=== PATIENT | male | born 1950 | race Caucasian/White ===

== ENCOUNTER 2016-02-11 05:36 | Day surgery (SDC) | payer BC ==
[2016-02-04 13:53] VITALS: BMI 25.7
[2016-02-11] MEDS ORDERED: KETAMINE HCL 500 MG/10 ML VIAL ONE (07:09)
[2016-02-11 08:08] VITALS: TEMP 98.9
[2016-02-11 08:30] VITALS: BP 138/62; PULSE 72
[2016-02-11] MEDS ORDERED: LACTATED RINGERS SOLUTION 1,000 ML IV SCH (08:45)
== END 2016-02-11 08:53 | disposition home or self-care (01) ==
LOC: FECT 05:36
PROVIDERS: ATTEND Psychiatry & Neurology Psychiatry
PROC: GZB4ZZZ Other Electroconvulsive Therapy (ICD-10-PCS; principal; 2016-02-11 07:30)
DX: F33.1 Major depressive disorder, recurrent, moderate (principal)
CPT/HCPCS: 90870; 94760

== ENCOUNTER 2016-02-25 05:40 | Day surgery (SDC) | payer BC ==
[2016-02-18 11:30] VITALS: BMI 25.7
--- NOTE | 2016-02-25 06:46 | HP ---
Admitting History and Physical - Admission History of Present Illness: patient is a 65 y/o male with a past medical history of depression and HTN. Patient presents for ECT, his last ECT was 02/10/15. He reports feeling well. He reports an improvement in depressive symptoms since starting ECT. He denies any recent medication changes illness or hospitalizations. History Source: Patient Limitations to Obtaining History: No Limitations - Past Medical History Cardiovascular: Yes: HTN Psych: Yes: Depression - Smoking History Smoking history: Former smoker Have you smoked in the past 12 months: No Aproximately how many cigarettes per day: 0 If you are a former smoker, when did you quit?: 1974 - Alcohol/Substance Use Hx Alcohol Use: Yes (2-3 WKLY) History of Substance Use: reports: None - Social History Usual Living Arrangement: Yes: With Spouse ADL: Independent History of Recent Travel: No Home Medications - Allergies Allergies/Adverse Reactions: Allergies Allergy/AdvReac Type Severity Reaction Status Date / Time clarithromycin [From Biaxin] Allergy Intermediate Hives Verified 12/13/15 06:41 Penicillins Allergy Unknown UNKNOWN-REACTION Verified 12/13/15 06:41 CHILD - Home Medications Home Medications: Ambulatory Orders BUPROPion HCL "SR" [Wellbutrin Sr -] 450 mg PO DAILY 10/25/13 Lamotrigine [Lamictal] 400 mg PO HS 10/25/13 Alprazolam [Xanax] 0.5 mg PO BID PRN 11/17/13 Ropinirole HCl [Requip Xl] 6 mg PO DAILY 12/21/14 Amlodipine Besylate 5 mg PO DAILY 12/12/15 Aspirin [ASA -] 81 mg PO DAILY 12/12/15 Atorvastatin Ca [Lipitor] 10 mg PO DAILY 12/12/15 Gabapentin Enacarbil [Horizant] 600 mg PO HS 12/12/15 Losartan/Hydrochlorothiazide [Losartan-Hctz 100-25 mg Tab] 1 each PO DAILY 12/11 Family Disease History - Family Disease History Family Disease History: [place]: Father (dies of [place]) Review of Systems - Review of Systems Constitutional: reports: No Symptoms Eyes: reports: No Symptoms HENT: reports: No Symptoms Neck: reports: No Symptoms Cardiovascular: reports: No Symptoms Respiratory: reports: No Symptoms Gastrointestinal: reports: No Symptoms Genitourinary: reports: No Symptoms Musculoskeletal: reports: No Symptoms Integumentary: reports: No Symptoms Neurological: reports: No Symptoms Endocrine: reports: No Symptoms Hematology/Lymphatic: reports: No Symptoms Psychiatric: reports: No Symptoms Physical Examination Vital Signs: Vital Signs Temperature 98.3 F 02/25/16 06:20 Pulse Rate 72 02/25/16 06:20 Respiratory Rate 16 02/25/16 06:20 Blood Pressure 117/66 02/25/16 06:20 O2 Sat by Pulse Oximetry (%) 96 02/25/16 06:20 Constitutional: Yes: Well Nourished, No Distress, Calm Eyes: Yes: WNL, Conjunctiva Clear, EOM Intact HENT: Yes: WNL, Atraumatic, Normocephalic Neck: Yes: WNL, Supple, Trachea Midline Cardiovascular: Yes: WNL, Regular Rate and Rhythm, S1, S2 Respiratory: Yes: WNL, Regular, CTA Bilaterally Gastrointestinal: Yes: WNL, Normal Bowel Sounds, Soft ...Rectal Exam: Yes: Deferred Renal/: No: CVA Tenderness - Left, CVA Tenderness - Right Musculoskeletal: Yes: WNL Extremities: Yes: WNL Edema: No Peripheral Pulses WNL: Yes Peripheral Pulses: Left Radial: 4+, Right Radial: 4+, Left Doralis Pedis: 3+, Right Dorsalis Pedis: 3+, Left Femoral: 3+, Right Femoral: 3+ Integumentary: Yes: WNL Neurological: Yes: WNL, Alert, Oriented ...Motor Strength: WNL Psychiatric: Yes: WNL, Alert, Oriented Labs: reviewed 12/24 Imaging - Results EKG: Image Reviewed, Other (nsr no ischemic changes) Assessment/Plan pt is a 65 y/o male that presents for ECT, pt has received ECT in the past and denies any reaction to anesthesia. labs and ekg reviewed pt is low risk for ECT informed consent, risks and benefits to be obtained by Dr Brock.
[2016-02-25] MEDS ORDERED: KETAMINE HCL 500 MG/10 ML VIAL ONE (07:54)
[2016-02-25] MEDS ORDERED: LACTATED RINGERS SOLUTION 1,000 ML IV SCH (08:15)
[2016-02-25 08:59] VITALS: BP 128/68; PULSE 76; TEMP 97.6
--- NOTE | 2016-02-25 16:16 | EKG ---
Test Reason : Blood Pressure : / mmHG Vent. Rate : 073 BPM Atrial Rate : 073 BPM P-R Int : 154 ms QRS Dur : 096 ms QT Int : 388 ms P-R-T Axes : 051 006 033 degrees QTc Int : 427 ms NORMAL SINUS RHYTHM NORMAL ECG NO PREVIOUS ECGS AVAILABLE Confirmed by RIVKA ADAMES, MARLENI ([id number]) on 02/25/2016 4:16:04 PM Referred By: Jose G Brock Confirmed By:MARLENI TINEO MD
== END 2016-02-25 09:25 | disposition home or self-care (01) ==
LOC: FECT 05:40
PROVIDERS: ATTEND Psychiatry & Neurology Psychiatry
PROC: GZB4ZZZ Other Electroconvulsive Therapy (ICD-10-PCS; principal; 2016-02-25 07:15)
DX: F33.1 Major depressive disorder, recurrent, moderate (principal)
CPT/HCPCS: 90870; 93005; 94760

== ENCOUNTER 2016-03-12 05:39 | Day surgery (SDC) | payer BC ==
[2016-03-11 10:16] VITALS: BMI 25.7
[2016-03-12] MEDS ORDERED: KETAMINE HCL 500 MG/10 ML VIAL ONE (07:38)
[2016-03-12 08:26] VITALS: TEMP 98.2
[2016-03-12 10:47] VITALS: BP 123/84; PULSE 86
== END 2016-03-12 09:15 | disposition home or self-care (01) ==
LOC: FECT 05:39
PROVIDERS: ATTEND Psychiatry & Neurology Psychiatry
PROC: GZB4ZZZ Other Electroconvulsive Therapy (ICD-10-PCS; principal; 2016-03-12 08:45)
DX: F33.1 Major depressive disorder, recurrent, moderate (principal)
CPT/HCPCS: 90870; 94760

== ENCOUNTER 2016-03-24 06:06 | Day surgery (SDC) | payer BC ==
[2016-03-17 12:52] VITALS: BMI 25.7
[2016-03-24] MEDS ORDERED: KETAMINE HCL 500 MG/10 ML VIAL ONE (07:14)
[2016-03-24 09:00] VITALS: TEMP 97.6
[2016-03-24 09:02] VITALS: BP 116/60; PULSE 64
== END 2016-03-24 09:04 | disposition home or self-care (01) ==
LOC: FECT 06:06
PROVIDERS: ATTEND Psychiatry & Neurology Psychiatry
PROC: GZB4ZZZ Other Electroconvulsive Therapy (ICD-10-PCS; principal; 2016-03-24 08:00)
DX: F33.2 Major depressive disorder, recurrent severe without psychotic features (principal)
CPT/HCPCS: 90870; 94760

== ENCOUNTER 2016-04-08 05:43 | Day surgery (SDC) | payer BC ==
[2016-04-01 09:21] VITALS: BMI 25.7
--- NOTE | 2016-04-08 06:50 | HP ---
Admitting History and Physical - Admission History of Present Illness: patient is a 65 y/o male with a past medical history of depression and hypertension. patient presents for ECT, his last ECT was 03/24/16. he reports feeling well and reports an improvement in depressive symptoms since starting ECt. he denies any recent medication change, illness or hospitalizations. patient denies any suicidal or homicidal ideation, visual or auditory hallucination. History Source: Patient Limitations to Obtaining History: No Limitations - Past Medical History Cardiovascular: Yes: HTN Psych: Yes: Depression - Smoking History Smoking history: Former smoker Have you smoked in the past 12 months: No Aproximately how many cigarettes per day: 0 If you are a former smoker, when did you quit?: 1974 - Alcohol/Substance Use Hx Alcohol Use: Yes (2-3 WKLY) History of Substance Use: reports: None - Social History Usual Living Arrangement: Yes: Alone, With Spouse ADL: Independent History of Recent Travel: No Home Medications - Allergies Allergies/Adverse Reactions: Allergies Allergy/AdvReac Type Severity Reaction Status Date / Time clarithromycin [From Biaxin] Allergy Intermediate Hives Verified 12/13/15 06:41 Penicillins Allergy Unknown UNKNOWN-REACTION Verified 12/13/15 06:41 CHILD - Home Medications Home Medications: Ambulatory Orders BUPROPion HCL "SR" [Wellbutrin Sr -] 450 mg PO DAILY 10/25/13 Lamotrigine [Lamictal] 400 mg PO HS 10/25/13 Alprazolam [Xanax] 0.5 mg PO BID PRN 11/17/13 Ropinirole HCl [Requip Xl] 6 mg PO DAILY 12/21/14 Amlodipine Besylate 5 mg PO DAILY 12/12/15 Aspirin [ASA -] 81 mg PO DAILY 12/12/15 Atorvastatin Ca [Lipitor] 10 mg PO DAILY 12/12/15 Gabapentin Enacarbil [Horizant] 600 mg PO HS 12/12/15 Losartan/Hydrochlorothiazide [Losartan-Hctz 100-25 mg Tab] 1 each PO DAILY 12/11 Family Disease History - Family Disease History Family History: Unremarkable Family Disease History: [place]: Father (dies of [place]) Review of Systems - Review of Systems Constitutional: reports: No Symptoms Eyes: reports: No Symptoms HENT: reports: No Symptoms Neck: reports: No Symptoms Cardiovascular: reports: No Symptoms Respiratory: reports: No Symptoms Gastrointestinal: reports: No Symptoms Genitourinary: reports: No Symptoms Breasts: reports: No Symptoms Reported Musculoskeletal: reports: No Symptoms Integumentary: reports: No Symptoms Neurological: reports: No Symptoms Endocrine: reports: No Symptoms Hematology/Lymphatic: reports: No Symptoms Psychiatric: reports: No Symptoms Physical Examination Vital Signs: Vital Signs Temperature 98.3 F 04/08/16 06:21 Pulse Rate 76 04/08/16 06:21 Respiratory Rate 18 04/08/16 06:21 Blood Pressure 127/68 04/08/16 06:21 O2 Sat by Pulse Oximetry (%) 97 04/08/16 06:21 Constitutional: Yes: Well Nourished, No Distress, Calm Eyes: Yes: WNL, Conjunctiva Clear, EOM Intact HENT: Yes: WNL, Atraumatic, Normocephalic Neck: Yes: WNL, Supple, Trachea Midline Cardiovascular: Yes: WNL, Regular Rate and Rhythm, S1, S2 Respiratory: Yes: WNL, Regular, CTA Bilaterally Gastrointestinal: Yes: WNL, Normal Bowel Sounds, Soft ...Rectal Exam: Yes: Deferred Renal/: Yes: WNL Breast(s): Yes: WNL Musculoskeletal: Yes: WNL Extremities: Yes: WNL Edema: No Peripheral Pulses WNL: Yes Peripheral Pulses: Left Radial: 4+, Right Radial: 4+, Left Doralis Pedis: 3+, Right Dorsalis Pedis: 3+, Left Femoral: 3+, Right Femoral: 3+ Integumentary: Yes: WNL Neurological: Yes: WNL, Alert, Oriented ...Motor Strength: WNL Psychiatric: Yes: WNL, Alert, Oriented Labs: reviewed 12/24 Imaging - Results EKG: Report Reviewed, Image Reviewed, Other (nsr normal axis, no ischemic changes) Assessment/Plan pt is a 65 y/o male that presents for ECT, he has received ECT in the past and denies any adverse reaction to anesthesia labs and ekg reviewed pt is low risk for ECT informed consent, risks/benefits to be obtained by Dr Brock
[2016-04-08] MEDS ORDERED: ONDANSETRON 4 MG/2 ML VIAL IVPUSH PRN (07:00)
[2016-04-08] MEDS ORDERED: LACTATED RINGERS SOLUTION 1,000 ML IV SCH (07:00)
[2016-04-08] MEDS ORDERED: KETAMINE HCL 500 MG/10 ML VIAL ONE (07:15)
[2016-04-08 08:56] VITALS: TEMP 97.5
[2016-04-08 09:10] VITALS: BP 130/66; PULSE 76
== END 2016-04-08 09:15 | disposition home or self-care (01) ==
LOC: FECT 05:43
PROVIDERS: ATTEND Psychiatry & Neurology Psychiatry
PROC: GZB4ZZZ Other Electroconvulsive Therapy (ICD-10-PCS; principal; 2016-04-08 07:00)
DX: F33.2 Major depressive disorder, recurrent severe without psychotic features (principal)
CPT/HCPCS: 90870; 94760

== ENCOUNTER → 2016-04-22 | Day surgery (SDC) | payer BC ==
[2016-04-13 10:13] VITALS: BMI 25.7
[~2016-04-22] MED LIST: ACETAMINOPHEN 325 MG TABLET (FP) PO PRN; KETAMINE HCL 500 MG/10 ML VIAL ONE; ONDANSETRON 4 MG/2 ML VIAL IVPUSH PRN
[2016-04-22 08:39] VITALS: BP 133/64; TEMP 98.5
[2016-04-22 08:40] VITALS: PULSE 68
== END | disposition home or self-care (01) ==
LOC: FECT 05:39
PROVIDERS: ATTEND Psychiatry & Neurology Psychiatry
PROC: GZB4ZZZ Other Electroconvulsive Therapy (ICD-10-PCS; principal; 2016-04-22 08:00)
DX: F33.2 Major depressive disorder, recurrent severe without psychotic features (principal)
CPT/HCPCS: 90870; 94760

== ENCOUNTER 2016-05-12 05:35 | Day surgery (SDC) | payer BC ==
[2016-04-22 08:51] VITALS: BMI 25.7
--- NOTE | 2016-05-12 07:12 | HP ---
Admitting History and Physical - Admission History of Present Illness: patient is a 65y/o male with a past medical history of depression and hypertension that presents for ECT. His last ECT was 04/22/16. He reports a recent URI, that is resolved, however, he reports residual cough. Patient denies any chest pain or shortness of breath. patient denies any recent medication changes. He reports compliance with prescribed medication. He reports an improvement in depressive symptoms since starting ECT. patient denies any suicidal or homicidal ideation, visual or auditory hallucination. History Source: Patient Limitations to Obtaining History: No Limitations - Past Medical History Cardiovascular: Yes: HTN Psych: Yes: Depression - Smoking History Smoking history: Former smoker Have you smoked in the past 12 months: No Aproximately how many cigarettes per day: 0 If you are a former smoker, when did you quit?: 1974 - Alcohol/Substance Use Hx Alcohol Use: Yes (2-3 WKLY) History of Substance Use: reports: None - Social History Usual Living Arrangement: Yes: With Spouse ADL: Independent History of Recent Travel: No Home Medications - Allergies Allergies/Adverse Reactions: Allergies Allergy/AdvReac Type Severity Reaction Status Date / Time clarithromycin [From Biaxin] Allergy Intermediate Hives Verified 04/22/16 08:47 Penicillins Allergy Unknown UNKNOWN-REACTION Verified 04/22/16 08:47 CHILD - Home Medications Home Medications: Ambulatory Orders BUPROPion HCL "SR" [Wellbutrin Sr -] 450 mg PO DAILY 10/25/13 Lamotrigine [Lamictal] 400 mg PO HS 10/25/13 Alprazolam [Xanax] 0.5 mg PO BID PRN 11/17/13 Ropinirole HCl [Requip Xl] 6 mg PO DAILY 12/21/14 Amlodipine Besylate 5 mg PO DAILY 12/12/15 Aspirin [ASA -] 81 mg PO DAILY 12/12/15 Atorvastatin Ca [Lipitor] 10 mg PO DAILY 12/12/15 Gabapentin Enacarbil [Horizant] 600 mg PO HS 12/12/15 Losartan/Hydrochlorothiazide [Losartan-Hctz 100-25 mg Tab] 1 each PO DAILY 12/11 Family Disease History - Family Disease History Family Disease History: [place]: Father (dies of [place]) Review of Systems - Review of Systems Constitutional: reports: No Symptoms Eyes: reports: No Symptoms HENT: reports: No Symptoms Neck: reports: No Symptoms Cardiovascular: reports: No Symptoms Respiratory: reports: Other (resolving URI) Gastrointestinal: reports: No Symptoms Genitourinary: reports: No Symptoms Musculoskeletal: reports: No Symptoms Integumentary: reports: No Symptoms Neurological: reports: No Symptoms Endocrine: reports: No Symptoms Hematology/Lymphatic: reports: No Symptoms Psychiatric: reports: No Symptoms Physical Examination Vital Signs: Vital Signs Temperature 98.5 F 05/12/16 06:39 Pulse Rate 86 05/12/16 06:39 Respiratory Rate 18 05/12/16 06:39 Blood Pressure 122/58 05/12/16 06:39 O2 Sat by Pulse Oximetry (%) 98 05/12/16 06:39 Constitutional: Yes: Well Nourished, No Distress, Calm Eyes: Yes: WNL, Conjunctiva Clear, EOM Intact HENT: Yes: WNL, Atraumatic, Normocephalic Neck: Yes: WNL, Supple, Trachea Midline Cardiovascular: Yes: WNL, Regular Rate and Rhythm Respiratory: Yes: WNL, Regular, CTA Bilaterally Gastrointestinal: Yes: WNL, Normal Bowel Sounds, Soft ...Rectal Exam: Yes: Deferred Renal/: Yes: WNL Musculoskeletal: Yes: WNL Extremities: Yes: WNL Edema: No Peripheral Pulses WNL: Yes Peripheral Pulses: Left Radial: 4+, Right Radial: 4+, Left Doralis Pedis: 3+, Right Dorsalis Pedis: 3+, Left Femoral: 3+, Right Femoral: 3+ Integumentary: Yes: WNL Neurological: Yes: WNL, Alert, Oriented ...Motor Strength: WNL Psychiatric: Yes: WNL, Alert, Oriented Labs: reviewed 12/24 Imaging - Results EKG: Image Reviewed, Other (nsr no ischemic changes) Assessment/Plan patient is 65 y/o male that presents for ECT, labs and ekg reviewed, pt has received anesthesia in the past and denies any adverse reaction pt is low risk for procedure informed consent and risks/benefits to be obtained by Dr Brock
[2016-05-12] MEDS ORDERED: KETAMINE HCL 500 MG/10 ML VIAL ONE (07:37)
[2016-05-12] MEDS ORDERED: LACTATED RINGERS SOLUTION 1,000 ML IV SCH (08:15)
[2016-05-12 08:40] VITALS: TEMP 98.9
[2016-05-12 08:58] VITALS: BP 108/61; PULSE 71
== END 2016-05-12 09:10 | disposition home or self-care (01) ==
LOC: FECT 05:35
PROVIDERS: ATTEND Psychiatry & Neurology Psychiatry
PROC: GZB4ZZZ Other Electroconvulsive Therapy (ICD-10-PCS; principal; 2016-05-12 07:00)
DX: F33.2 Major depressive disorder, recurrent severe without psychotic features (principal)
CPT/HCPCS: 90870; 94760

== ENCOUNTER 2016-06-02 05:42 | Day surgery (SDC) | payer BC ==
[2016-06-02 06:11] VITALS: TEMP 98.5; BMI 26.4
[2016-06-02 08:25] VITALS: BP 115/60; PULSE 63
== END 2016-06-02 09:20 | disposition home or self-care (01) ==
LOC: FECT 05:42
PROVIDERS: ATTEND Psychiatry & Neurology Psychiatry
PROC: GZB4ZZZ Other Electroconvulsive Therapy (ICD-10-PCS; principal; 2016-06-02 07:00)
DX: F33.2 Major depressive disorder, recurrent severe without psychotic features (principal)
CPT/HCPCS: 90870; 94760

== ENCOUNTER 2016-06-25 05:23 | Day surgery (SDC) | payer BC ==
[2016-06-15 14:18] VITALS: BMI 26.4
--- NOTE | 2016-06-25 06:56 | HP ---
Admitting History and Physical - Admission Chief Complaint: ect History of Present Illness: patient is a 65 y/o male with depression and hypertension. patient presents for ECT, his last ECT was 06/02/17. Patient reports feeling well, he denies any changes to medications. patient reports an improvement in depressive symptoms since starting ECT. He denies any illness or hospitalizations. Patient denies any suicidal or homicidal ideation, visual or auditory hallucinations. History Source: Patient Limitations to Obtaining History: No Limitations - Past Medical History Cardiovascular: Yes: HTN Psych: Yes: Depression - Smoking History Smoking history: Former smoker Have you smoked in the past 12 months: No Aproximately how many cigarettes per day: 0 If you are a former smoker, when did you quit?: 1974 - Alcohol/Substance Use Hx Alcohol Use: Yes (2-3 WKLY) History of Substance Use: reports: None - Social History ADL: Independent History of Recent Travel: No Home Medications - Allergies Allergies/Adverse Reactions: Allergies Allergy/AdvReac Type Severity Reaction Status Date / Time clarithromycin [From Biaxin] Allergy Intermediate Hives Verified 04/22/16 08:47 Penicillins Allergy Unknown UNKNOWN-REACTION Verified 04/22/16 08:47 CHILD - Home Medications Home Medications: Ambulatory Orders BUPROPion HCL "SR" [Wellbutrin Sr -] 450 mg PO DAILY 10/25/13 Lamotrigine [Lamictal] 400 mg PO HS 10/25/13 Alprazolam [Xanax] 0.5 mg PO BID PRN 11/17/13 Ropinirole HCl [Requip Xl] 6 mg PO DAILY 12/21/14 Amlodipine Besylate 5 mg PO DAILY 12/12/15 Aspirin [ASA -] 81 mg PO DAILY 12/12/15 Atorvastatin Ca [Lipitor] 10 mg PO DAILY 12/12/15 Gabapentin Enacarbil [Horizant] 600 mg PO HS 12/12/15 Losartan/Hydrochlorothiazide [Losartan-Hctz 100-25 mg Tab] 1 each PO DAILY 12/11 Family Disease History - Family Disease History Family Disease History: [place]: Father (dies of [place]) Review of Systems - Review of Systems Constitutional: reports: No Symptoms Eyes: reports: No Symptoms HENT: reports: No Symptoms Neck: reports: No Symptoms Cardiovascular: reports: No Symptoms Respiratory: reports: No Symptoms Gastrointestinal: reports: No Symptoms Genitourinary: reports: No Symptoms Musculoskeletal: reports: No Symptoms Integumentary: reports: No Symptoms Neurological: reports: No Symptoms Endocrine: reports: No Symptoms Hematology/Lymphatic: reports: No Symptoms Psychiatric: reports: No Symptoms Physical Examination Constitutional: Yes: Well Nourished, No Distress, Calm Eyes: Yes: WNL, Conjunctiva Clear, EOM Intact HENT: Yes: WNL, Atraumatic, Normocephalic Neck: Yes: WNL, Supple, Trachea Midline Cardiovascular: Yes: WNL, Regular Rate and Rhythm, S1, S2 Respiratory: Yes: WNL, Regular, CTA Bilaterally Gastrointestinal: Yes: WNL, Normal Bowel Sounds, Soft ...Rectal Exam: Yes: Deferred Renal/: Yes: WNL Breast(s): Yes: WNL Musculoskeletal: Yes: WNL Extremities: Yes: WNL Edema: No Peripheral Pulses WNL: Yes Peripheral Pulses: Left Radial: 4+, Right Radial: 4+, Left Doralis Pedis: 3+, Right Dorsalis Pedis: 3+, Left Femoral: 3+, Right Femoral: 3+ Integumentary: Yes: WNL Neurological: Yes: WNL, Alert, Oriented ...Motor Strength: WNL Psychiatric: Yes: WNL, Alert, Oriented Labs: CBC WBC 3.4 K/mm3 (4.0-10.8) L 06/25/16 07:00 RBC 3.74 M/mm3 (4.00-5.60) L 06/25/16 07:00 Hgb 11.9 GM/dl (11.7-16.9) 06/25/16 07:00 Hct 35.0 % (35.4-49) L 06/25/16 07:00 MCV 93.6 fl (80-96) 06/25/16 07:00 MCHC 34.0 g/dl (32.0-35.9) 06/25/16 07:00 RDW 13.2 % (11.9-15.9) 06/25/16 07:00 Plt Count 218 K/MM3 (134-434) 06/25/16 07:00 MPV 7.1 fl (7.5-11.1) L 06/25/16 07:00 Neutrophils % 69.1 % (42.8-82.8) 06/25/16 07:00 Lymphocytes % 18.7 % (8-40) 06/25/16 07:00 Monocytes % 7.5 % (3.8-10.2) 06/25/16 07:00 Eosinophils % 4.3 % (0-4.5) 06/25/16 07:00 Basophils % 0.4 % (0-2.0) 06/25/16 07:00 CMP Sodium 134 mmol/L (136-145) L 06/25/16 07:20 Potassium 3.8 mmol/L (3.5-5.1) 06/25/16 07:20 Chloride 99 mmol/L (98-107) 06/25/16 07:20 Carbon Dioxide 28 mmol/L (22-28) 06/25/16 07:20 Anion Gap 7 (8-16) L 06/25/16 07:20 BUN 15 mg/dl (7-18) D 06/25/16 07:20 Creatinine 0.8 mg/dl (0.6-1.3) 06/25/16 07:20 Creat Clearance w eGFR > 60 (>60) 06/25/16 07:20 Random Glucose 101 mg/dl (74-106) 06/25/16 07:20 Calcium 9.0 mg/dl (8.4-10.2) 06/25/16 07:20 Total Bilirubin 0.4 mg/dl (0.2-1.0) 06/25/16 07:20 AST 23 U/L (10-42) 06/25/16 07:20 ALT 19 U/L (10-40) 06/25/16 07:20 Alkaline Phosphatase 67 U/L (32-92) D 06/25/16 07:20 Total Protein 6.4 g/dl (6.4-8.3) 06/25/16 07:20 Albumin 4.0 g/dl (3.5-5.0) 06/25/16 07:20 Imaging - Results EKG: Image Reviewed (nsr no ischemic changes) Assessment/Plan pt is a 65 y/o male that presents for ect, pt has received ect in the past and denies any adverser reaction to anesthesia labs and ekg reviewed pt is medically optimized pending labs.
[2016-06-25 07:39] LABS: BASOPHIL 0.4 % (0-2.0); EOSINOPHIL 4.3 % (0-4.5); MCH 31.8 pg (25.7-33.7); MEAN CELL VOLUME 93.6 fl (80-96); MEAN PLT VOLUME 7.1 fl (7.5-11.1); NEUTROPHILS 69.1 % (42.8-82.8); PLATELET COUNT 218 K/MM3 (134-434); RDW 13.2 % (11.9-15.9); WHITE BLOOD COUNT 3.4 K/mm3 (4.0-10.8)
[2016-06-25 07:47] LABS: ALK PHOS 67 U/L (32-92); ANION GAP 7 (8-16); BILIRUBIN,TOTAL 0.4 mg/dl (0.2-1.0); CO2 28 mmol/L (22-28); CREATININE 0.8 mg/dl (0.6-1.3); GLUCOSE,RANDOM 101 mg/dl (74-106); SGOT/AST 23 U/L (10-42); SGPT/ALT 19 U/L (10-40); TOT PROT 6.4 g/dl (6.4-8.3)
[2016-06-25] MEDS ORDERED: KETAMINE HCL 500 MG/10 ML VIAL ONE (07:58)
[2016-06-25 08:51] VITALS: PULSE 61; TEMP 98.1
[2016-06-25 09:19] VITALS: BP 120/68
[2016-06-25] MEDS ORDERED: ACETAMINOPHEN 325 MG TABLET (FP) PO PRN (09:33)
[2016-06-25] MEDS ORDERED: ONDANSETRON 4 MG/2 ML VIAL IVPUSH PRN (09:47)
== END 2016-06-25 09:30 | disposition home or self-care (01) ==
LOC: FECT 05:23
PROVIDERS: ATTEND Psychiatry & Neurology Psychiatry
PROC: GZB4ZZZ Other Electroconvulsive Therapy (ICD-10-PCS; principal; 2016-06-25 07:30)
DX: F33.2 Major depressive disorder, recurrent severe without psychotic features (principal)
CPT/HCPCS: 36415; 80053; 85025; 90870; 94760

== ENCOUNTER 2016-07-16 05:48 | Day surgery (SDC) | payer BC ==
[2016-07-07 12:58] VITALS: BMI 26.4
[2016-07-16 08:43] VITALS: TEMP 97.8
[2016-07-16 08:44] VITALS: BP 115/66; PULSE 62
[2016-07-16] MEDS ORDERED: ONDANSETRON 4 MG/2 ML VIAL IVPUSH PRN (08:44)
[2016-07-16] MEDS ORDERED: LACTATED RINGERS SOLUTION 1,000 ML IV SCH (08:45)
== END 2016-07-16 09:00 | disposition home or self-care (01) ==
LOC: FECT 05:48
PROVIDERS: ATTEND Psychiatry & Neurology Psychiatry
PROC: GZB4ZZZ Other Electroconvulsive Therapy (ICD-10-PCS; principal; 2016-07-16 07:15)
DX: F33.2 Major depressive disorder, recurrent severe without psychotic features (principal)
CPT/HCPCS: 90870; 94760

== ENCOUNTER 2016-08-06 05:36 | Day surgery (SDC) | payer BC ==
[2016-07-29 17:04] VITALS: BMI 26.4
[2016-08-06 07:04] VITALS: TEMP 98
--- NOTE | 2016-08-06 07:09 | HP ---
Admitting History and Physical - Admission History of Present Illness: patient is a 65 y/o male with a past medical history of hypertension and depression. Patient presents for ect, his last ect was 07/16/16. He reports feeling well and reports an improvement in depressive symptoms since starting ect. he denies any changes in medication. Patient denies any recent illnesses or hospitalizations He denies any suicidal or homicidal ideation, visual or auditory hallucinations. History Source: Patient Limitations to Obtaining History: No Limitations - Past Medical History Cardiovascular: Yes: HTN Psych: Yes: Depression - Smoking History Smoking history: Former smoker Have you smoked in the past 12 months: No Aproximately how many cigarettes per day: 0 If you are a former smoker, when did you quit?: 1974 - Alcohol/Substance Use Hx Alcohol Use: Yes (2-3 WKLY) History of Substance Use: reports: None - Social History ADL: Independent History of Recent Travel: No Home Medications - Allergies Allergies/Adverse Reactions: Allergies Allergy/AdvReac Type Severity Reaction Status Date / Time clarithromycin [From Biaxin] Allergy Intermediate Hives Verified 07/29/16 17:02 Penicillins Allergy Unknown UNKNOWN-REACTION Verified 07/29/16 17:02 CHILD - Home Medications Home Medications: Ambulatory Orders BUPROPion HCL "SR" [Wellbutrin Sr -] 450 mg PO DAILY 10/25/13 Alprazolam [Xanax] 0.5 mg PO BID PRN 11/17/13 Ropinirole HCl [Requip Xl] 6 mg PO DAILY 12/21/14 Amlodipine Besylate 5 mg PO DAILY 12/12/15 Aspirin [ASA -] 81 mg PO DAILY 12/12/15 Atorvastatin Ca [Lipitor] 10 mg PO DAILY 12/12/15 Gabapentin Enacarbil [Horizant] 600 mg PO HS 12/12/15 Losartan/Hydrochlorothiazide [Losartan-Hctz 100-25 mg Tab] 1 each PO DAILY 12/11 Family Disease History - Family Disease History Family Disease History: [place]: Father (dies of [place]) Review of Systems - Review of Systems Constitutional: reports: No Symptoms Eyes: reports: No Symptoms HENT: reports: No Symptoms Neck: reports: No Symptoms Cardiovascular: reports: No Symptoms Respiratory: reports: No Symptoms Gastrointestinal: reports: No Symptoms Genitourinary: reports: No Symptoms Musculoskeletal: reports: No Symptoms Integumentary: reports: No Symptoms Neurological: reports: No Symptoms Endocrine: reports: No Symptoms Hematology/Lymphatic: reports: No Symptoms Psychiatric: reports: No Symptoms Physical Examination Constitutional: Yes: Well Nourished, No Distress, Calm Eyes: Yes: WNL, Conjunctiva Clear, EOM Intact HENT: Yes: WNL, Atraumatic, Normocephalic Neck: Yes: WNL, Supple, Trachea Midline Cardiovascular: Yes: WNL, Regular Rate and Rhythm, S1, S2 Respiratory: Yes: WNL, Regular, CTA Bilaterally Gastrointestinal: Yes: WNL, Normal Bowel Sounds, Soft ...Rectal Exam: Yes: Deferred Renal/: Yes: WNL Breast(s): Yes: WNL Musculoskeletal: Yes: WNL Extremities: Yes: WNL Edema: No Peripheral Pulses WNL: Yes Peripheral Pulses: Left Radial: 4+, Right Radial: 4+, Left Doralis Pedis: 3+, Right Dorsalis Pedis: 3+, Left Femoral: 3+, Right Femoral: 3+ Integumentary: Yes: WNL Neurological: Yes: WNL, Alert, Oriented ...Motor Strength: WNL Psychiatric: Yes: WNL, Alert, Oriented Labs: reviewed 06/24 Imaging - Results EKG: Other (nsr no ischmeic changes) Assessment/Plan pt is a 65 y/o male that presents for ect,he has receieved ect in the past and denies any adverse reaction to anesthesia. labs and ekg reviewed pt is low risk for procedure informed consent risks/benefits to be obtained by Dr arm
[2016-08-06] MEDS ORDERED: KETAMINE HCL 500 MG/10 ML VIAL ONE (08:03)
[2016-08-06 09:20] VITALS: BP 112/72; PULSE 61
== END 2016-08-06 09:23 | disposition home or self-care (01) ==
LOC: FECT 05:36
PROVIDERS: ATTEND Psychiatry & Neurology Psychiatry
PROC: GZB4ZZZ Other Electroconvulsive Therapy (ICD-10-PCS; principal; 2016-08-06 07:00)
DX: F33.2 Major depressive disorder, recurrent severe without psychotic features (principal)
CPT/HCPCS: 90870; 94760

== ENCOUNTER 2016-08-25 05:42 | Day surgery (SDC) | payer BC ==
[2016-08-25 06:25] VITALS: BMI 26.4
[2016-08-25] MEDS ORDERED: KETAMINE HCL 500 MG/10 ML VIAL ONE (07:20)
[2016-08-25 08:32] VITALS: TEMP 97.6
[2016-08-25 08:38] VITALS: BP 120/66; PULSE 66
--- NOTE | 2016-08-25 16:18 | EKG ---
Test Reason : Blood Pressure : / mmHG Vent. Rate : 064 BPM Atrial Rate : 064 BPM P-R Int : 148 ms QRS Dur : 090 ms QT Int : 398 ms P-R-T Axes : 026 009 026 degrees QTc Int : 410 ms NORMAL SINUS RHYTHM NORMAL ECG WHEN COMPARED WITH ECG OF 25-FEB-2016 06:36, NO SIGNIFICANT CHANGE WAS FOUND Confirmed by MARIA ESTHER CALDERON MD ([id number]) on 08/25/2016 4:18:36 PM Referred By: Jose G Brock Confirmed By:MARIA ESTHER CALDERON MD
== END 2016-08-25 08:45 | disposition home or self-care (01) ==
LOC: FECT 05:42
PROVIDERS: ATTEND Psychiatry & Neurology Psychiatry
PROC: GZB4ZZZ Other Electroconvulsive Therapy (ICD-10-PCS; principal; 2016-08-25 07:15)
DX: F33.2 Major depressive disorder, recurrent severe without psychotic features (principal)
CPT/HCPCS: 90870; 93005; 93010; 94760

== ENCOUNTER 2016-09-15 05:39 | Day surgery (SDC) | payer BC ==
[2016-08-26 11:19] VITALS: BMI 25.7
--- NOTE | 2016-09-15 07:06 | HP ---
Admitting History and Physical - Admission History of Present Illness: pt is a 66 y/o male with a past medical history of depression and hypertension. Patient presents for ect, his last ect was 08/25/16. He reports feeling well and denies any changes to medications. He denies any recent illnesses or hospitalizations. Patient does report an improvement in depressive symptoms since starting ect. Patient denies any suicidal or homicidal ideation, visual or auditory hallucinations. History Source: Patient Limitations to Obtaining History: No Limitations - Past Medical History Cardiovascular: Yes: HTN Psych: Yes: Depression - Smoking History Smoking history: Former smoker Have you smoked in the past 12 months: No Aproximately how many cigarettes per day: 0 If you are a former smoker, when did you quit?: 1974 - Alcohol/Substance Use Hx Alcohol Use: Yes (2-3 WKLY) History of Substance Use: reports: None - Social History Usual Living Arrangement: Yes: With Spouse ADL: Independent History of Recent Travel: No Home Medications - Allergies Allergies/Adverse Reactions: Allergies Allergy/AdvReac Type Severity Reaction Status Date / Time clarithromycin [From Biaxin] Allergy Intermediate Hives Verified 08/25/16 06:29 Penicillins Allergy Unknown UNKNOWN-REACTION Verified 08/25/16 06:29 CHILD - Home Medications Home Medications: Ambulatory Orders BUPROPion HCL "SR" [Wellbutrin Sr -] 450 mg PO DAILY 10/25/13 Alprazolam [Xanax] 0.5 mg PO BID PRN 11/17/13 Ropinirole HCl [Requip Xl] 6 mg PO DAILY 12/21/14 Amlodipine Besylate 5 mg PO DAILY 12/12/15 Aspirin [ASA -] 81 mg PO DAILY 12/12/15 Atorvastatin Ca [Lipitor] 10 mg PO DAILY 12/12/15 Gabapentin Enacarbil [Horizant] 600 mg PO HS 12/12/15 Losartan/Hydrochlorothiazide [Losartan-Hctz 100-25 mg Tab] 1 each PO DAILY 12/11 Family Disease History - Family Disease History Family Disease History: [place]: Father (dies of [place]) Review of Systems - Review of Systems Constitutional: reports: No Symptoms Eyes: reports: No Symptoms HENT: reports: No Symptoms Neck: reports: No Symptoms Cardiovascular: reports: No Symptoms Respiratory: reports: No Symptoms Gastrointestinal: reports: No Symptoms Genitourinary: reports: No Symptoms Breasts: reports: No Symptoms Reported Musculoskeletal: reports: No Symptoms Integumentary: reports: No Symptoms Neurological: reports: No Symptoms Endocrine: reports: No Symptoms Hematology/Lymphatic: reports: No Symptoms Psychiatric: reports: No Symptoms Physical Examination Constitutional: Yes: Well Nourished, No Distress, Calm Eyes: Yes: WNL, Conjunctiva Clear, EOM Intact HENT: Yes: WNL, Atraumatic, Normocephalic Neck: Yes: WNL, Supple, Trachea Midline Cardiovascular: Yes: WNL, Regular Rate and Rhythm, S1, S2 Respiratory: Yes: WNL, Regular, CTA Bilaterally Gastrointestinal: Yes: WNL, Normal Bowel Sounds, Soft ...Rectal Exam: Yes: Deferred Renal/: Yes: WNL Breast(s): Yes: WNL Musculoskeletal: Yes: WNL Extremities: Yes: WNL Edema: No Peripheral Pulses WNL: Yes Peripheral Pulses: Left Radial: 4+, Right Radial: 4+, Left Doralis Pedis: 3+, Right Dorsalis Pedis: 3+, Left Femoral: 3+, Right Femoral: 3+ Integumentary: Yes: WNL Neurological: Yes: WNL, Alert, Oriented ...Motor Strength: WNL Psychiatric: Yes: WNL, Alert, Oriented Labs: reviewed 06/24 Imaging - Results EKG: Other (nsr no ischemic) Assessment/Plan pt is a 66 y/o male that presents for ect, he has received ect in the past and denies any adverse reaction to anesthesia labs and ekg reviewed, pt is medically optimized for procedure
[2016-09-15] MEDS ORDERED: KETAMINE HCL 500 MG/10 ML VIAL ONE (08:19)
[2016-09-15 09:42] VITALS: BP 124/63; PULSE 61; TEMP 98
== END 2016-09-15 09:40 | disposition home or self-care (01) ==
LOC: FECT 05:39
PROVIDERS: ATTEND Psychiatry & Neurology Psychiatry
PROC: GZB4ZZZ Other Electroconvulsive Therapy (ICD-10-PCS; principal; 2016-09-15 07:15)
DX: F33.2 Major depressive disorder, recurrent severe without psychotic features (principal)
CPT/HCPCS: 90870; 94760

== ENCOUNTER 2016-10-08 05:40 | Day surgery (SDC) | payer BC ==
[2016-10-08 06:10] VITALS: BMI 25.7
[2016-10-08] MEDS ORDERED: KETAMINE HCL 500 MG/10 ML VIAL ONE (06:56)
[2016-10-08 07:41] VITALS: TEMP 97.5
[2016-10-08 09:09] VITALS: BP 120/66; PULSE 62
== END 2016-10-08 08:30 | disposition home or self-care (01) ==
LOC: FECT 05:40
PROVIDERS: ATTEND Psychiatry & Neurology Psychiatry
PROC: GZB4ZZZ Other Electroconvulsive Therapy (ICD-10-PCS; principal; 2016-10-08 07:45)
DX: F33.2 Major depressive disorder, recurrent severe without psychotic features (principal)
CPT/HCPCS: 90870; 94760

== ENCOUNTER 2016-11-05 05:44 | Day surgery (SDC) | payer BC ==
[2016-10-20 12:17] VITALS: BMI 25.7
--- NOTE | 2016-11-05 07:01 | HP ---
Admitting History and Physical - Admission History of Present Illness: patient is a 66 y/o male with a past medical history of depression and hypertension. patient presents for ect, his last ect was 10/08/16. Patient reports feeling well, he denies any changes in mediations. He denies any recent hospitalizations. patient denies any suicidal or homicidal ideation, visual or auditory hallucinations. History Source: Patient Limitations to Obtaining History: No Limitations - Past Medical History Cardiovascular: Yes: HTN Psych: Yes: Depression - Smoking History Smoking history: Former smoker Have you smoked in the past 12 months: No Aproximately how many cigarettes per day: 0 If you are a former smoker, when did you quit?: 1974 - Alcohol/Substance Use Hx Alcohol Use: Yes (2-3 WKLY) History of Substance Use: reports: None - Social History ADL: Independent History of Recent Travel: No Home Medications - Allergies Allergies/Adverse Reactions: Allergies Allergy/AdvReac Type Severity Reaction Status Date / Time clarithromycin [From Biaxin] Allergy Intermediate Hives Verified 08/25/16 06:29 Penicillins Allergy Unknown UNKNOWN-REACTION Verified 08/25/16 06:29 CHILD - Home Medications Home Medications: Ambulatory Orders BUPROPion HCL "SR" [Wellbutrin Sr -] 300 mg PO DAILY 10/25/13 Alprazolam [Xanax] 0.5 mg PO BID PRN 11/17/13 Ropinirole HCl [Requip Xl] 6 mg PO DAILY 12/21/14 Amlodipine Besylate 5 mg PO DAILY 12/12/15 Aspirin [ASA -] 81 mg PO DAILY 12/12/15 Atorvastatin Ca [Lipitor] 10 mg PO DAILY 12/12/15 Gabapentin Enacarbil [Horizant] 600 mg PO HS 12/12/15 Losartan/Hydrochlorothiazide [Losartan-Hctz 100-25 mg Tab] 1 each PO DAILY 12/11 Acetaminophen [Tylenol .Extra-Strength -] 500 mg PO Q6H 09/15/16 Family Disease History - Family Disease History Family Disease History: [place]: Father ( of [place]) Review of Systems - Review of Systems Constitutional: reports: No Symptoms Eyes: reports: No Symptoms HENT: reports: No Symptoms Neck: reports: No Symptoms Cardiovascular: reports: No Symptoms Respiratory: reports: No Symptoms Gastrointestinal: reports: No Symptoms Genitourinary: reports: No Symptoms Musculoskeletal: reports: No Symptoms Integumentary: reports: No Symptoms Neurological: reports: No Symptoms Endocrine: reports: No Symptoms Hematology/Lymphatic: reports: No Symptoms Psychiatric: reports: No Symptoms Physical Examination Vital Signs: Vital Signs Temperature 98.0 F 11/05/16 06:40 Pulse Rate 71 11/05/16 06:40 Respiratory Rate 18 11/05/16 06:40 Blood Pressure 127/85 11/05/16 06:40 O2 Sat by Pulse Oximetry (%) 96 11/05/16 06:40 Constitutional: Yes: Well Nourished, No Distress, Calm Eyes: Yes: WNL, Conjunctiva Clear, EOM Intact HENT: Yes: WNL, Atraumatic, Normocephalic Neck: Yes: WNL, Supple, Trachea Midline Cardiovascular: Yes: WNL, Regular Rate and Rhythm, S1, S2 Respiratory: Yes: WNL, Regular, CTA Bilaterally Gastrointestinal: Yes: WNL, Normal Bowel Sounds, Soft ...Rectal Exam: Yes: Deferred Renal/: Yes: WNL Musculoskeletal: Yes: WNL Extremities: Yes: WNL Edema: No Peripheral Pulses WNL: Yes Peripheral Pulses: Left Radial: 4+, Right Radial: 4+, Left Doralis Pedis: 3+, Right Dorsalis Pedis: 3+, Left Femoral: 3+, Right Femoral: 3+ Integumentary: Yes: WNL Neurological: Yes: WNL, Alert, Oriented ...Motor Strength: WNL Psychiatric: Yes: WNL, Alert, Oriented Labs: reviewed 08/24 Imaging - Results EKG: Other (nsr) Assessment/Plan patient is a 66 y/o male that presents for ect, labs and ekg reviewed patient is medically optimized for procedure informed consent, risks/benefits to be obtained by Dr Brock
[2016-11-05 07:02] VITALS: TEMP 98.1
[2016-11-05] MEDS ORDERED: KETAMINE HCL 500 MG/10 ML VIAL ONE (07:31)
[2016-11-05 09:14] VITALS: BP 114/71; PULSE 68
== END 2016-11-05 08:50 | disposition home or self-care (01) ==
LOC: FECT 05:44
PROVIDERS: ATTEND Psychiatry & Neurology Psychiatry
PROC: GZB4ZZZ Other Electroconvulsive Therapy (ICD-10-PCS; principal; 2016-11-05 07:45)
DX: F33.2 Major depressive disorder, recurrent severe without psychotic features (principal)
CPT/HCPCS: 90870; 94760

== ENCOUNTER 2016-11-26 05:38 | Day surgery (SDC) | payer BC ==
[2016-11-23 14:21] VITALS: BMI 25.7
[2016-11-26] MEDS ORDERED: KETAMINE HCL 500 MG/10 ML VIAL ONE (06:52)
[2016-11-26 07:54] VITALS: TEMP 97.9
[2016-11-26] MEDS ORDERED: ONDANSETRON 4 MG/2 ML VIAL IVPUSH PRN (08:08)
[2016-11-26] MEDS ORDERED: LACTATED RINGERS SOLUTION 1,000 ML IV SCH (08:15)
[2016-11-26 08:56] VITALS: BP 118/73; PULSE 76
== END 2016-11-26 08:58 | disposition home or self-care (01) ==
LOC: FECT 05:38
PROVIDERS: ATTEND Psychiatry & Neurology Psychiatry
PROC: GZB4ZZZ Other Electroconvulsive Therapy (ICD-10-PCS; principal; 2016-11-26 07:00)
DX: F33.2 Major depressive disorder, recurrent severe without psychotic features (principal)
CPT/HCPCS: 90870; 94760

== ENCOUNTER → 2016-12-17 | Day surgery (SDC) | payer BC ==
[~2016-12-17] MED LIST changes: -ACETAMINOPHEN 325 MG TABLET (FP) PO PRN
[2016-12-17 06:36] VITALS: BMI 27.5
--- NOTE | 2016-12-17 06:55 | HP ---
Admitting History and Physical - Admission History of Present Illness: patient is a 66 y/o male with a past medical history of depression and hypertension. Patient presents for ect, his last ect was 11/26/16. He reports feeling well, he denies any changes in medications or illnesses. He denies any suicidal or homicidal ideation, visual or auditory hallucinations. History Source: Patient Limitations to Obtaining History: No Limitations - Past Medical History Cardiovascular: Yes: HTN Psych: Yes: Depression - Smoking History Smoking history: Former smoker Have you smoked in the past 12 months: No Aproximately how many cigarettes per day: 0 If you are a former smoker, when did you quit?: 1974 - Alcohol/Substance Use Hx Alcohol Use: Yes (2-3 WKLY) History of Substance Use: reports: None - Social History Usual Living Arrangement: Yes: With Spouse ADL: Independent History of Recent Travel: No Home Medications - Allergies Allergies/Adverse Reactions: Allergies Allergy/AdvReac Type Severity Reaction Status Date / Time clarithromycin [From Biaxin] Allergy Intermediate Hives Verified 11/23/16 14:18 Penicillins Allergy Unknown UNKNOWN-REACTION Verified 11/23/16 14:18 CHILD - Home Medications Home Medications: Ambulatory Orders BUPROPion HCL "SR" [Wellbutrin Sr -] 300 mg PO DAILY 10/25/13 Alprazolam [Xanax] 0.5 mg PO BID PRN 11/17/13 Ropinirole HCl [Requip Xl] 6 mg PO DAILY 12/21/14 Amlodipine Besylate 5 mg PO DAILY 12/12/15 Aspirin [ASA -] 81 mg PO DAILY 12/12/15 Atorvastatin Ca [Lipitor] 10 mg PO DAILY 12/12/15 Gabapentin Enacarbil [Horizant] 600 mg PO HS 12/12/15 Losartan/Hydrochlorothiazide [Losartan-Hctz 100-25 mg Tab] 1 each PO DAILY 12/11 Acetaminophen [Tylenol .Extra-Strength -] 500 mg PO Q6H 09/15/16 Family Disease History - Family Disease History Family Disease History: [place]: Father ( of [place]) Review of Systems - Review of Systems Constitutional: reports: No Symptoms Eyes: reports: No Symptoms HENT: reports: No Symptoms Neck: reports: No Symptoms Cardiovascular: reports: No Symptoms Respiratory: reports: No Symptoms Gastrointestinal: reports: No Symptoms Genitourinary: reports: No Symptoms Musculoskeletal: reports: No Symptoms Integumentary: reports: No Symptoms Neurological: reports: No Symptoms Hematology/Lymphatic: reports: No Symptoms Psychiatric: reports: No Symptoms Physical Examination Vital Signs: Vital Signs Temperature 98 F 12/17/16 06:33 Pulse Rate 72 12/17/16 06:33 Respiratory Rate 16 12/17/16 06:33 Blood Pressure 124/78 12/17/16 06:33 O2 Sat by Pulse Oximetry (%) 100 12/17/16 06:33 Constitutional: Yes: Well Nourished, No Distress, Calm Eyes: Yes: WNL, Conjunctiva Clear, EOM Intact HENT: Yes: WNL, Atraumatic, Normocephalic Neck: Yes: WNL, Supple, Trachea Midline Cardiovascular: Yes: WNL, Regular Rate and Rhythm, S1, S2 Respiratory: Yes: WNL, Regular, CTA Bilaterally Gastrointestinal: Yes: WNL, Normal Bowel Sounds, Soft ...Rectal Exam: Yes: Deferred Renal/: Yes: WNL Breast(s): Yes: WNL Musculoskeletal: Yes: WNL Extremities: Yes: WNL Edema: No Peripheral Pulses WNL: Yes ( ) Peripheral Pulses: Left Radial: 4+, Right Radial: 4+, Left Doralis Pedis: 3+, Right Dorsalis Pedis: 3+, Left Femoral: 3+, Right Femoral: 3+ Integumentary: Yes: WNL Neurological: Yes: WNL, Alert, Oriented ...Motor Strength: WNL Psychiatric: Yes: WNL, Alert, Oriented Labs: reviewed 06/24 Imaging - Results EKG: Image Reviewed, Other (nsr) Assessment/Plan patient is a 66 y/o male that presents for ect, labs and ekg reviewed. patient is medicaly optimized for procedure. informed consent, risks benefits to be obtained by Dr Brock
[2016-12-17 08:07] VITALS: PULSE 62; TEMP 98.2
[2016-12-17 08:49] VITALS: BP 141/76
== END | disposition home or self-care (01) ==
LOC: FECT 05:51
PROVIDERS: ATTEND Psychiatry & Neurology Psychiatry
PROC: GZB4ZZZ Other Electroconvulsive Therapy (ICD-10-PCS; principal; 2016-12-17 07:00)
DX: F33.2 Major depressive disorder, recurrent severe without psychotic features (principal)
CPT/HCPCS: 90870; 94760

== ENCOUNTER 2017-01-07 05:42 | Day surgery (SDC) | payer BC ==
[2017-01-07 06:44] VITALS: BMI 27.1
[2017-01-07] MEDS ORDERED: KETAMINE HCL 500 MG/10 ML VIAL ONE (07:19)
[2017-01-07 07:38] LABS: ALBUMIN 4.4 g/dl (3.5-5.0); ALK PHOS 67 U/L (32-92); ANION GAP 7 (8-16); BILIRUBIN,TOTAL 0.8 mg/dl (0.2-1.0); CALCIUM 8.9 mg/dl (8.4-10.2); CO2 27 mmol/L (22-28); CREATININE 0.9 mg/dl (0.6-1.3); GLUCOSE,RANDOM 91 mg/dl (74-106); SGOT/AST 33 U/L (10-42); SGPT/ALT 34 U/L (10-40); TOT PROT 6.8 g/dl (6.4-8.3)
[2017-01-07 07:56] LABS: BASOPHIL 0.3 % (0-2.0); EOSINOPHIL 5.7 % (0-4.5); MCH 32.4 pg (25.7-33.7); MCHC 34.2 g/dl (32.0-35.9); MEAN CELL VOLUME 94.8 fl (80-96); MEAN PLT VOLUME 7.8 fl (7.5-11.1); NEUTROPHILS 66.2 % (42.8-82.8); PLATELET COUNT 235 K/MM3 (134-434); RDW 12.4 % (11.9-15.9)
[2017-01-07 08:14] VITALS: TEMP 97.6
[2017-01-07 09:10] VITALS: BP 126/74; PULSE 64
== END 2017-01-07 09:11 | disposition home or self-care (01) ==
LOC: FECT 05:42
PROVIDERS: ATTEND Psychiatry & Neurology Psychiatry
PROC: GZB4ZZZ Other Electroconvulsive Therapy (ICD-10-PCS; principal; 2017-01-07 07:15)
DX: F33.2 Major depressive disorder, recurrent severe without psychotic features (principal)
CPT/HCPCS: 36415; 80053; 85025; 90870; 94760

== ENCOUNTER 2017-01-28 06:43 | Day surgery (SDC) | payer BC ==
--- NOTE | 2017-01-28 07:07 | HP ---
Admitting History and Physical - Admission History of Present Illness: patient is a 66 y/o male with a past medical history of depression, anxiety and hypertension. Patient presents for ect, his last ect was 01/07/17. Patient reports feeling well, he reports an improvement in depressive symptoms since starting ect. He denies any changes to medications. Patient denies any recent illness or hospitalizations. Patient denies any suicidal or homicidal ideation, visual or auditory hallucinations. History Source: Patient Limitations to Obtaining History: No Limitations - Past Medical History Cardiovascular: Yes: HTN Psych: Yes: Depression - Smoking History Smoking history: Former smoker Have you smoked in the past 12 months: No Aproximately how many cigarettes per day: 0 If you are a former smoker, when did you quit?: 1974 - Alcohol/Substance Use Hx Alcohol Use: Yes (2-3 WKLY) History of Substance Use: reports: None - Social History Usual Living Arrangement: Yes: With Spouse ADL: Independent History of Recent Travel: No Home Medications - Allergies Allergies/Adverse Reactions: Allergies Allergy/AdvReac Type Severity Reaction Status Date / Time clarithromycin [From Biaxin] Allergy Intermediate Hives Verified 11/23/16 14:18 Penicillins Allergy Unknown UNKNOWN-REACTION Verified 11/23/16 14:18 CHILD - Home Medications Home Medications: Ambulatory Orders BUPROPion HCL "SR" [Wellbutrin Sr -] 300 mg PO DAILY 10/25/13 Alprazolam [Xanax] 0.5 mg PO BID PRN 11/17/13 Ropinirole HCl [Requip Xl] 6 mg PO DAILY 12/21/14 Amlodipine Besylate 5 mg PO DAILY 12/12/15 Aspirin [ASA -] 81 mg PO DAILY 12/12/15 Atorvastatin Ca [Lipitor] 10 mg PO DAILY 12/12/15 Gabapentin Enacarbil [Horizant] 600 mg PO HS 12/12/15 Losartan/Hydrochlorothiazide [Losartan-Hctz 100-25 mg Tab] 1 each PO DAILY 12/11 Acetaminophen [Tylenol .Extra-Strength -] 500 mg PO Q6H 09/15/16 Family Disease History - Family Disease History Family Disease History: [place]: Father ( of [place]) Review of Systems - Review of Systems Constitutional: reports: No Symptoms Eyes: reports: No Symptoms HENT: reports: No Symptoms Neck: reports: No Symptoms Cardiovascular: reports: No Symptoms Respiratory: reports: No Symptoms Gastrointestinal: reports: No Symptoms Genitourinary: reports: No Symptoms Musculoskeletal: reports: No Symptoms Integumentary: reports: No Symptoms Neurological: reports: No Symptoms Endocrine: reports: No Symptoms Hematology/Lymphatic: reports: No Symptoms Psychiatric: reports: No Symptoms Physical Examination Constitutional: Yes: Well Nourished, No Distress, Calm Eyes: Yes: WNL, Conjunctiva Clear, EOM Intact HENT: Yes: WNL, Atraumatic, Normocephalic Neck: Yes: WNL, Supple, Trachea Midline Cardiovascular: Yes: WNL, Regular Rate and Rhythm, S1, S2 Respiratory: Yes: WNL, Regular, CTA Bilaterally Gastrointestinal: Yes: WNL, Normal Bowel Sounds, Soft ...Rectal Exam: Yes: Deferred Renal/: Yes: WNL Breast(s): Yes: WNL Musculoskeletal: Yes: WNL Extremities: Yes: WNL Edema: No Peripheral Pulses WNL: Yes Peripheral Pulses: Left Radial: 4+, Right Radial: 4+, Left Doralis Pedis: 3+, Right Dorsalis Pedis: 3+, Left Femoral: 3+, Right Femoral: 3+ Integumentary: Yes: WNL Neurological: Yes: WNL, Alert, Oriented ...Motor Strength: WNL Psychiatric: Yes: WNL, Alert, Oriented Labs: reviewed 12/25 Imaging - Results EKG: Image Reviewed, Other (nsr) Assessment/Plan patient is a 66 y/o male that presents for ect, labs and ekg reviewed pt is medically optimized for procedure. informed consent, risks benefits to be obtained by Dr Brock
[2017-01-28 07:10] VITALS: BMI 27.1
[2017-01-28] MEDS ORDERED: KETAMINE HCL 500 MG/10 ML VIAL ONE (08:38)
[2017-01-28] MEDS ORDERED: PROMETHAZINE HCL 25 MG/1 ML VIAL IVPUSH PRN (09:33)
[2017-01-28] MEDS ORDERED: ONDANSETRON 4 MG/2 ML VIAL IVPUSH PRN (09:33)
[2017-01-28 09:37] VITALS: TEMP 97.4
[2017-01-28] MEDS ORDERED: LACTATED RINGERS SOLUTION 1,000 ML IV SCH (09:45)
[2017-01-28 10:02] VITALS: BP 130/66; PULSE 66
== END 2017-01-28 10:03 | disposition home or self-care (01) ==
LOC: FECT 06:43
PROVIDERS: ATTEND Psychiatry & Neurology Psychiatry
PROC: GZB4ZZZ Other Electroconvulsive Therapy (ICD-10-PCS; principal; 2017-01-28 07:15)
DX: F33.2 Major depressive disorder, recurrent severe without psychotic features (principal)
CPT/HCPCS: 90870; 94760

== ENCOUNTER 2017-02-18 05:38 | Day surgery (SDC) | payer BC ==
[2017-02-18 06:11] VITALS: BMI 27.1
[2017-02-18] MEDS ORDERED: KETAMINE HCL 500 MG/10 ML VIAL ONE (06:59)
[2017-02-18 08:09] VITALS: TEMP 97.9
[2017-02-18 09:00] VITALS: BP 128/64; PULSE 60
== END 2017-02-18 09:03 | disposition home or self-care (01) ==
LOC: FECT 05:38
PROVIDERS: ATTEND Psychiatry & Neurology Psychiatry
PROC: GZB4ZZZ Other Electroconvulsive Therapy (ICD-10-PCS; principal; 2017-02-18 07:00)
DX: F33.2 Major depressive disorder, recurrent severe without psychotic features (principal)
CPT/HCPCS: 90870; 94760

== ENCOUNTER 2017-03-11 05:38 | Day surgery (SDC) | payer BC ==
[2017-03-11 06:16] VITALS: BMI 27.1
--- NOTE | 2017-03-11 07:01 | HP ---
Admitting History and Physical - Admission History of Present Illness: This is a 66 year old male with pmhx of HTN, depression, anxiety, arthritis. He presents for ETC treatment following previous treatment on 01/28/2017. He states he feels well, he has been stable, no changes to his routine, medications or mental status. 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 No recent travel or contact with sick persons, nor recent viral/bacterial illness recently. He denies suicidal ideations, visual or auditory hallucinations. Currently, resting in room no sob, cp, abd pain, fever, chills. 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 History of Recent Travel: No Home Medications - Allergies Allergies/Adverse Reactions: Allergies Allergy/AdvReac Type Severity Reaction Status Date / Time clarithromycin [From Biaxin] Allergy Intermediate Hives Verified 11/23/16 14:18 Penicillins Allergy Unknown UNKNOWN-REACTION Verified 11/23/16 14:18 CHILD - Home Medications Home Medications: Ambulatory Orders BUPROPion HCL "SR" [Wellbutrin Sr -] 300 mg PO DAILY 10/25/13 Alprazolam [Xanax] 0.5 mg PO BID PRN 11/17/13 Ropinirole HCl [Requip Xl] 6 mg PO DAILY 12/21/14 Amlodipine Besylate 5 mg PO DAILY 12/12/15 Aspirin [ASA -] 81 mg PO DAILY 12/12/15 Atorvastatin Ca [Lipitor] 10 mg PO DAILY 12/12/15 Gabapentin Enacarbil [Horizant] 600 mg PO HS 12/12/15 Losartan/Hydrochlorothiazide [Losartan-Hctz 100-25 mg Tab] 1 each PO DAILY 12/11 Acetaminophen [Tylenol .Extra-Strength -] 500 mg PO Q6H PRN 09/15/16 Family Disease History - Family Disease History Family Disease History: [place]: Father ( of [place]) Review of Systems - Review of Systems Constitutional: reports: No Symptoms Eyes: reports: No Symptoms HENT: reports: No Symptoms Neck: reports: No Symptoms Cardiovascular: reports: No Symptoms Respiratory: reports: No Symptoms Gastrointestinal: reports: No Symptoms Genitourinary: reports: No Symptoms Musculoskeletal: reports: No Symptoms Integumentary: reports: No Symptoms Neurological: reports: No Symptoms Endocrine: reports: No Symptoms Hematology/Lymphatic: reports: No Symptoms Psychiatric: reports: No Symptoms Physical Examination Vital Signs: Vital Signs Temperature 98.1 F 03/11/17 06:11 Pulse Rate 72 03/11/17 06:11 Respiratory Rate 18 03/11/17 06:11 Blood Pressure 134/62 03/11/17 06:11 O2 Sat by Pulse Oximetry (%) 99 03/11/17 06:11 Constitutional: Yes: Well Nourished, No Distress Eyes: Yes: Conjunctiva Clear HENT: Yes: Atraumatic Neck: Yes: Supple Cardiovascular: Yes: Regular Rate and Rhythm, S1, S2 Respiratory: Yes: Regular, CTA Bilaterally Gastrointestinal: Yes: Normal Bowel Sounds, Soft Renal/: Yes: WNL Musculoskeletal: Yes: WNL Extremities: Yes: WNL Edema: No Peripheral Pulses WNL: Yes Neurological: Yes: Alert, Oriented, Cran Nerves II-XII Intact Psychiatric: Yes: Alert, Oriented Problem List - Problems (1) Anxiety Code(s): F41.9 - ANXIETY DISORDER, UNSPECIFIED (2) HTN (hypertension), benign Code(s): I10 - ESSENTIAL (PRIMARY) HYPERTENSION (3) Major depression Code(s): F32.9 - MAJOR DEPRESSIVE DISORDER, SINGLE EPISODE, UNSPECIFIED Assessment/Plan 66 year old male year old male with htn, anxiety, depression admitted for ETC. EKG reviewed, NSR, VSS No changes since previous treatment. Pt medically optimized for procedure Thank you Visit type - Emergency Visit Emergency Visit: Yes Care time: The patient presented to the Emergency Department on the above date and was hospitalized for further evaluation of their emergent condition. - New Patient This patient is new to me today: Yes Date on this admission: 03/11/17 - Critical Care Critical Care patient: No
[2017-03-11] MEDS ORDERED: KETAMINE HCL 500 MG/10 ML VIAL ONE (07:23)
[2017-03-11 08:28] VITALS: TEMP 97.6
[2017-03-11 08:48] VITALS: BP 141/77; PULSE 69
--- NOTE | 2017-03-11 10:58 | EKG ---
Test Reason : Blood Pressure : / mmHG Vent. Rate : 070 BPM Atrial Rate : 070 BPM P-R Int : 156 ms QRS Dur : 092 ms QT Int : 404 ms P-R-T Axes : 070 042 053 degrees QTc Int : 436 ms NORMAL SINUS RHYTHM NORMAL ECG WHEN COMPARED WITH ECG OF 25-AUG-2016 06:12, NO SIGNIFICANT CHANGE WAS FOUND Confirmed by BIBI PHILLIPS MD ([id number]) on 03/11/2017 10:57:30 AM Referred By: Jose G Brock Confirmed By:BIBI PHILLIPS MD
== END 2017-03-11 08:50 | disposition home or self-care (01) ==
LOC: FECT 05:38
PROVIDERS: ATTEND Psychiatry & Neurology Psychiatry
PROC: GZB4ZZZ Other Electroconvulsive Therapy (ICD-10-PCS; principal; 2017-03-11 07:00)
DX: F33.2 Major depressive disorder, recurrent severe without psychotic features (principal)
CPT/HCPCS: 90870; 93005; 94760

== ENCOUNTER 2017-04-08 05:42 | Day surgery (SDC) | payer BC ==
[2017-04-08 06:14] VITALS: BMI 26.4
[2017-04-08] MEDS ORDERED: KETAMINE HCL 500 MG/10 ML VIAL ONE (06:53)
[2017-04-08 07:51] VITALS: TEMP 98.5
[2017-04-08 08:11] VITALS: BP 112/61; PULSE 66
== END 2017-04-08 08:15 | disposition home or self-care (01) ==
LOC: FECT 05:42
PROVIDERS: ATTEND Psychiatry & Neurology Psychiatry
PROC: GZB4ZZZ Other Electroconvulsive Therapy (ICD-10-PCS; principal; 2017-04-08 07:00)
DX: F33.2 Major depressive disorder, recurrent severe without psychotic features (principal)
CPT/HCPCS: 90870; 94760

== ENCOUNTER 2017-04-29 05:48 | Day surgery (SDC) | payer BC ==
[2017-04-29 07:07] VITALS: TEMP 98.2; BMI 26.4
--- NOTE | 2017-04-29 07:15 | HP ---
Admitting History and Physical - Admission History of Present Illness: Patient is a 66 y/o male with a past medical history of depression, anxiety, hypertension, and arthritis. Patient presents for ect, his last ect was 04/08/17. He reports feeling well, patient does report a significant improvement in depressive symptoms since starting ect. patient denies any recent illnesses or hospitalizations. Patient denies any suicidal or homicidal ideation, visual or auditory hallucinations. 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 History of Recent Travel: No Home Medications - Allergies Allergies/Adverse Reactions: Allergies Allergy/AdvReac Type Severity Reaction Status Date / Time clarithromycin [From Biaxin] Allergy Intermediate Hives Verified 11/23/16 14:18 Penicillins Allergy Unknown UNKNOWN-REACTION Verified 11/23/16 14:18 CHILD - Home Medications Home Medications: Ambulatory Orders BUPROPion HCL "SR" [Wellbutrin Sr -] 300 mg PO DAILY 10/25/13 Alprazolam [Xanax] 0.5 mg PO BID PRN 11/17/13 Ropinirole HCl [Requip Xl] 6 mg PO DAILY 12/21/14 Amlodipine Besylate 5 mg PO DAILY 12/12/15 Aspirin [ASA -] 81 mg PO DAILY 12/12/15 Atorvastatin Ca [Lipitor] 10 mg PO DAILY 12/12/15 Gabapentin Enacarbil [Horizant] 600 mg PO HS 12/12/15 Losartan/Hydrochlorothiazide [Losartan-Hctz 100-25 mg Tab] 1 each PO DAILY 12/11 Acetaminophen [Tylenol .Extra-Strength -] 500 mg PO Q6H PRN 09/15/16 Family Disease History - Family Disease History Family Disease History: [place]: Father ( of [place]) Review of Systems - Review of Systems Constitutional: reports: No Symptoms Eyes: reports: No Symptoms HENT: reports: No Symptoms Neck: reports: No Symptoms Cardiovascular: reports: No Symptoms Respiratory: reports: No Symptoms Gastrointestinal: reports: No Symptoms Genitourinary: reports: No Symptoms Musculoskeletal: reports: No Symptoms Integumentary: reports: No Symptoms Neurological: reports: No Symptoms Endocrine: reports: No Symptoms Hematology/Lymphatic: reports: No Symptoms Psychiatric: reports: No Symptoms Physical Examination Vital Signs: Vital Signs Temperature 98.2 F 04/29/17 07:04 Pulse Rate 76 04/29/17 07:04 Respiratory Rate 18 04/29/17 07:04 Blood Pressure 129/57 04/29/17 07:04 O2 Sat by Pulse Oximetry (%) 97 04/29/17 07:04 Constitutional: Yes: Well Nourished, No Distress, Calm Eyes: Yes: WNL, Conjunctiva Clear, EOM Intact HENT: Yes: WNL, Atraumatic, Normocephalic Neck: Yes: WNL, Supple, Trachea Midline Cardiovascular: Yes: WNL, Regular Rate and Rhythm, S1, S2 Respiratory: Yes: WNL, Regular, CTA Bilaterally Gastrointestinal: Yes: WNL, Normal Bowel Sounds, Soft ...Rectal Exam: Yes: Deferred Renal/: Yes: WNL Breast(s): Yes: WNL Musculoskeletal: Yes: WNL Extremities: Yes: WNL Edema: No Peripheral Pulses WNL: Yes Peripheral Pulses: Left Radial: 4+, Right Radial: 4+, Left Doralis Pedis: 3+, Right Dorsalis Pedis: 3+, Left Femoral: 3+, Right Femoral: 3+ Integumentary: Yes: WNL Neurological: Yes: WNL, Alert, Oriented ...Motor Strength: WNL Psychiatric: Yes: WNL, Alert, Oriented Labs: reviewed 12/25 Imaging - Results EKG: Image Reviewed, Other (nsr) Assessment/Plan patient is a 66 y/o male that presents for ect, labs and ekg reviewed patient is medically optimized for procedure informed consent, risks/benefits to be obtained by Dr Brock
[2017-04-29] MEDS ORDERED: KETAMINE HCL 500 MG/10 ML VIAL ONE (07:36)
[2017-04-29 08:59] VITALS: BP 114/60; PULSE 76
== END 2017-04-29 09:02 | disposition home or self-care (01) ==
LOC: FECT 05:48
PROVIDERS: ATTEND Psychiatry & Neurology Psychiatry
PROC: GZB4ZZZ Other Electroconvulsive Therapy (ICD-10-PCS; principal; 2017-04-29 07:30)
DX: F33.2 Major depressive disorder, recurrent severe without psychotic features (principal)
CPT/HCPCS: 90870; 94760

== ENCOUNTER 2017-05-27 05:39 | Day surgery (SDC) | payer BC ==
[2017-05-27 06:17] VITALS: BMI 26.4
[2017-05-27] MEDS ORDERED: KETAMINE HCL 500 MG/10 ML VIAL ONE (06:55)
[2017-05-27 07:48] VITALS: TEMP 97.7
[2017-05-27 08:16] VITALS: BP 121/71; PULSE 79
== END 2017-05-27 08:50 | disposition home or self-care (01) ==
LOC: FECT 05:39
PROVIDERS: ATTEND Psychiatry & Neurology Psychiatry
PROC: GZB4ZZZ Other Electroconvulsive Therapy (ICD-10-PCS; principal; 2017-05-27 07:00)
DX: F33.2 Major depressive disorder, recurrent severe without psychotic features (principal)
CPT/HCPCS: 90870; 94760

== ENCOUNTER 2017-06-17 06:28 | Day surgery (SDC) | payer BC ==
[2017-06-17 07:32] VITALS: TEMP 98.1; BMI 26.4
--- NOTE | 2017-06-17 07:40 | HP ---
Admitting History and Physical - Admission History of Present Illness: Patient is a 66 y/o male with a past medical history of hypertension, depression , anxiety, and arthritis. Patient presents for ect, his last ect was 05/27/17. patient reports feeling well, he denies any recent illnesses or hospitalizations. Patient reports discontinuing his neurontin and denies any adverse reaction since discontinuing the medication. Patient denies any suicidal or homicidal ideation, visual or auditory hallucinations. 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 History of Recent Travel: No Home Medications - Allergies Allergies/Adverse Reactions: Allergies Allergy/AdvReac Type Severity Reaction Status Date / Time clarithromycin [From Biaxin] Allergy Intermediate Hives Verified 11/23/16 14:18 Penicillins Allergy Unknown UNKNOWN-REACTION Verified 11/23/16 14:18 CHILD - Home Medications Home Medications: Ambulatory Orders BUPROPion HCL "SR" [Wellbutrin Sr -] 300 mg PO DAILY 10/25/13 Alprazolam [Xanax] 0.5 mg PO BID PRN 11/17/13 Ropinirole HCl [Requip Xl] 6 mg PO DAILY 12/21/14 Amlodipine Besylate 5 mg PO DAILY 12/12/15 Aspirin [ASA -] 81 mg PO DAILY 12/12/15 Atorvastatin Ca [Lipitor] 10 mg PO DAILY 12/12/15 Losartan/Hydrochlorothiazide [Losartan-Hctz 100-25 mg Tab] 1 each PO DAILY 12/11 Acetaminophen [Tylenol .Extra-Strength -] 500 mg PO Q6H PRN 09/15/16 Family Disease History - Family Disease History Family Disease History: [place]: Father ( of [place]) Review of Systems - Review of Systems Constitutional: reports: No Symptoms Eyes: reports: No Symptoms HENT: reports: No Symptoms Neck: reports: No Symptoms Cardiovascular: reports: No Symptoms Respiratory: reports: No Symptoms Gastrointestinal: reports: No Symptoms Genitourinary: reports: No Symptoms Musculoskeletal: reports: No Symptoms Integumentary: reports: No Symptoms Neurological: reports: No Symptoms Endocrine: reports: No Symptoms Hematology/Lymphatic: reports: No Symptoms Psychiatric: reports: No Symptoms Physical Examination Vital Signs: Vital Signs Temperature 98.1 F 06/17/17 07:29 Pulse Rate 83 06/17/17 07:29 Respiratory Rate 18 06/17/17 07:29 Blood Pressure 122/60 06/17/17 07:29 O2 Sat by Pulse Oximetry (%) 99 06/17/17 07:29 Constitutional: Yes: Well Nourished, No Distress, Calm Eyes: Yes: WNL, Conjunctiva Clear, EOM Intact HENT: Yes: WNL, Atraumatic, Normocephalic Neck: Yes: WNL, Supple, Trachea Midline Cardiovascular: Yes: WNL, Regular Rate and Rhythm, S1, S2 Respiratory: Yes: WNL, Regular, CTA Bilaterally Gastrointestinal: Yes: WNL, Normal Bowel Sounds, Soft ...Rectal Exam: Yes: Deferred Renal/: Yes: WNL Musculoskeletal: Yes: WNL Extremities: Yes: WNL Edema: No Peripheral Pulses WNL: Yes Peripheral Pulses: Left Radial: 4+, Right Radial: 4+, Left Doralis Pedis: 3+, Right Dorsalis Pedis: 3+, Left Femoral: 3+, Right Femoral: 3+ Integumentary: Yes: WNL Neurological: Yes: WNL, Alert, Oriented ...Motor Strength: WNL Psychiatric: Yes: WNL, Alert, Oriented Labs: [id number] Imaging - Results EKG: Image Reviewed, Other (nsr) Assessment/Plan patient is a 66 y/o male that presents for ect, labs and ekg reviewed patient is medically optimized for procedure informed consent, risks/benefits to be obtained by Dr Brock
[2017-06-17] MEDS ORDERED: KETAMINE HCL 500 MG/10 ML VIAL ONE (07:51)
[2017-06-17 09:16] VITALS: BP 127/67; PULSE 72
[2017-06-17 09:52] LABS: BASO % 0.3 % (0-2.0); EOS % 2.8 % (0-4.5); HEMATOCRIT 41.1 % (35.4-49); HEMOGLOBIN 14.2 GM/dl (11.7-16.9); LYMPH % 10.1 % (8-40); MCH 32.7 pg (25.7-33.7); MCHC 34.6 g/dl (32.0-35.9); MEAN CELL VOLUME 94.5 fl (80-96); MEAN PLT VOLUME 7.5 fl (7.5-11.1); MONO % 6.1 % (3.8-10.2); NEUT % 80.7 % (42.8-82.8); PLATELET COUNT 241 K/MM3 (134-434); RBC 4.35 M/mm3 (4.00-5.60); RDW 12.2 % (11.9-15.9); WHITE BLOOD COUNT 5.4 K/mm3 (4.0-10.8)
[2017-06-17 09:59] LABS: ALK PHOS 58 U/L (32-92); ANION GAP 4 (8-16); BILIRUBIN,TOTAL 0.6 mg/dl (0.2-1.0); BLOOD UREA NITROGEN 18 mg/dl (7-18); CALCIUM 8.4 mg/dl (8.4-10.2); CHLORIDE 103 mmol/L (98-107); CO2 29 mmol/L (22-28); GLUCOSE,RANDOM 94 mg/dl (74-106); POTASSIUM 4.7 mmol/L (3.5-5.1); SGOT/AST 28 U/L (10-42); SGPT/ALT 21 U/L (10-40); SODIUM 136 mmol/L (136-145); TOT PROT 6.5 g/dl (6.4-8.3)
== END 2017-06-17 09:20 | disposition home or self-care (01) ==
LOC: FECT 06:28
PROVIDERS: ATTEND Psychiatry & Neurology Psychiatry
PROC: GZB4ZZZ Other Electroconvulsive Therapy (ICD-10-PCS; principal; 2017-06-17 07:00)
DX: F33.2 Major depressive disorder, recurrent severe without psychotic features (principal)
CPT/HCPCS: 36415; 80053; 85025; 90870; 94760

== ENCOUNTER 2017-07-08 05:43 | Day surgery (SDC) | payer BC ==
[2017-07-08 06:31] VITALS: BMI 26.4
[2017-07-08] MEDS ORDERED: KETAMINE HCL 500 MG/10 ML VIAL ONE (07:38)
[2017-07-08 08:34] VITALS: TEMP 98.1
[2017-07-08 08:52] VITALS: BP 130/66; PULSE 71
== END 2017-07-08 08:50 | disposition home or self-care (01) ==
LOC: FECT 05:43
PROVIDERS: ATTEND Psychiatry & Neurology Psychiatry
PROC: GZB4ZZZ Other Electroconvulsive Therapy (ICD-10-PCS; principal; 2017-07-08 07:30)
DX: F33.2 Major depressive disorder, recurrent severe without psychotic features (principal)
CPT/HCPCS: 90870; 94760

== ENCOUNTER 2017-08-13 05:47 | Day surgery (SDC) | payer BC ==
[2017-08-13 07:15] VITALS: BMI 25.6
--- NOTE | 2017-08-13 07:41 | HP ---
Admitting History and Physical - Admission History of Present Illness: Patient is a 66 y/o male depression, hypertension, and anxiety. Patient presents for ect, he has been undergoing ect, his last ect was 07/08/17. Patient reports feeling well, he denies any changes to his medications. Patient denies any recent illnesses or hospitalizations. Patient denies any suicidal or homicidal ideation, visual or auditory hallucinations. 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 History of Recent Travel: No Home Medications - Allergies Allergies/Adverse Reactions: Allergies Allergy/AdvReac Type Severity Reaction Status Date / Time clarithromycin [From Biaxin] Allergy Intermediate Hives Verified 08/13/17 07:08 Penicillins Allergy Unknown UNKNOWN-REACTION Verified 08/13/17 07:08 CHILD - Home Medications Home Medications: Ambulatory Orders BUPROPion HCL "SR" [Wellbutrin Sr -] 300 mg PO DAILY 10/25/13 Alprazolam [Xanax] 0.5 mg PO BID PRN 11/17/13 Ropinirole HCl [Requip Xl] 6 mg PO DAILY 12/21/14 Amlodipine Besylate 5 mg PO DAILY 12/12/15 Aspirin [ASA -] 81 mg PO DAILY 12/12/15 Atorvastatin Ca [Lipitor] 10 mg PO DAILY 12/12/15 Losartan/Hydrochlorothiazide [Losartan-Hctz 100-25 mg Tab] 1 each PO DAILY 12/11 Acetaminophen [Tylenol .Extra-Strength -] 500 mg PO Q6H PRN 09/15/16 Family Disease History - Family Disease History Family Disease History: [place]: Father ( of [place]) Review of Systems - Review of Systems Constitutional: reports: No Symptoms Eyes: reports: No Symptoms HENT: reports: No Symptoms Neck: reports: No Symptoms Cardiovascular: reports: No Symptoms Respiratory: reports: No Symptoms Gastrointestinal: reports: No Symptoms Genitourinary: reports: No Symptoms Musculoskeletal: reports: No Symptoms Integumentary: reports: No Symptoms Neurological: reports: No Symptoms Endocrine: reports: No Symptoms Hematology/Lymphatic: reports: No Symptoms Psychiatric: reports: No Symptoms Physical Examination Vital Signs: Vital Signs Temperature 97.9 F 08/13/17 07:12 Pulse Rate 84 08/13/17 07:12 Respiratory Rate 16 08/13/17 07:12 Blood Pressure 112/55 08/13/17 07:12 O2 Sat by Pulse Oximetry (%) 98 08/13/17 07:12 Constitutional: Yes: Well Nourished, No Distress, Calm Eyes: Yes: WNL, Conjunctiva Clear, EOM Intact HENT: Yes: WNL, Atraumatic, Normocephalic Neck: Yes: WNL, Supple, Trachea Midline Cardiovascular: Yes: WNL, Regular Rate and Rhythm, S1, S2 Respiratory: Yes: WNL, Regular, CTA Bilaterally Gastrointestinal: Yes: WNL, Normal Bowel Sounds, Soft ...Rectal Exam: Yes: Deferred Renal/: Yes: WNL Musculoskeletal: Yes: WNL Extremities: Yes: WNL Edema: No Peripheral Pulses WNL: Yes Peripheral Pulses: Left Radial: 4+, Right Radial: 4+, Left Doralis Pedis: 3+, Right Dorsalis Pedis: 3+, Left Femoral: 3+, Right Femoral: 3+ Integumentary: Yes: WNL Neurological: Yes: WNL, Alert, Oriented ...Motor Strength: WNL Psychiatric: Yes: WNL, Alert, Oriented Labs: reviewed 06/25 Imaging - Results EKG: Other (nsr) Assessment/Plan patient is a 66 y/o male that presents for ect, labs and ekg reviewed patient is medically optimized for procedure informed consent, risks/benefits to be obtained by Dr Brock
[2017-08-13] MEDS ORDERED: KETAMINE HCL 500 MG/10 ML VIAL ONE (08:37)
[2017-08-13 09:26] VITALS: TEMP 97.6
[2017-08-13] MEDS ORDERED: ONDANSETRON 4 MG/2 ML VIAL IVPUSH PRN (09:26)
[2017-08-13 10:04] VITALS: BP 112/58; PULSE 76
== END 2017-08-13 10:00 | disposition home or self-care (01) ==
LOC: FECT 05:47
PROVIDERS: ATTEND Psychiatry & Neurology Psychiatry
PROC: GZB4ZZZ Other Electroconvulsive Therapy (ICD-10-PCS; principal; 2017-08-13 07:15)
DX: F33.2 Major depressive disorder, recurrent severe without psychotic features (principal)

== ENCOUNTER 2017-09-02 05:48 | Day surgery (SDC) | payer BC ==
[2017-09-01 14:08] VITALS: BMI 25.4
[2017-09-02] MEDS ORDERED: ONDANSETRON 4 MG/2 ML VIAL IVPUSH PRN (07:17)
[2017-09-02] MEDS ORDERED: KETAMINE HCL 500 MG/10 ML VIAL ONE (07:39)
[2017-09-02 08:40] VITALS: TEMP 97.9
[2017-09-02 09:13] VITALS: BP 113/80; PULSE 80
== END 2017-09-02 09:15 | disposition home or self-care (01) ==
LOC: FECT 05:48
PROVIDERS: ATTEND Psychiatry & Neurology Psychiatry
PROC: GZB4ZZZ Other Electroconvulsive Therapy (ICD-10-PCS; principal; 2017-09-02 07:30)
DX: F33.2 Major depressive disorder, recurrent severe without psychotic features (principal)
CPT/HCPCS: 90870; 94760

== ENCOUNTER 2017-09-23 05:39 | Day surgery (SDC) | payer BC ==
[2017-09-23 06:32] VITALS: TEMP 98.8; BMI 25.4
--- NOTE | 2017-09-23 07:12 | HP ---
Admitting History and Physical - Admission History of Present Illness: patient is a 67 y/o male with a past medical history of hypertension, depression , anxiety, and mitral valve prolapse. Patient presents for ect, he has been undergoing ect since 2013. Patient reports feeling well, he denies any recent illnesses or hospitalizations. Patient reports a significant improvement in depressive symptoms since starting ect. He denies any changes to his medications and reports compliance with prescribed medications. patient denies any suicidal or homicidal ideation, visual or auditory hallucinations. 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 History of Recent Travel: No Home Medications - Allergies Allergies/Adverse Reactions: Allergies Allergy/AdvReac Type Severity Reaction Status Date / Time clarithromycin [From Biaxin] Allergy Intermediate Hives Verified 08/13/17 07:08 Penicillins Allergy Unknown UNKNOWN-REACTION Verified 08/13/17 07:08 CHILD - Home Medications Home Medications: Ambulatory Orders BUPROPion HCL "SR" [Wellbutrin Sr -] 300 mg PO DAILY 10/25/13 Alprazolam [Xanax] 0.5 mg PO BID PRN 11/17/13 Ropinirole HCl [Requip Xl] 6 mg PO DAILY 12/21/14 Amlodipine Besylate 5 mg PO DAILY 12/12/15 Aspirin [ASA -] 81 mg PO DAILY 12/12/15 Atorvastatin Ca [Lipitor] 10 mg PO DAILY 12/12/15 Losartan/Hydrochlorothiazide [Losartan-Hctz 100-25 mg Tab] 1 each PO DAILY 12/11 Family Disease History - Family Disease History Family Disease History: [place]: Father ( of [place]) Review of Systems - Review of Systems Constitutional: reports: No Symptoms Eyes: reports: No Symptoms HENT: reports: No Symptoms Neck: reports: No Symptoms Cardiovascular: reports: No Symptoms Respiratory: reports: No Symptoms Gastrointestinal: reports: No Symptoms Genitourinary: reports: No Symptoms Musculoskeletal: reports: No Symptoms Integumentary: reports: No Symptoms Neurological: reports: No Symptoms Endocrine: reports: No Symptoms Hematology/Lymphatic: reports: No Symptoms Psychiatric: reports: No Symptoms Physical Examination Vital Signs: Vital Signs Temperature 98.8 F 09/23/17 06:30 Pulse Rate 87 09/23/17 06:30 Respiratory Rate 18 09/23/17 06:30 Blood Pressure 124/60 09/23/17 06:30 O2 Sat by Pulse Oximetry (%) 98 09/23/17 06:30 Constitutional: Yes: Well Nourished, No Distress, Calm Eyes: Yes: WNL, Conjunctiva Clear, EOM Intact HENT: Yes: WNL, Atraumatic, Normocephalic Neck: Yes: WNL, Supple, Trachea Midline Cardiovascular: Yes: WNL, Regular Rate and Rhythm, S1, S2 Respiratory: Yes: WNL, Regular, CTA Bilaterally Gastrointestinal: Yes: WNL, Normal Bowel Sounds, Soft ...Rectal Exam: Yes: Deferred Renal/: Yes: WNL Musculoskeletal: Yes: WNL Extremities: Yes: WNL Edema: No Peripheral Pulses WNL: Yes Peripheral Pulses: Left Radial: 4+, Right Radial: 4+, Left Doralis Pedis: 3+, Right Dorsalis Pedis: 3+, Left Femoral: 3+, Right Femoral: 3+ Integumentary: Yes: WNL Neurological: Yes: WNL, Alert, Oriented ...Motor Strength: WNL Psychiatric: Yes: WNL, Alert, Oriented Labs: reviewed 06/25 Imaging - Results EKG: Image Reviewed, Other (nsr) Assessment/Plan patient is a 67 y/o male that presents for ect, labs and ekg reviewed patient is medically optimized for procedure informed consent, risks/benefits to be obtained by Dr Brock
[2017-09-23] MEDS ORDERED: KETAMINE HCL 500 MG/10 ML VIAL ONE (07:30)
[2017-09-23 08:42] VITALS: BP 115/60; PULSE 69
--- NOTE | 2017-09-23 10:02 | EKG ---
Test Reason : Blood Pressure : / mmHG Vent. Rate : 080 BPM Atrial Rate : 080 BPM P-R Int : 158 ms QRS Dur : 082 ms QT Int : 352 ms P-R-T Axes : 080 057 063 degrees QTc Int : 405 ms NORMAL SINUS RHYTHM NORMAL ECG WHEN COMPARED WITH ECG OF 11-MAR-2017 06:50, NO SIGNIFICANT CHANGE WAS FOUND Confirmed by BIBI PHILLIPS MD ([id number]) on 09/23/2017 10:01:46 AM Referred By: Jose G Brock Confirmed By:BIBI PHILLIPS MD
== END 2017-09-23 08:45 | disposition home or self-care (01) ==
LOC: FECT 05:39
PROVIDERS: ATTEND Psychiatry & Neurology Psychiatry
PROC: GZB4ZZZ Other Electroconvulsive Therapy (ICD-10-PCS; principal; 2017-09-23 07:00)
DX: F33.2 Major depressive disorder, recurrent severe without psychotic features (principal)
CPT/HCPCS: 90870; 93005; 94760

== ENCOUNTER 2017-10-14 05:34 | Day surgery (SDC) | payer BC ==
[2017-10-14 06:13] VITALS: BMI 25.0
[2017-10-14] MEDS ORDERED: KETAMINE HCL 500 MG/10 ML VIAL ONE (07:01)
[2017-10-14] MEDS ORDERED: oxyCODONE HCL 5 MG TABLET PO PRN (07:15)
[2017-10-14 08:16] VITALS: TEMP 97.8
[2017-10-14 09:18] VITALS: BP 133/70; PULSE 68
== END 2017-10-14 09:00 | disposition home or self-care (01) ==
LOC: FECT 05:34
PROVIDERS: ATTEND Psychiatry & Neurology Psychiatry
PROC: GZB4ZZZ Other Electroconvulsive Therapy (ICD-10-PCS; principal; 2017-10-14 07:15)
DX: F33.2 Major depressive disorder, recurrent severe without psychotic features (principal)

== ENCOUNTER 2017-11-11 05:40 | Day surgery (SDC) | payer BC ==
--- NOTE | 2017-11-11 07:17 | HP ---
Admitting History and Physical - Admission History of Present Illness: Patient is a 69 y/o male with a past medical history of hypertension, depression , anxiety, and mitral valve prolapse. Patient presents for ect, he has been undergoing ect since 2013, his last ect was 10/14/17. Patient reports feeling well, he denies any recent illnesses or hospitalizations. Patient denies any suicidal or homicidal ideation, visual or auditory hallucinations. He denies any recent medication changes and he reports compliance with prescribed medications. 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 History of Recent Travel: No Home Medications - Allergies Allergies/Adverse Reactions: Allergies Allergy/AdvReac Type Severity Reaction Status Date / Time clarithromycin [From Biaxin] Allergy Intermediate Hives Verified 08/13/17 07:08 Penicillins Allergy Unknown UNKNOWN-REACTION Verified 08/13/17 07:08 CHILD - Home Medications Home Medications: Ambulatory Orders BUPROPion HCL "SR" [Wellbutrin Sr -] 300 mg PO DAILY 10/25/13 Alprazolam [Xanax] 0.5 mg PO BID PRN 11/17/13 Ropinirole HCl [Requip Xl] 6 mg PO DAILY 12/21/14 Amlodipine Besylate 5 mg PO DAILY 12/12/15 Aspirin [ASA -] 81 mg PO DAILY 12/12/15 Atorvastatin Ca [Lipitor] 10 mg PO DAILY 12/12/15 Losartan/Hydrochlorothiazide [Losartan-Hctz 100-25 mg Tab] 1 each PO DAILY 12/11 Family Disease History - Family Disease History Family Disease History: [place]: Father ( of [place]) Review of Systems - Review of Systems Constitutional: reports: No Symptoms Eyes: reports: No Symptoms HENT: reports: No Symptoms Neck: reports: No Symptoms Cardiovascular: reports: No Symptoms Respiratory: reports: No Symptoms Gastrointestinal: reports: No Symptoms Genitourinary: reports: No Symptoms Musculoskeletal: reports: No Symptoms Integumentary: reports: No Symptoms Neurological: reports: No Symptoms Endocrine: reports: No Symptoms Hematology/Lymphatic: reports: No Symptoms Psychiatric: reports: No Symptoms Physical Examination Constitutional: Yes: Well Nourished, No Distress, Calm Eyes: Yes: WNL, Conjunctiva Clear, EOM Intact HENT: Yes: WNL, Atraumatic, Normocephalic Neck: Yes: WNL, Supple, Trachea Midline Cardiovascular: Yes: WNL, Regular Rate and Rhythm, S1, S2 Respiratory: Yes: WNL, Regular, CTA Bilaterally Gastrointestinal: Yes: WNL, Normal Bowel Sounds, Soft ...Rectal Exam: Yes: Deferred Renal/: Yes: WNL Breast(s): Yes: WNL Musculoskeletal: Yes: WNL Extremities: Yes: WNL Edema: No Peripheral Pulses WNL: No Integumentary: Yes: WNL Neurological: Yes: WNL, Alert, Oriented ...Motor Strength: WNL Psychiatric: Yes: WNL, Alert, Oriented Labs: reviewed 06/25 Imaging - Results EKG: Other (nsr) Assessment/Plan patient is a 67 y/o male that presents for ect, labs and ekg reviewed patient is medically optimized for procedure informed consent, risks/benefits to be obtained by Dr Brock.
[2017-11-11 07:20] VITALS: TEMP 97.8; BMI 24.3
[2017-11-11] MEDS ORDERED: KETAMINE HCL 500 MG/10 ML VIAL ONE (07:42)
[2017-11-11 09:08] VITALS: BP 127/73; PULSE 57
== END 2017-11-11 09:15 | disposition home or self-care (01) ==
LOC: FECT 05:40
PROVIDERS: ATTEND Psychiatry & Neurology Psychiatry
PROC: GZB4ZZZ Other Electroconvulsive Therapy (ICD-10-PCS; principal; 2017-11-11 07:15)
DX: F33.2 Major depressive disorder, recurrent severe without psychotic features (principal)
CPT/HCPCS: 90870; 94760

== ENCOUNTER 2017-12-02 05:36 | Day surgery (SDC) | payer BC ==
[2017-11-19 12:16] VITALS: BMI 24.4
[2017-12-02] MEDS ORDERED: KETAMINE HCL 500 MG/10 ML VIAL ONE (07:13)
[2017-12-02 08:31] VITALS: TEMP 97.9
[2017-12-02 08:41] VITALS: BP 112/60; PULSE 66
== END 2017-12-02 08:50 | disposition home or self-care (01) ==
LOC: FECT 05:36
PROVIDERS: ATTEND Psychiatry & Neurology Psychiatry
PROC: GZB4ZZZ Other Electroconvulsive Therapy (ICD-10-PCS; principal; 2017-12-02 07:00)
DX: F33.2 Major depressive disorder, recurrent severe without psychotic features (principal)
CPT/HCPCS: 90870; 94760

== ENCOUNTER 2017-12-23 05:45 | Day surgery (SDC) | payer BC ==
--- NOTE | 2017-12-23 07:47 | HP ---
CHIEF COMPLAINT: Major Depression PCP: HISTORY OF PRESENT ILLNESS: Patient is a 69 y/o male with a past medical history of HTN, HLD, hypertension, depression, anxiety, and mitral valve prolapse. Patient presents for ect, he has been undergoing ect since 2013, his last ect was 10/14/17. Patient reports feeling well, he denies any recent illnesses or hospitalizations. Patient denies any suicidal or homicidal ideation, visual or auditory hallucinations. He denies any recent medication changes and he reports compliance with prescribed medications. 30 day events: PAST MEDICAL HISTORY: Hypertension Hyperlipidemia Mitral valve prolapse Major depressive disorder PAST SURGICAL HISTORY: Bilateral hip replacements Social History: Smoking: quit 1975 Alcohol: occasional Drugs: no Family History: Allergies clarithromycin [From Biaxin] Allergy (Intermediate, Verified 12/02/17 06:24) Hives Penicillins Allergy (Unknown, Verified 12/02/17 06:24) UNKNOWN-REACTION CHILD HOME MEDICATIONS: Home Medications Medication Instructions Recorded BUPROPion HCL "SR" [Wellbutrin Sr 300 mg PO DAILY 10/25/13 -] Alprazolam [Xanax] 0.5 mg PO BID PRN 11/17/13 Ropinirole HCl [Requip Xl] 6 mg PO DAILY 12/21/14 Amlodipine Besylate 5 mg PO DAILY 12/12/15 Aspirin [ASA -] 81 mg PO DAILY 12/12/15 Atorvastatin Ca [Lipitor] 10 mg PO DAILY 12/12/15 Losartan/Hydrochlorothiazide 1 each PO DAILY 12/12/15 [Losartan-Hctz 100-25 mg Tab] REVIEW OF SYSTEMS CONSTITUTIONAL: Absent: fever, chills, diaphoresis, generalized weakness, malaise, loss of appetite, weight change HEENT: Absent: rhinorrhea, nasal congestion, throat pain, throat swelling, difficulty swallowing, mouth swelling, ear pain, eye pain, visual changes CARDIOVASCULAR: Absent: chest pain, syncope, palpitations, irregular heart rate, lightheadedness , peripheral edema RESPIRATORY: Absent: cough, shortness of breath, dyspnea with exertion, orthopnea, wheezing, stridor, hemoptysis GASTROINTESTINAL: Absent: abdominal pain, abdominal distension, nausea, vomiting, diarrhea, constipation, melena, hematochezia GENITOURINARY: Absent: dysuria, frequency, urgency, hesitancy, hematuria, flank pain, genital pain MUSCULOSKELETAL: Absent: myalgia, arthralgia, joint swelling, back pain, neck pain SKIN: Absent: rash, itching, pallor HEMATOLOGIC/IMMUNOLOGIC: Absent: easy bleeding, easy bruising, lymphadenopathy, frequent infections ENDOCRINE: Absent: unexplained weight gain, unexplained weight loss, heat intolerance, cold intolerance NEUROLOGIC: Absent: headache, focal weakness or paresthesias, dizziness, unsteady gait, seizure, mental status changes, bladder or bowel incontinence PSYCHIATRIC: Absent: anxiety, depression, suicidal or homicidal ideation, hallucinations. PHYSICAL EXAMINATION GENERAL: Awake, alert, and fully oriented, in no acute distress. HEAD: Normal with no signs of trauma. LUNGS: Breath sounds equal, clear to auscultation bilaterally. No wheezes, and no crackles. No accessory muscle use. HEART: Regular rate and rhythm, S1 and S2 ABDOMEN: Soft, nontender, not distended MUSCULOSKELETAL: Normal range of motion at all joints. No bony deformities or tenderness. No CVA tenderness. UPPER EXTREMITIES: 2+ pulses, warm, well-perfused. No cyanosis. No clubbing. No peripheral edema. LOWER EXTREMITIES: 2+ pulses, warm, well-perfused. No calf tenderness. No peripheral edema. NEUROLOGICAL: Cranial nerves II-XII intact. Normal speech. Normal gait. ASSESSMENT/PLAN:
[2017-12-23 07:52] VITALS: TEMP 98.4; BMI 24.4
[2017-12-23] MEDS ORDERED: KETAMINE HCL 500 MG/10 ML VIAL ONE (08:27)
[2017-12-23 08:31] LABS: HEMOGLOBIN 13.4 GM/dl (11.7-16.9); MCH 32.2 pg (25.7-33.7); MCHC 33.5 g/dl (32.0-35.9); MEAN PLT VOLUME 7.6 fl (7.5-11.1); PLATELET COUNT 233 K/MM3 (134-434); RBC 4.16 M/mm3 (4.00-5.60); RDW 13.9 % (11.9-15.9); WHITE BLOOD COUNT 5.1 K/mm3 (4.0-10.8)
[2017-12-23 08:40] LABS: ALBUMIN 3.9 g/dl (3.5-5.0); ALK PHOS 71 U/L (32-92); ANION GAP 8 MMOL/L (8-16); BILIRUBIN,TOTAL 0.6 mg/dl (0.2-1.0); BLOOD UREA NITROGEN 15 mg/dl (7-18); CALCIUM 8.8 mg/dl (8.4-10.2); CHLORIDE 100 mmol/L (98-107); CO2 28 mmol/L (22-28); CREATININE 0.9 mg/dl (0.6-1.3); GLUCOSE,RANDOM 117 mg/dl (74-106); MAGNESIUM 1.8 mg/dL (1.8-2.4); POTASSIUM 3.4 mmol/L (3.5-5.1); SGOT/AST 24 U/L (10-42); SGPT/ALT 15 U/L (10-40); SODIUM 136 mmol/L (136-145); TOT PROT 6.5 g/dl (6.4-8.3)
[2017-12-23 10:15] VITALS: BP 111/67; PULSE 77
== END 2017-12-23 10:00 | disposition home or self-care (01) ==
LOC: FECT 05:45
PROVIDERS: ATTEND Psychiatry & Neurology Psychiatry
PROC: GZB4ZZZ Other Electroconvulsive Therapy (ICD-10-PCS; principal; 2017-12-23 07:15)
DX: F33.2 Major depressive disorder, recurrent severe without psychotic features (principal)
CPT/HCPCS: 36415; 80053; 83735; 85027; 90870; 94760

== ENCOUNTER 2018-01-12 05:44 | Day surgery (SDC) | payer BC ==
[2018-01-12 06:41] VITALS: BMI 24.4
[2018-01-12] MEDS ORDERED: KETAMINE HCL 500 MG/10 ML VIAL ONE (07:17)
[2018-01-12 08:12] VITALS: TEMP 98.4
[2018-01-12 09:03] VITALS: BP 125/75; PULSE 62
== END 2018-01-12 08:35 | disposition home or self-care (01) ==
LOC: FECT 05:44
PROVIDERS: ATTEND Psychiatry & Neurology Psychiatry
PROC: GZB4ZZZ Other Electroconvulsive Therapy (ICD-10-PCS; principal; 2018-01-12 07:30)
DX: F33.2 Major depressive disorder, recurrent severe without psychotic features (principal)
CPT/HCPCS: 90870; 94760

== ENCOUNTER 2018-02-03 05:43 | Day surgery (SDC) | payer BC ==
[2018-02-03 07:26] VITALS: BMI 25.0
--- NOTE | 2018-02-03 07:27 | HP ---
CHIEF COMPLAINT: Major Depressive Disorder PCP: Dolores Horne Primary Psychiatrist: Dr. Eladio Light [place] HISTORY OF PRESENT ILLNESS: 69 year-old male with a PMH significant for HTN, RLS, and major depressive disorder. Began ECT in 2013. Presents today for ECT. Recent Events: None PAST MEDICAL HISTORY: Hypertension Restless Leg Syndrome Vertigo PAST SURGICAL HISTORY: Bilateral hip replacements Appendectomy - age 14 Social History: Smoking: quit 1974 Alcohol: occasional Drugs: no Allergies clarithromycin [From Biaxin] Allergy (Intermediate, Verified 12/23/17 07:58) Hives Penicillins Allergy (Unknown, Verified 12/23/17 07:58) UNKNOWN-REACTION CHILD HOME MEDICATIONS: Home Medications Medication Instructions Recorded BUPROPion HCL "SR" [Wellbutrin Sr 300 mg PO DAILY 10/25/13 -] Alprazolam [Xanax] 0.5 mg PO BID PRN 11/17/13 Ropinirole HCl [Requip Xl] 6 mg PO DAILY 12/21/14 Amlodipine Besylate 5 mg PO DAILY 12/12/15 Aspirin [ASA -] 81 mg PO DAILY 12/12/15 Atorvastatin Ca [Lipitor] 10 mg PO DAILY 12/12/15 Losartan/Hydrochlorothiazide 1 each PO DAILY 12/12/15 [Losartan-Hctz 100-25 mg Tab] Gabapentin Enacarbil [Horizant] 300 mg PO HS 12/23/17 REVIEW OF SYSTEMS CONSTITUTIONAL: Absent: fever, chills, diaphoresis, generalized weakness, malaise, loss of appetite, weight change HEENT: Absent: rhinorrhea, nasal congestion, throat pain, throat swelling, difficulty swallowing, mouth swelling, ear pain, eye pain, visual changes CARDIOVASCULAR: Absent: chest pain, syncope, palpitations, irregular heart rate, lightheadedness , peripheral edema RESPIRATORY: Absent: cough, shortness of breath, dyspnea with exertion, orthopnea, wheezing, stridor, hemoptysis GASTROINTESTINAL: Absent: abdominal pain, abdominal distension, nausea, vomiting, diarrhea, constipation, melena, hematochezia GENITOURINARY: Absent: dysuria, frequency, urgency, hesitancy, hematuria, flank pain, genital pain MUSCULOSKELETAL: Absent: myalgia, arthralgia, joint swelling, back pain, neck pain SKIN: Absent: rash, itching, pallor HEMATOLOGIC/IMMUNOLOGIC: Absent: easy bleeding, easy bruising, lymphadenopathy, frequent infections ENDOCRINE: Absent: unexplained weight gain, unexplained weight loss, heat intolerance, cold intolerance NEUROLOGIC: Absent: headache, focal weakness or paresthesias, dizziness, unsteady gait, seizure, mental status changes, bladder or bowel incontinence PHYSICAL EXAMINATION GENERAL: Awake, alert, and fully oriented, in no acute distress. HEAD: Normal with no signs of trauma. EYES: Pupils equal, round and reactive to light, sclera anicteric, conjunctiva clear. LUNGS: Breath sounds equal, clear to auscultation bilaterally. No wheezes, and no crackles. No accessory muscle use. HEART: Regular rate and rhythm, normal S1 and S2 ABDOMEN: Soft, nontender, not distended MUSCULOSKELETAL: Normal range of motion at all joints. No bony deformities or tenderness. No CVA tenderness. UPPER EXTREMITIES: 2+ pulses, warm, well-perfused. No cyanosis. No clubbing. No peripheral edema. LOWER EXTREMITIES: 2+ pulses, warm, well-perfused. No calf tenderness. No peripheral edema. NEUROLOGICAL: Cranial nerves II-XII intact. Normal speech. ASSESSMENT/PLAN: Cardiac --no cardiac history --Revised Cardiac Risk Index for Pre-Operative Risk: 0 points, 0.4% risk of major cardiac event Pulmonary --no pulmonary history Neurological --no neurological or neurosurgical history; no history of trauma Anesthesia --no reported problems with anesthesia ECT is a low risk procedure. The relative benefits of the planned procedure outweigh the relative risks for this patient at this time. Visit type - Emergency Visit Emergency Visit: No - New Patient This patient is new to me today: Yes Date on this admission: 02/03/18 - Critical Care Critical Care patient: No
[2018-02-03] MEDS ORDERED: KETAMINE HCL 500 MG/10 ML VIAL ONE (07:55)
[2018-02-03 09:04] VITALS: TEMP 98
[2018-02-03 09:29] VITALS: BP 122/66; PULSE 64
== END 2018-02-03 09:31 | disposition home or self-care (01) ==
LOC: FECT 05:43
PROVIDERS: ATTEND Psychiatry & Neurology Psychiatry
PROC: GZB4ZZZ Other Electroconvulsive Therapy (ICD-10-PCS; principal; 2018-02-03 07:15)
DX: F32.9 Major depressive disorder, single episode, unspecified (principal)
CPT/HCPCS: 90870; 94760

== ENCOUNTER 2018-02-24 05:40 | Day surgery (SDC) | payer BC ==
[2018-02-24 06:49] VITALS: BMI 25.0
[2018-02-24] MEDS ORDERED: ONDANSETRON 4 MG/2 ML VIAL IVPUSH PRN (07:04)
[2018-02-24] MEDS ORDERED: KETAMINE HCL SYRINGES 150 MG/3 ML VIAL ONE (07:13)
[2018-02-24] MEDS ORDERED: LACTATED RINGERS SOLUTION 1,000 ML IV SCH (07:15)
[2018-02-24 08:09] VITALS: TEMP 97.7
[2018-02-24 08:44] VITALS: BP 110/62; PULSE 62
== END 2018-02-24 08:40 | disposition home or self-care (01) ==
LOC: FECT 05:40
PROVIDERS: ATTEND Psychiatry & Neurology Psychiatry
PROC: GZB4ZZZ Other Electroconvulsive Therapy (ICD-10-PCS; principal; 2018-02-24 07:00)
DX: F33.2 Major depressive disorder, recurrent severe without psychotic features (principal)
CPT/HCPCS: 90870; 94760

== ENCOUNTER 2018-03-17 05:41 | Day surgery (SDC) | payer BC ==
--- NOTE | 2018-03-17 07:13 | PN ---
Physical Exam: SUBJECTIVE: Patient seen and examined OBJECTIVE: GENERAL: The patient is awake, alert, and fully oriented, in no acute distress. HEAD: Normal with no signs of trauma. EYES: PERRL, extraocular movements intact, sclera anicteric, conjunctiva clear. No ptosis. ENT: Ears normal, nares patent, oropharynx clear without exudates, moist mucous membranes. NECK: Trachea midline, full range of motion, supple. LUNGS: Breath sounds equal, clear to auscultation bilaterally, no wheezes, no crackles, no accessory muscle use. HEART: Regular rate and rhythm, S1, S2 without murmur, rub or gallop. ABDOMEN: Soft, nontender, nondistended, normoactive bowel sounds, no guarding, no rebound, no hepatosplenomegaly, no masses. EXTREMITIES: 2+ pulses, warm, well-perfused, no edema. NEUROLOGICAL: Cranial nerves II through XII grossly intact. Normal speech, gait not observed. PSYCH: Normal mood, normal affect. SKIN: Warm, dry, normal turgor, no rashes or lesions noted ASSESSMENT/PLAN:
--- NOTE | 2018-03-17 07:18 | HP ---
CHIEF COMPLAINT: Major Depressive Disorder PCP: Dolores Horne Primary Psychiatrist: Dr. Eladio Light [place] HISTORY OF PRESENT ILLNESS: 69 year-old male with a PMH significant for HTN, RLS, and major depressive disorder. Began ECT in 2013. Presents today for ECT. Feeling well with no acute complaints. Recent Events: None PAST MEDICAL HISTORY: Hypertension Restless Leg Syndrome Vertigo PAST SURGICAL HISTORY: Bilateral hip replacements Appendectomy - age 14 Social History: Smoking: quit 1974 Alcohol: occasional Drugs: no Allergies clarithromycin [From Biaxin] Allergy (Intermediate, Verified 12/23/17 07:58) Hives Penicillins Allergy (Unknown, Verified 12/23/17 07:58) UNKNOWN-REACTION CHILD HOME MEDICATIONS: Home Medications Medication Instructions Recorded BUPROPion HCL "SR" [Wellbutrin Sr 300 mg PO DAILY 10/25/13 -] Alprazolam [Xanax] 0.5 mg PO BID PRN 11/17/13 Ropinirole HCl [Requip Xl] 6 mg PO DAILY 12/21/14 Amlodipine Besylate 5 mg PO DAILY 12/12/15 Aspirin [ASA -] 81 mg PO DAILY 12/12/15 Atorvastatin Ca [Lipitor] 10 mg PO DAILY 12/12/15 Losartan/Hydrochlorothiazide 1 each PO DAILY 12/12/15 [Losartan-Hctz 100-25 mg Tab] Gabapentin Enacarbil [Horizant] 300 mg PO HS 12/23/17 REVIEW OF SYSTEMS CONSTITUTIONAL: Absent: fever, chills, diaphoresis, generalized weakness, malaise, loss of appetite, weight change HEENT: Absent: rhinorrhea, nasal congestion, throat pain, throat swelling, difficulty swallowing, mouth swelling, ear pain, eye pain, visual changes CARDIOVASCULAR: Absent: chest pain, syncope, palpitations, irregular heart rate, lightheadedness , peripheral edema RESPIRATORY: Absent: cough, shortness of breath, dyspnea with exertion, orthopnea, wheezing, stridor, hemoptysis GASTROINTESTINAL: Absent: abdominal pain, abdominal distension, nausea, vomiting, diarrhea, constipation, melena, hematochezia GENITOURINARY: Absent: dysuria, frequency, urgency, hesitancy, hematuria, flank pain, genital pain MUSCULOSKELETAL: Absent: myalgia, arthralgia, joint swelling, back pain, neck pain SKIN: Absent: rash, itching, pallor HEMATOLOGIC/IMMUNOLOGIC: Absent: easy bleeding, easy bruising, lymphadenopathy, frequent infections ENDOCRINE: Absent: unexplained weight gain, unexplained weight loss, heat intolerance, cold intolerance NEUROLOGIC: Absent: headache, focal weakness or paresthesias, dizziness, unsteady gait, seizure, mental status changes, bladder or bowel incontinence PHYSICAL EXAMINATION GENERAL: Awake, alert, and fully oriented, in no acute distress. HEAD: Normal with no signs of trauma. EYES: Pupils equal, round and reactive to light, sclera anicteric, conjunctiva clear. LUNGS: Breath sounds equal, clear to auscultation bilaterally. No wheezes, and no crackles. No accessory muscle use. HEART: Regular rate and rhythm, normal S1 and S2 ABDOMEN: Soft, nontender, not distended MUSCULOSKELETAL: Normal range of motion at all joints. No bony deformities or tenderness. No CVA tenderness. UPPER EXTREMITIES: 2+ pulses, warm, well-perfused. No cyanosis. No clubbing. No peripheral edema. LOWER EXTREMITIES: 2+ pulses, warm, well-perfused. No calf tenderness. No peripheral edema. NEUROLOGICAL: Cranial nerves II-XII intact. Normal speech. ASSESSMENT/PLAN: Cardiac --no cardiac history --Revised Cardiac Risk Index for Pre-Operative Risk: 0 points, 0.4% risk of major cardiac event Pulmonary --no pulmonary history Neurological --no neurological or neurosurgical history; no history of trauma Anesthesia --no reported problems with anesthesia ECT is a low risk procedure. The relative benefits of the planned procedure outweigh the relative risks for this patient at this time. Visit type - Emergency Visit Emergency Visit: Yes Care time: The patient presented to the Emergency Department on the above date and was hospitalized for further evaluation of their emergent condition. - New Patient This patient is new to me today: Yes Date on this admission: 03/17/18 - Critical Care Critical Care patient: No
[2018-03-17 07:57] VITALS: BMI 25.0
[2018-03-17] MEDS ORDERED: KETAMINE HCL 500 MG/10 ML VIAL ONE (08:48)
[2018-03-17 09:44] VITALS: TEMP 98.8
[2018-03-17 09:57] VITALS: BP 130/66; PULSE 64
== END 2018-03-17 10:00 | disposition home or self-care (01) ==
LOC: FECT 05:41
PROVIDERS: ATTEND Psychiatry & Neurology Psychiatry
PROC: GZB4ZZZ Other Electroconvulsive Therapy (ICD-10-PCS; principal; 2018-03-17 07:15)
DX: F33.2 Major depressive disorder, recurrent severe without psychotic features (principal); I10 Essential (primary) hypertension; G25.81 Restless legs syndrome; Z96.643 Presence of artificial hip joint, bilateral
CPT/HCPCS: 90870; 94760

== ENCOUNTER 2018-06-23 05:48 | Day surgery (SDC) | payer BC ==
[2018-06-23 07:14] LABS: BASO % 0.3 % (0-2.0); EOS % 4.1 % (0-4.5); HEMATOCRIT 41.6 % (35.4-49); HEMOGLOBIN 13.9 GM/dl (11.7-16.9); LYMPH % 21.8 % (8-40); MCH 31.6 pg (25.7-33.7); MCHC 33.6 g/dl (32.0-35.9); MEAN CELL VOLUME 94.2 fl (80-96); MEAN PLT VOLUME 7.4 fl (7.5-11.1); MONO % 8.9 % (3.8-10.2); NEUT % 64.9 % (42.8-82.8); PLATELET COUNT 255 K/MM3 (134-434); RBC 4.41 M/mm3 (4.00-5.60); RDW 12.8 % (11.9-15.9); WHITE BLOOD COUNT 4.7 K/mm3 (4.0-10.8)
[2018-06-23 07:23] LABS: ALBUMIN 4.2 g/dl (3.4-5.0); BILIRUBIN,TOTAL 0.9 mg/dl (0.2-1); CALCIUM 9.4 mg/dl (8.5-10); POTASSIUM 4.1 mmol/L (3.5-5.1); TOT PROT 6.7 g/dl (6.4-8.2)
[2018-06-23 07:30] VITALS: TEMP 98.2; BMI 24.8
--- NOTE | 2018-06-23 07:41 | HP ---
CHIEF COMPLAINT: Major Depressive Disorder PCP: Dolores Horne Primary Psychiatrist: Dr. Eladio Light [place] HISTORY OF PRESENT ILLNESS: 69 year-old male with a PMH significant for HTN, RLS, and major depressive disorder. Began ECT in 2013. Presents today for ECT. Recent Events: * None PAST MEDICAL HISTORY: Hypertension Restless Leg Syndrome Vertigo PAST SURGICAL HISTORY: Bilateral hip replacements Appendectomy - age 14 Social History: Smoking: quit 1974 Alcohol: occasional Drugs: no Allergies clarithromycin [From Biaxin] Allergy (Intermediate, Verified 03/30/18 12:02) Hives Penicillins Allergy (Unknown, Verified 03/30/18 12:02) UNKNOWN-REACTION CHILD HOME MEDICATIONS: Home Medications Medication Instructions Recorded BUPROPion HCL "SR" [Wellbutrin Sr 300 mg PO DAILY 10/25/13 -] Alprazolam [Xanax] 0.5 mg PO BID PRN 11/17/13 Ropinirole HCl [Requip Xl] 6 mg PO DAILY 12/21/14 Amlodipine Besylate 5 mg PO DAILY 12/12/15 Aspirin [ASA -] 81 mg PO DAILY 12/12/15 Atorvastatin Ca [Lipitor] 10 mg PO DAILY 12/12/15 Losartan/Hydrochlorothiazide 1 each PO DAILY 12/12/15 [Losartan-Hctz 100-25 mg Tab] Gabapentin Enacarbil [Horizant] 300 mg PO HS 12/23/17 REVIEW OF SYSTEMS CONSTITUTIONAL: Absent: fever, chills, diaphoresis, generalized weakness, malaise, loss of appetite, weight change HEENT: Absent: rhinorrhea, nasal congestion, throat pain, throat swelling, difficulty swallowing, mouth swelling, ear pain, eye pain, visual changes CARDIOVASCULAR: Absent: chest pain, syncope, palpitations, irregular heart rate, lightheadedness , peripheral edema RESPIRATORY: Absent: cough, shortness of breath, dyspnea with exertion, orthopnea, wheezing, stridor, hemoptysis GASTROINTESTINAL: Absent: abdominal pain, abdominal distension, nausea, vomiting, diarrhea, constipation, melena, hematochezia GENITOURINARY: Absent: dysuria, frequency, urgency, hesitancy, hematuria, flank pain, genital pain MUSCULOSKELETAL: Absent: myalgia, arthralgia, joint swelling, back pain, neck pain SKIN: Absent: rash, itching, pallor HEMATOLOGIC/IMMUNOLOGIC: Absent: easy bleeding, easy bruising, lymphadenopathy, frequent infections ENDOCRINE: Absent: unexplained weight gain, unexplained weight loss, heat intolerance, cold intolerance NEUROLOGIC: Absent: headache, focal weakness or paresthesias, dizziness, unsteady gait, seizure, mental status changes, bladder or bowel incontinence PHYSICAL EXAMINATION Vital Signs - 24 hr 06/23/18 07:19 Temperature 98.2 F Pulse Rate 76 Respiratory 18 Rate Blood Pressure 129/64 O2 Sat by Pulse 99 Oximetry (%) GENERAL: Awake, alert, and fully oriented, in no acute distress. HEAD: Normal with no signs of trauma. EYES: Pupils equal, round and reactive to light, sclera anicteric, conjunctiva clear. LUNGS: Breath sounds equal, clear to auscultation bilaterally. No wheezes, and no crackles. No accessory muscle use. HEART: Regular rate and rhythm, normal S1 and S2 ABDOMEN: Soft, nontender, not distended MUSCULOSKELETAL: Normal range of motion at all joints. No bony deformities or tenderness. No CVA tenderness. UPPER EXTREMITIES: 2+ pulses, warm, well-perfused. No cyanosis. No clubbing. No peripheral edema. LOWER EXTREMITIES: 2+ pulses, warm, well-perfused. No calf tenderness. No peripheral edema. NEUROLOGICAL: Cranial nerves II-XII intact. Normal speech. Laboratory Results - last 24 hr 06/23/18 06/23/18 06:30 06:30 WBC 4.7 RBC 4.41 Hgb 13.9 Hct 41.6 MCV 94.2 MCH 31.6 MCHC 33.6 RDW 12.8 Plt Count 255 MPV 7.4 L Absolute Neuts (auto) 3.1 Neutrophils % 64.9 Lymphocytes % 21.8 D Monocytes % 8.9 Eosinophils % 4.1 Basophils % 0.3 Sodium 138 Potassium 4.1 Chloride 102 Carbon Dioxide 25 Anion Gap 11 BUN 22 H Creatinine 1.0 Est GFR (CKD-EPI)AfAm 90.50 Est GFR (CKD-EPI)NonAf 78.08 Random Glucose 97 Calcium 9.4 Total Bilirubin 0.9 AST 23 ALT 16 Alkaline Phosphatase 62 Total Protein 6.7 Albumin 4.2 ASSESSMENT/PLAN: 69 year-old male with a PMH significant for HTN, RLS, and major depressive disorder. Began ECT in 2013. Presents today for ECT. Cardiac --no cardiac history --Revised Cardiac Risk Index for Pre-Operative Risk: 0 points, 0.4% risk of major cardiac event Pulmonary --no pulmonary history Neurological --no neurological or neurosurgical history; no history of trauma Anesthesia --no reported problems with anesthesia ECT is a low risk procedure. The relative benefits of the planned procedure outweigh the relative risks for this patient at this time. Visit type - Emergency Visit Emergency Visit: No - New Patient This patient is new to me today: Yes Date on this admission: 06/23/18 - Critical Care Critical Care patient: No
[2018-06-23] MEDS ORDERED: KETAMINE HCL 500 MG/10 ML VIAL ONE (08:00)
[2018-06-23 09:14] VITALS: BP 114/70; PULSE 64
--- NOTE | 2018-06-23 14:31 | EKG ---
Test Reason : Blood Pressure : / mmHG Vent. Rate : 079 BPM Atrial Rate : 079 BPM P-R Int : 158 ms QRS Dur : 082 ms QT Int : 354 ms P-R-T Axes : 070 058 062 degrees QTc Int : 405 ms NORMAL SINUS RHYTHM NORMAL ECG WHEN COMPARED WITH ECG OF 23-SEP-2017 06:43, NO SIGNIFICANT CHANGE WAS FOUND Confirmed by BIBI PHILLIPS MD ([id number]) on 06/23/2018 2:30:38 PM Referred By: Jose G Brock Confirmed By:BIBI PHILLIPS MD
== END 2018-06-23 09:20 | disposition home or self-care (01) ==
LOC: FECT 05:48
PROVIDERS: ATTEND Psychiatry & Neurology Psychiatry
PROC: GZB4ZZZ Other Electroconvulsive Therapy (ICD-10-PCS; principal; 2018-06-23 07:30)
DX: F33.2 Major depressive disorder, recurrent severe without psychotic features (principal)
CPT/HCPCS: 36415; 80053; 85025; 90870; 93005; 94760

== ENCOUNTER 2018-07-01 06:01 | Day surgery (SDC) | payer BC ==
[2018-07-01 07:23] VITALS: TEMP 98.3; BMI 24.8
[2018-07-01] MEDS ORDERED: ONDANSETRON 4 MG/2 ML VIAL IVPUSH PRN (08:28)
[2018-07-01] MEDS ORDERED: ACETAMINOPHEN 325 MG TABLET (FP) PO PRN (08:28)
[2018-07-01] MEDS ORDERED: LACTATED RINGERS SOLUTION 1,000 ML IV SCH (08:30)
[2018-07-01] MEDS ORDERED: KETAMINE HCL 500 MG/10 ML VIAL ONE (08:43)
[2018-07-01 10:13] VITALS: BP 133/69; PULSE 65
== END 2018-07-01 10:15 | disposition home or self-care (01) ==
LOC: FECT 06:01
PROVIDERS: ATTEND Psychiatry & Neurology Psychiatry
PROC: GZB4ZZZ Other Electroconvulsive Therapy (ICD-10-PCS; principal; 2018-07-01 08:30)
DX: F32.9 Major depressive disorder, single episode, unspecified (principal)
CPT/HCPCS: 90870; 94760

== ENCOUNTER 2018-07-07 05:48 | Day surgery (SDC) | payer BC | END 2018-07-07 08:30 | disposition home or self-care (01) | LOC: FECT 05:48 | PROC: GZB4ZZZ Other Electroconvulsive Therapy (ICD-10-PCS; principal; 2018-07-07 07:02) | DX: F33.2 Major depressive disorder, recurrent severe without psychotic features (principal) ==

== ENCOUNTER 2018-07-21 06:08 | Day surgery (SDC) | payer BC | END 2018-07-21 09:05 | disposition home or self-care (01) | LOC: FECT 06:08 | PROC: GZB4ZZZ Other Electroconvulsive Therapy (ICD-10-PCS; principal; 2018-07-21 07:30) | DX: F32.9 Major depressive disorder, single episode, unspecified (principal) ==

== ENCOUNTER 2018-08-04 05:40 | Day surgery (SDC) | payer BC ==
[2018-08-04 07:26] VITALS: BMI 24.8
[2018-08-04] MEDS ORDERED: KETAMINE HCL 500 MG/10 ML VIAL ONE (07:55)
[2018-08-04 09:31] VITALS: TEMP 97.7
[2018-08-04 09:45] VITALS: BP 112/74; PULSE 79
== END 2018-08-04 09:50 | disposition home or self-care (01) ==
LOC: FECT 05:40
PROVIDERS: ATTEND Psychiatry & Neurology Psychiatry
PROC: GZB4ZZZ Other Electroconvulsive Therapy (ICD-10-PCS; principal; 2018-08-04 07:30)
DX: F32.9 Major depressive disorder, single episode, unspecified (principal)
CPT/HCPCS: 90870; 94760

== ENCOUNTER 2018-09-01 05:48 | Day surgery (SDC) | payer BC ==
[2018-08-31 11:39] VITALS: BMI 24.8
[2018-09-01] MEDS ORDERED: oxyCODONE HCL 5 MG TABLET PO PRN (07:00)
[2018-09-01] MEDS ORDERED: ONDANSETRON 4 MG/2 ML VIAL IVPUSH PRN (07:00)
[2018-09-01 07:05] VITALS: TEMP 98.7
--- NOTE | 2018-09-01 07:26 | HP ---
CHIEF COMPLAINT: Major Depressive Disorder PCP: Dolores Horne Primary Psychiatrist: Dr. Eladio Light [place] HISTORY OF PRESENT ILLNESS: 69 year-old male with a PMH significant for HTN, RLS, and major depressive disorder. Began ECT in 2013. Presents today for ECT. Recent Events: * no changes since last treatment PAST MEDICAL HISTORY: Hypertension Restless Leg Syndrome Vertigo PAST SURGICAL HISTORY: Bilateral hip replacements Appendectomy - age 14 Social History: Smoking: quit 1974 Alcohol: occasional Drugs: no Allergies clarithromycin [From Biaxin] Allergy (Intermediate, Verified 07/21/18 06:59) Hives Penicillins Allergy (Unknown, Verified 07/21/18 06:59) UNKNOWN-REACTION CHILD HOME MEDICATIONS: Home Medications Medication Instructions Recorded BUPROPion HCL "SR" [Wellbutrin Sr 300 mg PO DAILY 10/25/13 -] Alprazolam [Xanax] 0.5 mg PO BID PRN 11/17/13 Ropinirole HCl [Requip Xl] 6 mg PO DAILY 12/21/14 Amlodipine Besylate 5 mg PO DAILY 12/12/15 Atorvastatin Ca [Lipitor] 10 mg PO DAILY 12/12/15 Losartan/Hydrochlorothiazide 1 each PO DAILY 12/12/15 [Losartan-Hctz 100-25 mg Tab] Gabapentin Enacarbil [Horizant] 300 mg PO HS 12/23/17 REVIEW OF SYSTEMS CONSTITUTIONAL: Absent: fever, chills, diaphoresis, generalized weakness, malaise, loss of appetite, weight change HEENT: Absent: rhinorrhea, nasal congestion, throat pain, throat swelling, difficulty swallowing, mouth swelling, ear pain, eye pain, visual changes CARDIOVASCULAR: Absent: chest pain, syncope, palpitations, irregular heart rate, lightheadedness , peripheral edema RESPIRATORY: Absent: cough, shortness of breath, dyspnea with exertion, orthopnea, wheezing, stridor, hemoptysis GASTROINTESTINAL: Absent: abdominal pain, abdominal distension, nausea, vomiting, diarrhea, constipation, melena, hematochezia GENITOURINARY: Absent: dysuria, frequency, urgency, hesitancy, hematuria, flank pain, genital pain MUSCULOSKELETAL: Absent: myalgia, arthralgia, joint swelling, back pain, neck pain SKIN: Absent: rash, itching, pallor HEMATOLOGIC/IMMUNOLOGIC: Absent: easy bleeding, easy bruising, lymphadenopathy, frequent infections ENDOCRINE: Absent: unexplained weight gain, unexplained weight loss, heat intolerance, cold intolerance NEUROLOGIC: Absent: headache, focal weakness or paresthesias, dizziness, unsteady gait, seizure, mental status changes, bladder or bowel incontinence PHYSICAL EXAMINATION Vital Signs - 24 hr 09/01/18 07:02 Temperature 98.7 F Pulse Rate 71 Respiratory 18 Rate Blood Pressure 120/57 L O2 Sat by Pulse 100 Oximetry (%) GENERAL: Awake, alert, and fully oriented, in no acute distress. HEAD: Normal with no signs of trauma. EYES: Pupils equal, round and reactive to light, sclera anicteric, conjunctiva clear. LUNGS: Breath sounds equal, clear to auscultation bilaterally. No wheezes, and no crackles. No accessory muscle use. HEART: Regular rate and rhythm, normal S1 and S2 ABDOMEN: Soft, nontender, not distended MUSCULOSKELETAL: Normal range of motion at all joints. No bony deformities or tenderness. No CVA tenderness. UPPER EXTREMITIES: 2+ pulses, warm, well-perfused. No cyanosis. No clubbing. No peripheral edema. LOWER EXTREMITIES: 2+ pulses, warm, well-perfused. No calf tenderness. No peripheral edema. NEUROLOGICAL: Cranial nerves II-XII intact. Normal speech. ASSESSMENT/PLAN: 69 year-old male with a PMH significant for HTN, RLS, and major depressive disorder. Presents today for ECT. Cardiac --BP stable --Revised Cardiac Risk Index for Pre-Operative Risk: 0 points, 0.4% risk of major cardiac event Pulmonary --no pulmonary history Neurological --no neurological or neurosurgical history; no history of trauma Anesthesia --no reported problems with anesthesia ECT is a low risk procedure. The relative benefits of the planned procedure outweigh the relative risks for this patient at this time. Visit type - Emergency Visit Emergency Visit: No - New Patient This patient is new to me today: Yes Date on this admission: 09/01/18 - Critical Care Critical Care patient: No
[2018-09-01] MEDS ORDERED: KETAMINE HCL 500 MG/10 ML VIAL ONE (07:40)
[2018-09-01 09:05] VITALS: BP 131/61; PULSE 65
== END 2018-09-01 09:00 | disposition home or self-care (01) ==
LOC: FECT 05:48
PROVIDERS: ATTEND Psychiatry & Neurology Psychiatry
PROC: GZB4ZZZ Other Electroconvulsive Therapy (ICD-10-PCS; principal; 2018-09-01 08:00)
DX: F32.9 Major depressive disorder, single episode, unspecified (principal)
CPT/HCPCS: 90870; 94760

== ENCOUNTER 2018-09-29 05:45 | Day surgery (SDC) | payer BC ==
[2018-09-29 07:07] VITALS: BMI 24.8
[2018-09-29] MEDS ORDERED: KETAMINE HCL 500 MG/10 ML VIAL ONE (07:30)
[2018-09-29] MEDS ORDERED: ONDANSETRON 4 MG/2 ML VIAL IVPUSH PRN (08:44)
[2018-09-29] MEDS ORDERED: LACTATED RINGERS SOLUTION 1,000 ML IV SCH (08:45)
[2018-09-29 08:49] VITALS: TEMP 97.6
[2018-09-29 09:24] VITALS: BP 128/74; PULSE 76
== END 2018-09-29 09:10 | disposition home or self-care (01) ==
LOC: FECT 05:45
PROVIDERS: ATTEND Psychiatry & Neurology Psychiatry
PROC: GZB4ZZZ Other Electroconvulsive Therapy (ICD-10-PCS; principal; 2018-09-29 07:15)
DX: F32.9 Major depressive disorder, single episode, unspecified (principal)
CPT/HCPCS: 90870; 94760

== ENCOUNTER 2018-10-27 05:37 | Day surgery (SDC) | payer BC ==
[2018-10-27 07:33] VITALS: BMI 23.0
--- NOTE | 2018-10-27 07:40 | HP ---
CHIEF COMPLAINT: Major Depressive Disorder PCP: Dolores Horne Primary Psychiatrist: Dr. Eladio Light [place] HISTORY OF PRESENT ILLNESS: 69 year-old male with a PMH significant for HTN, RLS, and major depressive disorder. Began ECT in 2013. Presents today for ECT. Recent Events: * no changes since last treatment PAST MEDICAL HISTORY: Hypertension Restless Leg Syndrome Vertigo PAST SURGICAL HISTORY: Bilateral hip replacements Appendectomy - age 14 Social History: Smoking: quit 1974 Alcohol: occasional Drugs: no Family History: Mother lung cancer Father 68 [place] No siblings 2 children a&w Allergies clarithromycin [From Biaxin] Allergy (Intermediate, Verified 07/21/18 06:59) Hives Penicillins Allergy (Unknown, Verified 07/21/18 06:59) UNKNOWN-REACTION CHILD HOME MEDICATIONS: Home Medications Medication Instructions Recorded BUPROPion HCL "SR" [Wellbutrin Sr 300 mg PO DAILY 10/25/13 -] Alprazolam [Xanax] 0.5 mg PO BID PRN 11/17/13 Ropinirole HCl [Requip Xl] 6 mg PO DAILY 12/21/14 Amlodipine Besylate 5 mg PO DAILY 12/12/15 Atorvastatin Ca [Lipitor] 10 mg PO DAILY 12/12/15 Losartan/Hydrochlorothiazide 1 each PO DAILY 12/12/15 [Losartan-Hctz 100-25 mg Tab] Gabapentin Enacarbil [Horizant] 300 mg PO HS 12/23/17 Lamotrigine [Lamictal] 200 mg PO DAILY 09/29/18 REVIEW OF SYSTEMS CONSTITUTIONAL: Absent: fever, chills, diaphoresis, generalized weakness, malaise, loss of appetite, weight change HEENT: Absent: rhinorrhea, nasal congestion, throat pain, throat swelling, difficulty swallowing, mouth swelling, ear pain, eye pain, visual changes CARDIOVASCULAR: Absent: chest pain, syncope, palpitations, irregular heart rate, lightheadedness , peripheral edema RESPIRATORY: Absent: cough, shortness of breath, dyspnea with exertion, orthopnea, wheezing, stridor, hemoptysis GASTROINTESTINAL: Absent: abdominal pain, abdominal distension, nausea, vomiting, diarrhea, constipation, melena, hematochezia GENITOURINARY: Absent: dysuria, frequency, urgency, hesitancy, hematuria, flank pain, genital pain MUSCULOSKELETAL: Absent: myalgia, arthralgia, joint swelling, back pain, neck pain SKIN: Absent: rash, itching, pallor HEMATOLOGIC/IMMUNOLOGIC: Absent: easy bleeding, easy bruising, lymphadenopathy, frequent infections ENDOCRINE: Absent: unexplained weight gain, unexplained weight loss, heat intolerance, cold intolerance NEUROLOGIC: Absent: headache, focal weakness or paresthesias, dizziness, unsteady gait, seizure, mental status changes, bladder or bowel incontinence PHYSICAL EXAMINATION Vital Signs - 24 hr 10/27/18 07:30 Temperature 98.0 F Pulse Rate 61 Respiratory 18 Rate Blood Pressure 127/61 O2 Sat by Pulse 99 Oximetry (%) GENERAL: Awake, alert, and fully oriented, in no acute distress. HEAD: Normal with no signs of trauma. EYES: Pupils equal, round and reactive to light, sclera anicteric, conjunctiva clear. LUNGS: Breath sounds equal, clear to auscultation bilaterally. No wheezes, and no crackles. No accessory muscle use. HEART: Regular rate and rhythm, normal S1 and S2 ABDOMEN: Soft, nontender, not distended MUSCULOSKELETAL: Normal range of motion at all joints. No bony deformities or tenderness. No CVA tenderness. UPPER EXTREMITIES: 2+ pulses, warm, well-perfused. No cyanosis. No clubbing. No peripheral edema. LOWER EXTREMITIES: 2+ pulses, warm, well-perfused. No calf tenderness. No peripheral edema. NEUROLOGICAL: Cranial nerves II-XII intact. Normal speech. ASSESSMENT/PLAN: 69 year-old male with a PMH significant for HTN, RLS, and major depressive disorder. Presents today for ECT. Cardiac --hypertension well-controlled on current meds --Revised Cardiac Risk Index for Pre-Operative Risk: 0 points, 0.4% risk of major cardiac event Pulmonary --no pulmonary history Neurological --no neurological or neurosurgical history; no history of trauma Anesthesia --no reported problems with anesthesia ECT is a low risk procedure. The relative benefits of the planned procedure outweigh the relative risks for this patient at this time. Visit type - Emergency Visit Emergency Visit: No - New Patient This patient is new to me today: Yes Date on this admission: 10/27/18 - Critical Care Critical Care patient: No
[2018-10-27] MEDS ORDERED: KETAMINE HCL 500 MG/10 ML VIAL ONE (08:00)
[2018-10-27] MEDS ORDERED: PROMETHAZINE HCL 25 MG/1 ML VIAL IVPUSH PRN (08:11)
[2018-10-27] MEDS ORDERED: ACETAMINOPHEN 500 MG TABLET (FP) PO PRN (08:11)
[2018-10-27] MEDS ORDERED: LACTATED RINGERS SOLUTION 1,000 ML IV SCH (08:15)
[2018-10-27 08:50] VITALS: TEMP 98.4
[2018-10-27 09:32] VITALS: BP 125/75; PULSE 66
== END 2018-10-27 09:20 | disposition home or self-care (01) ==
LOC: FECT 05:37
PROVIDERS: ATTEND Psychiatry & Neurology Psychiatry
PROC: GZB4ZZZ Other Electroconvulsive Therapy (ICD-10-PCS; principal; 2018-10-27 07:15)
DX: F33.2 Major depressive disorder, recurrent severe without psychotic features (principal)
CPT/HCPCS: 90870; 94760

== ENCOUNTER 2018-11-24 05:40 | Day surgery (SDC) | payer BC ==
[2018-11-24 07:03] VITALS: BMI 23.0
[2018-11-24] MEDS ORDERED: KETAMINE HCL 500 MG/10 ML VIAL ONE (07:20)
[2018-11-24 08:59] VITALS: TEMP 97.4
[2018-11-24 09:04] VITALS: BP 113/69; PULSE 67
--- NOTE | 2018-11-24 18:57 | HP ---
CHIEF COMPLAINT: Major Depressive Disorder PCP: Dolores Horne Primary Psychiatrist: Dr. Eladio Light [place] HISTORY OF PRESENT ILLNESS: 69 year-old male with a PMH significant for HTN, RLS, and major depressive disorder. Began ECT in 2013. Presents today for ECT. Recent Events: * no changes since last treatment PAST MEDICAL HISTORY: Hypertension Restless Leg Syndrome Vertigo PAST SURGICAL HISTORY: Bilateral hip replacements Appendectomy - age 14 Social History: Smoking: quit 1974 Alcohol: occasional Drugs: no Family History: Mother lung cancer Father 68 [place] No siblings 2 children a&w Allergies clarithromycin [From Biaxin] Allergy (Intermediate, Verified 07/21/18 06:59) Hives Penicillins Allergy (Unknown, Verified 07/21/18 06:59) UNKNOWN-REACTION CHILD HOME MEDICATIONS: Home Medications Medication Instructions Recorded BUPROPion HCL "SR" [Wellbutrin Sr 300 mg PO DAILY 10/25/13 -] Alprazolam [Xanax] 0.5 mg PO BID PRN 11/17/13 Ropinirole HCl [Requip Xl] 6 mg PO DAILY 12/21/14 Amlodipine Besylate 5 mg PO DAILY 12/12/15 Atorvastatin Ca [Lipitor] 10 mg PO DAILY 12/12/15 Losartan/Hydrochlorothiazide 1 each PO DAILY 12/12/15 [Losartan-Hctz 100-25 mg Tab] Gabapentin Enacarbil [Horizant] 300 mg PO HS 12/23/17 Lamotrigine [Lamictal] 200 mg PO DAILY 09/29/18 REVIEW OF SYSTEMS CONSTITUTIONAL: Absent: fever, chills, diaphoresis, generalized weakness, malaise, loss of appetite, weight change HEENT: Absent: rhinorrhea, nasal congestion, throat pain, throat swelling, difficulty swallowing, mouth swelling, ear pain, eye pain, visual changes CARDIOVASCULAR: Absent: chest pain, syncope, palpitations, irregular heart rate, lightheadedness , peripheral edema RESPIRATORY: Absent: cough, shortness of breath, dyspnea with exertion, orthopnea, wheezing, stridor, hemoptysis GASTROINTESTINAL: Absent: abdominal pain, abdominal distension, nausea, vomiting, diarrhea, constipation, melena, hematochezia GENITOURINARY: Absent: dysuria, frequency, urgency, hesitancy, hematuria, flank pain, genital pain MUSCULOSKELETAL: Absent: myalgia, arthralgia, joint swelling, back pain, neck pain SKIN: Absent: rash, itching, pallor HEMATOLOGIC/IMMUNOLOGIC: Absent: easy bleeding, easy bruising, lymphadenopathy, frequent infections ENDOCRINE: Absent: unexplained weight gain, unexplained weight loss, heat intolerance, cold intolerance NEUROLOGIC: Absent: headache, focal weakness or paresthesias, dizziness, unsteady gait, seizure, mental status changes, bladder or bowel incontinence PHYSICAL EXAMINATION Vital Signs - 24 hr 11/24/18 11/24/18 11/24/18 07:01 07:53 08:00 Temperature 97.8 F Pulse Rate 84 87 75 Respiratory 18 16 11 Rate Blood Pressure 125/65 126/59 L 128/53 L O2 Sat by Pulse 98 98 97 Oximetry (%) 11/24/18 11/24/18 11/24/18 08:05 08:10 08:15 Temperature Pulse Rate 70 68 71 Respiratory 11 11 11 Rate Blood Pressure 119/59 L 119/62 119/63 O2 Sat by Pulse 96 96 96 Oximetry (%) 11/24/18 11/24/18 11/24/18 08:25 08:55 09:05 Temperature 97.4 F L 97.4 F L 97.4 F L Pulse Rate 65 67 67 Respiratory 18 18 18 Rate Blood Pressure 111/67 113/69 113/69 O2 Sat by Pulse 96 99 Oximetry (%) GENERAL: Awake, alert, and fully oriented, in no acute distress. HEAD: Normal with no signs of trauma. EYES: Pupils equal, round and reactive to light, sclera anicteric, conjunctiva clear. LUNGS: Breath sounds equal, clear to auscultation bilaterally. No wheezes, and no crackles. No accessory muscle use. HEART: Regular rate and rhythm, normal S1 and S2 ABDOMEN: Soft, nontender, not distended MUSCULOSKELETAL: Normal range of motion at all joints. No bony deformities or tenderness. No CVA tenderness. UPPER EXTREMITIES: 2+ pulses, warm, well-perfused. No cyanosis. No clubbing. No peripheral edema. LOWER EXTREMITIES: 2+ pulses, warm, well-perfused. No calf tenderness. No peripheral edema. NEUROLOGICAL: Cranial nerves II-XII intact. Normal speech. ASSESSMENT/PLAN: 69 year-old male with a PMH significant for HTN, RLS, and major depressive disorder. Presents today for ECT. Cardiac --hypertension well-controlled on current meds --Revised Cardiac Risk Index for Pre-Operative Risk: 0 points, 0.4% risk of major cardiac event Pulmonary --no pulmonary history Neurological --no neurological or neurosurgical history; no history of trauma Anesthesia --no reported problems with anesthesia ECT is a low risk procedure. The relative benefits of the planned procedure outweigh the relative risks for this patient at this time. Cardiac --no cardiac history --Revised Cardiac Risk Index for Pre-Operative Risk: 0 points, 0.4% risk of major cardiac event Pulmonary --no pulmonary history Neurological --no neurological or neurosurgical history; no history of trauma Anesthesia --no reported problems with anesthesia ECT is a low risk procedure. The relative benefits of the planned procedure outweigh the relative risks for this patient at this time. Visit type - Emergency Visit Emergency Visit: No - New Patient This patient is new to me today: Yes Date on this admission: 11/24/18 - Critical Care Critical Care patient: No
== END 2018-11-24 09:05 | disposition home or self-care (01) ==
LOC: FECT 05:40
PROVIDERS: ATTEND Psychiatry & Neurology Psychiatry
PROC: GZB4ZZZ Other Electroconvulsive Therapy (ICD-10-PCS; principal; 2018-11-24 07:30)
DX: F32.9 Major depressive disorder, single episode, unspecified (principal)
CPT/HCPCS: 90870; 94760

== ENCOUNTER 2019-01-12 05:46 | Day surgery (SDC) | payer BC ==
[2019-01-12 07:09] VITALS: BMI 23.0
--- NOTE | 2019-01-12 07:41 | HP ---
CHIEF COMPLAINT: Major Depressive Disorder PCP: Dolores Horne Primary Psychiatrist: Dr. Eladio Light [place] HISTORY OF PRESENT ILLNESS: 69 year-old male with a PMH significant for HTN, RLS, and major depressive disorder. Began ECT in 2013. Presents today for ECT. Recent Events: * recovering from an upper respiratory viral illness, no antibiotics PAST MEDICAL HISTORY: Hypertension Restless Leg Syndrome Vertigo PAST SURGICAL HISTORY: Bilateral hip replacements Appendectomy - age 14 Social History: Smoking: quit 1974 Alcohol: occasional Drugs: no Family History: Mother 68 lung cancer Father 68 [place] No siblings 2 children a&w Allergies clarithromycin [From Biaxin] Allergy (Intermediate, Verified 07/21/18 06:59) Hives Penicillins Allergy (Unknown, Verified 07/21/18 06:59) UNKNOWN-REACTION CHILD HOME MEDICATIONS: Home Medications Medication Instructions Recorded BUPROPion HCL "SR" [Wellbutrin Sr 300 mg PO DAILY 10/25/13 -] Alprazolam [Xanax] 0.5 mg PO BID PRN 11/17/13 Ropinirole HCl [Requip Xl] 6 mg PO DAILY 12/21/14 Amlodipine Besylate 5 mg PO DAILY 12/12/15 Atorvastatin Ca [Lipitor] 10 mg PO DAILY 12/12/15 Losartan/Hydrochlorothiazide 1 each PO DAILY 12/12/15 [Losartan-Hctz 100-25 mg Tab] Gabapentin Enacarbil [Horizant] 300 mg PO HS 12/23/17 Lamotrigine [Lamictal] 200 mg PO DAILY 09/29/18 REVIEW OF SYSTEMS CONSTITUTIONAL: Absent: fever, chills, diaphoresis, generalized weakness, malaise, loss of appetite, weight change HEENT: Absent: rhinorrhea, nasal congestion, throat pain, throat swelling, difficulty swallowing, mouth swelling, ear pain, eye pain, visual changes CARDIOVASCULAR: Absent: chest pain, syncope, palpitations, irregular heart rate, lightheadedness , peripheral edema RESPIRATORY: Absent: cough, shortness of breath, dyspnea with exertion, orthopnea, wheezing, stridor, hemoptysis GASTROINTESTINAL: Absent: abdominal pain, abdominal distension, nausea, vomiting, diarrhea, constipation, melena, hematochezia GENITOURINARY: Absent: dysuria, frequency, urgency, hesitancy, hematuria, flank pain, genital pain MUSCULOSKELETAL: Absent: myalgia, arthralgia, joint swelling, back pain, neck pain SKIN: Absent: rash, itching, pallor HEMATOLOGIC/IMMUNOLOGIC: Absent: easy bleeding, easy bruising, lymphadenopathy, frequent infections ENDOCRINE: Absent: unexplained weight gain, unexplained weight loss, heat intolerance, cold intolerance NEUROLOGIC: Absent: headache, focal weakness or paresthesias, dizziness, unsteady gait, seizure, mental status changes, bladder or bowel incontinence PHYSICAL EXAMINATION Vital Signs - 24 hr 01/12/19 07:07 Temperature 98.5 F Pulse Rate 72 Respiratory 18 Rate Blood Pressure 130/58 L O2 Sat by Pulse 99 Oximetry (%) GENERAL: Awake, alert, and fully oriented, in no acute distress. HEAD: Normal with no signs of trauma. EYES: Pupils equal, round and reactive to light, sclera anicteric, conjunctiva clear. LUNGS: Breath sounds equal, clear to auscultation bilaterally. No wheezes, and no crackles. No accessory muscle use. HEART: Regular rate and rhythm, normal S1 and S2 ABDOMEN: Soft, nontender, not distended MUSCULOSKELETAL: Normal range of motion at all joints. No bony deformities or tenderness. No CVA tenderness. UPPER EXTREMITIES: 2+ pulses, warm, well-perfused. No cyanosis. No clubbing. No peripheral edema. LOWER EXTREMITIES: 2+ pulses, warm, well-perfused. No calf tenderness. No peripheral edema. NEUROLOGICAL: Cranial nerves II-XII intact. Normal speech. ASSESSMENT/PLAN: 69 year-old male with a PMH significant for HTN, RLS, and major depressive disorder. Began ECT in 2013. Presents today for ECT. Cardiac --HTN is well-controlled --Revised Cardiac Risk Index for Pre-Operative Risk: 0 points, 0.4% risk of major cardiac event Pulmonary --no pulmonary history Neurological --no neurological or neurosurgical history; no history of trauma Anesthesia --no reported problems with anesthesia ECT is a low risk procedure. The relative benefits of the planned procedure outweigh the relative risks for this patient at this time. Visit type - Emergency Visit Emergency Visit: No - New Patient This patient is new to me today: Yes Date on this admission: 01/12/19 - Critical Care Critical Care patient: No
[2019-01-12] MEDS ORDERED: KETAMINE HCL 500 MG/10 ML VIAL ONE (08:11)
[2019-01-12 09:30] LABS: BASO % 0.4 % (0-2.0); EOS % 4.3 % (0-4.5); HEMATOCRIT 37.4 % (35.4-49); HEMOGLOBIN 12.7 GM/dl (11.7-16.9); LYMPH % 14.2 % (8-40); MCH 32.5 pg (25.7-33.7); MCHC 33.8 g/dl (32.0-35.9); MEAN CELL VOLUME 96.1 fl (80-96); MONO % 8.7 % (3.8-10.2); NEUT % 72.4 % (42.8-82.8); PLATELET COUNT 228 K/MM3 (134-434); RBC 3.89 M/mm3 (4.00-5.60); RDW 13.2 % (11.9-15.9); WHITE BLOOD COUNT 3.2 K/mm3 (4.0-10.8)
[2019-01-12 09:36] VITALS: TEMP 97.9
[2019-01-12 09:46] VITALS: BP 129/83; PULSE 86
[2019-01-12 09:50] LABS: BILIRUBIN,TOTAL 0.8 mg/dl (0.2-1); CALCIUM 8.6 mg/dl (8.5-10); CREATININE 0.9 mg/dl (0.55-1.3); MAGNESIUM 1.8 mg/dL (1.8-2.4); TOT PROT 6.5 g/dl (6.4-8.2)
--- NOTE | 2019-01-12 10:44 | EKG ---
Test Reason : Blood Pressure : / mmHG Vent. Rate : 076 BPM Atrial Rate : 076 BPM P-R Int : 152 ms QRS Dur : 084 ms QT Int : 366 ms P-R-T Axes : 065 019 046 degrees QTc Int : 411 ms NORMAL SINUS RHYTHM POSSIBLE LEFT ATRIAL ENLARGEMENT BORDERLINE ECG WHEN COMPARED WITH ECG OF 23-JUN-2018 07:08, NO SIGNIFICANT CHANGE WAS FOUND Confirmed by BIBI PHILLIPS MD ([id number]) on 01/12/2019 10:44:35 AM Referred By: Jose G Brock Confirmed By:BIBI PHILLIPS MD
[2019-01-12 11:04] LABS: POTASSIUM 5.1 mmol/L (3.5-5.1)
[2019-01-12] MEDS ORDERED: ONDANSETRON 4 MG/2 ML VIAL IVPUSH PRN (11:14)
[2019-01-12] MEDS ORDERED: LACTATED RINGERS SOLUTION 1,000 ML IV SCH (11:15)
== END 2019-01-12 09:48 | disposition home or self-care (01) ==
LOC: FECT 05:46
PROVIDERS: ATTEND Psychiatry & Neurology Psychiatry
PROC: GZB4ZZZ Other Electroconvulsive Therapy (ICD-10-PCS; principal; 2019-01-12 08:00)
DX: F32.9 Major depressive disorder, single episode, unspecified (principal)
CPT/HCPCS: 36415; 80053; 83735; 85025; 90870; 93005; 94760

== ENCOUNTER 2019-02-09 05:36 | Day surgery (SDC) | payer BC ==
[2019-02-09 06:42] VITALS: BMI 23.0
[2019-02-09] MEDS ORDERED: KETAMINE HCL 500 MG/10 ML VIAL ONE (06:59)
[2019-02-09 08:04] VITALS: TEMP 98.5
[2019-02-09 08:57] VITALS: BP 131/70; PULSE 71
== END 2019-02-09 08:40 | disposition home or self-care (01) ==
LOC: FECT 05:36
PROVIDERS: ATTEND Psychiatry & Neurology Psychiatry
PROC: GZB4ZZZ Other Electroconvulsive Therapy (ICD-10-PCS; principal; 2019-02-09 07:00)
DX: F32.9 Major depressive disorder, single episode, unspecified (principal)
CPT/HCPCS: 90870; 94760

== ENCOUNTER 2019-03-09 05:39 | Day surgery (SDC) | payer BC ==
[2019-03-09 06:53] VITALS: BMI 23.9
[2019-03-09] MEDS ORDERED: KETAMINE HCL 500 MG/10 ML VIAL ONE (07:42)
--- NOTE | 2019-03-09 07:43 | HP ---
CHIEF COMPLAINT: Major Depressive Disorder PCP: Dolores Horne Primary Psychiatrist: Dr. Eladio Light [place] HISTORY OF PRESENT ILLNESS: 69 year-old male with a PMH significant for HTN, RLS, and major depressive disorder. Began ECT in 2013. Presents today for ECT. Recent Events: * none reported PAST MEDICAL HISTORY: Hypertension Restless Leg Syndrome Vertigo PAST SURGICAL HISTORY: Bilateral hip replacements Appendectomy - age 14 Social History: Smoking: quit 1974 Alcohol: occasional Drugs: no Family History: Mother 68 lung cancer Father 68 [place] No siblings 2 children a&w Allergies clarithromycin [From Biaxin] Allergy (Intermediate, Verified 01/30/19 17:15) Hives Penicillins Allergy (Unknown, Verified 01/30/19 17:15) UNKNOWN-REACTION CHILD HOME MEDICATIONS: Home Medications Medication Instructions Recorded BUPROPion HCL "SR" [Wellbutrin Sr 300 mg PO DAILY 10/25/13 -] Alprazolam [Xanax] 0.5 mg PO BID PRN 11/17/13 Ropinirole HCl [Requip Xl] 6 mg PO DAILY 12/21/14 Amlodipine Besylate 5 mg PO DAILY 12/12/15 Atorvastatin Ca [Lipitor] 10 mg PO DAILY 12/12/15 Losartan/Hydrochlorothiazide 1 each PO DAILY 12/12/15 [Losartan-Hctz 100-25 mg Tab] Gabapentin Enacarbil [Horizant] 300 mg PO HS 12/23/17 Lamotrigine [Lamictal] 200 mg PO DAILY 09/29/18 REVIEW OF SYSTEMS CONSTITUTIONAL: Absent: fever, chills, diaphoresis, generalized weakness, malaise, loss of appetite, weight change HEENT: Absent: rhinorrhea, nasal congestion, throat pain, throat swelling, difficulty swallowing, mouth swelling, ear pain, eye pain, visual changes CARDIOVASCULAR: Absent: chest pain, syncope, palpitations, irregular heart rate, lightheadedness , peripheral edema RESPIRATORY: Absent: cough, shortness of breath, dyspnea with exertion, orthopnea, wheezing, stridor, hemoptysis GASTROINTESTINAL: Absent: abdominal pain, abdominal distension, nausea, vomiting, diarrhea, constipation, melena, hematochezia GENITOURINARY: Absent: dysuria, frequency, urgency, hesitancy, hematuria, flank pain, genital pain MUSCULOSKELETAL: Absent: myalgia, arthralgia, joint swelling, back pain, neck pain SKIN: Absent: rash, itching, pallor HEMATOLOGIC/IMMUNOLOGIC: Absent: easy bleeding, easy bruising, lymphadenopathy, frequent infections ENDOCRINE: Absent: unexplained weight gain, unexplained weight loss, heat intolerance, cold intolerance NEUROLOGIC: Absent: headache, focal weakness or paresthesias, dizziness, unsteady gait, seizure, mental status changes, bladder or bowel incontinence PHYSICAL EXAMINATION Vital Signs - 24 hr 03/09/19 06:50 Temperature 97.6 F Pulse Rate 83 Respiratory 18 Rate Blood Pressure 126/67 O2 Sat by Pulse 100 Oximetry (%) GENERAL: Awake, alert, and fully oriented, in no acute distress. HEAD: Normal with no signs of trauma. EYES: Pupils equal, round and reactive to light, sclera anicteric, conjunctiva clear. LUNGS: Breath sounds equal, clear to auscultation bilaterally. No wheezes, and no crackles. No accessory muscle use. HEART: Regular rate and rhythm, normal S1 and S2 ABDOMEN: Soft, nontender, not distended MUSCULOSKELETAL: Normal range of motion at all joints. No bony deformities or tenderness. No CVA tenderness. UPPER EXTREMITIES: 2+ pulses, warm, well-perfused. No cyanosis. No clubbing. No peripheral edema. LOWER EXTREMITIES: 2+ pulses, warm, well-perfused. No calf tenderness. No peripheral edema. NEUROLOGICAL: Cranial nerves II-XII intact. Normal speech. ASSESSMENT/PLAN: 69 year-old male with a PMH significant for HTN, RLS, and major depressive disorder. Began ECT in 2013. Presents today for ECT. Cardiac --HTN is well-controlled --Revised Cardiac Risk Index for Pre-Operative Risk: 0 points, 0.4% risk of major cardiac event Pulmonary --no pulmonary history Neurological --no neurological or neurosurgical history; no history of trauma Anesthesia --no reported problems with anesthesia ECT is a low risk procedure. The relative benefits of the planned procedure outweigh the relative risks for this patient at this time. Visit type - Emergency Visit Emergency Visit: No - New Patient This patient is new to me today: Yes Date on this admission: 03/09/19 - Critical Care Critical Care patient: No
[2019-03-09 09:07] VITALS: TEMP 97.8
[2019-03-09 09:09] VITALS: BP 122/72; PULSE 77
== END 2019-03-09 09:00 | disposition home or self-care (01) ==
LOC: FECT 05:39
PROVIDERS: ATTEND Psychiatry & Neurology Psychiatry
PROC: GZB4ZZZ Other Electroconvulsive Therapy (ICD-10-PCS; principal; 2019-03-09 07:00)
DX: F32.9 Major depressive disorder, single episode, unspecified (principal)
CPT/HCPCS: 90870; 94760

== ENCOUNTER 2019-04-06 05:37 | Day surgery (SDC) | payer BC ==
[2019-04-06 06:34] VITALS: TEMP 98.4; BMI 24.7
[2019-04-06] MEDS ORDERED: KETAMINE HCL 500 MG/10 ML VIAL ONE (06:55)
[2019-04-06] MEDS ORDERED: ONDANSETRON 4 MG/2 ML VIAL IVPUSH PRN (08:19)
[2019-04-06] MEDS ORDERED: LACTATED RINGERS SOLUTION 1,000 ML IV SCH (08:30)
[2019-04-06 08:56] VITALS: BP 122/69; PULSE 69
== END 2019-04-06 08:45 | disposition home or self-care (01) ==
LOC: FECT 05:37
PROVIDERS: ATTEND Psychiatry & Neurology Psychiatry
PROC: GZB4ZZZ Other Electroconvulsive Therapy (ICD-10-PCS; principal; 2019-04-06 07:15)
DX: F32.9 Major depressive disorder, single episode, unspecified (principal)
CPT/HCPCS: 90870; 94760

== ENCOUNTER 2019-08-10 07:00 | Day surgery (SDC) | payer BC ==
[2019-08-07 14:05] VITALS: BMI 24.4
[2019-08-10 07:48] LABS: EOS % 3.5 % (0-4.5); HEMOGLOBIN 12.4 GM/dl (11.7-16.9); MCH 31.7 pg (25.7-33.7); MCHC 34.3 g/dl (32.0-35.9); MEAN CELL VOLUME 92.4 fl (80-96); MEAN PLT VOLUME 6.7 fl (7.5-11.1); MONO % 8.4 % (3.8-10.2); NEUT % 70.1 % (42.8-82.8); PLATELET COUNT 259 K/MM3 (134-434); RDW 13.5 % (11.9-15.9); WHITE BLOOD COUNT 4.1 K/mm3 (4.0-10.8)
[2019-08-10 07:53] VITALS: TEMP 98.2
[2019-08-10 07:56] LABS: ALBUMIN 4.2 g/dl (3.4-5.0); BILIRUBIN,TOTAL 0.9 mg/dl (0.2-1); CALCIUM 8.7 mg/dl (8.5-10); CREATININE 0.9 mg/dl (0.55-1.3); MAGNESIUM 1.9 mg/dL (1.8-2.4); POTASSIUM 3.6 mmol/L (3.5-5.1); TOT PROT 6.8 g/dl (6.4-8.2)
--- NOTE | 2019-08-10 08:10 | HP ---
CHIEF COMPLAINT: Major Depressive Disorder PCP: Dolores Horne Primary Psychiatrist: Dr. Eladio Light [place] HISTORY OF PRESENT ILLNESS: 69 year-old male with a PMH significant for HTN, RLS, and major depressive disorder. Began ECT in 2013, his last treatment was 03/09/2019. Presents today for ECT following the COVID hiatus. Recent Events: * during hiatus did a trial of Vraylar, last dose 2 days ago, does not plan to resume * Gabapentin increased to 600mg qhs PAST MEDICAL HISTORY: Hypertension Restless Leg Syndrome Vertigo PAST SURGICAL HISTORY: Bilateral hip replacements Appendectomy - age 14 Social History: Smoking: quit 1974 Alcohol: occasional Drugs: no Family History: Mother 68 lung cancer Father 68 [place] No siblings 2 children a&w Allergies clarithromycin [From Biaxin] Allergy (Intermediate, Verified 08/07/19 14:00) Hives Penicillins Allergy (Unknown, Verified 08/07/19 14:00) UNKNOWN-REACTION CHILD HOME MEDICATIONS: Home Medications Medication Instructions Recorded BUPROPion HCL "SR" [Wellbutrin Sr 450 mg PO DAILY 10/25/13 -] Alprazolam [Xanax] 0.5 mg PO BID PRN 11/17/13 Ropinirole HCl [Requip Xl] 6 mg PO DAILY 12/21/14 Amlodipine Besylate 5 mg PO DAILY 12/12/15 Atorvastatin Ca [Lipitor] 10 mg PO DAILY 12/12/15 Losartan/Hydrochlorothiazide 1 each PO DAILY 12/12/15 [Losartan-Hctz 100-25 mg Tab] Gabapentin Enacarbil [Horizant] 600 mg PO HS 12/23/17 Lamotrigine [Lamictal] 200 mg PO DAILY 09/29/18 Cariprazine HCl [Vraylar] 1.5 mg PO DAILY 08/07/19 REVIEW OF SYSTEMS CONSTITUTIONAL: Absent: fever, chills, diaphoresis, generalized weakness, malaise, loss of appetite, weight change HEENT: Absent: rhinorrhea, nasal congestion, throat pain, throat swelling, difficulty swallowing, mouth swelling, ear pain, eye pain, visual changes CARDIOVASCULAR: Absent: chest pain, syncope, palpitations, irregular heart rate, lightheadedness, peripheral edema RESPIRATORY: Absent: cough, shortness of breath, dyspnea with exertion, orthopnea, wheezing, stridor, hemoptysis GASTROINTESTINAL: Absent: abdominal pain, abdominal distension, nausea, vomiting, diarrhea, constipation, melena, hematochezia GENITOURINARY: Absent: dysuria, frequency, urgency, hesitancy, hematuria, flank pain, genital pain MUSCULOSKELETAL: Absent: myalgia, arthralgia, joint swelling, back pain, neck pain SKIN: Absent: rash, itching, pallor HEMATOLOGIC/IMMUNOLOGIC: Absent: easy bleeding, easy bruising, lymphadenopathy, frequent infections ENDOCRINE: Absent: unexplained weight gain, unexplained weight loss, heat intolerance, cold intolerance NEUROLOGIC: Absent: headache, focal weakness or paresthesias, dizziness, unsteady gait, seizure, mental status changes, bladder or bowel incontinence PHYSICAL EXAMINATION Vital Signs - 24 hr 08/10/19 07:48 Temperature 98.2 F Pulse Rate 78 Respiratory 18 Rate Blood Pressure 144/80 O2 Sat by Pulse 97 Oximetry (%) GENERAL: Awake, alert, and fully oriented, in no acute distress. HEAD: Normal with no signs of trauma. EYES: Pupils equal, round and reactive to light, sclera anicteric, conjunctiva clear. LUNGS: Breath sounds equal, clear to auscultation bilaterally. No wheezes, and no crackles. No accessory muscle use. HEART: Regular rate and rhythm, normal S1 and S2 ABDOMEN: Soft, nontender, not distended MUSCULOSKELETAL: Normal range of motion at all joints. No bony deformities or tenderness. No CVA tenderness. UPPER EXTREMITIES: 2+ pulses, warm, well-perfused. No cyanosis. No clubbing. No peripheral edema. LOWER EXTREMITIES: 2+ pulses, warm, well-perfused. No calf tenderness. No peripheral edema. NEUROLOGICAL: Cranial nerves II-XII intact. Normal speech. Laboratory Results - last 24 hr 08/10/19 08/10/19 07:12 07:12 WBC 4.1 RBC 3.90 L Hgb 12.4 Hct 36.0 MCV 92.4 MCH 31.7 MCHC 34.3 RDW 13.5 Plt Count 259 MPV 6.7 L Absolute Neuts (auto) 3.0 Neutrophils % 70.1 Lymphocytes % 17.0 Monocytes % 8.4 Eosinophils % 3.5 Basophils % 1.0 Sodium 133 L Potassium 3.6 Chloride 99 Carbon Dioxide 26 Anion Gap 8 BUN 13.0 Creatinine 0.9 Est GFR (CKD-EPI)AfAm 102.07 Est GFR (CKD-EPI)NonAf 88.07 Random Glucose 95 Calcium 8.7 Magnesium 1.9 Total Bilirubin 0.9 AST 22 ALT 15 Alkaline Phosphatase 59 Total Protein 6.8 Albumin 4.2 ASSESSMENT/PLAN: 69 year-old male with a PMH significant for HTN, RLS, and major depressive disorder. Presents today for ECT. Cardiac --HTN is well-controlled --Revised Cardiac Risk Index for Pre-Operative Risk: 0 points, 0.4% risk of major cardiac event Pulmonary --no pulmonary history Neurological --no neurological or neurosurgical history; no history of trauma Anesthesia --no reported problems with anesthesia ECT is a low risk procedure. The relative benefits of the planned procedure outweigh the relative risks for this patient at this time. Visit type - Emergency Visit Emergency Visit: No - New Patient This patient is new to me today: Yes Date on this admission: 08/10/19 - Critical Care Critical Care patient: No
[2019-08-10] MEDS ORDERED: ONDANSETRON 4 MG/2 ML VIAL ONE (08:39)
[2019-08-10] MEDS ORDERED: GLYCOPYRROLATE 0.2 MG/1 ML VIAL ONE (08:39)
[2019-08-10] MEDS ORDERED: DEXAMETHASONE SOD PHOSPHATE 4 MG/1 ML VIAL ONE (08:39)
[2019-08-10] MEDS ORDERED: KETOROLAC TROMETHAMINE 30 MG/1 ML VIAL ONE (08:39)
[2019-08-10] MEDS ORDERED: KETAMINE HCL 200 MG/20 ML VIAL ONE (08:41)
[2019-08-10] MEDS ORDERED: PROPOFOL 20 ML ONE (08:41)
[2019-08-10 10:10] VITALS: BP 130/79; PULSE 69
--- NOTE | 2019-08-10 14:08 | EKG ---
Test Reason : Blood Pressure : / mmHG Vent. Rate : 074 BPM Atrial Rate : 074 BPM P-R Int : 152 ms QRS Dur : 088 ms QT Int : 366 ms P-R-T Axes : 062 012 040 degrees QTc Int : 406 ms NORMAL SINUS RHYTHM POSSIBLE LEFT ATRIAL ENLARGEMENT BORDERLINE ECG WHEN COMPARED WITH ECG OF 12-JAN-2019 06:55, NO SIGNIFICANT CHANGE WAS FOUND Confirmed by BIBI PHILLIPS MD ([id number]) on 08/10/2019 2:07:46 PM Referred By: DR HER Confirmed By:BIBI PHILLIPS MD
== END 2019-08-10 10:15 | disposition home or self-care (01) ==
LOC: FECT 07:00
PROVIDERS: ATTEND Psychiatry & Neurology Psychiatry
PROC: GZB4ZZZ Other Electroconvulsive Therapy (ICD-10-PCS; principal; 2019-08-10 08:30)
DX: F32.9 Major depressive disorder, single episode, unspecified (principal)
CPT/HCPCS: 36415; 80053; 83735; 85025; 90870; 93005; 94760

== ENCOUNTER 2019-08-24 08:48 | Day surgery (SDC) | payer BC ==
[2019-08-16 10:33] VITALS: BMI 24.4
[2019-08-24] MEDS ORDERED: KETAMINE HCL 200 MG/20 ML VIAL ONE (10:11)
[2019-08-24] MEDS ORDERED: PROPOFOL 20 ML ONE (10:11)
[2019-08-24] MEDS ORDERED: SUCCINYLCHOLINE CHLORIDE 200 MG/10 ML SYRINGE ONE (10:11)
[2019-08-24 13:28] VITALS: PULSE 64; TEMP 97.8
[2019-08-24 13:29] VITALS: BP 137/71
== END 2019-08-24 11:35 | disposition home or self-care (01) ==
LOC: FECT 08:48
PROVIDERS: ATTEND Psychiatry & Neurology Psychiatry
PROC: GZB4ZZZ Other Electroconvulsive Therapy (ICD-10-PCS; principal; 2019-08-24 10:00)
DX: F33.2 Major depressive disorder, recurrent severe without psychotic features (principal)
CPT/HCPCS: 90870; 94760

== ENCOUNTER 2019-09-01 06:02 | Day surgery (SDC) | payer BC ==
[2019-08-24 14:47] VITALS: BMI 24.4
[2019-09-01] MEDS ORDERED: KETAMINE HCL 500 MG/10 ML VIAL ONE (07:06)
[2019-09-01] MEDS ORDERED: PROPOFOL 20 ML ONE (07:12)
[2019-09-01] MEDS ORDERED: SUCCINYLCHOLINE CHLORIDE 200 MG/10 ML SYRINGE ONE (07:12)
[2019-09-01 08:10] VITALS: TEMP 98.4
[2019-09-01 09:34] VITALS: BP 126/72; PULSE 71
== END 2019-09-01 08:40 | disposition home or self-care (01) ==
LOC: FECT 06:02
PROVIDERS: ATTEND Psychiatry & Neurology Psychiatry
PROC: GZB4ZZZ Other Electroconvulsive Therapy (ICD-10-PCS; principal; 2019-09-01 07:00)
DX: F32.9 Major depressive disorder, single episode, unspecified (principal)
CPT/HCPCS: 90870; 94760

== ENCOUNTER 2019-09-21 07:09 | Day surgery (SDC) | payer BC ==
--- NOTE | 2019-09-21 07:55 | HP ---
CHIEF COMPLAINT: Major Depressive Disorder PCP: Dolores Horne Primary Psychiatrist: Dr. Eladio Light [place] HISTORY OF PRESENT ILLNESS: 69 year-old male with a PMH significant for HTN, RLS, and major depressive disorder. Began ECT in 2013. He presents today for ECT. Recent Events: * started propranolol for essential tremor PAST MEDICAL HISTORY: Hypertension Restless Leg Syndrome Vertigo PAST SURGICAL HISTORY: Bilateral hip replacements Appendectomy - age 14 Social History: Smoking: quit 1974 Alcohol: occasional Drugs: no Family History: Mother 68 lung cancer Father 68 [place] No siblings 2 children a&w Allergies clarithromycin [From Biaxin] Allergy (Intermediate, Verified 08/24/19 14:34) Hives Penicillins Allergy (Unknown, Verified 08/24/19 14:34) UNKNOWN-REACTION CHILD HOME MEDICATIONS: Home Medications Medication Instructions Recorded BUPROPion HCL "SR" [Wellbutrin Sr 450 mg PO DAILY 10/25/13 -] Alprazolam [Xanax] 0.5 mg PO BID PRN 11/17/13 Ropinirole HCl [Requip Xl] 6 mg PO DAILY 12/21/14 Amlodipine Besylate 5 mg PO DAILY 12/12/15 Atorvastatin Ca [Lipitor] 10 mg PO DAILY 12/12/15 Losartan/Hydrochlorothiazide 1 each PO DAILY 12/12/15 [Losartan-Hctz 100-25 mg Tab] Gabapentin Enacarbil [Horizant] 600 mg PO HS 12/23/17 Lamotrigine [Lamictal] 200 mg PO DAILY 09/29/18 Rabies Vaccine (Pcec)/Pf [Rabavert 2.5 unit IM ASDIR 09/01/19 Rabies Vaccine] REVIEW OF SYSTEMS CONSTITUTIONAL: Absent: fever, chills, diaphoresis, generalized weakness, malaise, loss of appetite, weight change HEENT: Absent: rhinorrhea, nasal congestion, throat pain, throat swelling, difficulty swallowing, mouth swelling, ear pain, eye pain, visual changes CARDIOVASCULAR: Absent: chest pain, syncope, palpitations, irregular heart rate, lightheadedness, peripheral edema RESPIRATORY: Absent: cough, shortness of breath, dyspnea with exertion, orthopnea, wheezing, stridor, hemoptysis GASTROINTESTINAL: Absent: abdominal pain, abdominal distension, nausea, vomiting, diarrhea, constipation, melena, hematochezia GENITOURINARY: Absent: dysuria, frequency, urgency, hesitancy, hematuria, flank pain, genital pain MUSCULOSKELETAL: Absent: myalgia, arthralgia, joint swelling, back pain, neck pain SKIN: Absent: rash, itching, pallor HEMATOLOGIC/IMMUNOLOGIC: Absent: easy bleeding, easy bruising, lymphadenopathy, frequent infections ENDOCRINE: Absent: unexplained weight gain, unexplained weight loss, heat intolerance, cold intolerance NEUROLOGIC: Absent: headache, focal weakness or paresthesias, dizziness, unsteady gait, seizure, mental status changes, bladder or bowel incontinence PHYSICAL EXAMINATION Vital Signs Temperature 98.4 F 09/21/19 11:00 Pulse Rate 57 L 09/21/19 11:00 Respiratory Rate 18 09/21/19 11:00 Blood Pressure 136/72 09/21/19 11:00 O2 Sat by Pulse Oximetry (%) 99 09/21/19 10:45 GENERAL: Awake, alert, and fully oriented, in no acute distress. HEAD: Normal with no signs of trauma. EYES: Pupils equal, round and reactive to light, sclera anicteric, conjunctiva clear. LUNGS: Breath sounds equal, clear to auscultation bilaterally. No wheezes, and no crackles. No accessory muscle use. HEART: Regular rate and rhythm, normal S1 and S2 ABDOMEN: Soft, nontender, not distended MUSCULOSKELETAL: Normal range of motion at all joints. No bony deformities or tenderness. No CVA tenderness. UPPER EXTREMITIES: 2+ pulses, warm, well-perfused. No cyanosis. No clubbing. No peripheral edema. LOWER EXTREMITIES: 2+ pulses, warm, well-perfused. No calf tenderness. No peripheral edema. NEUROLOGICAL: Cranial nerves II-XII intact. Normal speech. ASSESSMENT/PLAN: 69 year-old male with a PMH significant for HTN, RLS, and major depressive disorder. Presents today for ECT. Cardiac --no cardiac history --Revised Cardiac Risk Index for Pre-Operative Risk: 0 points, 0.4% risk of major cardiac event Pulmonary --no pulmonary history Neurological --no neurological or neurosurgical history; no history of trauma Anesthesia --no reported problems with anesthesia ECT is a low risk procedure. The relative benefits of the planned procedure outweigh the relative risks for this patient at this time. Visit type - Medication Review Med list reviewed for High Risk Meds patients 65 and older: Yes - Emergency Visit Emergency Visit: No - New Patient This patient is new to me today: Yes Date on this admission: 09/21/19 - Critical Care Critical Care patient: No
[2019-09-21 08:21] VITALS: TEMP 98.4; BMI 24.4
[2019-09-21] MEDS ORDERED: SUCCINYLCHOLINE CHLORIDE 200 MG/10 ML SYRINGE ONE ×2 (09:29)
[2019-09-21] MEDS ORDERED: KETAMINE HCL 500 MG/10 ML VIAL ONE (09:32)
[2019-09-21] MEDS ORDERED: PROPOFOL 20 ML ONE (09:32)
[2019-09-21] MEDS ORDERED: KETOROLAC TROMETHAMINE 30 MG/1 ML VIAL ONE (09:33)
[2019-09-21] MEDS ORDERED: DEXAMETHASONE SOD PHOSPHATE 4 MG/1 ML VIAL ONE (09:33)
[2019-09-21 10:53] VITALS: BP 136/72; PULSE 57
== END 2019-09-21 11:00 | disposition home or self-care (01) ==
LOC: FECT 07:09
PROVIDERS: ATTEND Psychiatry & Neurology Psychiatry
PROC: GZB4ZZZ Other Electroconvulsive Therapy (ICD-10-PCS; principal; 2019-09-21 09:30)
DX: F32.9 Major depressive disorder, single episode, unspecified (principal)
CPT/HCPCS: 90870; 94760

== ENCOUNTER 2019-10-12 06:06 | Day surgery (SDC) | payer BC ==
[2019-10-12 06:38] VITALS: BMI 24.4
[2019-10-12] MEDS ORDERED: KETAMINE HCL 500 MG/10 ML VIAL ONE (06:55)
[2019-10-12 08:01] VITALS: TEMP 97.7
[2019-10-12 08:19] VITALS: BP 124/62; PULSE 71
== END 2019-10-12 08:30 | disposition home or self-care (01) ==
LOC: FECT 06:06
PROVIDERS: ATTEND Psychiatry & Neurology Psychiatry
PROC: GZB4ZZZ Other Electroconvulsive Therapy (ICD-10-PCS; principal; 2019-10-12 10:30)
DX: F32.9 Major depressive disorder, single episode, unspecified (principal)
CPT/HCPCS: 90870; 94760

== ENCOUNTER 2019-10-13 06:06 | Day surgery (SDC) | payer BC ==
[2019-10-12 12:46] VITALS: BMI 24.4
[2019-10-13] MEDS ORDERED: KETAMINE HCL 500 MG/10 ML VIAL ONE (06:58)
[2019-10-13] MEDS ORDERED: SUCCINYLCHOLINE CHLORIDE 200 MG/10 ML SYRINGE ONE (07:17)
[2019-10-13] MEDS ORDERED: PROPOFOL 20 ML ONE (07:17)
[2019-10-13 08:46] VITALS: TEMP 98
[2019-10-13 08:48] VITALS: BP 166/68; PULSE 64
== END 2019-10-13 08:40 | disposition home or self-care (01) ==
LOC: FECT 06:06
PROVIDERS: ATTEND Psychiatry & Neurology Psychiatry
PROC: GZB4ZZZ Other Electroconvulsive Therapy (ICD-10-PCS; principal; 2019-10-13 10:30)
DX: F32.9 Major depressive disorder, single episode, unspecified (principal)
CPT/HCPCS: 90870; 94760

== ENCOUNTER 2019-10-19 07:21 | Day surgery (SDC) | payer BC ==
[2019-10-19 07:51] VITALS: BMI 24.4
[2019-10-19] MEDS ORDERED: KETAMINE HCL 500 MG/10 ML VIAL ONE (09:27)
[2019-10-19] MEDS ORDERED: KETOROLAC TROMETHAMINE 30 MG/1 ML VIAL ONE ×2 (09:29→09:30)
[2019-10-19] MEDS ORDERED: PROPOFOL 20 ML ONE (09:29)
[2019-10-19] MEDS ORDERED: ONDANSETRON 4 MG/2 ML VIAL ONE ×2 (09:29→09:30)
[2019-10-19 10:51] VITALS: BP 132/84
[2019-10-19 10:52] VITALS: PULSE 82; TEMP 98.1
--- NOTE | 2019-10-19 14:51 | HP ---
CHIEF COMPLAINT: Major Depressive Disorder PCP: Dolores Horne Primary Psychiatrist: Dr. Eladio Light [place] HISTORY OF PRESENT ILLNESS: 69 year-old male with a PMH significant for HTN, RLS, and major depressive disorder undergoing ECT since 2013. Patient has no complaints. No significant prior cardiac/pulmonary or neurologic events. 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 Lives with and college age daughter Allergies clarithromycin [From Biaxin] Allergy (Intermediate, Verified 10/13/19 06:25) - Hives Penicillins Allergy (Unknown, Verified 10/13/19 06:25) UNKNOWN-REACTION CHILD HOME MEDICATIONS: Home Medications Medication Instructions Recorded BUPROPion HCL "SR" [Wellbutrin Sr 450 mg PO DAILY 10/25/13 -] Alprazolam [Xanax] 0.5 mg PO BID PRN 11/17/13 Ropinirole HCl [Requip Xl] 6 mg PO DAILY 12/21/14 Amlodipine Besylate 5 mg PO DAILY 12/12/15 Atorvastatin Ca [Lipitor] 10 mg PO DAILY 12/12/15 Losartan/Hydrochlorothiazide 1 each PO DAILY 12/12/15 [Losartan-Hctz 100-25 mg Tab] Gabapentin Enacarbil [Horizant] 600 mg PO HS 12/23/17 Lamotrigine [Lamictal] 200 mg PO DAILY 09/29/18 propRANOLol HCL [Inderal] 20 mg PO DAILY 09/21/19 REVIEW OF SYSTEMS CONSTITUTIONAL: Absent: fever, chills, diaphoresis, generalized weakness, malaise, loss of appetite, weight change HEENT: Absent: rhinorrhea, nasal congestion, throat pain, throat swelling, difficulty swallowing, mouth swelling, ear pain, eye pain, visual changes CARDIOVASCULAR: Absent: chest pain, syncope, palpitations, irregular heart rate, lightheadedne ss, peripheral edema RESPIRATORY: Absent: cough, shortness of breath, dyspnea with exertion, orthopnea, wheezing, stridor, hemoptysis GASTROINTESTINAL: Absent: abdominal pain, abdominal distension, nausea, vomiting, diarrhea, constipation, melena, hematochezia GENITOURINARY: Absent: dysuria, frequency, urgency, hesitancy, hematuria, flank pain, genital pain MUSCULOSKELETAL: Absent: myalgia, arthralgia, joint swelling, back pain, neck pain SKIN: Absent: rash, itching, pallor HEMATOLOGIC/IMMUNOLOGIC: Absent: easy bleeding, easy bruising, lymphadenopathy, frequent infections ENDOCRINE: Absent: unexplained weight gain, unexplained weight loss, heat intolerance, cold intolerance NEUROLOGIC: Absent: headache, focal weakness or paresthesias, dizziness, unsteady gait, seizure, mental status changes, bladder or bowel incontinence PHYSICAL EXAMINATION Vital Signs - 24 hr 10/19/19 10/19/19 10/19/19 07:48 09:42 09:50 Temperature 98.1 F 98.1 F Pulse Rate 72 72 63 Respiratory 18 18 12 Rate Blood Pressure 126/69 126/69 132/59 L O2 Sat by Pulse 97 97 100 Oximetry (%) 10/19/19 10/19/19 10/19/19 09:55 10:00 10:07 Temperature Pulse Rate 60 59 L 59 L Respiratory 12 13 13 Rate Blood Pressure 134/63 132/54 L 132/64 O2 Sat by Pulse 98 98 98 Oximetry (%) 10/19/19 10/19/19 10/19/19 10:10 10:45 10:51 Temperature 97.9 F 98.1 F Pulse Rate 74 74 82 Respiratory 20 20 20 Rate Blood Pressure 135/84 132/84 132/84 O2 Sat by Pulse 98 Oximetry (%) GENERAL: Awake, alert, and fully oriented, in no acute distress. HEAD: Normal with no signs of trauma. EYES: Pupils equal, round and reactive to light, sclera anicteric, conjunctiva clear. LUNGS: Breath sounds equal, clear to auscultation bilaterally. No wheezes, and no crackles. No accessory muscle use. HEART: Regular rate and rhythm, normal S1 and S2 ABDOMEN: Soft, nontender, not distended MUSCULOSKELETAL: Normal range of motion at all joints. No bony deformities or tenderness. No CVA tenderness. UPPER EXTREMITIES: 2+ pulses, warm, well-perfused. No cyanosis. No clubbing. No peripheral edema. LOWER EXTREMITIES: 2+ pulses, warm, well-perfused. No calf tenderness. No peripheral edema. NEUROLOGICAL: Cranial nerves II-XII intact. Normal speech. ASSESSMENT/PLAN: 69 year-old male with a PMH significant for HTN, RLS, and major depressive disorder who has been tolerating ECT since 2014. Cardiac --no cardiac history --Revised Cardiac Risk Index for Pre-Operative Risk: 0 points, 0.4% risk of major cardiac event Pulmonary --no pulmonary history Neurological --no neurological or neurosurgical history; no history of trauma Anesthesia --no reported problems with anesthesia ECT is a low risk procedure. The relative benefits of the planned procedure outweigh the relative risks for this patient at this time. Problem List - Problem (1) Anxiety Code(s): F41.9 - ANXIETY DISORDER, UNSPECIFIED (2) Major depression Code(s): F32.9 - MAJOR DEPRESSIVE DISORDER, SINGLE EPISODE, UNSPECIFIED Visit type - Medication Review Med list reviewed for High Risk Meds patients 65 and older: Yes - Emergency Visit Emergency Visit: No - New Patient This patient is new to me today: Yes Date on this admission: 10/19/19 - Critical Care Critical Care patient: No
== END 2019-10-19 11:00 | disposition home or self-care (01) ==
LOC: FECT 07:21
PROVIDERS: ATTEND Psychiatry & Neurology Psychiatry
PROC: GZB4ZZZ Other Electroconvulsive Therapy (ICD-10-PCS; principal; 2019-10-19 07:30)
DX: F32.9 Major depressive disorder, single episode, unspecified (principal)
CPT/HCPCS: 90870; 94760

== ENCOUNTER 2019-10-26 06:55 | Day surgery (SDC) | payer BC ==
[2019-10-20 17:51] VITALS: BMI 24.4
[2019-10-26] MEDS ORDERED: KETAMINE HCL 500 MG/10 ML VIAL ONE (08:12)
[2019-10-26] MEDS ORDERED: PROPOFOL 20 ML ONE (08:15)
[2019-10-26] MEDS ORDERED: SUCCINYLCHOLINE CHLORIDE 200 MG/10 ML SYRINGE ONE (08:16)
[2019-10-26] MEDS ORDERED: ONDANSETRON 4 MG/2 ML VIAL ONE (08:16)
[2019-10-26] MEDS ORDERED: KETOROLAC TROMETHAMINE 30 MG/1 ML VIAL ONE (08:16)
[2019-10-26 09:40] VITALS: BP 143/71; PULSE 65
[2019-10-26 09:44] VITALS: TEMP 98
== END 2019-10-26 09:45 | disposition home or self-care (01) ==
LOC: FECT 06:55
PROVIDERS: ATTEND Psychiatry & Neurology Psychiatry
PROC: GZB4ZZZ Other Electroconvulsive Therapy (ICD-10-PCS; principal; 2019-10-26 10:30)
DX: F32.9 Major depressive disorder, single episode, unspecified (principal)
CPT/HCPCS: 90870; 94760

== ENCOUNTER 2019-11-02 06:33 | Day surgery (SDC) | payer BC ==
[2019-10-31 07:48] VITALS: BMI 24.4
--- OUTSIDE RECORDS SUMMARY | 2019-11-02 06:37 | XMS ---
:1950 [facility] Organization [facility] Care Team Providers Name Role Phone MD Milena Unavailable Unavailable MD Lillian Unavailable Unavailable MD Narayan Unavailable Unavailable CHILO MEDINA Unavailable Unavailable ADVENTISTJACKSON JACOBO Unavailable Unavailable MARTÍNEZ GARCIA Unavailable Unavailable LENNIE ARANA Unavailable Unavailable IRON JUNIOR Unavailable Unavailable DOMINGUEZ AMBROCIO Unavailable Unavailable Sirisha, DO Unavailable Unavailable LORRAINE, ROSALES Unavailable Unavailable Re-disclosure Warning The records that you are about to access may contain information from federally- assisted alcohol or drug abuse programs. If such information is present, then the following federally mandated warning applies: This information has been disclosed to you from records protected by federal confidentiality rules (42 CFR part 2). The federal rules prohibit you from making any further disclosure of this information unless further disclosure is expressly permitted by the written consent of the person to whom it pertains or as otherwise permitted by 42 CFR part 2. A general authorization for the release of medical or other information is NOT sufficient for this purpose. The Federal rules restrict any use of the information to criminally investigate or prosecute any alcohol or drug abuse patient.The records that you are about to access may contain highly sensitive health information, the redisclosure of which is protected by Article 27-F of the [facility] Public Health law. If you continue you may haveaccess to information: Regarding HIV / AIDS; Provided by facilities licensed or operated by the [facility] Office of Mental Health; or Provided by the [facility] Office for People With Developmental Disabilities. If such information is present, then the following [facility] mandated warning applies: This information has been disclosed to you from confidential records which are protected by state law. State law prohibits you from making any further disclosure of this information without the specific written consent of the person to whom it pertains, or as otherwise permitted by law. Any unauthorized further disclosure in violation of state law may result in a fine or senior care sentence or both. A general authorization for the release of medical or other information is NOT sufficient authorization for further disclosure. Advance Directives Directive Description Digital Technician Neonatal Surgeon Status Observation Data S ource(s) Description Advance No completed [facility] directive Hospital Advance No completed [facility] directive Hospital Allergies and Adverse Reactions Type Description Substance Reaction Status Data Source(s ) Drug allergy Penicillins Penicillins UNKNOWN [facility] Drug allergy Penicillins Penicillins [facility] rporation Drug allergy clarithromycin clarithromycin [facility] rporation BIAXIN BIAXIN RASH [facility] Encounters Encounter Providers Location Date Indications Data Source(s ) Emergency Attender: Benjie 09/05/2019 RABIES SHOT Mayra Snyder MD 03:14:00 PM [facility] Hospital EDT - 09/05/2019 03:45:00 PM EDT RABIES SHOT AUTO Patient discharged. Emergency Attender: Sharan 08/29/2019 03:05:00 RABIES VA CCINE Mayra Busch MD PM EDT - 08/29/2019 ARR-AUTO Ho spital 03:59:00 PM EDT RABIES VACCINE ARR-AUTO Patient discharged. Emergency Attender: Stephanie Abbott 08/25/2019 12:00:00 RABIES VACCINE Mayra Alexander MD PM EDT - 08/25/2019 AR[facility]-WI Hospi areli 12:41:00 PM EDT RABIES VACCINE ARR-WI Patient discharged. Emergency Attender: Israel 08/22/2019 02:46:00 DOG BITE Mayra Grimm DO PM EDT - 08/22/2019 ARR-AUTO Hospi areli 04:15:00 PM EDT DOG BITE ARR-AUTO Patient discharged. Outpatient Attender: DOMINGUEZ AMBROCIO 07/17/2019 10:58:00 Z0 1.84 [facility] BOBBI JUN[facility] rupa Jungitter: Rigoberto AMBROCIOReferrer: DOMINGUEZ AMBROCIO Z01.84 Outpatient Attender: RADHA, 04/28/2019 06:00:00 K21.9 [facility] EDWARDAdmitter: RADHA [facility] Health Care EDWARDReferrer: RADHA [facility] K21.9 Outpatient Attender: ADVENTIST, 04/21/2019 R13.10 K21.9 [facility] HUMAYUNAdmitter: ADVENTIST, 02:39:00 [facility] HUMAYUNReferrer: Emma ARANA oration LENNIE R13.10 K21.9 Outpatient Attender: CAROL, 08/17/2018 06:00:00 N52.9 [facility] GERALDAdmitter: CAROL [facility] GERALDReferrer: CAROL Firm58 GLENARM N52.9 Outpatient Attender: CAROL, 06/07/2018 06:00:00 N52.9 [facility] GERALDAdmitter: BOBBI MEDINA [facility] Care GERALDReferrer: CAROL [facility] N52.9 Outpatient Attender: CAROL, 05/18/2018 06:00:00 N52.9 [facility] BOBBI MEDINA [facility] Care GERALDReferrer: [facility] N52.9 Outpatient Attender: CAROL, 05/04/2018 06:00:00 N52.9 [facility] BOBBI MEDINA [facility] Health Care GERALDReferrer: MEDINA, [facility] N52.9 Outpatient Attender: LORRAINE, 04/27/2018 02:58:00 I10 Z0 1.818 [facility] ZVIAdmitter: PM T [facility] Care CARO CENTERFOSTER Firm58 ZVIReferrer: LENNIE ARANA I10 Z01.818 Immunizations Vaccine Date Status Description Data Source(s) This CVX code has 09/05/2019 completed rabies, intramuscular W stalin [facility] been retired. It is 03:41:00 PM injection Hospital replace by CVX 175, EDT or CVX 176. It will continue to be found in historic records. This CVX code has 08/29/2019 completed rabies, intramuscular W stalin [facility] been retired. It is 03:28:00 PM injection Hospital replace by CVX 175, EDT or CVX 176. It will continue to be found in historic records. This CVX code has 08/29/2019 completed rabies, intramuscular W stalin [facility] been retired. It is 03:28:00 PM injection Hospital replace by CVX 175, EDT or CVX 176. It will continue to be found in historic records. This CVX code has 08/25/2019 completed rabies, intramuscular W stalin [facility] been retired. It is 12:35:00 PM injection Hospital replace by CVX 175, EDT or CVX 176. It will continue to be found in historic records. This CVX code has 08/25/2019 completed rabies, intramuscular W stalin [facility] been retired. It is 12:35:00 PM injection Hospital replace by CVX 175, EDT or CVX 176. It will continue to be found in historic records. This CVX code has 08/25/2019 completed rabies, intramuscular W stalin [facility] been retired. It is 12:35:00 PM injection Hospital replace by CVX 175, EDT or CVX 176. It will continue to be found in historic records. This CVX code has 08/22/2019 completed rabies, intramuscular W stalin [facility] been retired. It is 03:57:00 PM injection Hospital replace by CVX 175, EDT or CVX 176. It will continue to be found in historic records. This CVX code has 08/22/2019 completed rabies, intramuscular W stalin [facility] been retired. It is 03:57:00 PM injection Hospital replace by CVX 175, EDT or CVX 176. It will continue to be found in historic records. This CVX code has 08/22/2019 completed rabies, intramuscular W stalin [facility] been retired. It is 03:57:00 PM injection Hospital replace by CVX 175, EDT or CVX 176. It will continue to be found in historic records. This CVX code has 08/22/2019 completed rabies, intramuscular W stalin [facility] been retired. It is 03:57:00 PM injection Hospital replace by CVX 175, EDT or CVX 176. It will continue to be found in historic records. RIG 08/22/2019 completed RIG [facility] 03:56:00 PM Hospital EDT RIG 08/22/2019 completed RIG [facility] 03:56:00 PM Hospital EDT RIG 08/22/2019 completed RIG [facility] 03:56:00 PM Hospital EDT RIG 08/22/2019 completed RIG [facility] 03:56:00 PM Hospital EDT Medications Medication Brand Start Product Dose Route Administrative Pharmacy [facility] Indications Reaction Description Data Name Date Form Instructions Instructions Source(s) HORIZANT complet [facility] keyshawn (Free Text 2018 ed r [facility] Medication) 12:00: Health 600 MG Oral 00 AM Care DAILY EDT Corporatio n Hydrochloro Losart complet W estcheste thiazide 25 an-Hyd 2018 ed [facility] ty MG / rochlo 12:00: Health Losartan rothia 00 AM Care Potassium zide EDT Corporatio 100 MG Oral [100 n Tablet mg-25 Losartan-Hy mg drochloroth Tablet iazide [100 ]: 1 mg-25 mg Tablet Tablet]: 1 Oral Tablet Oral DAILY DAILY ropinirole Requip We stcheste 4 MG Oral (Ropin 2018 ed [facility] Tablet irole) 12:00: Health Requip [4 mg 00 AM Care (Ropinirole Tablet EDT Corpor atio ) [4 mg ]: 1 n Tablet]: 1 Tablet Tablet Oral Oral DAILY DAILY lamotrigine Lamict W estcheste 25 MG Oral al 2018 ed r [facility] Tablet (Lamot 12:00: Health Lamictal rigine 00 AM Care (Lamotrigin ) [25 EDT Corpora nina e) [25 mg mg n Tablet]: 1 Tablet Tablet Oral ]: 1 DAILY Tablet Oral DAILY 24 HR Wellbu complet [facility] miracle Bupropion lucie 2018 ed r [facility] Hydrochlori XL 12:00: Health de 300 MG (Bupro 00 AM Care Extended pion EDT Corporatio Release HCl) n Oral Tablet [300 Wellbutrin mg]: 1 XL Tablet (Bupropion Oral HCl) [300 DAILY mg]: 1 Tablet Oral DAILY Amlodipine Amlodi complet We stcheste 5 MG Oral pine 2018 ed r [facility] Tablet [5 mg 12:00: Health Amlodipine Tablet 00 AM Care [5 mg ]: 1 EDT Corporatio Tablet]: 1 Tablet n Tablet Oral Oral DAILY DAILY Meclizine 04/28/ TABLET 25 mg ORAL complet Wh ite Hcl 2015 ed [facility] 04:10: Hospital 00 PM EDT Aspirin 25 Aspiri 04/28/ CONTROLL 1 ORAL complet [facility] MG / n/Dipy 2015 ED [facility] Dipyridamol ridamo 04:10: RELEASE ule} H ospital e 200 MG le 00 PM CAPSULE Oral 25MG-2 EDT Capsule 00MG. [Aggrenox] Cap* Aspirin/Dip yridamole 25MG-200MG. Cap* Meclizine 04/28/ TABLET 25 mg ORAL complet Wh ite Hcl 2015 [facility] 04:10: Hospital 00 PM EDT Aspirin 25 Aspiri 04/28/ CONTROLL 1 ORAL complet [facility] MG / n/Dipy 2015 ED [facility] Dipyridamol rido 04:10: RELEASE ule} H ospital e 200 MG le 00 PM CAPSULE Oral 25MG-2 EDT Capsule 00MG. [Aggrenox] Cap* Aspirin/Dip yridamole 25MG-200MG. Cap* Aspirin 25 Aspiri 04/28/ CONTROLL 1 ORAL complet [facility] MG / n/Dipy 2015 ED [facility] Dipyridamol ridamo 04:10: RELEASE ule} H ospital e 200 MG le 00 PM CAPSULE Oral 25MG-2 EDT Capsule 00MG. [Aggrenox] Cap* Aspirin/Dip yridamole 25MG-200MG. Cap* Meclizine 04/28/ TABLET 25 mg ORAL complet Wh ite Hcl 2015 ed [facility] 04:10: Hospital 00 PM EDT Meclizine 04/28/ TABLET 25 mg ORAL complet Wh ite Hcl 2015 ed [facility] 04:10: Hospital 00 PM EDT Aspirin 25 Aspiri 04/28/ CONTROLL 1 ORAL complet [facility] MG / n/Dipy 2015 ED [facility] Dipyridamol ridamo 04:10: RELEASE ule} H ospital e 200 MG le 00 PM CAPSULE Oral 25MG-2 EDT Capsule 00MG. [Aggrenox] Cap* Aspirin/Dip yridamole 25MG-200MG. Cap* Aspirin 81 Aspiri 03/18/ ENTERIC 81 mg ORAL complet [facility] MG Delayed n 2015 COATED ed [facility] Release 01:28: TABLET Hospital Oral Tablet 00 PM EST Aspirin 81 Aspiri 03/18/ ENTERIC 81 mg ORAL complet [facility] MG Delayed n 2015 COATED ed [facility] Release 01:28: TABLET Hospital Oral Tablet 00 PM EST Aspirin 81 Aspiri 03/18/ ENTERIC 81 mg ORAL complet [facility] MG Delayed n 2015 COATED ed [facility] Release 01:28: TABLET Hospital Oral Tablet 00 PM EST Aspirin 81 Aspiri 03/18/ ENTERIC 81 mg ORAL complet White MG Delayed n 2015 COATED ed [facility] Release 01:28: TABLET Hospital Oral Tablet 00 PM EST Bupropion Buprop TABLET 450 ORAL active Whit e Hydrochlori ion mg [facility] de 75 MG Hcl Hospital Oral Tablet Bupropion Hcl doxycycline Doxycy CAPSULE, 100 ORAL active [facility] hyclate 100 sorenson DELAYED mg Plai ns MG Oral Hyclat RELEASE Hospita l Capsule e [Vibramycin ] Doxycycline Hyclate doxycycline Doxycy CAPSULE, 100 ORAL active [facility] hyclate 100 sorenson DELAYED mg Plai ns MG Oral Hyclat RELEASE Hospita l Capsule e [Vibramycin ] Doxycycline Hyclate gabapentin Gabape CAPSULE 600 ORAL active Wh ite 100 MG Oral ntin mg [facility] Capsule [facility] [Neurontin] Gabapentin Alprazolam Alpraz TABLET active Whi te 0.5 MG Oral olam [facility] Tablet Hospital [Xanax] Losartan Losart TABLET 100 ORAL active [facility] Potassium an mg [facility] 25 MG Oral Potass Hospita l Tablet ium [Cozaar] 24 HR Ropini TABLET 4 mg ORAL active [facility] ropinirole role 24 HR [facility] 2 MG Hcl [facility] Extended D Release RELEASE Oral Tablet [Requip] Ropinirole Hcl Alprazolam Alpraz TABLET active Whi te 0.5 MG Oral olam [facility] Tablet Hospital [Xanax] Sertraline TABLET complet Whit e Hcl ed [facility] Losartan Losart TABLET 100 ORAL active White Potassium an mg [facility] 25 MG Oral Potass Hospita l Tablet ium [Cozaar] Alprazolam Alpraz TABLET active Whi te 0.5 MG Oral olam [facility] Tablet Hospital [Xanax] gabapentin Gabape CAPSULE 600 ORAL active Wh ite 100 MG Oral ntin mg [facility] Capsule Hospital [Neurontin] Gabapentin Docusate DOK complet [facility] te Sodium 100 (Docus ed r Count y MG Oral ate Health Capsule DOK Sodium Care (Docusate ) [100 Corporat io Sodium) mg n [100 mg Capsul Capsule]: e]: 100 MG Oral 100 MG 10A-2-6P Oral 10A-2- 6P lamotrigine Lamotr 400 ORAL active Whit e 25 MG igine [facility] Tablet [Lamictal] Lamotrigine Ciprofloxac Cipro complet [facility] in 500 MG (Cipro ed r [facility] Oral Tablet floxac Health Cipro in Care (Ciprofloxa HCl) Corporat io rome HCl) [500 n [500 mg mg Tablet]: 1 Tablet Tablet Oral ]: 1 2 TIMES A Tablet DAY Oral 2 TIMES A DAY Bupropion Buprop TABLET 450 ORAL active Whit e Hydrochlori ion mg [facility] de 75 MG Hcl Hospital Oral Tablet Bupropion Hcl 24 HR Ropini TABLET, 6 mg ORAL active White ropinirole role EXTENDED Plain s 6 MG Hcl RELEASE Hospital Extended Release Oral Tablet Ropinirole Hcl Sertraline TABLET complet Whit e Hcl ed [facility] doxycycline Doxycy CAPSULE, 100 ORAL active White hyclate 100 sorenson DELAYED mg Plai ns MG Oral Hyclat RELEASE Hospita l Capsule e [Vibramycin ] Doxycycline Hyclate Sertraline TABLET complet Whit e Hcl ed [facility] 24 HR Ropini TABLET, 6 mg ORAL active White ropinirole role EXTENDED Plain s 6 MG Hcl RELEASE Hospital Extended Release Oral Tablet Ropinirole Hcl Oxycodone Oxycod complet [facility] heste Hydrochlori one [5 ed r Coun ty de 5 MG mg Health Oral Tablet Tablet Care Oxycodone ]: 1 Corporatio [5 mg Tablet n Tablet]: 1 Oral Tablet Oral EVERY EVERY 8 8 HOURS PRN HOURS PAIN PRN PAIN 24 HR Ropini TABLET, 6 mg ORAL active White ropinirole role EXTENDED Plain [facility] 6 MG Hcl RELEASE Hospital Extended Release Oral Tablet Ropinirole Hcl 24 HR Ropini TABLET 4 mg ORAL active White ropinirole role 24 HR [facility] 2 MG Hcl [facility] Extended D Release RELEASE Oral Tablet [Requip] Ropinirole Hcl 24 HR [facility] TABLET 4 mg ORAL active White ropinirole role 24 HR [facility] 2 MG Hcl [facility] Extended D Release RELEASE Oral Tablet [Requip] Ropinirole Hcl Bupropion Buprop TABLET 450 ORAL active Whit e Hydrochlori ion mg [facility] de 75 MG Hcl Hospital Oral Tablet Bupropion Hcl Losartan Losart TABLET 100 ORAL active White Potassium an mg [facility] 25 MG Oral Potass Hospita l Tablet ium [Cozaar] lamotrigine Lamotr 400 ORAL active Whit e 25 MG igine [facility] Tablet [Lamictal] Lamotrigine 24 HR [facility] TABLET 4 mg ORAL active [facility] ropinirole role 24 HR [facility] 2 MG Hcl [facility] Extended D Release RELEASE Oral Tablet [Requip] Ropinirole Hcl 24 HR Ropini TABLET, 6 mg ORAL active White ropinirole role EXTENDED Plain s 6 MG Hcl RELEASE Hospital Extended Release Oral Tablet Ropinirole Hcl doxycycline Doxycy CAPSULE, 100 ORAL active White hyclate 100 sorenson DELAYED mg Plai ns MG Oral Hyclat RELEASE Hospita l Capsule e [Vibramycin ] Doxycycline Hyclate lamotrigine Lamotr 400 ORAL active Whit e 25 MG igine [facility] Tablet [Lamictal] Lamotrigine Sertraline TABLET complet Whit e Hcl ed [facility] gabapentin Gabape CAPSULE 600 ORAL active Wh ite 100 MG Oral ntin mg [facility] Caps[facility] [Neurontin] Gabapentin gabapentin Gabape CAPSULE 600 ORAL active Wh ite 100 MG Oral ntin mg [facility] Capsule [facility] [Neurontin] Gabapentin Losartan Losart TABLET 100 ORAL active White Potassium an mg [facility] 25 MG Oral Potass Hospita l Tablet ium [Cozaar] Acetaminoph Acetam complet Roly tcheste en 325 MG inophe ed [facility] Oral Tablet n [325 Health Acetaminoph mg Care en [325 mg Tablet Corpora nina Tablet]: ]: 650 n 650 MG Oral MG Q4HPRN PRN Oral FOR MILD Q4HPRN PAIN, FEVER PRN FOR MILD PAIN, FEVER Flomax [id number] complet Edgardo te (Tamsulosin 546 ed [facility] ) [0.4 mg Health Capsule]: 1 Care Tablet Oral Corporat io DAILY IN n EVENING testosteron Testos complet Roly tcheste e cypionate terone ed [facility] ty 200 MG/ML [facility] Injectable ate Care Solution [200 Corporatio Testosteron mg/mL n e Cypionate Kit]: [200 mg/mL 1 Kit]: 1 Stick Stick Intram Intramuscul uscula ar r DIRECTEDCom DIRECT ment: takes EDComm every two ent: weeks takes every two weeks Bupropion Buprop TABLET 450 ORAL active Whit e Hydrochlori ion mg [facility] de 75 MG Hcl Hospital Oral Tablet Bupropion Hcl lamotrigine Lamotr 400 ORAL active Whit e 25 MG igine [facility] Tablet [Lamictal] Lamotrigine Alprazolam Alpraz TABLET active Whi te 0.5 MG Oral olam [facility] Tablet Hospital [Xanax] Insurance Providers Payer name Policy type / Policy ID Covered Covered democrat's Policy Plan Coverage type democrat ID relationship to [place] Information cancino BC EPO [id number] SP [id number] BC EPO [id number] SP [id number] BC EPO [id number] SP [id number] BLUE CROSS [id number] PT [id number] OUT OF 38 STATE BLUE CROSS [id number] PT [id number] OUT OF 38 STATE BC OUT OF [id number] SP [id number] STATE 38 BC OUT OF [id number] SP [id number] STATE 38 Problems, Conditions, and Diagnoses Code Display Name Description Problem Type Effective Data Sour ce(s) Dates Z20.3 Contact with and Z20.3 Diagnosis 09/05/[address] [facility] (suspected) 03:31:00 PM Hospital exposure to rabies EDT Z86.73 Personal history Z86.73 Diagnosis 08/29/[address] [facility] of transient 03:27:00 PM Hospital ischemic attack EDT (TIA), and cerebral infarction without residual deficits I10 Essential I10 Diagnosis 08/25/2019 [facility] (primary) 12:38:00 PM Hospital hypertension EDT Z23 Encounter for Z23 Diagnosis 08/25/2019 [facility] s immunization 12:38:00 PM Hospital EDT Z01.84 Encounter for ENCOUNTER FOR Diagnosis 07/17/2019 [facility] antibody response ANTIBODY RESPONSE 10:58:00 AM [facility] examination EXAMINATION EDT Care Firm58 F31.9 Bipolar disorder, BIPOLAR DISORDER, Diagnosis 04/28/2019 [place] unspecified UNSPECIFIED 06:00:00 AM [facility] EDT Care Corporation I10 Essential ESSENTIAL Diagnosis 04/28/2019 [place] (primary) (PRIMARY) 06:00:00 AM [facility] hypertension HYPERTENSION EDT Care Corporation R13.19 Other dysphagia OTHER DYSPHAGIA Diagnosis 04/28/2019 [place] randell 06:00:00 AM [facility] EDT Care Firm58 K44.9 Diaphragmatic DIAPHRAGMATIC Diagnosis 04/28/2019 [facility] hernia without HERNIA WITHOUT 06:00:00 AM Count y Health obstruction or OBSTRUCTION OR EDT Care gangrene GANGRENE Corporation K22.2 Esophageal ESOPHAGEAL Diagnosis 04/28/2019 [place] obstruction OBSTRUCTION 06:00:00 AM [facility] EDT Care Corporation K21.9 Gastro-esophageal GASTRO-ESOPHAGEAL Diagnosis 04/28/2019 [place] reflux disease REFLUX DISEASE 06:00:00 AM Count y Health without WITHOUT EDT Care esophagitis ESOPHAGITIS Corporation R13.10 Dysphagia, DYSPHAGIA, Diagnosis 04/21/2019 [place] unspecified UNSPECIFIED 02:39:00 PM [facility] EDT Care Corporation Z96.643 Presence of PRESENCE OF Diagnosis 08/17/2018 [place] artificial hip ARTIFICIAL HIP 06:00:00 AM Count y Health joint, bilateral JOINT, BILATERAL EDT Ca re Corporation 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 06:00:00 AM [facility] EDT Care Firm58 D72.819 Decreased white DECREASED WHITE Diagnosis 08/17/2018 [place] blood cell count, BLOOD CELL COUNT, 06:00:00 AM [facility] unspecified UNSPECIFIED EDT [facility] D64.9 Anemia, ANEMIA, Diagnosis 08/17/2018 [place] unspecified UNSPECIFIED 06:00:00 AM [facility] EDT Care [facility] E34.8 Other specified OTHER SPECIFIED Diagnosis 08/17/2018 [place] endocrine ENDOCRINE 06:00:00 AM [facility] disorders DISORDERS EDT [facility] G25.81 Restless legs RESTLESS LEGS Diagnosis 08/17/2018 [facility] syndrome SYNDROME 06:00:00 AM [facility] EDT [facility] N52.8 Other male OTHER 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 08/17/2018 [place] erectile ERECTILE 06:00:00 AM [facility] dysfunction DYSFUNCTION EDT [facility] Z01.818 Encounter for ENCOUNTER FOR Diagnosis 04/27/2018 [facility] ter other OTHER 02:58:00 PM [facility] preprocedural PREPROCEDURAL EDT Care examination EXAMINATION Corporation Surgeries/Procedures Procedure Description Date Indications Data Source(s) Immunization admin 08/29/2019 [facility] 12:00:00 AM EDT Rabies vaccine im 08/29/2019 [facility] 12:00:00 AM EDT Emergency dept visit 08/29/2019 [facility] 12:00:00 AM EDT Immunization admin 08/25/2019 [facility] 12:00:00 AM EDT Rabies vaccine im 08/25/2019 [facility] 12:00:00 AM EDT Emergency dept visit 08/25/2019 [facility] 12:00:00 AM EDT Rabies vaccine im 08/22/2019 [facility] 12:00:00 AM EDT Rabies ig im/sc 08/22/2019 [facility] 12:00:00 AM EDT Emergency dept visit 08/22/2019 [facility] 12:00:00 AM EDT Rabies vaccine im 08/22/2019 [facility] 12:00:00 AM EDT Rabies ig im/sc 08/22/2019 [facility] 12:00:00 AM EDT Emergency dept visit 08/22/2019 [facility] 12:00:00 AM EDT Results ID Date Data Source [id number] 10/29/2019 09:02:00 AM EDT [facility] Name Value Range Interpretation Description Data Sup porting Code Source(s) Document(s ) SARS [facility] coronavirus 2 RNA This lab was ordered by [facility] and reported by [facility]. ID Date Data Source [id number] 10/22/2019 10:04:00 AM EDT [facility] Name Value Range Interpretation Description Data Sup porting Code Source(s) Document(s ) SARS [facility] coronavirus 2 RNA This lab was ordered by BONGADRIENNE beckman [facility] and reported by [facility]. ID Date Data Source [id number] 10/15/2019 10:00:00 AM EDT [facility] Name Value Range Interpretation Description Data Sup porting Code Source(s) Document(s ) SARS [facility] coronavirus 2 RNA This lab was ordered by BONGADRIENNE beckman [facility] and reported by [facility]. ID Date Data Source [id number] 10/10/2019 12:04:00 PM EDT [facility] Name Value Range Interpretation Description Data Sup porting Code Source(s) Document(s ) SARS [facility] coronavirus 2 RNA This lab was ordered by [facility] JUNIOR beckman [facility] and reported by [facility]. ID Date Data Source [id number] 09/19/2019 11:41:00 AM EDT [facility] Name Value Range Interpretation Description Data Sup porting Code Source(s) Document(s ) SARS [facility] coronavirus 2 RNA [facility] [facility] and reported by [facility]. ID Date Data Source [id number] 09/09/2019 12:51:00 PM EDT [facility] Name Value Range Interpretation Description Data Sup porting Code Source(s) Document(s ) SARS [facility] coronavirus 2 RNA This lab was ordered by [facility] and reported by [facility]. ID Date Data Source [id number] 08/27/2019 10:19:00 AM EDT [facility] Name Value Range Interpretation Description Data Sup porting Code Source(s) Document(s ) SARS [facility] coronavirus 2 RNA [facility] and reported by [facility]. ID Date Data Source [id number] 08/20/2019 09:45:00 AM EDT [facility] Name Value Range Interpretation Description Data Sup porting Code Source(s) Document(s ) SARS [facility] coronavirus 2 RNA This lab was ordered by [facility] and reported by [facility]. ID Date Data Source [id number] 08/07/2019 10:00:00 AM EDT [facility] Name Value Range Interpretation Description Data Sup porting Code Source(s) Document(s ) SARS [facility] CORONAVIRUS 2 RNA This lab was ordered by [facility] and reported by [facility]. ID Date Data Source [id number] 08/18/2018 10:30:03 AM EDT [facility] [id number] Corporation Name Value Range Interpretation Description Data Sup porting Code Source(s) Document(s ) Erythrocytes 4.18 m/mm3 4.70-6 <td> 08/17/2018 [place] r [#/volume] in .10 07:20</td><td> [facility] Blood m/mm3 RBC Health Care </td><td><[employer] raph styleCode="Bold "> 4.18 L </paragraph>
(4.70-6.10) m/mm3 </td> Leukocytes 4.3 k/mm3 4.8-10 <td> 08/17/2018 [place] [#/volume] in .8 07:20</td><td> [place] Blood by k/mm3 WBC [facility] Automated count </td><td><[employer]rienne Corporat ion raph styleCode="Bold "> 4.3 L </paragraph>
(4.8-10.8) k/mm3 </td> Hemoglobin 13.4 g/dL 14.0-1 <td> 08/17/2018 [place] [Mass/volume] 8.0 07:20</td><td> [place] in Blood g/dL HGB [facility] </td><td><[employer] raph styleCode="Bold "> 13.4 L </paragraph>
(14.0-18.0) g/dL </td> Erythrocyte 92.6 fL 80.0-9 <td> 08/17/2018 [place] mean 4.0 fL 07:20</td><td> [facility] corpuscular MCV </td><td> Health Care volume [[employer] volume] by 92.6 Automated count
(80.0-94.0) fL </td> Erythrocyte 32.1 pg 27.0-3 <td> 08/17/2018 [place] mean 1.5 pg 07:20</td><td> [facility] corpuscular MCH [facility] hemoglobin </td><td><[employer] [Entitic mass] raph by Automated styleCode="Bold count "> 32.1 H </paragraph>
(27.0-31.5) pg </td> Hematocrit 38.7 % 40.8-4 <td> 08/17/2018 [place] [Volume 6.9 % 07:20</td><td> [place] Fraction] of HCT [facility] Blood by </td><td><[employer] Automated count raph styleCode="Bold "> 38.7 L </paragraph>
(40.8-46.9) % </td> Erythrocyte 14.0 % 11.5-1 <td> 08/17/2018 [place] distribution 4.5 % 07:20</td><td> [place] width [Entitic RDW </td><td> Health Car e volume] by [employer] Automated count 14.0
(11.5-14.5) % </td> Platelets 209 k/mm3 160-41 <td> 08/17/2018 [place] [#/volume] in 0 07:20</td><td> [facility] Blood by k/mm3 Platelet Count Health Care Automated count </td><td> [employer] 209
(160-410) k/mm3 </td> Erythrocyte 34.6 % 32.0-3 <td> 08/17/2018 [place] mean 6.0 % 07:20</td><td> [facility] corpuscular MCHC </td><td> Health Care hemoglobin Corporation concentration 34.6 [Mass/volume] in Blood from
Fetus by (32.0-36.0) % Automated count </td> Platelet mean 9.2 fL 9.8-12 <td> 08/17/2018 [facility] r volume [Entitic .8 fL 07:20</td><td> [place] volume] in MPV [facility] Blood by </td><td><adrienne [employer] Automated count raph styleCode="Bold "> 9.2 L </paragraph>
(9.8-12.8) fL </td> Basophils+Eosin 3.5 % 0.0-5. <td> 08/17/2018 [facility] ophils+Monocyte 0 % 07:20</td><td> [place] s [#/volume] in Eosinophils Health Care Blood by </td><td> [employer] Automated count 3.5
(0.0-5.0) % </td> Monocytes/Leuko 9.6 % 0.0-11 <td> 08/17/2018 [facility] cytes [Pure .0 % 07:20</td><td> [place] number Monocytes. Health Care fraction] in </td><td> [employer] Blood by Automated count 9.6
(0.0-11.0) % </td> Lymphocytes 17.9 % 16.0-5 <td> 08/17/2018 [place] [#/volume] in 0.0 % 07:20</td><td> [facility] Blood by Lymphocytes [facility] Automated count </td><td> [employer] 17.9
(16.0-50.0) % </td> Basophils 0.7 % 0.0-2. <td> 08/17/2018 [place] [#/volume] in 0 % 07:20</td><td> [facility] Blood by Basophils [facility] Automated count </td><td> [employer] 0.7
(0.0-2.0) % </td> Glucose 97 mg/dL 70-105 <td> 08/17/2018 [place] [Mass/volume] mg/dL 07:20</td><td> [facility] in Blood Glucose-Serum [facility] </td><td> [employer] 97
(70-105) mg/dL </td> Neutrophils [#] 68.1 % 34.0-7 <td> 08/17/2018 [facility] in Body fluid 6.0 % 07:20</td><td> [facility] by Manual count Neutrophils [facility] </td><td> [employer] 68.1
(34.0-76.0) % </td> Sodium 136 mEq/L 135-14 <td> 08/17/2018 [place] [Moles/volume] 5 07:20</td><td> [facility] in Serum or mEq/L Sodium-Serum [facility] Plasma </td><td> [employer] 136
(135-145) mEq/L </td> Immature 0.2 % 0.0-0. <td> 08/17/2018 [place] granulocytes/10 5 % 07:20</td><td> [facility] 0 leukocytes in IG% </td><td> [facility] Blood by [employer] Automated count 0.2
(0.0-0.5) %
The IG fraction represents metamyelocytes, myelocytes and/or
promyelocytes and is only reported as part of the automated
differential when found at a percentage of less than 6.
If higher than 6%, a manual differential will be performed.

(0.0-0.5) % </td> Chloride 99 mEq/L 98-107 <td> 08/17/2018 [place] [Moles/volume] mEq/L 07:20</td><td> [place] in Serum or Chloride Health Care Plasma </td><td> [employer] 99
(98-107) mEq/L </td> Potassium 3.8 mEq/L 3.5-5. <td> 08/17/2018 [place] [Moles/volume] 1 07:20</td><td> [place] in Serum or mEq/L Potassium-Serum [facility] Plasma </td><td> [employer] 3.8
(3.5-5.1) mEq/L </td> Urea nitrogen 15 mg/dL 6-22 <td> 08/17/2018 [facility] r [Mass/volume] mg/dL 07:20</td><td> [place] in Blood BUN </td><td> [facility] Care [employer]58 15
(6-22) mg/dL </td> Carbon dioxide, 28 mEq/L 22-30 <td> 08/17/2018 [facility] total mEq/L 07:20</td><td> [facility] [Moles/volume] CO2 </td><td> Health Car e in Serum or Corporation Plasma 28
(22-30) mEq/L </td> Creatinine 0.95 mg/dL 0.72-1 <td> 08/17/2018 [place] [Moles/volume] .25 07:20</td><td> [place] in Serum or mg/dL Creatinine. Health Care Plasma </td><td> [employer]58 0.95
(0.72-1.25) mg/dL </td> Hemolysis index No <td> 08/17/2018 [facility] of Serum or Hemolysis 07:20</td><td> [facility] Plasma Hemolysis Index Health Care </td><td> [employer] No Hemolysis
</td> Anion gap in 9 mEq/L 7-13 <td> 08/17/2018 [place] Serum or Plasma mEq/L 07:20</td><td> [facility] Anion Gap Health Care </td><td> [employer] 9
(7-13) mEq/L </td> Calcium 9.7 mg/dL 8.6-10 <td> 08/17/2018 [place] [Mass/volume] .2 07:20</td><td> [facility] in Blood mg/dL Calcium Health Care </td><td> [employer]58 9.7
(8.6-10.2) mg/dL </td> Lipemic index No Lipemia <td> 08/17/2018 [facility] er of Serum or 07:20</td><td> [facility] Plasma Lipemia Index Health Care </td><td> [employer]58 No Lipemia
</td> Icteric index Not <td> 08/17/2018 [facility] r of Serum or Icteric 07:20</td><td> [facility] Plasma Icteric Index Health Care </td><td> [employer]58 Not Icteric
</td> Specific 1.017 {} 1.000- <td> 08/17/2018 [place] gravity of 1.035 07:20</td><td> [facility] Urine by Test Specific Health Care strip [place] [employer] </td><td> 1.017
(1.000-1.035) </td> Prothrombin 10.6 secs 9.8-12 <td> 08/17/2018 [place] time (PT) .0 07:20</td><td> [facility] secs Prothrombin Health Care Time. [facility] </td><td> 10.6
(9.8-12.0) secs </td> aPTT panel - 28.2 secs 25.0-3 <td> 08/17/2018 [place] Platelet poor 2.0 07:20</td><td> [facility] plasma secs Partial Health Care Thromboplastin [employer] Time </td><td> 28.2
(25.0-32.0) secs </td> Protein Negative <td> 08/17/2018 [place] [Presence] in 07:20</td><td> [facility] Urine by Protein Health Care Automated test Qualitative [employer] strip </td><td> Negative
(NEGATIVE) </td> Appearance of Clear <td> 08/17/2018 [facility] Urine 07:20</td><td> [facility] Appearance Health Care </td><td> Corporation Clear
(CLEAR) </td> Glucose Negative <td> 08/17/2018 [place] [Presence] in 07:20</td><td> [facility] Urine by Test Glucose_ Health Care strip </td><td> Corporation Negative
(NEGATIVE) </td> Urobilinogen 0.2 mg/dL 0.0-2. <td> 08/17/2018 [place] [Presence] in 0 07:20</td><td> [facility] Urine by mg/dL Urobilinogen [facility] Care Automated test </td><td> Corporation strip 0.2
(0.0-2.0) mg/dL </td> Leukocytes 1 /HPF 0-5 <td> 08/17/2018 [place] [Presence] in /HPF 07:20</td><td> [facility] Urine by WBC </td><td> Health Care Automated Corporation 1
(0-5) /HPF </td> Nitrite Negative <td> 08/17/2018 [place] [Presence] in 07:20</td><td> [facility] Urine by Test Nitrites Health Care strip </td><td> Corporation Negative
(NEGATIVE) </td> Erythrocytes 5 /HPF 0-2 <td> 08/17/2018 [place] [#/area] in /HPF 07:20</td><td> [facility] Urine sediment RBC </td><td> Health Car e by Automated Corporation count 5
(0-2) /HPF </td> Leukocyte Negative <td> 08/17/2018 [place] esterase 07:20</td><td> [facility] [Presence] in Leukocytes Health Care Urine by Test Esterase Corporation strip </td><td> Negative
(NEGATIVE) </td> Bacteria RARE <td> 08/17/2018 [place] [#/area] in 07:20</td><td> [facility] Urine sediment Bacteria Health Care by Microscopy </td><td> [employer] high power field RARE
(NONE SEEN) /HPF </td> Mucous RARE <td> 08/17/2018 [place] < FEW 07:20</td><td> [facility] Mucous Health Care </td><td> Corporation RARE
/LPF
< FEW

/LPF </td> Bacteria NONE SEEN <td> 08/17/2018 [place] [#/area] in FEW 07:20</td><td> [facility] Urine sediment Epithelial Health Care by Microscopy [employer] high power </td><td> field NONE SEEN
FEW

/LPF </td> Amorphous RARE <td> 08/17/2018 [place] < FEW 07:20</td><td> [facility] Amorphous [employer] </td><td> RARE
/HPF
< FEW

/HPF </td> Procedure Social History Code Duration Value Status Description Data Source(s ) Smoking 08/25/2019 Never smoked completed Never smoked [place] 12:[facility]:00 PM EDT tobacco tobacco (finding) Ho [facility]ital (finding) Smoking Unknown if ever completed Unknown if ever [facility] [place] [facility] Smoking Unknown if ever completed Unknown if ever [facility] [place] [facility] Smoking Unknown if ever completed Unknown if ever [facility] [place] [facility] smoked [facility] Smoking Unknown if ever completed Unknown if ever [facility] smoked smoked [facility] [employer] Vital Signs ID Date Data Source UNK Name Value Range Interpretation Code Description Data Source(s) Diastolic blood 77 mm[Hg] 77 mm[Hg] [facility] Systolic blood 160 mm[Hg] 160 mm[Hg] [place] [facility] [facility] Respiratory rate 18 /min 18 /min [facility] Heart rate 77 /min 77 /min [facility] Body temperature 36.41733 36.58426 [facility] Body temperature 98.3 [degF] 98.3 [degF] [facility] Body mass index 25.0 kg/m2 25.0 kg/m2 [facility] (BMI) [Ratio] Hospital Body weight 185.39 185.39 [lb_av] [facility] [lb_av] [facility] Diastolic blood 75 mm[Hg] 75 mm[Hg] [facility] Systolic blood 164 mm[Hg] 164 mm[Hg] [place] [facility] [facility] Respiratory rate 19 /min 19 /min [facility] Heart rate 105 /min 105 /min [facility] Body temperature 36.60943 36.85144 [facility] Body temperature 97.9 [degF] 97.9 [degF] [facility] Body mass index 28.0 kg/m2 28.0 kg/m2 [facility] (BMI) [Ratio] [facility] Body weight 170.35 170.35 [lb_av] [facility] [lb_av] [facility] Diastolic blood 85 mm[Hg] 85 mm[Hg] [facility] pressure [facility] Systolic blood 153 mm[Hg] 153 mm[Hg] [place] [facility] [facility] Respiratory rate 16 /min 16 /min [facility] Heart rate 89 /min 89 /min [facility] Body temperature 36.70528 36.69877 [facility] Body temperature 97.9 [degF] 97.9 [degF] [facility] Body mass index 25.1 kg/m2 25.1 kg/m2 [facility] (BMI) [Ratio] Hospital Body weight 185 [lb_av] 185 [lb_av] [facility] Diastolic blood 84 mm[Hg] 84 mm[Hg] [facility] Systolic blood 164 mm[Hg] 164 mm[Hg] [place] [facility] pressure [facility] Respiratory rate 18 /min 18 /min [facility] Heart rate 75 /min 75 /min [facility] Body temperature 36.43175 36.95021 [facility] Body temperature 98.5 [degF] 98.5 [degF] [facility] Body mass index 26.0 kg/m2 26.0 kg/m2 [facility] (BMI) [Ratio] Hospital Body weight 192.90 192.90 [lb_av] [facility] [lb_av] Hospital wt - obtain Normal (applies to {} [place] non-numeric results) [facility] on weight - kg 90.0000 {} Normal (applies to 90.0000 {} [place] non-numeric results) [facility] on Diastolic blood 54 {} Normal (applies to 54 {} [place] pressure non-numeric results) [facility] on Systolic blood 130 {} Normal (applies to 130 {} [place] pressure non-numeric results) [facility] on First Respiration 17.0000 {} Normal (applies to 17.0000 {} [place] rate Set non-numeric results) [facility] on Heart rate 92.0000 {} Normal (applies to 92.0000 {} [place] non-numeric results) [facility] on Body temperature 98.4000 {} Normal (applies to 98.4000 {} [place] non-numeric results) [facility] on Diastolic blood 55 {} Normal (applies to 55 {} [place] pressure non-numeric results) [facility] on Systolic blood 122 {} Normal (applies to 122 {} [place] pressure non-numeric results) [facility] on First Respiration 17.0000 {} Normal (applies to 17.0000 {} [place] rate Set non-numeric results) [facility] on Heart rate 90.0000 {} Normal (applies to 90.0000 {} [place] non-numeric results) [facility] on Body temperature 98.5000 {} Normal (applies to 98.5000 {} [place] non-numeric results) [facility] on Height Obtained Normal (applies to {} [place] by non-numeric results) [facility] on Body height 182.8800 {} Normal (applies to 182.8800 {} [facility] on
[2019-11-02] MEDS ORDERED: KETAMINE HCL 500 MG/10 ML VIAL ONE (07:54)
[2019-11-02 08:44] VITALS: TEMP 98.2
[2019-11-02 09:04] VITALS: BP 136/64; PULSE 73
== END 2019-11-02 09:49 | disposition home or self-care (01) ==
LOC: FECT 06:33
PROVIDERS: ATTEND Psychiatry & Neurology Psychiatry
PROC: GZB4ZZZ Other Electroconvulsive Therapy (ICD-10-PCS; principal; 2019-11-02 10:00)
DX: F32.9 Major depressive disorder, single episode, unspecified (principal)
CPT/HCPCS: 90870; 94760

== ENCOUNTER 2019-11-09 06:32 | Day surgery (SDC) | payer BC ==
--- OUTSIDE RECORDS SUMMARY | 2019-11-02 13:30 | XMS ---
:1950 Author Organization [facility] Care Team Providers Name Role Phone Stephanie Abbott MD Unavailable Unavailable Benjie Snyder MD Unavailable Unavailable Sharan Busch MD Unavailable Unavailable CHILO MEDINA Unavailable Unavailable JACKSON LINDA Unavailable Unavailable MARTÍNEZ GARCIA Unavailable Unavailable LENNIE ARANA Unavailable Unavailable IRON JUNIOR Unavailable Unavailable DOMINGUEZ AMBROCIO Unavailable Unavailable Israel Grimm DO Unavailable Unavailable ROSALES PETERS Unavailable Unavailable Re-disclosure Warning The records that [...] is protected by Article 27-F of the [place] Public Health law. If you continue you may haveaccess to information: Regarding HIV / AIDS; Provided by facilities licensed or operated by the [facility] Office of Mental Health; or Provided by the [facility] Office for People With Developmental Disabilities. If such information is present, then the following [facility] mandated warning applies: This information has [...] law may result in a fine or usp sentence or both. A general authorization for the release of medical or other information is NOT sufficient authorization for further disclosure. 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 Observation Data S ource(s) Description Advance [facility] Advance No completed [facility] directive Hospital Allergies and Adverse Reactions Type Description Substance Reaction Status Data Source(s ) Drug allergy Penicillins Penicillins UNKNOWN [facility] Drug allergy Penicillins Penicillins [facility] Drug allergy clarithromycin clarithromycin [facility] BIAXIN BIAXIN RASH [facility] [place] [facility] En[facility]ters Encounter Providers Location Date Indications Data Source(s ) Emergency Attender: Benjie 09/05/2019 RABIES SHOT Mayra Snyder MD 03:14:00 PM [facility] Hospital EDT - 09/05/2019 03:45:00 PM EDT [...] Attender: DOMINGUEZ AMBROCIO 07/17/2019 10:58:00 Z0 1.84 [facility].Attender: BOBBI JUNIOR ED Health [facility] NIMOUSIKAdmitter: Rigoberto AMBROCIOReferrer: DOMINGUEZ AMBROCIO Z01.84 Outpatient Attender: RADHA, 04/28/2019 06:00:00 K21.9 [facility] EDWARDAdmitter: BOBBI GARCIA ED Health Care EDWARDReferrer: RADHA Eurotri AMES K21.9 Outpatient Attender: ALEXEI, 04/21/2019 R13.10 K21.9 [facility] HUMAYUNAdmitter: ALEXEI, 02:39:00 PM EDT Health Care HUMAYUNReferrer: Emma ARANA oration LENNIE R13.10 K21.9 Outpatient Attender: CAROL, 08/17/2018 06:00:00 N52.9 [facility] GERALDAdmitter: BOBBI MEDINA [facility] Health [facility] GERALDReferrer: CAROL Euro[facility] CHILO N52.9 Outpatient Attender: CAROL, 06/07/2018 06:00:00 N52.9 [facility] BOBBI MEDINA [facility] Health Care GERALDReferrer: MEDINA, [facility] N52.9 Outpatient Attender: CAROL, 05/18/2018 06:00:00 N52.9 [facility] BOBBI MEDINA [facility] Health Care GERALDReferrer: MEDINA, [facility] N52.9 Outpatient Attender: CAROL, 05/04/2018 06:00:00 N52.9 [facility] BOBBI MEDINA ED Health Care GERALDReferrer: MEDINA, [facility] CAROLEEN N52.9 Outpatient Attender: LORRAINE, 04/27/2018 02:58:00 I10 Z0 1.818 [facility] ZVIAdmitter: PM EDT Health Care LORRAINE [facility] ZVIReferrer: LENNIE ARANA I10 Z01.818 Immunizations Vaccine Date Status Description Data Source(s) This CVX code has 09/05/2019 completed rabies, intramuscular W stalin [place] been retired. It is 03:41:00 PM injection Hospital replace by CVX 175, EDT or CVX 176. It will continue to be found in historic records. This CVX code has 08/29/2019 completed rabies, intramuscular W stalin [place] been retired. It is 03:28:00 PM injection Hospital replace by CVX 175, EDT or CVX 176. It will continue to be found in historic records. This CVX code has 08/29/2019 completed rabies, intramuscular W stalin [place] been retired. It is 03:28:00 PM injection Hospital replace by CVX 175, EDT or CVX 176. It will continue to be found in historic records. This CVX code has 08/25/2019 completed rabies, intramuscular W stalin [place] been retired. It is 12:35:00 PM injection Hospital replace by CVX 175, EDT or CVX 176. It will continue to be found in historic records. This CVX code has 08/25/2019 completed rabies, intramuscular W stalin [place] been retired. It is 12:35:00 PM injection Hospital replace by CVX 175, EDT or CVX 176. It will continue to be found in historic records. This CVX code has 08/25/2019 completed rabies, intramuscular W stalin [place] been retired. It is 12:35:00 PM injection Hospital replace by CVX 175, EDT or CVX 176. It will continue to be found in historic records. This CVX code has 08/22/2019 completed rabies, intramuscular W stalin [place] been retired. It is 03:57:00 PM injection Hospital replace by CVX 175, EDT or CVX 176. It will continue to be found in historic records. This CVX code has 08/22/2019 completed rabies, intramuscular W stalin [place] been retired. It is 03:57:00 PM injection Hospital replace by CVX 175, EDT or CVX 176. It will continue to be found in historic records. This CVX code has 08/22/2019 completed rabies, intramuscular W stalin [place] been retired. It is 03:57:00 PM injection Hospital replace by CVX 175, EDT or CVX 176. It will continue to be found in historic records. This CVX code has 08/22/2019 completed rabies, intramuscular W stalin [place] been retired. It is 03:57:00 PM injection Hospital replace by CVX 175, EDT or CVX 176. It will continue to be found in historic records. RIG 08/22/2019 completed RIG [place] 03:56:00 PM Hospital EDT RIG 08/22/2019 completed RIG [place] 03:56:00 PM Hospital EDT RIG 08/22/2019 completed RIG [place] 03:56:00 PM Hospital EDT RIG 08/22/2019 completed RIG [place] 03:56:00 PM Hospital EDT Medications Medication Brand Start Product Dose Route Administrative Pharmacy [facility] Indications Reaction Description Data Name Date Form Instructions Instructions Source(s) HORIZANT complet [facility] keyshawn (Free Text 2018 ed r [facility] Medication) 12:00: Health 600 MG Oral 00 AM Care DAILY EDT Corporatio n Hydrochloro Losart W estcheste thiazide 25 an-Hyd 2018 ed r [facility] ty MG / rochlo 12:00: Health Losartan rothia 00 AM Care Potassium zide EDT Corporatio 100 MG Oral [100 n Tablet mg-25 Losartan-Hy mg drochloroth Tablet iazide [100 ]: 1 mg-25 mg Tablet Tablet]: 1 Oral Tablet Oral DAILY DAILY ropinirole Requip We stcheste 4 MG Oral (Ropin 2018 ed [facility] Tablet irole) 12:00: Health Requip [4 mg 00 AM Care (Ropinirole Tablet EDT Corpor atio ) [4 mg ]: 1 n Tablet]: 1 Tablet Tablet Oral Oral DAILY DAILY lamotrigine Lamict W estcheste 25 MG Oral al 2018 ed r [facility] Tablet (Lamot 12:00: Health Lamictal rigine 00 AM Care (Lamotrigin ) [25 EDT Corpora nina e) [25 mg mg n Tablet]: 1 Tablet Tablet Oral ]: 1 DAILY Tablet Oral DAILY 24 HR Wellbu [place] miracle Bupropion lucie 2018 ed r [facility] Hydrochlori XL 12:00: Health de 300 MG (Bupro 00 AM Care Extended pion EDT Corporatio Release HCl) n Oral Tablet [300 Wellbutrin mg]: 1 XL Tablet (Bupropion Oral HCl) [300 DAILY mg]: 1 Tablet Oral DAILY Amlodipine Amlodi We stcheste 5 MG Oral pine 2018 [facility] Tablet [5 mg 12:00: Health Amlodipine Tablet 00 AM Care [5 mg ]: 1 EDT Corporatio Tablet]: 1 Tablet n Tablet Oral Oral DAILY DAILY Meclizine 04/28/ TABLET 25 mg ORAL complet Wh ite Hcl 2015 [facility] 04:10: Hospital 00 PM EDT Aspirin 25 Aspiri 04/28/ CONTROLL 1 ORAL complet White MG / n/Dipy 2015 ED [facility] Dipyridamol rido 04:10: RELEASE ule} H ospital e 200 MG le 00 PM CAPSULE Oral 25MG-2 EDT Capsule 00MG. [Aggrenox] Cap* Aspirin/Dip yridamole 25MG-200MG. Cap* Meclizine 04/28/ TABLET 25 mg ORAL complet ite Hcl 2015 [facility] 04:10: Hospital 00 PM EDT Aspirin 25 Aspiri 04/28/ CONTROLL 1 ORAL complet White MG / n/Dipy 2015 ED [facility] Dipyridamol rido 04:10: RELEASE ule} H ospital e 200 MG le 00 PM CAPSULE Oral 25MG-2 EDT Capsule 00MG. [Aggrenox] Cap* Aspirin/Dip yridamole 25MG-200MG. Cap* Aspirin 25 Aspiri 04/28/ CONTROLL 1 ORAL complet White MG / n/Dipy 2015 ED [facility] Dipyridamol rido 04:10: RELEASE ule} H ospital e 200 MG le 00 PM CAPSULE Oral 25MG-2 EDT Capsule 00MG. [Aggrenox] Cap* Aspirin/Dip yridamole 25MG-200MG. Cap* Meclizine 04/28/ TABLET 25 mg ORAL complet Wh ite Hcl 2015 ed [place] 04:10: Hospital 00 PM EDT Meclizine 04/28/ TABLET 25 mg ORAL complet Wh ite Hcl 2015 ed [place] 04:10: Hospital 00 PM EDT Aspirin 25 Aspiri 04/28/ CONTROLL 1 ORAL complet White MG / n/Dipy 2015 ED [facility] Dipyridamol ridamo 04:10: RELEASE ule} H ospital e 200 MG le 00 PM CAPSULE Oral 25MG-2 EDT Capsule 00MG. [Aggrenox] Cap* Aspirin/Dip yridamole 25MG-200MG. Cap* Aspirin 81 Aspiri 02/08/ ENTERIC 81 mg ORAL complet White MG Delayed n 2015 COATED ed [place] Release 01:28: TABLET Hospital Oral Tablet 00 PM EST Aspirin 81 Aspiri 02/08/ ENTERIC 81 mg ORAL complet White MG Delayed n 2015 COATED ed [place] Release 01:28: TABLET Hospital Oral Tablet 00 PM EST Aspirin 81 Aspiri 02/08/ ENTERIC 81 mg ORAL complet White MG Delayed n 2015 COATED ed [place] Release 01:28: TABLET Hospital Oral Tablet 00 PM EST Aspirin 81 Aspiri 02/08/ ENTERIC 81 mg ORAL complet White MG Delayed n 2015 COATED ed [place] Release 01:28: TABLET Hospital Oral Tablet 00 PM EST Bupropion Buprop TABLET 450 ORAL active Whit e Hydrochlori ion mg [place] de 75 MG Hcl Hospital Oral Tablet [...] Wh ite 100 MG Oral ntin mg [place] [facility] [Neurontin] Gabapentin Alprazolam Alpraz TABLET active Whi te 0.5 MG Oral olam [place] [facility]t [facility] [Xanax] Losartan Losart TABLET 100 ORAL active White Potassium an mg [place] 25 MG Oral [facility] Tablet ium [Cozaar] 24 HR Ropini TABLET 4 mg ORAL active White ropinirole role 24 HR [place] 2 MG Hcl [facility] Extended D Release RELEASE Oral Tablet [Requip] Ropinirole Hcl Alprazolam Alpraz TABLET active Whi te 0.5 MG Oral olam [place] [facility] [Xanax] Sertraline TABLET complet Whit e Hcl [facility] Losartan Losart TABLET 100 ORAL active White Potassium an mg [place] 25 MG Oral [facility]osp[facility] Tablet ium [Cozaar] Alprazolam Alpraz TABLET active Whi te 0.5 MG Oral olam [place] [facility] [Xanax] gabapentin Gabape CAPSULE 600 ORAL active Wh ite 100 MG Oral ntin mg [place] [facility] [Neurontin] Gabapentin Docusate DOK complet [place] te Sodium 100 (Docus ed r Count y MG Oral ate Health Capsule DOK Sodium Care (Docusate ) [100 Corporat io Sodium) mg n [100 mg Capsul Capsule]: e]: 100 MG Oral 100 MG 10A-2-6P Oral 10A-2- 6P lamotrigine Lamotr 400 ORAL active Whit e 25 MG igine [place] [facility] Tablet [Lamictal] Lamotrigine Ciprofloxac Cipro complet [facility] in 500 MG (Cipro ed r County Oral Tablet floxac Health Cipro in Care (Ciprofloxa HCl) Corporat io rome HCl) [500 n [500 mg mg Tablet]: 1 Tablet Tablet Oral ]: 1 2 TIMES A Tablet DAY Oral 2 TIMES A DAY Bupropion Buprop TABLET 450 ORAL active Whit e Hydrochlori ion mg [place] de 75 MG Hcl Hospital Oral Tablet Bupropion Hcl 24 HR Ropini TABLET, 6 mg ORAL active White ropinirole role EXTENDED Plain s 6 MG Hcl RELEASE Hospital Extended Release Oral Tablet Ropinirole Hcl Sertraline TABLET complet Whit e Hcl ed [facility] doxycycline Doxycy CAPSULE, 100 ORAL active White hyclate 100 sorenson DELAYED mg Plai ns MG Oral Hyclat RELEASE Hospita l Capsule e [Vibramycin ] Doxycycline Hyclate Sertraline TABLET complet Whit e Hcl ed [facility] 24 HR Ropini TABLET, 6 mg ORAL active White ropinirole role EXTENDED Plain [facility] 6 MG Hcl RELEASE Hospital Extended Release Oral Tablet Ropinirole Hcl Oxycodone Oxycod complet [facility] heste Hydrochlori one [5 ed r Coun [...] ORAL active White ropinirole role 24 HR [place] 2 MG Hcl [facility] Extended D Release RELEASE Oral Tablet [Requip] Ropinirole Hcl 24 HR [place] TABLET 4 mg ORAL active White ropinirole role 24 HR [place] 2 MG Hcl [facility] Extended D Release RELEASE Oral Tablet [Requip] Ropinirole Hcl Bupropion Buprop TABLET 450 ORAL active Whit e Hydrochlori ion mg [place] de 75 MG Hcl Hospital Oral Tablet Bupropion Hcl Losartan Losart TABLET 100 ORAL active White Potassium an mg [place] 25 MG Oral [facility]osp[facility] Tablet ium [Cozaar] lamotrigine Lamotr 400 ORAL active Whit e 25 MG igine [place] [facility] Tablet [Lamictal] Lamotrigine 24 HR [place]op[place] TABLET 4 mg ORAL active White ropinirole role 24 HR [place] 2 MG Hcl [facility] Extended D [...] ORAL active Whit e 25 MG igine [place] [facility] Tablet [Lamictal] Lamotrigine Sertraline TABLET complet Whit e Hcl ed [facility] gabapentin Gabape CAPSULE 600 ORAL active Wh ite 100 MG Oral ntin mg [place] [facility] [Neurontin] Gabapentin gabapentin Gabape CAPSULE 600 ORAL active Wh ite 100 MG Oral ntin mg [place] [facility] [Neurontin] Gabapentin Losartan Losart TABLET 100 ORAL active White Potassium an mg [place] 25 MG Oral [facility]osp[facility] l Tablet ium [Cozaar] Acetaminoph Acetam complet Roly tcheste en 325 MG inophe ed [facility] Oral Tablet n [325 Health Acetaminoph mg Care en [325 mg Tablet Corpora nina Tablet]: ]: 650 n 650 MG Oral MG Q4HPRN PRN Oral FOR MILD Q4HPRN PAIN, FEVER PRN FOR MILD PAIN, FEVER Flomax [id number] complet Edgardo te (Tamsulosin 546 ed [facility] ) [0.4 mg Health Capsule]: 1 Care Tablet Oral Corporat io DAILY IN n EVENING testosteron Testos complet Roly tcheste e cypionate terone ed Coun ty 200 MG/ML [facility] Injectable ate Care Solution [200 Corporatio Testosteron mg/mL n e Cypionate Kit]: [200 mg/mL 1 Kit]: 1 Stick Stick Intram Intramuscul uscula ar r DIRECTEDCom DIRECT ment: takes EDComm every two ent: weeks takes every two weeks Bupropion Buprop TABLET 450 ORAL active Whit e Hydrochlori ion mg [place] de 75 MG Hcl Hospital Oral Tablet Bupropion Hcl lamotrigine Lamotr 400 ORAL active Whit e 25 MG igine [place] [facility] Tablet [Lamictal] Lamotrigine Alprazolam Alpraz TABLET active Whi te 0.5 MG Oral olam [place] [facility] [Xanax] Insurance Providers Payer name Policy type / Policy ID Covered Covered democrat's Policy Plan Coverage type democrat ID relationship to Cancino Information cancino BC EPO [id number] SP [id number] BC EPO [id number] SP [id number] BC EPO [id number] SP [id number] BLUE CROSS [id number] PT [id number] OUT OF 38 STATE BLUE CROSS [id number] PT [id number] OUT OF 38 STATE BC OUT OF [id number] SP [id number] STATE 38 BC OUT OF [id number] SP [id number] STATE 38 Problems, Conditions, and Diagnoses [...] residual deficits I10 Essential I10 Diagnosis 08/25/2019 [place] (primary) 12:38:00 PM Hospital hypertension EDT Z23 Encounter for Z23 Diagnosis 08/25/2019 [facility] s immunization 12:38:00 PM Hospital EDT Z01.84 Encounter for ENCOUNTER FOR Diagnosis 07/17/2019 [facility] antibody response ANTIBODY RESPONSE 10:58:00 AM [facility] examination EXAMINATION EDT Care [facility] F31.9 Bipolar disorder, BIPOLAR DISORDER, Diagnosis 04/28/2019 [place] unspecified UNSPECIFIED 06:00:00 AM [facility] EDT Care [facility] I10 Essential ESSENTIAL Diagnosis 04/28/2019 [place] (primary) (PRIMARY) 06:00:00 AM [facility] hypertension HYPERTENSION EDT Care [facility] R13.19 Other dysphagia OTHER DYSPHAGIA Diagnosis 04/28/[address] [place] [facility] [place] 06:00:00 AM [facility] EDT Care [facility] K44.9 Diaphragmatic DIAPHRAGMATIC Diagnosis 04/28/2019 [facility] hernia without HERNIA WITHOUT 06:00:00 AM Count y Health obstruction or OBSTRUCTION OR EDT Care gangrene GANGRENE Corporation K22.2 Esophageal ESOPHAGEAL Diagnosis 04/28/2019 [place] obstruction OBSTRUCTION 06:00:00 AM [facility] EDT Care [facility] K21.9 Gastro-esophageal GASTRO-ESOPHAGEAL Diagnosis 04/28/2019 [place] reflux disease REFLUX DISEASE 06:00:00 AM Count y Health without WITHOUT EDT Care esophagitis ESOPHAGITIS Corporation R13.10 Dysphagia, DYSPHAGIA, Diagnosis 04/21/2019 [place] unspecified UNSPECIFIED 02:39:00 PM [facility] EDT Care [facility] Z96.643 Presence of PRESENCE OF Diagnosis 08/17/2018 [place] artificial hip ARTIFICIAL HIP 06:00:00 AM Count y Health joint, bilateral JOINT, BILATERAL EDT Ca re Corporation 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 06:00:00 AM [facility] EDT Care [facility] D72.819 Decreased white DECREASED WHITE Diagnosis 08/17/[address] [place] [facility] [place] blood cell count, BLOOD CELL COUNT, 06:00:00 AM [facility] unspecified UNSPECIFIED EDT [facility] D64.9 Anemia, ANEMIA, Diagnosis 08/17/2018 [place] unspecified UNSPECIFIED 06:00:00 AM [facility] EDT [facility] E34.8 Other specified OTHER SPECIFIED Diagnosis 08/17/[address] [place] endocrine ENDOCRINE 06:00:00 AM [facility] disorders DISORDERS EDT [facility] G25.81 Restless legs RESTLESS LEGS Diagnosis 08/17/2018 [facility] ter syndrome SYNDROME 06:00:00 AM [facility] EDT Care [facility] N52.8 Other male OTHER 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 08/17/2018 [place] erectile ERECTILE 06:00:00 AM [facility] dysfunction DYSFUNCTION EDT Care [facility] Z01.818 Encounter for ENCOUNTER FOR Diagnosis 04/27/[address] other OTHER 02:58:00 PM [facility] preprocedural PREPROCEDURAL EDT Care examination EXAMINATION Corporation Surgeries/Procedures Procedure Description Date Indications Data Source(s) Immunization admin 08/29/2019 [facility] 12:00:00 AM EDT Rabies vaccine im [facility] Emergency dept visit 08/29/2019 [facility] 12:00:00 AM EDT Immunization admin 08/25/2019 [facility] 12:00:00 AM EDT Rabies vaccine im 08/25/2019 [facility] 12:00:00 AM EDT Emergency dept visit 08/25/2019 [facility] 12:00:00 AM EDT Rabies vaccine im 08/22/2019 [facility] 12:00:00 AM EDT Rabies ig im/sc 08/22/2019 [facility] 12:00:00 AM EDT Emergency dept visit 08/22/2019 [facility] 12:00:00 AM EDT Rabies vaccine im 08/22/2019 [facility] 12:00:00 AM EDT Rabies ig im/sc 08/22/2019 [facility] 12:00:00 AM EDT Emergency dept visit 08/22/2019 [facility] 12:00:00 AM EDT Results ID Date Data Source [id number] 10/29/2019 09:02:00 AM EDT [facility] Name Value Range Interpretation Description Data Sup porting Code Source(s) Document(s ) SARS [facility] coronavirus 2 RNA This lab was ordered by [facility] and reported by [facility]. ID Date Data Source [id number] 10/22/2019 10:04:00 AM EDT [facility] Name Value Range Interpretation Description Data Sup porting Code Source(s) Document(s ) SARS [facility] coronavirus 2 RNA This lab was ordered by BONGADRIENNE beckman [facility] and reported by [facility]. ID Date Data Source [id number] 10/15/2019 10:00:00 AM EDT [facility] Name Value Range Interpretation Description Data Sup porting Code Source(s) Document(s ) SARS [facility] coronavirus 2 RNA This lab was ordered by BONG beckman [facility] and reported by [facility]. ID Date Data Source [id number] 10/10/2019 12:04:00 PM EDT [facility] Name Value Range Interpretation Description Data Sup porting Code Source(s) Document(s ) SARS [facility] coronavirus 2 RNA This lab was ordered by [facility] JUNIOR beckman [facility] and reported by [facility]. ID Date Data Source [id number] 09/19/2019 11:41:00 AM EDT [facility] Name Value Range Interpretation Description Data Sup porting Code Source(s) Document(s ) SARS [facility] coronavirus 2 RNA This lab was ordered by [facility] JUNIOR beckman [facility] and reported by [facility]. ID Date Data Source [id number] 09/09/2019 12:51:00 PM EDT [facility] Name Value Range Interpretation Description Data Sup porting Code Source(s) Document(s ) SARS [facility] coronavirus 2 RNA [facility] and reported by [facility]. ID Date Data Source [id number] 08/27/2019 10:19:00 AM EDT [facility] Name Value Range Interpretation Description Data Sup porting Code Source(s) Document(s ) SARS [facility] coronavirus 2 RNA This lab was [facility] and reported by [facility]. ID Date Data Source [id number] 08/20/2019 09:45:00 AM EDT [facility] Name Value Range Interpretation Description Data Sup porting Code Source(s) Document(s ) SARS [facility] coronavirus 2 RNA This lab was [facility] and reported by [facility]. ID Date Data Source [id number] 08/07/2019 10:00:00 AM EDT [facility] Name Value Range Interpretation Description Data Sup porting Code Source(s) Document(s ) SARS [facility] CORONAVIRUS 2 RNA This lab was [facility] and reported by [facility]. ID Date Data Source [id number] 08/18/2018 10:30:03 AM EDT [facility] [id number] Corporation Name Value Range Interpretation Description Data Sup porting Code Source(s) Document(s ) Erythrocytes 4.18 m/mm3 4.70-6 <td> 08/17/2018 [facility] r [#/volume] in .10 07:20</td><td> [facility] Blood m/mm3 RBC Health Care </td><td><adrienne Corporation raph styleCode="Bold "> 4.18 L </paragraph>
(4.70-6.10) m/mm3 </td> Leukocytes 4.3 k/mm3 4.8-10 <td> 08/17/2018 [place] [#/volume] in .8 07:20</td><td> County Blood by k/mm3 [facility] Automated count </td><td><adrienne Corporat ion raph styleCode="Bold "> 4.3 L </paragraph>
(4.8-10.8) k/mm3 </td> Hemoglobin 13.4 g/dL 14.0-1 <td> 08/17/2018 [place] [Mass/volume] 8.0 07:20</td><td> County in Blood g/dL [facility] </td><td><adrienne [facility] raph styleCode="Bold "> 13.4 L </paragraph>
(14.0-18.0) g/dL </td> Erythrocyte 92.6 fL 80.0-9 <td> 08/17/2018 [place] mean 4.0 fL 07:20</td><td> [facility] corpuscular MCV </td><td> Health Care volume [[employer] volume] by 92.6 Automated count
(80.0-94.0) fL </td> Erythrocyte 32.1 pg 27.0-3 <td> 08/17/2018 [place] mean 1.5 pg 07:20</td><td> [facility] corpuscular [facility] hemoglobin </td><td><Protein Bar [Entitic mass] raph by Automated styleCode="Bold count "> 32.1 H </paragraph>
(27.0-31.5) pg </td> Hematocrit 38.7 % 40.8-4 <td> 08/17/2018 [place] [Volume 6.9 % 07:20</td><td> County Fraction] of HCT Health Care Blood by </td><td><Protein Bar Automated count raph styleCode="Bold "> 38.7 L </paragraph>
(40.8-46.9) % </td> Erythrocyte 14.0 % 11.5-1 <td> 08/17/2018 [place] distribution 4.5 % 07:20</td><td> County width [Entitic RDW </td><td> Health Car e volume] by Eurotri Automated count 14.0
(11.5-14.5) % </td> Platelets 209 k/mm3 160-41 <td> 08/17/2018 [facility] [#/volume] in 0 07:20</td><td> [facility] Blood by k/mm3 Platelet Count [facility] Automated count </td><td> [facility] 209
(160-410) k/mm3 </td> Erythrocyte 34.6 % 32.0-3 <td> 08/17/2018 [facility] mean 6.0 % 07:20</td><td> [facility] corpuscular MCHC </td><td> Health Care hemoglobin [employer] concentration 34.6 [Mass/volume] in Blood from
Fetus by (32.0-36.0) % Automated count </td> Platelet mean 9.2 fL 9.8-12 <td> 08/17/2018 [facility] r volume [Entitic .8 fL 07:20</td><td> County volume] in MPV [facility] Blood by </td><td><adrienne [facility] Automated count raph styleCode="Bold "> 9.2 L </paragraph>
(9.8-12.8) fL </td> Basophils+Eosin 3.5 % 0.0-5. <td> 08/17/2018 [facility] ophils+Monocyte 0 % 07:20</td><td> County s [#/volume] in Eosinophils [facility] Blood by </td><td> [facility] Automated count 3.5
(0.0-5.0) % </td> Monocytes/Leuko 9.6 % 0.0-11 <td> 08/17/2018 [facility] cytes [Pure .0 % 07:20</td><td> County number Monocytes. [facility] Care fraction] in </td><td> [facility] Blood by Automated count 9.6
(0.0-11.0) % </td> Lymphocytes 17.9 % 16.0-5 <td> 08/17/2018 [facility] [#/volume] in 0.0 % 07:20</td><td> [facility] Blood by Lymphocytes [facility] Automated count </td><td> [facility] 17.9
(16.0-50.0) % </td> Basophils 0.7 % 0.0-2. <td> 08/17/2018 [facility] [#/volume] in 0 % 07:20</td><td> [facility] Blood by Basophils [facility] Automated count </td><td> [facility] 0.7
(0.0-2.0) % </td> Glucose 97 mg/dL 70-105 <td> 08/17/2018 [facility] [Mass/volume] mg/dL 07:20</td><td> [facility] in Blood Glucose-Serum [facility] </td><td> [facility] 97
(70-105) mg/dL </td> Neutrophils [#] 68.1 % 34.0-7 <td> 08/17/2018 [facility] in Body fluid 6.0 % 07:20</td><td> [facility] by Manual count Neutrophils [facility] </td><td> [facility] 68.1
(34.0-76.0) % </td> Sodium 136 mEq/L 135-14 <td> 08/17/2018 [facility] [Moles/volume] 5 07:20</td><td> [facility] in Serum or mEq/L Sodium-Serum [facility] Plasma </td><td> [facility] 136
(135-145) mEq/L </td> Immature 0.2 % 0.0-0. <td> 08/17/2018 [facility] granulocytes/10 5 % 07:20</td><td> [facility] 0 leukocytes in IG% </td><td> [facility] Blood by [facility] Automated count 0.2
(0.0-0.5) %
The IG fraction represents metamyelocytes, myelocytes and/or
promyelocytes and is only reported as part of the automated
differential when found at a percentage of less than 6.
If higher than 6%, a manual differential will be performed.

(0.0-0.5) % </td> Chloride 99 mEq/L 98-107 <td> 08/17/2018 [facility] [Moles/volume] mEq/L 07:20</td><td> [facility] in Serum or Chloride [facility] Plasma </td><td> [facility] 99
(98-107) mEq/L </td> Potassium 3.8 mEq/L 3.5-5. <td> 08/17/2018 [facility] [Moles/volume] 1 07:20</td><td> [facility] in Serum or mEq/L Potassium-Serum [facility] Plasma </td><td> [facility] 3.8
(3.5-5.1) mEq/L </td> Urea nitrogen 15 mg/dL 6-22 <td> 08/17/2018 [facility] r [Mass/volume] mg/dL 07:20</td><td> [facility] in Blood BUN </td><td> [facility] 15
(6-22) mg/dL </td> Carbon dioxide, 28 mEq/L 22-30 <td> 08/17/2018 [facility] total mEq/L 07:20</td><td> [facility] [Moles/volume] CO2 </td><td> Health Car e in Serum or Corporation Plasma 28
(22-30) mEq/L </td> Creatinine 0.95 mg/dL 0.72-1 <td> 08/17/2018 [facility] [Moles/volume] .25 07:20</td><td> [facility] in Serum or mg/dL Creatinine. [facility] Plasma </td><td> [facility] 0.95
(0.72-1.25) mg/dL </td> Hemolysis index No <td> 08/17/2018 [facility] of Serum or Hemolysis 07:20</td><td> County Plasma Hemolysis Index Health Care </td><td> [facility] No Hemolysis
</td> Anion gap in 9 mEq/L 7-13 <td> 08/17/2018 [facility] Serum or Plasma mEq/L 07:20</td><td> [facility] Anion Gap [facility] Care </td><td> [facility] 9
(7-13) mEq/L </td> Calcium 9.7 mg/dL 8.6-10 <td> 08/17/2018 [facility] [Mass/volume] .2 07:20</td><td> [facility] in Blood mg/dL Calcium [facility] Care </td><td> [facility] 9.7
(8.6-10.2) mg/dL </td> Lipemic index No Lipemia <td> 08/17/2018 [facility] er of Serum or 07:20</td><td> [facility] Plasma Lipemia Index Health Care </td><td> [facility] No Lipemia
</td> Icteric index Not <td> 08/17/2018 [facility] r of Serum or Icteric 07:20</td><td> [facility] Plasma Icteric Index Health [facility] </td><td> [facility] Not Icteric
</td> Specific 1.017 {} 1.000- <td> 08/17/2018 [facility] gravity of 1.035 07:20</td><td> [facility] Urine by Test Specific Health Care strip [place] [facility] </td><td> 1.017
(1.000-1.035) </td> Prothrombin 10.6 secs 9.8-12 <td> 08/17/2018 [facility] time (PT) .0 07:20</td><td> [facility] secs Prothrombin Health Care Time. [facility] </td><td> 10.6
(9.8-12.0) secs </td> aPTT panel - 28.2 secs 25.0-3 <td> 08/17/2018 [facility] Platelet poor 2.0 07:20</td><td> [facility] plasma secs Partial Health Care Thromboplastin [facility] Time </td><td> 28.2
(25.0-32.0) secs </td> Protein Negative <td> 08/17/2018 [facility] [Presence] in 07:20</td><td> [facility] Urine by Protein [facility] Care Automated test [employer] strip </td><td> Negative
(NEGATIVE) </td> Appearance of Clear <td> 08/17/2018 [facility] Urine 07:20</td><td> [facility] Appearance [facility] Care </td><td> Corporation Clear
(CLEAR) </td> Glucose Negative <td> 08/17/2018 [facility] [Presence] in 07:20</td><td> [facility] Urine by Test Glucose_ Health Care strip </td><td> Corporation Negative
(NEGATIVE) </td> Urobilinogen 0.2 mg/dL 0.0-2. <td> 08/17/2018 [facility] [Presence] in 0 07:20</td><td> [facility] Urine by mg/dL Urobilinogen [facility] Automated test </td><td> Corporation strip 0.2
(0.0-2.0) mg/dL </td> Leukocytes 1 /HPF 0-5 <td> 08/17/2018 [facility] [Presence] in /HPF 07:20</td><td> [facility] Urine by WBC </td><td> [facility] Automated [employer] 1
(0-5) /HPF </td> Nitrite Negative <td> 08/17/2018 [facility] [Presence] in 07:20</td><td> [facility] Urine by Test Nitrites Health Care strip </td><td> Corporation Negative
(NEGATIVE) </td> Erythrocytes 5 /HPF 0-2 <td> 08/17/2018 [facility] [#/area] in /HPF 07:20</td><td> [facility] Urine sediment RBC </td><td> Health Car e by [employer]ated [employer] count 5
(0-2) /HPF </td> Leukocyte Negative <td> 08/17/2018 [facility] esterase 07:20</td><td> [facility] [Presence] in Leukocytes [facility] Urine by Test Esterase [employer] strip </td><td> Negative
(NEGATIVE) </td> Bacteria RARE <td> 08/17/2018 [facility] [#/area] in 07:20</td><td> [facility] Urine sediment Bacteria [facility] Care by Microscopy </td><td> Corporation high power field RARE
(NONE SEEN) /HPF </td> Mucous RARE <td> 08/17/2018 [facility] < FEW 07:20</td><td> [facility] Mucous [facility] Care </td><td> Corporation RARE
/LPF
< FEW

/LPF </td> Bacteria NONE SEEN <td> 08/17/2018 [facility] [#/area] in FEW 07:20</td><td> [facility] Urine sediment Epithelial [facility] by Microscopy [employer] </td><td> field NONE SEEN
FEW

/LPF </td> Amorphous RARE <td> 08/17/2018 [facility] Crystal < FEW 07:20</td><td> [facility] Amorphous [facility] Care [facility] </td><td> RARE
/HPF
< FEW

/HPF </td> Procedure Social History Code Duration Value Status Description Data Source(s ) Smoking 08/25/2019 Never smoked completed Never smoked [facility] 12:20:00 PM EDT tobacco tobacco (finding) [facility]ital (finding) Smoking Unknown if ever completed Unknown if ever [facility] [place] [facility] Smoking Unknown if ever completed Unknown if ever [facility] [place] [facility] Smoking Unknown if ever completed Unknown if ever [facility] [place] [facility] smoked [facility] Smoking Unknown if ever completed Unknown if ever [facility] smoked smoked [facility] Vital Signs ID Date Data Source UNK Name Value Range Interpretation Code Description Data Source(s) Diastolic blood 77 mm[Hg] 77 mm[Hg] [facility] Systolic blood 160 mm[Hg] 160 mm[Hg] [facility] Respiratory rate 18 /min 18 /min [facility] Heart rate 77 /min 77 /min [facility] Body temperature 36.67307 36.19043 [facility] Body temperature 98.3 [degF] 98.3 [degF] [facility] Body mass index 25.0 kg/m2 25.0 kg/m2 [facility] (BMI) [Ratio] Hospital Body weight 185.39 185.39 [lb_av] [facility] [lb_av] [facility] Diastolic blood 75 mm[Hg] 75 mm[Hg] [facility] Systolic blood 164 mm[Hg] 164 mm[Hg] [facility] Respiratory rate 19 /min 19 /min [facility] Heart rate 105 /min 105 /min [facility] Body temperature 36.76313 36.62235 [facility] Body temperature 97.9 [degF] 97.9 [degF] [facility] Body mass index 28.0 kg/m2 28.0 kg/m2 [facility] (BMI) [Ratio] Hospital Body weight 170.35 170.35 [lb_av] [facility] [lb_av] [facility] Diastolic blood 85 mm[Hg] 85 mm[Hg] [facility] Systolic blood 153 mm[Hg] 153 mm[Hg] [facility] Respiratory rate 16 /min 16 /min [facility] Heart rate 89 /min 89 /min [facility] Body temperature 36.52435 36.88216 [facility] Body temperature 97.9 [degF] 97.9 [degF] [facility] Body mass index 25.1 kg/m2 25.1 kg/m2 [facility] (BMI) [Ratio] Hospital Body weight 185 [lb_av] 185 [lb_av] [facility] Diastolic blood 84 mm[Hg] 84 mm[Hg] [facility] Systolic blood 164 mm[Hg] 164 mm[Hg] [facility] ns pressure Hospital Respiratory rate 18 /min 18 /min [facility] Heart rate 75 /min 75 /min [facility] Body temperature 36.65566 36.77370 [facility] Body temperature 98.5 [degF] 98.5 [degF] [facility] Body mass index 26.0 kg/m2 26.0 kg/m2 [facility] (BMI) [Ratio] Hospital Body weight 192.90 192.90 [lb_av] [facility] [lb_av] Hospital wt - obtain Normal (applies to {} [facility] [place] non-numeric results) [facility] on weight - kg 90.0000 {} Normal (applies to 90.0000 {} [place] non-numeric results) [facility] Diastolic blood 54 {} Normal (applies to 54 {} [place] non-numeric results) [facility] on Systolic blood 130 {} Normal (applies to 130 {} [place] non-numeric results) [facility] on First Respiration 17.0000 {} Normal (applies to 17.0000 {} [facility] rate Set non-numeric results) [facility] Heart rate 92.0000 {} Normal (applies to 92.0000 {} [place] non-numeric results) [facility] on Body temperature 98.4000 {} Normal (applies to 98.4000 {} [facility] non-numeric results) [facility] on Diastolic blood 55 {} Normal (applies to 55 {} [place] pressure non-numeric results) [facility] on Systolic blood 122 {} Normal (applies to 122 {} [place] non-numeric results) [facility] Corpor[facility] on First Respiration 17.0000 {} Normal (applies to 17.0000 {} [facility] rate Set non-numeric results) [facility] on Heart rate 90.0000 {} Normal (applies to 90.0000 {} [place] non-numeric results) [facility] on Body temperature 98.5000 {} Normal (applies to 98.5000 {} [facility] non-numeric results) [facility] on Height Obtained Normal (applies to {} [place] by non-numeric results) [facility] on Body height 182.8800 {} Normal (applies to 182.8800 {} [facility] on
[2019-11-06 08:32] VITALS: BMI 24.4
[2019-11-09] MEDS ORDERED: KETAMINE HCL 500 MG/10 ML VIAL ONE (07:58)
[2019-11-09] MEDS ORDERED: ONDANSETRON 4 MG/2 ML VIAL IVPUSH PRN (08:02)
[2019-11-09] MEDS ORDERED: PROPOFOL 20 ML ONE (08:02)
[2019-11-09] MEDS ORDERED: KETOROLAC TROMETHAMINE 30 MG/1 ML VIAL ONE (08:02)
[2019-11-09] MEDS ORDERED: LACTATED RINGERS SOLUTION 1,000 ML IV SCH (08:15)
[2019-11-09 09:30] VITALS: TEMP 97.6
[2019-11-09 09:31] VITALS: BP 133/73; PULSE 58
== END 2019-11-09 09:30 | disposition home or self-care (01) ==
LOC: FECT 06:32
PROVIDERS: ATTEND Psychiatry & Neurology Psychiatry
PROC: GZB4ZZZ Other Electroconvulsive Therapy (ICD-10-PCS; principal; 2019-11-09 10:30)
DX: F32.9 Major depressive disorder, single episode, unspecified (principal)
CPT/HCPCS: 90870; 94760

== ENCOUNTER 2019-11-16 07:05 | Day surgery (SDC) | payer BC ==
--- OUTSIDE RECORDS SUMMARY | 2019-11-09 18:59 | XMS ---
:1950 Author Organization [facility] Care Team Providers Name Role Phone MD Milena Unavailable Unavailable MD Lillian Unavailable Unavailable MD Narayan Unavailable Unavailable CHILO MEDINA Unavailable Unavailable HOAHAOISMJACKSON JACOBO Unavailable Unavailable MARTÍNEZ GARCIA Unavailable Unavailable [...] is protected by Article 27-F of the [facility] Public Health law. If you continue you may haveaccess to information: Regarding HIV / AIDS; Provided by facilities licensed or operated by the [facility] Office of Mental Health; or Provided by the [facility] Office for People With Developmental Disabilities. If such information is present, then the following [facility] mandated warning applies: This information has been [...] law may result in a fine or longterm sentence or both. A general authorization for the release of medical or other information is NOT sufficient authorization for further disclosure. 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 In Status Observation Data S ource(s) Description Advance No completed [facility] directive Hospital Advance No completed [facility] directive Hospital Allergies and Adverse Reactions Type Description Substance Reaction Status Data Source(s ) Drug allergy Penicillins Penicillins UNKNOWN [facility] Drug allergy Penicillins Penicillins [facility] rporation Drug allergy clarithromycin clarithromycin [facility] rporation BIAXIN BIAXIN RASH [facility] Encounters Encounter Providers Location Date Indications Data Source(s ) Emergency Attender: Benjie 09/05/2019 RABIES SHOT Mayra Snyder MD 03:14:00 PM [facility] Hospital EDT - 09/05/2019 03:45:00 PM [...] Attender: DOMINGUEZ AMBROCIO 07/17/2019 10:58:[address] [facility]OBBI JUNIOR [facility] C rupa Jungitter: Rigoberto AMBROCIOReferrer: DOMINGUEZ AMBROCIO Z01.84 Outpatient Attender: RADHA, 04/28/2019 06:00:00 K21.9 [facility] EDWARDAdmitter: RADHA [facility] Health Care EDWARDReferrer: RADHA [facility] K21.9 Outpatient Attender: HOAHAOISM, 04/21/2019 R13.10 K21.9 [facility] HUMAYUNAdmitter: HOAHAOISM, 02:39:00 [facility] HUMAYUNReferrer: Emma ARANA oration LENNIE R13.10 K21.9 Outpatient Attender: CAROL, 08/17/2018 06:00:00 N52.9 [facility] GERALDAdmitter: CAROL [facility]1983 GERALDReferrer: CAROL Inbox [place] N52.9 Outpatient Attender: CAROL, 06/07/2018 06:00:00 N52.9 [facility] GERALDAdmitter: BOBBI MEDINA [facility] Care GERALDReferrer: CAROL [facility] N52.9 Outpatient Attender: CAROL, 05/18/2018 06:00:00 N52.9 [facility] BOBBI MEDINA [facility] Care GERALDReferrer: [facility] N52.9 Outpatient Attender: CAROL, 05/04/2018 06:00:00 N52.9 [facility] BOBBI MEDINA [facility] Health Care GERALDReferrer: MEDINA, [facility] N52.9 Outpatient Attender: LORRAINE, 04/27/2018 02:58:00 I10 Z0 1.818 [facility] ZVIAdmitter: PM T [facility] Inbox ZVIReferrer: LENNIE ARANA I10 Z01.818 Immunizations Vaccine Date Status Description Data Source(s) This CVX code has 09/05/2019 completed rabies, intramuscular W stalin [place] been retired. It is 03:41:00 PM injection Hospital replace by CVX 175, EDT or CVX 176. It will continue to be found in historic records. This CVX code has 08/29/2019 completed rabies, intramuscular W stalin [place] been retired. It is 03:28:00 PM injection Hospital replace by CVX 175, EDT or CVX 176. It will continue to be found in historic records. This CVX code has 08/29/2019 completed rabies, intramuscular W stalin [place] been retired. It is 03:28:00 PM injection Hospital replace by CVX 175, EDT or CVX 176. It will continue to be found in historic records. This CVX code has 08/25/2019 completed rabies, intramuscular W stalin [place] been retired. It is 12:35:00 PM injection Hospital replace by CVX 175, EDT or CVX 176. It will continue to be found in historic records. This CVX code has 08/25/2019 completed rabies, intramuscular W stalin [place] been retired. It is 12:35:00 PM injection Hospital replace by CVX 175, EDT or CVX 176. It will continue to be found in historic records. This CVX code has 08/25/2019 completed rabies, intramuscular W stalin [place] been retired. It is 12:35:00 PM injection Hospital replace by CVX 175, EDT or CVX 176. It will continue to be found in historic records. This CVX code has 08/22/2019 completed rabies, intramuscular W stalin [place] been retired. It is 03:57:00 PM injection Hospital replace by CVX 175, EDT or CVX 176. It will continue to be found in historic records. This CVX code has 08/22/2019 completed rabies, intramuscular W stalin [place] been retired. It is 03:57:00 PM injection Hospital replace by CVX 175, EDT or CVX 176. It will continue to be found in historic records. This CVX code has 08/22/2019 completed rabies, intramuscular W stalin [place] been retired. It is 03:57:00 PM injection Hospital replace by CVX 175, EDT or CVX 176. It will continue to be found in historic records. This CVX code has 08/22/2019 completed rabies, intramuscular W stalin [place] been retired. It is 03:57:00 PM injection Hospital replace by CVX 175, EDT or CVX 176. It will continue to be found in historic records. RIG 08/22/2019 completed [facility] [place] 03:56:00 PM Hospital EDT RIG 08/22/2019 completed [facility] [place] 03:56:00 PM Hospital EDT RIG 08/22/2019 completed [facility] [place] 03:56:00 PM Hospital EDT RIG 08/22/2019 completed [facility] [place] 03:56:00 PM Hospital EDT Medications Medication Brand Start Product Dose Route Administrative Pharmacy [facility] Indications Reaction Description Data Name Date Form Instructions Instructions Source(s) HORIZANT complet [facility] keyshawn (Free Text 2018 ed r [facility] Medication) 12:00: Health 600 MG Oral 00 AM Care DAILY EDT Corporatio n Hydrochloro Losart complet W estcheste thiazide 25 an-Hyd 2018 ed [facility] ty MG / rochlo 12:00: Health Losartan rothia 00 AM Care Potassium zide EDT Corporatio 100 MG Oral [100 n Tablet mg-25 Losartan-Hy mg drochloroth Tablet iazide [100 ]: 1 mg-25 mg Tablet Tablet]: 1 Oral Tablet Oral DAILY DAILY ropinirole Requip We stcheste 4 MG Oral (Ropin 2018 ed [facility] Tablet irole) 12:00: Health Requip [4 mg 00 AM Care (Ropinirole Tablet EDT Corpor atio ) [4 mg ]: 1 n Tablet]: 1 Tablet Tablet Oral Oral DAILY DAILY lamotrigine Lamict W estcheste 25 MG Oral al 2018 ed r [facility] Tablet (Lamot 12:00: Health Lamictal rigine 00 AM Care (Lamotrigin ) [25 EDT Corpora nina e) [25 mg mg n Tablet]: 1 Tablet Tablet Oral ]: 1 DAILY Tablet Oral DAILY 24 HR Wellbu complet [place] miracle Bupropion lucie 2018 ed r [facility] Hydrochlori XL 12:00: Health de 300 MG (Bupro 00 AM Care Extended pion EDT Corporatio Release HCl) n Oral Tablet [300 Wellbutrin mg]: 1 XL Tablet (Bupropion Oral HCl) [300 DAILY mg]: 1 Tablet Oral DAILY Amlodipine Amlodi complet We stcheste 5 MG Oral pine 2018 ed r [facility] Tablet [5 mg 12:00: Health Amlodipine Tablet 00 AM Care [5 mg ]: 1 EDT Corporatio Tablet]: 1 Tablet n Tablet Oral Oral DAILY DAILY Meclizine 04/28/ TABLET 25 mg ORAL complet Wh ite Hcl 2015 ed [place] 04:10: Hospital 00 PM EDT Aspirin 25 Aspiri 04/28/ CONTROLL 1 ORAL complet [facility] MG / n/Dipy 2015 ED [facility] Dipyridamol ridamo 04:10: RELEASE ule} H ospital e 200 MG le 00 PM CAPSULE Oral 25MG-2 EDT Capsule 00MG. [Aggrenox] Cap* Aspirin/Dip yridamole 25MG-200MG. Cap* Meclizine 04/28/ TABLET 25 mg ORAL complet Wh ite Hcl 2015 [facility] 04:10: Hospital 00 PM EDT Aspirin 25 Aspiri 04/28/ CONTROLL 1 ORAL complet [place] MG / n/Dipy 2015 ED [facility] Dipyridamol rido 04:10: RELEASE ule} H ospital e 200 MG le 00 PM CAPSULE Oral 25MG-2 EDT Capsule 00MG. [Aggrenox] Cap* Aspirin/Dip yridamole 25MG-200MG. Cap* Aspirin 25 Aspiri 04/28/ CONTROLL 1 ORAL complet [facility] MG / n/Dipy 2015 ED [facility] Dipyridamol ridamo 04:10: RELEASE ule} H ospital e 200 MG le 00 PM CAPSULE Oral 25MG-2 EDT Capsule 00MG. [Aggrenox] Cap* Aspirin/Dip yridamole 25MG-200MG. Cap* Meclizine 04/28/ TABLET 25 mg ORAL complet Wh ite Hcl 2015 ed [place] 04:10: Hospital 00 PM EDT Meclizine 04/28/ TABLET 25 mg ORAL complet Wh ite Hcl 2015 ed [place] 04:10: Hospital 00 PM EDT Aspirin 25 Aspiri 04/28/ CONTROLL 1 ORAL complet [facility] MG / n/Dipy 2015 ED [facility] Dipyridamol ridamo 04:10: RELEASE ule} H ospital e 200 MG le 00 PM CAPSULE Oral 25MG-2 EDT Capsule 00MG. [Aggrenox] Cap* Aspirin/Dip yridamole 25MG-200MG. Cap* Aspirin 81 Aspiri 03/18/ ENTERIC 81 mg ORAL complet [facility] MG Delayed n 2015 COATED ed [place] Release 01:28: TABLET Hospital Oral Tablet 00 PM EST Aspirin 81 Aspiri 03/18/ ENTERIC 81 mg ORAL complet [facility] MG Delayed n 2015 COATED ed [place] Release 01:28: TABLET Hospital Oral Tablet 00 PM EST Aspirin 81 Aspiri 03/18/ ENTERIC 81 mg ORAL complet [facility] MG Delayed n 2015 COATED ed [place] Release 01:28: TABLET Hospital Oral Tablet 00 PM EST Aspirin 81 Aspiri 03/18/ ENTERIC 81 mg ORAL complet [facility] MG Delayed n 2015 COATED ed [place] Release 01:28: TABLET Hospital Oral Tablet 00 PM EST Bupropion Buprop TABLET 450 ORAL active Whit e Hydrochlori ion mg [place] de 75 MG Hcl Hospital Oral Tablet [...] Wh ite 100 MG Oral ntin mg [place] [facility] [Neurontin] Gabapentin Alprazolam Alpraz TABLET active Whi te 0.5 MG Oral olam [place] [facility] [Xanax] Losartan Losart TABLET 100 ORAL active [facility] Potassium an mg [place] 25 MG Oral [facility] Tablet ium [Cozaar] 24 HR Ropini TABLET 4 mg ORAL active [place] ropinirole role 24 HR [place] [address] [facility] Extended D Release RELEASE Oral Tablet [Requip] Ropinirole Hcl Alprazolam Alpraz TABLET active Whi te 0.5 MG Oral olam [place] [facility] [Xanax] Sertraline TABLET complet Whit e Hcl ed [facility] Losartan Losart TABLET 100 ORAL active [facility] Potassium an mg [place] 25 MG Oral [facility]ass Hospita l Tablet ium [Cozaar] Alprazolam Alpraz TABLET active Whi te 0.5 MG Oral olam [place] [facility] [Xanax] gabapentin Gabape CAPSULE 600 ORAL active Wh ite 100 MG Oral ntin mg [place] [facility]aps[facility] [Neurontin] Gabapentin Docusate DOK complet [place] te Sodium 100 (Docus ed r Count y MG Oral ate Health Capsule DOK Sodium Care (Docusate ) [100 Corporat io Sodium) mg n [100 mg Capsul Capsule]: e]: 100 MG Oral 100 MG 10A-2-6P Oral 10A-2- 6P lamotrigine Lamotr 400 ORAL active Whit e 25 MG igine [place] [facility] Tablet [Lamictal] Lamotrigine Ciprofloxac Cipro complet [facility] in 500 MG (Cipro ed r [facility] Oral Tablet floxac Health Cipro in Care (Ciprofloxa HCl) Corporat io rome HCl) [500 n [500 mg mg Tablet]: 1 Tablet Tablet Oral ]: 1 2 TIMES A Tablet DAY Oral 2 TIMES A DAY Bupropion Buprop TABLET 450 ORAL active Whit e Hydrochlori ion mg [place] de 75 MG Hcl Hospital Oral Tablet Bupropion Hcl 24 HR Ropini TABLET, 6 mg ORAL active White ropinirole role EXTENDED Plain s 6 MG Hcl RELEASE Hospital Extended Release Oral Tablet Ropinirole Hcl Sertraline TABLET complet Whit e Hcl ed [facility] doxycycline Doxycy CAPSULE, 100 ORAL active White hyclate 100 sorenson DELAYED mg Plai ns MG Oral Hyclat RELEASE Hospita l Capsule e [Vibramycin ] Doxycycline Hyclate Sertraline TABLET complet Whit e Hcl ed [facility] 24 HR Ropini TABLET, 6 mg ORAL active White ropinirole role EXTENDED [place] [facility] 6 MG Hcl RELEASE Hospital Extended Release Oral Tablet Ropinirole Hcl Oxycodone Oxycod complet [facility] heste Hydrochlori one [5 ed [...] ORAL active White ropinirole role 24 HR [place] 2 MG Hcl [facility] Extended D Release RELEASE Oral Tablet [Requip] Ropinirole Hcl 24 HR Ropini TABLET 4 mg ORAL active White ropinirole role 24 HR [place] 2 MG Hcl [facility] Extended D Release RELEASE Oral Tablet [Requip] Ropinirole Hcl Bupropion Buprop TABLET 450 ORAL active Whit e Hydrochlori ion mg [place] de 75 MG Hcl Hospital Oral Tablet Bupropion Hcl Losartan Losart TABLET 100 ORAL active White Potassium an mg [place] 25 MG Oral [facility]osp[facility] l Tablet ium [Cozaar] lamotrigine Lamotr 400 ORAL active Whit e 25 MG igine [place] [facility] Tablet [Lamictal] Lamotrigine 24 HR [place] TABLET 4 mg ORAL active White ropinirole role 24 HR [place] 2 MG Hcl [facility] Extended D [...] ORAL active Whit e 25 MG igine [place] [facility] Tablet [Lamictal] Lamotrigine Sertraline TABLET complet Whit e Hcl ed [facility] gabapentin Gabape CAPSULE 600 ORAL active Wh ite 100 MG Oral ntin mg [place] [facility] [Neurontin] Gabapentin gabapentin Gabape CAPSULE 600 ORAL active Wh ite 100 MG Oral ntin mg [place] [facility] [Neurontin] Gabapentin Losartan Losart TABLET 100 ORAL active White Potassium an mg [place] 25 MG Oral [facility] Hosp[facility] l Tablet ium [Cozaar] Acetaminoph Acetam complet Roly tcheste en 325 MG inophe ed [facility] Oral Tablet n [325 Health Acetaminoph mg Care en [325 mg Tablet Corpora nina Tablet]: ]: 650 n 650 MG Oral MG Q4HPRN PRN Oral FOR MILD Q4HPRN PAIN, FEVER PRN FOR MILD PAIN, FEVER Flomax [id number] complet Edgardo te (Tamsulosin 546 ed [facility] ) [0.4 mg Health Capsule]: 1 Care Tablet Oral Corporat io DAILY IN n EVENING testosteron Testos complet Roly tcheste e cypionate terone ed [facility] ty 200 MG/ML [facility] Injectable ate Care Solution [200 Corporatio Testosteron mg/mL n e Cypionate Kit]: [200 mg/mL 1 Kit]: 1 Stick Stick Intram Intramuscul uscula ar r DIRECTEDCom DIRECT ment: takes EDComm every two ent: weeks takes every two weeks Bupropion Buprop TABLET 450 ORAL active Whit e Hydrochlori ion mg [place] de 75 MG Hcl Hospital Oral Tablet Bupropion Hcl lamotrigine Lamotr 400 ORAL active Whit e 25 MG igine [place] [facility] Tablet [Lamictal] Lamotrigine Alprazolam Alpraz TABLET active Whi te 0.5 MG Oral olam [place] [facility] [Xanax] Insurance Providers Payer name Policy type / Policy ID Covered Covered republican's Policy Plan Coverage type republican ID relationship to [place] Information cancino BC EPO [id number] SP [id number] BC EPO [id number] SP [id number] BC EPO [id number] SP [id number] BLUE CROSS [id number] PT [id number] OUT OF 38 STATE BLUE CROSS [id number] PT [id number] OUT OF 38 STATE BC OUT OF [id number] SP [id number] STATE 38 BC OUT OF [id number] SP [id number] STATE 38 Problems, Conditions, and Diagnoses [...] residual deficits I10 Essential I10 Diagnosis 08/25/2019 [place] (primary) 12:38:00 PM Hospital hypertension EDT Z23 Encounter for Z23 Diagnosis 08/25/2019 [facility] s immunization 12:38:00 PM Hospital EDT Z01.84 Encounter for ENCOUNTER FOR Diagnosis 07/17/2019 [facility] antibody response ANTIBODY RESPONSE 10:58:00 AM [facility] examination EXAMINATION EDT Care Inbox F31.9 Bipolar disorder, BIPOLAR DISORDER, Diagnosis 04/28/2019 [place] unspecified UNSPECIFIED 06:00:00 AM [facility] EDT Care Corporation I10 Essential ESSENTIAL Diagnosis 04/28/2019 [place] (primary) (PRIMARY) 06:00:00 AM [facility] hypertension HYPERTENSION EDT Care Corporation R13.19 Other dysphagia OTHER DYSPHAGIA Diagnosis 04/28/2019 [place] 06:00:00 AM [facility] EDT Care Inbox K44.9 Diaphragmatic DIAPHRAGMATIC Diagnosis 04/28/2019 [facility] hernia without HERNIA WITHOUT 06:00:00 AM Count y Health obstruction or OBSTRUCTION OR EDT Care gangrene GANGRENE Corporation K22.2 Esophageal ESOPHAGEAL Diagnosis 04/28/2019 [place] obstruction OBSTRUCTION 06:00:00 AM [facility] EDT Care Corporation K21.9 Gastro-esophageal GASTRO-ESOPHAGEAL Diagnosis 04/28/2019 [place] reflux disease REFLUX DISEASE 06:00:00 AM Count y Health without WITHOUT EDT Care esophagitis ESOPHAGITIS Corporation R13.10 Dysphagia, DYSPHAGIA, Diagnosis 04/21/2019 [place] unspecified UNSPECIFIED 02:39:00 PM [facility] EDT Care Corporation Z96.643 Presence of PRESENCE OF Diagnosis 08/17/2018 [place] artificial hip ARTIFICIAL HIP 06:00:00 AM Count y Health joint, bilateral JOINT, BILATERAL EDT Ca re Corporation 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 06:00:00 AM [facility] EDT Care Inbox D72.819 Decreased white DECREASED WHITE Diagnosis 08/17/2018 [place] blood cell count, BLOOD CELL COUNT, 06:00:00 AM [facility] unspecified UNSPECIFIED EDT Care Corporation D64.9 Anemia, ANEMIA, Diagnosis 08/17/2018 [place] unspecified UNSPECIFIED 06:00:00 AM [facility] EDT Care Corporation E34.8 Other specified OTHER SPECIFIED Diagnosis 08/17/2018 [place] endocrine ENDOCRINE 06:00:00 AM [facility] disorders DISORDERS EDT Care Corporation G25.81 Restless legs RESTLESS LEGS Diagnosis 08/17/2018 [facility] syndrome SYNDROME 06:00:00 AM [facility] EDT Care Corporation N52.8 Other male OTHER 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 08/17/2018 [place] erectile ERECTILE 06:00:00 AM [facility] dysfunction DYSFUNCTION EDT Care Corporation Z01.818 Encounter for ENCOUNTER FOR Diagnosis 04/27/[address] [facility] [address] other OTHER 02:58:00 PM [facility] preprocedural PREPROCEDURAL EDT Care examination EXAMINATION Corporation Surgeries/Procedures Procedure Description Date Indications Data Source(s) Immunization admin 08/29/2019 [facility] 12:00:00 AM EDT Rabies vaccine im 08/29/2019 [facility] 12:00:00 AM EDT Emergency dept visit 08/29/2019 [facility] 12:00:00 AM EDT Immunization admin 08/25/2019 [facility] 12:00:00 AM EDT Rabies vaccine im 08/25/2019 [facility] 12:00:00 AM EDT Emergency dept visit 08/25/2019 [facility] 12:00:00 AM EDT Rabies vaccine im 08/22/2019 [facility] 12:00:00 AM EDT Rabies ig im/sc 08/22/2019 [facility] 12:00:00 AM EDT Emergency dept visit 08/22/2019 [facility] 12:00:00 AM EDT Rabies vaccine im 08/22/2019 [facility] 12:00:00 AM EDT Rabies ig im/sc 08/22/2019 [facility] 12:00:00 AM EDT Emergency dept visit 08/22/2019 [facility] 12:00:00 AM EDT Results ID Date Data Source [id number] 11/05/2019 09:10:00 AM EDT [facility] Name Value Range Interpretation Description Data Sup porting Code Source(s) Document(s ) SARS [facility] coronavirus 2 RNA This lab was ordered by BONG beckman [facility] and reported by [facility]. ID Date Data Source [id number] 10/29/2019 09:02:00 AM EDT [facility] Name Value Range Interpretation Description Data Sup porting Code Source(s) Document(s ) SARS [facility] coronavirus 2 RNA This lab was ordered by [facility] and reported by [facility]. ID Date Data Source [id number] 10/22/2019 10:04:00 AM EDT [facility] Name Value Range Interpretation Description Data Sup porting Code Source(s) Document(s ) SARS [facility] coronavirus 2 RNA This lab was ordered by BONGADRIENNE beckman [facility] and reported by [facility]. ID Date Data Source [id number] 10/15/2019 10:00:00 AM EDT [facility] Name Value Range Interpretation Description Data Sup porting Code Source(s) Document(s ) SARS [facility] coronavirus 2 RNA This lab was ordered by [facility] and reported by [facility]. ID Date Data Source [id number] 10/10/2019 12:04:00 PM EDT [facility] Name Value Range Interpretation Description Data Sup porting Code Source(s) Document(s ) SARS [facility] coronavirus 2 RNA This lab was ordered by [facility] and reported by [facility]. ID Date Data Source [id number] 09/19/2019 11:41:00 AM EDT [facility] Name Value Range Interpretation Description Data Sup porting Code Source(s) Document(s ) SARS [facility] coronavirus 2 RNA This lab [facility] and reported by [facility]. ID Date Data Source [id number] 09/09/2019 12:51:00 PM EDT [facility] Name Value Range Interpretation Description Data Sup porting Code Source(s) Document(s ) SARS [facility] coronavirus 2 RNA This lab was [facility] and reported by [facility]. ID Date Data Source [id number] 08/27/2019 10:19:00 AM EDT [facility] Name Value Range Interpretation Description Data Sup porting Code Source(s) Document(s ) SARS [facility] coronavirus 2 RNA This lab was [facility] and reported by [facility]. ID Date Data Source [id number] 08/20/2019 09:45:00 AM EDT [facility] Name Value Range Interpretation Description Data Sup porting Code Source(s) Document(s ) SARS [facility] coronavirus 2 RNA This lab was [facility] and reported by [facility]. ID Date Data Source [id number] 08/07/2019 10:00:00 AM EDT [facility] Name Value Range Interpretation Description Data Sup porting Code Source(s) Document(s ) SARS [facility] CORONAVIRUS 2 RNA This lab was [facility] by [facility] and reported by [facility]. ID Date Data Source [id number] 08/18/2018 10:30:03 AM EDT [facility] [id number] Corporation Name Value Range Interpretation Description Data Sup porting Code Source(s) Document(s ) Erythrocytes 4.18 m/mm3 4.70-6 <td> 08/17/2018 [facility] r [#/volume] in .10 07:20</td><td> County Blood m/mm3 RBC Health Care </td><td><Trendyta raph styleCode="Bold "> 4.18 L </paragraph>
(4.70-6.10) m/mm3 </td> Leukocytes 4.3 k/mm3 4.8-10 <td> 08/17/2018 [place] [#/volume] in .8 07:20</td><td> County Blood by k/mm3 [facility] Automated count </td><td><adrienne Corporat ion raph styleCode="Bold "> 4.3 L </paragraph>
(4.8-10.8) k/mm3 </td> Hemoglobin 13.4 g/dL 14.0-1 <td> 08/17/2018 [place] [Mass/volume] 8.0 07:20</td><td> [facility] in Blood g/dL [facility] </td><td><Trendyta raph styleCode="Bold "> 13.4 L </paragraph>
(14.0-18.0) g/dL </td> Erythrocyte 92.6 fL 80.0-9 <td> 08/17/2018 [place] mean 4.0 fL 07:20</td><td> [facility] corpuscular MCV </td><td> Health Care volume [[employer] volume] by 92.6 Automated count
(80.0-94.0) fL </td> Erythrocyte 32.1 pg 27.0-3 <td> 08/17/2018 [place] mean 1.5 pg 07:20</td><td> [facility] corpuscular [facility] hemoglobin </td><td><adrienne Corporation [Ent[employer] mass] raph by Automated styleCode="Bold count "> 32.1 H </paragraph>
(27.0-31.5) pg </td> Hematocrit 38.7 % 40.8-4 <td> 08/17/2018 [place] [Volume 6.9 % 07:20</td><td> County Fraction] of HCT Health Care Blood by </td><td><Trendyta Automated count raph styleCode="Bold "> 38.7 L </paragraph>
(40.8-46.9) % </td> Erythrocyte 14.0 % 11.5-1 <td> 08/17/2018 [place] distribution 4.5 % 07:20</td><td> County width [Entitic RDW </td><td> Health Car e volume] by Inbox Automated count 14.0
(11.5-14.5) % </td> Platelets 209 k/mm3 160-41 <td> 08/17/2018 [place] [#/volume] in 0 07:20</td><td> County Blood by k/mm3 Platelet Count Health Care Automated count </td><td> Corporation 209
(160-410) k/mm3 </td> Erythrocyte 34.6 % 32.0-3 <td> 08/17/2018 [place] mean 6.0 % 07:20</td><td> [facility] corpuscular MCHC </td><td> Health Care hemoglobin Corporation concentration 34.6 [Mass/volume] in Blood from
Fetus by (32.0-36.0) % Automated count </td> Platelet mean 9.2 fL 9.8-12 <td> 08/17/2018 [facility] r volume [Entitic .8 fL 07:20</td><td> County volume] in [facility] Blood by </td><td><[employer] Automated count raph styleCode="Bold "> 9.2 L </paragraph>
(9.8-12.8) fL </td> Basophils+Eosin 3.5 % 0.0-5. <td> 08/17/2018 [facility] ophils+Monocyte 0 % 07:20</td><td> County s [#/volume] in Eosinophils Health Care Blood by </td><td> Corporation Automated count 3.5
(0.0-5.0) % </td> Monocytes/Leuko 9.6 % 0.0-11 <td> 08/17/2018 [facility] cytes [Pure .0 % 07:20</td><td> County number Monocytes. Health Care fraction] in </td><td> [facility] Blood by Automated count 9.6
(0.0-11.0) % </td> Lymphocytes 17.9 % 16.0-5 <td> 08/17/2018 [place] [#/volume] in 0.0 % 07:20</td><td> [facility] Blood by Lymphocytes [facility] Care Automated count </td><td> Inbox 17.9
(16.0-50.0) % </td> Basophils 0.7 % 0.0-2. <td> 08/17/2018 [place] [#/volume] in 0 % 07:20</td><td> [facility] Blood by Basophils [facility] Automated count </td><td> Inbox 0.7
(0.0-2.0) % </td> Glucose 97 mg/dL 70-105 <td> 08/17/2018 [place] [Mass/volume] mg/dL 07:20</td><td> [facility] in Blood Glucose-Serum [facility] </td><td> Inbox 97
(70-105) mg/dL </td> Neutrophils [#] 68.1 % 34.0-7 <td> 08/17/2018 [facility] in Body fluid 6.0 % 07:20</td><td> [facility] by Manual count Neutrophils Health Care </td><td> Inbox 68.1
(34.0-76.0) % </td> Sodium 136 mEq/L 135-14 <td> 08/17/2018 [place] [Moles/volume] 5 07:20</td><td> County in Serum or mEq/L Sodium-Serum Health Care Plasma </td><td> Inbox 136
(135-145) mEq/L </td> Immature 0.2 % 0.0-0. <td> 08/17/2018 [place] granulocytes/10 5 % 07:20</td><td> County 0 leukocytes in IG% </td><td> [facility] Blood by Inbox Automated count 0.2
(0.0-0.5) %
The IG fraction represents metamyelocytes, myelocytes and/or
promyelocytes and is only reported as part of the automated
differential when found at a percentage of less than 6.
If higher than 6%, a manual differential will be performed.

(0.0-0.5) % </td> Chloride 99 mEq/L 98-107 <td> 08/17/2018 [place] [Moles/volume] mEq/L 07:20</td><td> [facility] in Serum or Chloride Health Care Plasma </td><td> [facility] 99
(98-107) mEq/L </td> Potassium 3.8 mEq/L 3.5-5. <td> 08/17/2018 [place] [Moles/volume] 1 07:20</td><td> [place] in Serum or mEq/L Potassium-Serum [facility] Care Plasma </td><td> [facility] 3.8
(3.5-5.1) mEq/L </td> Urea nitrogen 15 mg/dL 6-22 <td> 08/17/2018 [facility] r [Mass/volume] mg/dL 07:20</td><td> [facility] in Blood BUN </td><td> [facility] 15
(6-22) mg/dL </td> Carbon dioxide, 28 mEq/L 22-30 <td> 08/17/2018 [facility] total mEq/L 07:20</td><td> [facility] [Moles/volume] CO2 </td><td> Health Car e in Serum or Corporation Plasma 28
(22-30) mEq/L </td> Creatinine 0.95 mg/dL 0.72-1 <td> 08/17/2018 [place] [Moles/volume] .25 07:20</td><td> County in Serum or mg/dL Creatinine. Health Care Plasma </td><td> [facility] 0.95
(0.72-1.25) mg/dL </td> Hemolysis index No <td> 08/17/2018 [facility] of Serum or Hemolysis 07:20</td><td> [facility] Plasma Hemolysis Index Health [facility] </td><td> Inbox No Hemolysis
</td> Anion gap in 9 mEq/L 7-13 <td> 08/17/2018 [facility] Serum or Plasma mEq/L 07:20</td><td> [facility] Anion Gap Health [facility] </td><td> [facility] 9
(7-13) mEq/L </td> Calcium 9.7 mg/dL 8.6-10 <td> 08/17/2018 [place] [Mass/volume] .2 07:20</td><td> [facility] in Blood mg/dL Calcium Health [facility] </td><td> [facility] 9.7
(8.6-10.2) mg/dL </td> Lipemic index No Lipemia <td> 08/17/2018 [facility] er of Serum or 07:20</td><td> [facility] Plasma Lipemia Index Health [facility] </td><td> Inbox No Lipemia
</td> Icteric index Not <td> 08/17/2018 [facility] r of Serum or Icteric 07:20</td><td> [facility] Plasma Icteric Index Health [facility] </td><td> Inbox Not Icteric
</td> Specific 1.017 {} 1.000- <td> 08/17/2018 [place] gravity of 1.035 07:20</td><td> [facility] Urine by Test Specific Health Care strip [place] [facility] </td><td> 1.017
(1.000-1.035) </td> Prothrombin 10.6 secs 9.8-12 <td> 08/17/2018 [place] time (PT) .0 07:20</td><td> [facility] secs Prothrombin Health Care Time. [facility] </td><td> 10.6
(9.8-12.0) secs </td> aPTT panel - 28.2 secs 25.0-3 <td> 08/17/2018 [place] Platelet poor 2.0 07:20</td><td> [facility] plasma secs Partial Health Care Thromboplastin Corporation Time </td><td> 28.2
(25.0-32.0) secs </td> Protein Negative <td> 08/17/2018 [place] [Presence] in 07:20</td><td> [facility] Urine by Protein Health Care Automated test [employer] strip </td><td> Negative
(NEGATIVE) </td> Appearance of Clear <td> 08/17/2018 [facility] r Urine 07:20</td><td> [facility] Appearance Health Care </td><td> Corporation Clear
(CLEAR) </td> Glucose Negative <td> 08/17/2018 [place] [Presence] in 07:20</td><td> [facility] Urine by Test Glucose_ Health Care strip </td><td> Corporation Negative
(NEGATIVE) </td> Urobilinogen 0.2 mg/dL 0.0-2. <td> 08/17/2018 [place] [Presence] in 0 07:20</td><td> [facility] Urine by mg/dL Urobilinogen Health Care Automated test </td><td> Corporation strip 0.2
(0.0-2.0) mg/dL </td> Leukocytes 1 /HPF 0-5 <td> 08/17/2018 [place] [Presence] in /HPF 07:20</td><td> [facility] Urine by WBC </td><td> Health Care Automated [employer] 1
(0-5) /HPF </td> Nitrite Negative <td> 08/17/2018 [place] [Presence] in 07:20</td><td> [facility] Urine by Test Nitrites Health Care strip </td><td> Corporation Negative
(NEGATIVE) </td> Erythrocytes 5 /HPF 0-2 <td> 08/17/2018 [place] [#/area] in /HPF 07:20</td><td> [facility] Urine sediment RBC </td><td> Health Car e by Automated [employer] count 5
(0-2) /HPF </td> Leukocyte Negative <td> 08/17/2018 [place] esterase 07:20</td><td> County [Presence] in Leukocytes Health Care Urine by Test Esterase Inbox strip </td><td> Negative
(NEGATIVE) </td> Bacteria RARE <td> 08/17/2018 [place] [#/area] in 07:20</td><td> [facility] Urine sediment Bacteria Health Care by Microscopy </td><td> Inbox high power field RARE
(NONE SEEN) /HPF </td> Mucous RARE <td> 08/17/2018 [place] < FEW 07:20</td><td> [facility] Mucous Health Care </td><td> Corporation RARE
/LPF
< FEW

/LPF </td> Bacteria NONE SEEN <td> 08/17/2018 [place] [#/area] in FEW 07:20</td><td> [facility] Urine sediment Epithelial Health Care by Microscopy [employer] high power </td><td> field NONE SEEN
FEW

/LPF </td> Amorphous RARE <td> 08/17/2018 [place] < FEW 07:20</td><td> [facility] Amorphous Health Care [facility] Inbox </td><td> RARE
/HPF
< FEW

/HPF </td> Procedure Social History Code Duration Value Status Description Data Source(s ) Smoking 08/25/2019 Never smoked completed Never smoked [place] [facility] [facility] 12:20:00 PM EDT tobacco tobacco (finding) [facility] (finding) Smoking Unknown if ever completed Unknown if ever [facility] [place] Smoking Unknown if ever completed Unknown if ever [facility] Smoking Unknown if ever completed Unknown if ever [facility] [place] Smoking Unknown if ever completed Unknown if ever [facility] smoked smoked [facility] Vital Signs ID Date Data Source UNK Name Value Range Interpretation Code Description Data Source(s) Diastolic blood 77 mm[Hg] 77 mm[Hg] [facility] Systolic blood 160 mm[Hg] 160 mm[Hg] [facility] Respiratory rate 18 /min 18 /min [facility] Heart rate 77 /min 77 /min [facility] Body temperature 36.68259 36.31179 [facility] Body temperature 98.3 [degF] 98.3 [degF] [facility] Body mass index 25.0 kg/m2 25.0 kg/m2 [facility] (BMI) [Ratio] Hospital Body weight 185.39 185.39 [lb_av] [facility] [lb_av] Hospital Diastolic blood 75 mm[Hg] 75 mm[Hg] [facility] Systolic blood 164 mm[Hg] 164 mm[Hg] [facility] Respiratory rate 19 /min 19 /min [facility] Heart rate 105 /min 105 /min [facility] Body temperature 36.83641 36.94754 [facility] Body temperature 97.9 [degF] 97.9 [degF] [facility] Body mass index 28.0 kg/m2 28.0 kg/m2 [facility] (BMI) [Ratio] Hospital Body weight 170.35 170.35 [lb_av] [facility] [lb_av] [facility] Diastolic blood 85 mm[Hg] 85 mm[Hg] [facility] pressure [facility] Systolic blood 153 mm[Hg] 153 mm[Hg] [facility] Respiratory rate 16 /min 16 /min [facility] Heart rate 89 /min 89 /min [facility] Body temperature 36.90391 36.72450 [facility] Body temperature 97.9 [degF] 97.9 [degF] [facility] Body mass index 25.1 kg/m2 25.1 kg/m2 [facility] (BMI) [Ratio] Hospital Body weight 185 [lb_av] 185 [lb_av] [facility] Diastolic blood 84 mm[Hg] 84 mm[Hg] [facility] pressure Hospital Systolic blood 164 mm[Hg] 164 mm[Hg] [facility] ns pressure Hospital Respiratory rate 18 /min 18 /min [facility] Heart rate 75 /min 75 /min [facility] Body temperature 36.69750 36.67818 [facility] Body temperature 98.5 [degF] 98.5 [degF] [facility] Body mass index 26.0 kg/m2 26.0 kg/m2 [facility] (BMI) [Ratio] Hospital Body weight 192.90 192.90 [lb_av] [place] [facility] [lb_av] Hospital wt - obtain Normal (applies to {} [facility] non-numeric results) [facility] on weight - kg 90.0000 {} Normal (applies to 90.0000 {} [facility] non-numeric results) [facility] on Diastolic blood 54 {} Normal (applies to 54 {} [place] pressure non-numeric results) [facility] on Systolic blood 130 {} Normal (applies to 130 {} [place] pressure non-numeric results) [facility] on First Respiration 17.0000 {} Normal (applies to 17.0000 {} [place] rate Set non-numeric results) [facility] on Heart rate 92.0000 {} Normal (applies to 92.0000 {} [facility] non-numeric results) [facility] on Body temperature 98.4000 {} Normal (applies to 98.4000 {} [place] non-numeric results) [facility] on Diastolic blood 55 {} Normal (applies to 55 {} [place] pressure non-numeric results) [facility] on Systolic blood 122 {} Normal (applies to 122 {} [place] pressure non-numeric results) [facility] on First Respiration 17.0000 {} Normal (applies to 17.0000 {} [place] rate Set non-numeric results) [facility] on Heart rate 90.0000 {} Normal (applies to 90.0000 {} [facility] non-numeric results) [facility] on Body temperature 98.5000 {} Normal (applies to 98.5000 {} [place] non-numeric results) [facility] on Height Obtained Normal (applies to {} [place] by non-numeric results) [facility] on Body height 182.8800 {} Normal (applies to 182.8800 {} [facility] ty [facility] Corpor[facility] on
--- OUTSIDE RECORDS SUMMARY | 2019-11-16 07:17 | XMS ---
:1950 [facility] Providers Name Role Phone MD Milena Unavailable Unavailable MD Lillian Unavailable Unavailable MD Narayan Unavailable Unavailable JACKSON LINDA Unavailable Unavailable MARTÍNEZ GARCIA Unavailable Unavailable LENNIE ARANA Unavailable Unavailable IRON JUNIOR Unavailable Unavailable DOMINGUEZ AMBROCIO Unavailable Unavailable Sirisha, DO Unavailable Unavailable Re-disclosure Warning The records that [...] is protected by Article 27-F of the [facility] [place] Public Health law. If you continue you may haveaccess to information: Regarding HIV / AIDS; Provided by facilities licensed or operated by the [facility] [place] Office of Mental Health; or Provided by the [facility] [place] Office for People With Developmental Disabilities. If such information is present, then the following [facility] [place] mandated warning applies: This information has been [...] law may result in a fine or shelter sentence or both. A general authorization for the release of medical or other information is NOT sufficient authorization for further disclosure. Allergies and Adverse Reactions Type Description Substance Reaction Status Data Source(s ) Drug allergy Penicillins Penicillins UNKNOWN [facility] Hospital Encounters Encounter Providers Location Date Indications Data Source(s ) Emergency Attender: Benjie 09/05/2019 RABIES SHOT Mayra Snyder MD 03:14:00 PM AUTO Hospital EDT - 09/05/2019 03:45:00 PM EDT [...] Attender: Israel 08/22/2019 02:46:00 DOG BITE Mayra Solanona PM EDT - 08/22/2019 ARR-AUTO Hospi areli 04:15:00 PM EDT DOG BITE ARR-AUTO Patient discharged. Outpatient Attender: DOMINGUEZ AMBROCIO 07/17/2019 10:58:00 Z0 1.84 [facility] VeroAttender: BOBBI JUNIOR [facility] KAUSIKAdmitter: Rigoberto AMBROCIOReferrer: DOMINGUEZ AMBROCIO Z01.84 Outpatient Attender: RADHA 04/28/2019 06:00:00 K21.9 [facility] EDWARDReferrer: Rigoberto GARCIA ABERDEEN K21.9 Outpatient Attender: ALEXEI 04/21/2019 R13.10 K21.9 [facility] ARLETTEUNAdmitter: ALEXEI, 02:39:00 PM EDT [facility]: Emma ARANA R13.10 K21.9 Immunizations Vaccine Date Status Description Data Source(s) This CVX code has 09/05/2019 completed rabies, intramuscular [facility] been retired. It is 03:41:00 PM injection Hospital replace by CVX 175, EDT or CVX 176. It will continue to be found in historic records. This CVX code has 08/29/2019 completed rabies, intramuscular [facility] [place] been retired. It is 03:28:00 PM injection Hospital replace by CVX 175, EDT or CVX 176. It will continue to be found in historic records. This CVX code has 08/29/2019 completed rabies, intramuscular [facility] [place] been retired. It is 03:28:00 PM injection Hospital replace by CVX 175, EDT or CVX 176. It will continue to be found in historic records. This CVX code has 08/25/2019 completed rabies, intramuscular [facility] [place] been retired. It is 12:35:00 PM injection Hospital replace by CVX 175, EDT or CVX 176. It will continue to be found in historic records. This CVX code has 08/25/2019 completed rabies, intramuscular [facility] [place] been retired. It is 12:35:00 PM injection Hospital replace by CVX 175, EDT or CVX 176. It will continue to be found in historic records. This CVX code has 08/25/2019 completed rabies, intramuscular [facility] [place] been retired. It is 12:35:00 PM injection Hospital replace by CVX 175, EDT or CVX 176. It will continue to be found in historic records. This CVX code has 08/22/2019 completed rabies, intramuscular [facility] [place] been retired. It is 03:57:00 PM injection Hospital replace by CVX 175, EDT or CVX 176. It will continue to be found in historic records. This CVX code has 08/22/2019 completed rabies, intramuscular [facility] [place] been retired. It is 03:57:00 PM injection Hospital replace by CVX 175, EDT or CVX 176. It will continue to be found in historic records. This CVX code has 08/22/2019 completed rabies, intramuscular [facility] [place] been retired. It is 03:57:00 PM injection Hospital replace by CVX 175, EDT or CVX 176. It will continue to be found in historic records. This CVX code has 08/22/2019 completed rabies, intramuscular [facility] [place] been retired. It is 03:57:00 PM injection Hospital replace by CVX 175, EDT or CVX 176. It will continue to be found in historic records. RIG 08/22/2019 completed RIG [place] 03:56:00 PM Hospital EDT RIG 08/22/2019 completed RIG [place] 03:56:00 PM Hospital EDT RIG 08/22/2019 completed RIG [place] 03:56:00 PM Hospital EDT RIG 08/22/2019 completed RIG [place] 03:56:00 PM Hospital EDT Medications Medication Brand Start Product Dose Route Administrative Pharmacy [facility] Indications Reaction Description Data Name Date Form Instructions Instructions Source(s) Meclizine 04/28/ TABLET 25 mg ORAL complet [facility] 2015 ed [place] 04:10: Hospital 00 PM EDT Meclizine 04/28/ TABLET 25 mg ORAL complet [facility] Hcl 2015 ed [place] 04:10: Hospital 00 PM EDT Aspirin 25 Aspiri 04/28/ CONTROLL 1 ORAL complet [facility] / n/Dipy 2015 ED {[facility] Dipyridamol ridamo 04:10: RELEASE ule} H ospital e 200 MG le 00 PM CAPSULE Oral 25MG-2 EDT Capsule 00MG. [Aggrenox] Cap* Aspirin/Dip yridamole 25MG-200MG. Cap* Aspirin 25 Aspiri 04/28/ CONTROLL 1 ORAL complet [facility] / n/Dipy 2015 ED {[facility] Dipyridamol ridamo 04:10: RELEASE ule} H ospital e 200 MG le 00 PM CAPSULE Oral 25MG-2 EDT Capsule 00MG. [Aggrenox] Cap* Aspirin/Dip yridamole 25MG-200MG. Cap* Aspirin 25 Aspiri 04/28/ CONTROLL 1 ORAL complet [facility] / n/Dipy 2015 ED {[facility] [place] Dipyridamol ridamo 04:10: RELEASE ule} H ospital e 200 MG le 00 PM CAPSULE Oral 25MG-2 EDT Capsule 00MG. [Aggrenox] Cap* Aspirin/Dip yridamole 25MG-200MG. Cap* Meclizine 04/28/ TABLET 25 mg ORAL complet [facility] Hcl 2015 ed [place] 04:10: Hospital 00 PM EDT Meclizine 04/28/ TABLET 25 mg ORAL complet [facility] Hcl 2015 ed [place] 04:10: Hospital 00 PM EDT Aspirin 25 Aspiri 04/28/ CONTROLL 1 ORAL complet [facility] / n/Dipy 2015 ED {[facility] ed [place] Dipyridamol ridamo 04:10: RELEASE ule} H ospital e 200 MG le 00 PM CAPSULE Oral 25MG-2 EDT Capsule 00MG. [Aggrenox] Cap* Aspirin/Dip yridamole 25MG-200MG. Cap* Aspirin 81 Aspiri 02/08/ ENTERIC 81 mg ORAL complet [facility] Delayed n 2015 COATED ed [place] Release 01:28: TABLET Hospital Oral Tablet 00 PM EST Aspirin 81 Aspiri 02/08/ ENTERIC 81 mg ORAL complet [facility] Delayed n 2015 COATED ed [place] Release 01:28: TABLET Hospital Oral Tablet 00 PM EST Aspirin 81 Aspiri 02/08/ ENTERIC 81 mg ORAL complet [facility] Delayed n 2015 COATED ed [place] Release 01:28: TABLET Hospital Oral Tablet 00 PM EST Aspirin 81 Aspiri 02/08/ ENTERIC 81 mg ORAL complet [facility] Delayed n 2015 COATED ed [place] Release 01:28: TABLET Hospital Oral Tablet 00 PM EST Insurance Providers Payer name Policy type / Policy ID Covered Covered alliance party's Policy Plan Coverage type alliance party ID relationship to [employer] BC EPO [id number] SP [id number] BC EPO [id number] SP [id number] BC EPO [id number] SP [id number] BLUE CROSS [id number] PT [id number] OUT OF 38 STATE BLUE CROSS [id number] PT [id number] OUT OF 38 STATE BC OUT OF [id number] SP [id number] STATE 38 BC OUT OF [id number] SP [id number] STATE 38 Problems, Conditions, and Diagnoses [...] residual deficits I10 Essential I10 Diagnosis 08/25/2019 [place] (primary) 12:38:00 PM Hospital hypertension EDT Z23 Encounter for Z23 Diagnosis 08/25/2019 [facility] s immunization 12:38:00 PM Hospital EDT Z01.84 Encounter for ENCOUNTER FOR Diagnosis 07/17/2019 [facility] antibody response ANTIBODY RESPONSE 10:58:00 AM [facility] examination EXAMINATION EDT [facility] F31.9 Bipolar disorder, BIPOLAR DISORDER, Diagnosis 04/28/2019 [place] unspecified UNSPECIFIED 06:00:00 AM [facility] EDT [facility] I10 Essential ESSENTIAL Diagnosis 04/28/2019 [place] (primary) (PRIMARY) 06:00:00 AM [facility] HYPERTENSION EDT [facility] R13.19 Other dysphagia OTHER DYSPHAGIA Diagnosis 04/28/2019 [place] 06:00:00 AM [facility] EDT [facility] K44.9 Diaphragmatic DIAPHRAGMATIC Diagnosis 04/28/2019 [facility] hernia without HERNIA WITHOUT 06:00:00 AM [facility] obstruction or OBSTRUCTION OR EDT Care gangrene [facility] K22.2 Esophageal ESOPHAGEAL Diagnosis 04/28/2019 [place] obstruction OBSTRUCTION 06:00:00 AM [facility] EDT [facility] K21.9 Gastro-esophageal GASTRO-ESOPHAGEAL Diagnosis 04/28/2019 [place] reflux disease REFLUX DISEASE 06:00:00 AM [facility] without WITHOUT EDT Care esophagitis ESOPHAGITIS [facility] R13.10 Dysphagia, DYSPHAGIA, Diagnosis 04/21/2019 [place] unspecified UNSPECIFIED 02:39:00 PM [facility] EDT [facility] Surgeries/Procedures Procedure Description Date Indications Data Source(s) Immunization admin 08/29/2019 [facility] 12:00:00 AM EDT Rabies vaccine im 08/29/2019 [facility] 12:00:00 AM EDT Emergency dept visit 08/29/2019 [facility] 12:00:00 AM EDT Immunization admin 08/25/2019 [facility] 12:00:00 AM EDT Rabies vaccine im 08/25/2019 [facility] 12:00:00 AM EDT Emergency dept visit 08/25/2019 [facility] 12:00:00 AM EDT Rabies vaccine im 08/22/2019 [facility] 12:00:00 AM EDT Rabies ig im/sc 08/22/2019 [facility] 12:00:00 AM EDT Emergency dept visit 08/22/2019 [facility] 12:00:00 AM EDT Rabies vaccine im 08/22/2019 [facility] 12:00:00 AM EDT Rabies ig im/sc 08/22/2019 [facility] 12:00:00 AM EDT Emergency dept visit 08/22/2019 [facility] 12:00:00 AM EDT Results ID Date Data Source [id number] 11/11/2019 10:22:00 AM EDT [facility] Name Value Range Interpretation Description Data Sup porting Code Source(s) Document(s ) SARS [facility] coronavirus 2 RNA This lab was ordered by BONGADRIENNE Calvillo lawrence [facility] and reported by [facility]. ID Date Data Source [id number] 11/05/2019 09:10:00 AM EDT [facility] Name Value Range Interpretation Description Data Sup porting Code Source(s) Document(s ) SARS [facility] coronavirus 2 RNA This lab was ordered by BONGJuan José beckman [facility] and reported by [facility]. ID Date Data Source [id number] 10/29/2019 09:02:00 AM EDT [facility] Name Value Range Interpretation Description Data Sup porting Code Source(s) Document(s ) SARS [facility] coronavirus 2 RNA This lab was ordered by [facility] and reported by [facility]. ID Date Data Source [id number] 10/22/2019 10:04:00 AM EDT [facility] Name Value Range Interpretation Description Data Sup porting Code Source(s) Document(s ) SARS [facility] coronavirus 2 RNA This lab was ordered by [facility] JUNIOR beckman [facility] and reported by [facility]. ID Date Data Source [id number] 10/15/2019 10:00:00 AM EDT [facility] Name Value Range Interpretation Description Data Sup porting Code Source(s) Document(s ) SARS [facility] coronavirus 2 RNA This lab was ordered by [facility] JUNIOR beckman [facility] and reported by [facility]. ID Date Data Source [id number] 10/10/2019 12:04:00 PM EDT [facility] Name Value Range Interpretation Description Data Sup porting Code Source(s) Document(s ) SARS [facility] coronavirus 2 RNA [facility] lab [facility] and reported by [facility]. ID Date Data Source [id number] 09/19/2019 11:41:00 AM EDT [facility] Name Value Range Interpretation Description Data Sup porting Code Source(s) Document(s ) SARS [facility] coronavirus 2 RNA This lab was [facility] and reported by [facility]. ID Date Data Source [id number] 09/09/2019 12:51:00 PM EDT [facility] Name Value Range Interpretation Description Data Sup porting Code Source(s) Document(s ) SARS [facility] coronavirus 2 RNA This lab was [facility] by [facility] and reported by [facility]. ID Date Data Source [id number] 08/27/2019 10:19:00 AM EDT [facility] Name Value Range Interpretation Description Data Sup porting Code Source(s) Document(s ) SARS [facility] coronavirus 2 RNA This lab was [facility] by [facility] and reported by [facility]. ID Date Data Source [id number] 08/20/2019 09:45:00 AM EDT [facility] Name Value Range Interpretation Description Data Sup porting Code Source(s) Document(s ) SARS [facility] coronavirus 2 RNA This lab was [facility] by [facility] Calvillo lawrence [facility] and reported by [facility]. ID Date Data Source [id number] 08/07/2019 10:00:00 AM EDT [facility] Name Value Range Interpretation Description Data Sup porting Code Source(s) Document(s ) SARS [facility] CORONAVIRUS 2 RNA This lab was ordered by [facility] and reported by [facility]. Procedure Social History Code Duration Value Status Description Data Source(s ) Smoking 08/25/2019 Never smoked completed Never smoked [facility] 12:20:00 PM EDT tobacco tobacco (finding) Ho spital (finding) Vital Signs ID Date Data Source UNK Name Value Range Interpretation Code Description Data Source(s) Diastolic blood 77 mm[Hg] 77 mm[Hg] [facility] pressure Hospital Systolic blood 160 mm[Hg] 160 mm[Hg] [facility] pressure Hospital Respiratory rate 18 /min 18 /min [facility] Heart rate 77 /min 77 /min [facility] Body temperature 36.40727 36.86368 [facility] Body temperature 98.3 [degF] 98.3 [degF] [facility] Body mass index 25.0 kg/m2 25.0 kg/m2 [facility] (BMI) [Ratio] Hospital Body weight 185.39 185.39 [lb_av] [facility] [lb_av] Hospital Diastolic blood 75 mm[Hg] 75 mm[Hg] [facility] Hospital Systolic blood 164 mm[Hg] 164 mm[Hg] [facility] Hospital Respiratory rate 19 /min 19 /min [facility] Heart rate 105 /min 105 /min [facility] Body temperature 36.57537 36.01340 [facility] Body temperature 97.9 [degF] 97.9 [degF] [facility] Body mass index 28.0 kg/m2 28.0 kg/m2 [facility] (BMI) [Ratio] Hospital Body weight 170.35 170.35 [lb_av] [facility] [lb_av] Hospital Diastolic blood 85 mm[Hg] 85 mm[Hg] [facility] Hospital Systolic blood 153 mm[Hg] 153 mm[Hg] [facility] pressure Hospital Respiratory rate 16 /min 16 /min [facility] Heart rate 89 /min 89 /min [facility] Body temperature 36.89198 36.97975 [facility] Body temperature 97.9 [degF] 97.9 [degF] [facility] Body mass index 25.1 kg/m2 25.1 kg/m2 [facility] (BMI) [Ratio] Hospital Body weight 185 [lb_av] 185 [lb_av] [facility] Diastolic blood 84 mm[Hg] 84 mm[Hg] [facility] Hospital Systolic blood 164 mm[Hg] 164 mm[Hg] [facility] pressure Hospital Respiratory rate 18 /min 18 /min [facility] Heart rate 75 /min 75 /min [facility] Body temperature 36.47490 36.32221 [facility] Body temperature 98.5 [degF] 98.5 [degF] [facility] Body mass index 26.0 kg/m2 26.0 kg/m2 [facility] ins (BMI) [Ratio] Hospital Body weight 192.90 192.90 [lb_av] [facility] ins [lb_av] Hospital
[2019-11-16 07:36] VITALS: BMI 24.3
[2019-11-16] MEDS ORDERED: PROPOFOL 20 ML ONE (09:25)
[2019-11-16] MEDS ORDERED: SUCCINYLCHOLINE CHLORIDE 200 MG/10 ML SYRINGE ONE (09:25)
[2019-11-16] MEDS ORDERED: KETAMINE HCL 500 MG/10 ML VIAL ONE (09:26)
[2019-11-16] MEDS ORDERED: ONDANSETRON 4 MG/2 ML VIAL ONE (09:29)
[2019-11-16] MEDS ORDERED: KETOROLAC TROMETHAMINE 30 MG/1 ML VIAL ONE (09:29)
[2019-11-16 10:00] VITALS: TEMP 98.1
[2019-11-16 10:41] VITALS: BP 129/74; PULSE 61
== END 2019-11-16 11:00 | disposition home or self-care (01) ==
LOC: FECT 07:05
PROVIDERS: ATTEND Psychiatry & Neurology Psychiatry
PROC: GZB4ZZZ Other Electroconvulsive Therapy (ICD-10-PCS; principal; 2019-11-16 10:00)
DX: F32.9 Major depressive disorder, single episode, unspecified (principal)
CPT/HCPCS: 90870; 94760

== ENCOUNTER 2019-11-30 07:27 | Day surgery (SDC) | payer BC ==
--- OUTSIDE RECORDS SUMMARY | 2019-11-16 11:32 | XMS ---
:1950 [facility] Providers Name Role Phone Stephanie Abbott MD Unavailable Unavailable Benjie Snyder MD Unavailable Unavailable Sharan Busch MD Unavailable Unavailable JACKSON LINDA Unavailable Unavailable MARTÍNEZ GARCIA Unavailable Unavailable LENNIE ARANA Unavailable Unavailable IRON JUNIOR Unavailable Unavailable DOMINGUEZ AMBROCIO Unavailable Unavailable Israel Grimm DO Unavailable Unavailable Re-disclosure Warning The records [...] is protected by Article 27-F of the [facility] Public Health law. If you continue you may haveaccess to information: Regarding HIV / AIDS; Provided by facilities licensed or operated by the [facility] Office of Mental Health; or Provided by the [facility] Office for People With Developmental Disabilities. If such information is present, then the following [facility] mandated warning applies: This information has [...] may result in a fine or senior living sentence or both. A general authorization for the release of medical or other information is NOT sufficient authorization for further disclosure. Allergies and Adverse Reactions Type Description Substance Reaction Status Data Source(s ) Drug allergy Penicillins Penicillins UNKNOWN [facility] Hospital Encounters Encounter Providers Location Date [...] Emergency Attender: Israel 08/22/2019 02:46:00 DOG BITE Mayar Grimm DO PM EDT - 08/22/2019 ARR-AUTO [facility] 04:15:00 PM EDT DOG BITE ARR-AUTO Patient discharged. Outpatient Attender: DOMINGUEZ AMBROCIO 07/17/2019 10:58:00 Z0 1.84 [facility] VeroAttender: BOBBI JUNIOR [facility] rupa KAUSIKAdmitter: Rigoberto AMBROCIOReferrer: DOMINGUEZ AMBROCIO Z01.84 Outpatient Attender: RADHA 04/28/2019 06:00:00 K21.9 [facility] EDWARDAdmitter: BOBBI GARCIA [facility] EDWARDReferrer: Rigoberto GARCIA EDWARD K21.9 Outpatient Attender: ALEXEI, 04/21/2019 R13.10 K21.9 [facility] HUMUNAdmitter: ALEXEI, 02:39:00 PM [facility] SUMIT Emma oration LENNIE R13.10 K21.9 Immunizations Vaccine Date Status Description Data Source(s) This CVX code has 09/05/2019 completed rabies, intramuscular W [facility] [place] been retired. It is 03:41:00 PM injection Hospital replace by CVX 175, EDT or CVX 176. It will continue to be found in historic records. This CVX code has 08/29/2019 completed rabies, intramuscular W stalin [place] been retired. It is 03:28:00 PM injection Hospital replace by CVX 175, EDT or CVX 176. It will continue to be found in historic records. This CVX code has 08/29/2019 completed rabies, intramuscular W stalin [place] been retired. It is 03:28:00 PM injection Hospital replace by CVX 175, EDT or CVX 176. It will continue to be found in historic records. This CVX code has 08/25/2019 completed rabies, intramuscular W stalin [place] been retired. It is 12:35:00 PM injection Hospital replace by CVX 175, EDT or CVX 176. It will continue to be found in historic records. This CVX code has 08/25/2019 completed rabies, intramuscular W stalin [place] been retired. It is 12:35:00 PM injection Hospital replace by CVX 175, EDT or CVX 176. It will continue to be found in historic records. This CVX code has 08/25/2019 completed rabies, intramuscular W stalin [place] been retired. It is 12:35:00 PM injection Hospital replace by CVX 175, EDT or CVX 176. It will continue to be found in historic records. This CVX code has 08/22/2019 completed rabies, intramuscular W stalin [place] been retired. It is 03:57:00 PM injection Hospital replace by CVX 175, EDT or CVX 176. It will continue to be found in historic records. This CVX code has 08/22/2019 completed rabies, intramuscular W stalin [place] been retired. It is 03:57:00 PM injection Hospital replace by CVX 175, EDT or CVX 176. It will continue to be found in historic records. This CVX code has 08/22/2019 completed rabies, intramuscular W stalin [place] been retired. It is 03:57:00 PM injection Hospital replace by CVX 175, EDT or CVX 176. It will continue to be found in historic records. This CVX code has 08/22/2019 completed rabies, intramuscular W stalin [place] been retired. It is 03:57:00 PM injection Hospital replace by CVX 175, EDT or CVX 176. It will continue to be found in historic records. RIG 08/22/2019 completed RIG [place] 03:56:00 PM Hospital EDT RIG 08/22/2019 completed RIG [place] 03:56:00 PM Hospital EDT RIG 08/22/2019 completed RIG [place] 03:56:00 PM Hospital EDT RIG 08/22/2019 completed RIG [place] 03:56:00 PM Hospital EDT Medications Medication Brand Start Product Dose Route Administrative Pharmacy [facility] Indications Reaction Description Data Name Date Form Instructions Instructions Source(s) Meclizine 04/28/ TABLET 25 mg ORAL complet [facility] it[facility] Hcl 2015 ed [place] 04:10: Hospital 00 PM EDT Meclizine 04/28/ TABLET 25 mg ORAL complet Wh ite Hcl 2015 ed [place] 04:10: Hospital 00 PM EDT Aspirin 25 Aspiri 04/28/ CONTROLL 1 ORAL complet [facility] / n/Dipy 2015 ED {[facility] Dipyridamol ridamo 04:10: RELEASE ule} H ospital e 200 MG le 00 PM CAPSULE Oral 25MG-2 EDT Capsule 00MG. [Aggrenox] Cap* Aspirin/Dip yridamole 25MG-200MG. Cap* Aspirin 25 Aspiri 04/28/ CONTROLL 1 ORAL complet [facility] / n/Dipy 2015 ED {[facility] ed [place] Dipyridamol ridamo 04:10: RELEASE ule} H ospital e 200 MG le 00 PM CAPSULE Oral 25MG-2 EDT Capsule 00MG. [Aggrenox] Cap* Aspirin/Dip yridamole 25MG-200MG. Cap* Aspirin 25 Aspiri 04/28/ CONTROLL 1 ORAL complet [facility] MG / n/Dipy 2015 ED {[facility] ed [place] Dipyridamol ridamo 04:10: RELEASE ule} H ospital e 200 MG le 00 PM CAPSULE Oral 25MG-2 EDT Capsule 00MG. [Aggrenox] Cap* Aspirin/Dip yridamole 25MG-200MG. Cap* Meclizine 04/28/ TABLET 25 mg ORAL complet Wh ite Hcl 2015 ed [place] 04:10: Hospital 00 PM EDT Meclizine 04/28/ TABLET 25 mg ORAL complet Wh ite Hcl 2015 ed [place] 04:10: Hospital 00 PM EDT Aspirin 25 Aspiri 04/28/ CONTROLL 1 ORAL complet [facility] / n/Dipy 2015 ED {[facility] ed [place] Dipyridamol ridamo 04:10: RELEASE ule} H ospital e 200 MG le 00 PM CAPSULE Oral 25MG-2 EDT Capsule 00MG. [Aggrenox] Cap* Aspirin/Dip yridamole 25MG-200MG. Cap* Aspirin 81 Aspiri 02/08/ ENTERIC 81 mg ORAL complet [facility] Delayed n 2015 COATED ed [place] Release 01:28: TABLET Hospital Oral Tablet 00 PM EST Aspirin 81 Aspiri 02/08/ ENTERIC 81 mg ORAL complet [facility] Delayed n 2015 COATED ed [place] Release 01:28: TABLET Hospital Oral Tablet 00 PM EST Aspirin 81 Aspiri 02/08/ ENTERIC 81 mg ORAL complet [facility] Delayed n 2015 COATED ed [place] Release 01:28: TABLET Hospital Oral Tablet 00 PM EST Aspirin 81 Aspiri 02/08/ ENTERIC 81 mg ORAL complet [facility] Delayed n 2015 COATED ed [place] Release 01:28: TABLET Hospital Oral Tablet 00 PM EST Insurance Providers Payer name Policy type / Policy ID Covered Covered democrat's Policy Plan Coverage type democrat ID relationship to [place] Information [place] BC EPO [id number] SP [id number] BC EPO [id number] SP [id number] BC EPO [id number] SP [id number] BLUE CROSS [id number] PT [id number] OUT OF 38 STATE BLUE CROSS [id number] PT [id number] OUT OF 38 STATE BC OUT OF [id number] SP [id number] STATE 38 BC OUT OF [id number] SP [id number] STATE 38 Problems, Conditions, and Diagnoses [...] residual deficits I10 Essential I10 Diagnosis 08/25/2019 [place] (primary) 12:38:00 PM Hospital hypertension EDT Z23 Encounter for Z23 Diagnosis 08/25/2019 [facility] s immunization 12:38:00 PM Hospital EDT Z01.84 Encounter for ENCOUNTER FOR Diagnosis 07/17/2019 [facility] antibody response ANTIBODY RESPONSE 10:58:00 AM [facility] examination EXAMINATION EDT [facility] F31.9 Bipolar disorder, BIPOLAR DISORDER, Diagnosis 04/28/2019 [place] unspecified UNSPECIFIED 06:00:00 AM [facility] EDT [facility] I10 Essential ESSENTIAL Diagnosis 04/28/2019 [place] (primary) (PRIMARY) 06:00:00 AM [facility] hypertension HYPERTENSION EDT [facility] R13.19 Other dysphagia OTHER DYSPHAGIA Diagnosis 04/28/2019 [place] 06:00:00 AM [facility] EDT [facility] K44.9 Diaphragmatic DIAPHRAGMATIC Diagnosis 04/28/2019 [facility] hernia without HERNIA WITHOUT 06:00:00 AM [facility] obstruction or OBSTRUCTION OR EDT Care gangrene [facility] K22.2 Esophageal ESOPHAGEAL Diagnosis 04/28/2019 [place] obstruction OBSTRUCTION 06:00:00 AM [facility] EDT [facility] K21.9 Gastro-esophageal GASTRO-ESOPHAGEAL Diagnosis 04/28/2019 [place] reflux disease REFLUX DISEASE 06:00:00 AM [facility] without WITHOUT EDT Care esophagitis ESOPHAGITIS [facility] R13.10 Dysphagia, DYSPHAGIA, Diagnosis 04/21/2019 [place] unspecified UNSPECIFIED 02:39:00 PM [facility] EDT [facility] Surgeries/Procedures Procedure Description Date Indications Data Source(s) Immunization admin 08/29/2019 [facility] 12:00:00 AM EDT Rabies vaccine im 08/29/2019 [facility] 12:00:00 AM EDT Emergency dept visit 08/29/2019 [facility] 12:00:00 AM EDT Immunization admin 08/25/2019 [facility] 12:00:00 AM EDT Rabies vaccine im 08/25/2019 [facility] 12:00:00 AM EDT Emergency dept visit 08/25/2019 [facility] 12:00:00 AM EDT Rabies vaccine im 08/22/2019 [facility] 12:00:00 AM EDT Rabies ig im/sc 08/22/2019 [facility] 12:00:00 AM EDT Emergency dept visit 08/22/2019 [facility] 12:00:00 AM EDT Rabies vaccine im 08/22/2019 [facility] 12:00:00 AM EDT Rabies ig im/sc 08/22/2019 [facility] 12:00:00 AM EDT Emergency dept visit 08/22/2019 [facility] 12:00:00 AM EDT Results ID Date Data Source [id number] 11/11/2019 10:22:00 AM EDT [facility] Name Value Range Interpretation Description Data Sup porting Code Source(s) Document(s ) SARS [facility] coronavirus 2 RNA This lab was ordered by BONGADRIENNE beckman [facility] and reported by [facility]. ID Date Data Source [id number] 11/05/2019 09:10:00 AM EDT [facility] Name Value Range Interpretation Description Data Sup porting Code Source(s) Document(s ) SARS [facility] coronavirus 2 RNA This lab was ordered by BONGJuan José beckman [facility] and reported by [facility]. ID Date Data Source [id number] 10/29/2019 09:02:00 AM EDT [facility] Name Value Range Interpretation Description Data Sup porting Code Source(s) Document(s ) SARS [facility] coronavirus 2 RNA This lab was ordered by [facility] and reported by [facility]. ID Date Data Source [id number] 10/22/2019 10:04:00 AM EDT [facility] Name Value Range Interpretation Description Data Sup porting Code Source(s) Document(s ) SARS [facility] coronavirus 2 RNA This lab was ordered by [facility] JUNIOR beckman [facility] and reported by [facility]. ID Date Data Source [id number] 10/15/2019 10:00:00 AM EDT [facility] Name Value Range Interpretation Description Data Sup porting Code Source(s) Document(s ) SARS [facility] coronavirus 2 RNA This lab was ordered by BONGJuan José beckman [facility] and reported by [facility]. ID Date Data Source [id number] 10/10/2019 12:04:00 PM EDT [facility] Name Value Range Interpretation Description Data Sup porting Code Source(s) Document(s ) SARS [facility] coronavirus 2 RNA This lab was ordered by [facility] JUNIOR beckman [facility] and reported by [facility]. ID Date Data Source [id number] 09/19/2019 11:41:00 AM EDT [facility] Name Value Range Interpretation Description Data Sup porting Code Source(s) Document(s ) SARS [facility] coronavirus 2 RNA This lab was ordered by BONGJuan José beckman [facility] and reported by [facility]. ID Date Data Source [id number] 09/09/2019 12:51:00 PM EDT [facility] Name Value Range Interpretation Description Data Sup porting Code Source(s) Document(s ) SARS [facility] coronavirus 2 RNA This lab was ordered by BONG JUNIOR beckman [facility] and reported by [facility]. ID Date Data Source [id number] 08/27/2019 10:19:00 AM EDT [facility] Name Value Range Interpretation Description Data Sup porting Code Source(s) Document(s ) SARS [facility] coronavirus 2 RNA This lab was ordered by BONG JUNIOR beckman [facility] and reported by [facility]. ID Date Data Source [id number] 08/20/2019 09:45:00 AM EDT [facility] Name Value Range Interpretation Description Data Sup porting Code Source(s) Document(s ) SARS [facility] coronavirus 2 RNA This lab was ordered by [facility] JUNIOR beckman [facility] and reported by [facility]. ID Date Data Source [id number] 08/07/2019 10:00:00 AM EDT [facility] Name Value Range Interpretation Description Data Sup porting Code Source(s) Document(s ) SARS [facility] CORONAVIRUS 2 RNA [facility] and reported by [facility]. Procedure Social History Code Duration Value Status Description Data Source(s ) Smoking 08/25/2019 Never smoked completed Never smoked [facility] ns 12:20:00 PM EDT tobacco tobacco (finding) Ho spital (finding) Vital Signs ID Date Data Source UNK Name Value Range Interpretation Code Description Data Source(s) Diastolic blood 77 mm[Hg] 77 mm[Hg] [facility] pressure Hospital Systolic blood 160 mm[Hg] 160 mm[Hg] [facility] ns pressure Hospital Respiratory rate 18 /min 18 /min [facility] Heart rate 77 /min 77 /min [facility] Body temperature 36.41104 36.86025 [facility] Body temperature 98.3 [degF] 98.3 [degF] [facility] Body mass index 25.0 kg/m2 25.0 kg/m2 [facility] (BMI) [Ratio] Hospital Body weight 185.39 185.39 [lb_av] [facility] [lb_av] Hospital Diastolic blood 75 mm[Hg] 75 mm[Hg] [facility] Systolic blood 164 mm[Hg] 164 mm[Hg] [facility] Hospital Respiratory rate 19 /min 19 /min [facility] Heart rate 105 /min 105 /min [facility] Body temperature 36.38752 36.86563 [facility] Body temperature 97.9 [degF] 97.9 [degF] [facility] Body mass index 28.0 kg/m2 28.0 kg/m2 [facility] (BMI) [Ratio] Hospital Body weight 170.35 170.35 [lb_av] [facility] [lb_av] Hospital Diastolic blood 85 mm[Hg] 85 mm[Hg] [facility] Systolic blood 153 mm[Hg] 153 mm[Hg] [facility] pressure Hospital Respiratory rate 16 /min 16 /min [facility] Heart rate 89 /min 89 /min [facility] Body temperature 36.23416 36.62808 [facility] Body temperature 97.9 [degF] 97.9 [degF] [facility] Body mass index 25.1 kg/m2 25.1 kg/m2 [facility] (BMI) [Ratio] Hospital Body weight 185 [lb_av] 185 [lb_av] [facility] Diastolic blood 84 mm[Hg] 84 mm[Hg] [facility] ins pressure Hospital Systolic blood 164 mm[Hg] 164 mm[Hg] [facility] Respiratory rate 18 /min 18 /min [facility] Heart rate 75 /min 75 /min [facility] Body temperature 36.90238 36.23316 [facility] Body temperature 98.5 [degF] 98.5 [degF] [facility] Body mass index 26.0 kg/m2 26.0 kg/m2 [facility] ins (BMI) [Ratio] Hospital Body weight 192.90 192.90 [lb_av] [facility] ins [lb_av] Hospital
[2019-11-23 10:56] VITALS: BMI 24.3
--- OUTSIDE RECORDS SUMMARY | 2019-11-30 07:30 | XMS ---
:1950 [facility] Care Team Providers Name Role Phone [...] is protected by Article 27-F of the [facility] Public Health law. If you continue you may haveaccess to information: Regarding HIV / AIDS; Provided by facilities licensed or operated by the [facility] Office of Mental Health; or Provided by the [facility] Office for People With Developmental Disabilities. If such information is present, then the following [facility] mandated warning applies: This information has [...] law may result in a fine or chcf sentence or both. A general authorization for the release of medical or other information is NOT sufficient authorization for further disclosure. Allergies and Adverse Reactions Type Description Substance Reaction Status Data Source(s ) Drug allergy Penicillins Penicillins UNKNOWN [facility] Hospital Encounters Encounter Providers Location Date [...] Attender: DOMINGUEZ AMBROCIO 07/17/2019 10:58:00 Z0 1.84 [facility] VeroAttender: BOBBI JUNIOR [facility] KAUSIKAdmitter: Rigoberto AMBROCIOReferrer: DOMINGUEZ AMBROCIO Z01.84 Outpatient Attender: RADHA 04/28/2019 06:00:00 K21.9 [facility] EDWARDReferrer: Rigoberto GARCIA HARLAN K21.9 Outpatient Attender: ALEXEI 04/21/2019 R13.10 K21.9 [facility] ARLETTEUNAdmitter: ALEXEI, 02:39:00 PM EDT [facility]: Emma ARANA R13.10 K21.9 Immunizations Vaccine Date Status Description Data Source(s) This CVX code has 09/05/2019 completed rabies, intramuscular W [facility] been retired. It is 03:41:00 PM injection Hospital replace by CVX 175, EDT or CVX 176. It will continue to be found in historic records. This CVX code has 08/29/2019 completed rabies, intramuscular W st[facility] been retired. It is 03:28:00 PM injection Hospital replace by CVX 175, EDT or CVX 176. It will continue to be found in historic records. This CVX code has 08/29/2019 completed rabies, intramuscular [facility] been retired. It is 03:28:00 PM injection Hospital replace by CVX 175, EDT or CVX 176. It will continue to be found in historic records. This CVX code has 08/25/2019 completed rabies, intramuscular [facility] been retired. It is 12:35:00 PM injection Hospital replace by CVX 175, EDT or CVX 176. It will continue to be found in historic records. This CVX code has 08/25/2019 completed rabies, intramuscular [facility] been retired. It is 12:35:00 PM injection Hospital replace by CVX 175, EDT or CVX 176. It will continue to be found in historic records. This CVX code has 08/25/2019 completed rabies, intramuscular [facility] been retired. It is 12:35:00 PM injection Hospital replace by CVX 175, EDT or CVX 176. It will continue to be found in historic records. This CVX code has 08/22/2019 completed rabies, intramuscular [facility] been retired. It is 03:57:00 PM injection Hospital replace by CVX 175, EDT or CVX 176. It will continue to be found in historic records. This CVX code has 08/22/2019 completed rabies, intramuscular W [facility] been retired. It is 03:57:00 PM injection Hospital replace by CVX 175, EDT or CVX 176. It will continue to be found in historic records. This CVX code has 08/22/2019 completed rabies, intramuscular W [facility] been retired. It is 03:57:00 PM injection Hospital replace by CVX 175, EDT or CVX 176. It will continue to be found in historic records. This CVX code has 08/22/2019 completed rabies, intramuscular W stalin [facility] been retired. It is 03:57:00 PM injection Hospital replace by CVX 175, EDT or CVX 176. It will continue to be found in historic records. RIG 08/22/2019 completed RIG [facility] 03:56:00 PM Hospital EDT RIG 08/22/2019 completed RIG [facility] 03:56:00 PM Hospital EDT RIG 08/22/2019 completed RIG [facility] 03:56:00 PM Hospital EDT RIG 08/22/2019 completed RIG [facility] 03:56:00 PM Hospital EDT Medications Medication Brand Start Product Dose Route Administrative Pharmacy [facility] Indications Reaction Description Data Name Date Form Instructions Instructions Source(s) Meclizine 04/28/ TABLET 25 mg ORAL complet [facility] 2015 [facility] 04:10: Hospital 00 PM EDT Meclizine 04/28/ TABLET 25 mg ORAL complet [facility] Hcl 2015 ed [facility] 04:10: Hospital 00 PM EDT Aspirin 25 Aspiri 04/28/ CONTROLL 1 ORAL complet [facility] / n/Dipy 2015 ED {[facility] Dipyridamol ridamo 04:10: RELEASE ule} H ospital e 200 MG le 00 PM CAPSULE Oral 25MG-2 EDT Capsule 00MG. [Aggrenox] Cap* Aspirin/Dip yridamole 25MG-200MG. Cap* Aspirin 25 Aspiri 04/28/ CONTROLL 1 ORAL complet [facility] MG / n/Dipy 2015 ED {[facility] Dipyridamol ridamo 04:10: RELEASE ule} H ospital e 200 MG le 00 PM CAPSULE Oral 25MG-2 EDT Capsule 00MG. [Aggrenox] Cap* Aspirin/Dip yridamole 25MG-200MG. Cap* Aspirin 25 Aspiri 04/28/ CONTROLL 1 ORAL complet [facility] MG / n/Dipy 2015 ED {[facility] Dipyridamol ridamo 04:10: RELEASE ule} H ospital e 200 MG le 00 PM CAPSULE Oral 25MG-2 EDT Capsule 00MG. [Aggrenox] Cap* Aspirin/Dip yridamole 25MG-200MG. Cap* Meclizine 04/28/ TABLET 25 mg ORAL complet Wh ite Hcl 2015 ed [facility] 04:10: Hospital 00 PM EDT Meclizine 04/28/ TABLET 25 mg ORAL complet Wh ite Hcl 2015 ed [facility] 04:10: Hospital 00 PM EDT Aspirin 25 Aspiri 04/28/ CONTROLL 1 ORAL complet [facility] MG / n/Dipy 2015 ED {[facility] ed [facility] Dipyridamol ridamo 04:10: RELEASE ule} H ospital e 200 MG le 00 PM CAPSULE Oral 25MG-2 EDT Capsule 00MG. [Aggrenox] Cap* Aspirin/Dip yridamole 25MG-200MG. Cap* Aspirin 81 Aspiri 02/08/ ENTERIC 81 mg ORAL complet [facility] Delayed n 2015 COATED ed [facility] Release 01:28: TABLET Hospital Oral Tablet 00 PM EST Aspirin 81 Aspiri 02/08/ ENTERIC 81 mg ORAL complet [facility] Delayed n 2015 COATED ed [facility] Release 01:28: TABLET Hospital Oral Tablet 00 PM EST Aspirin 81 Aspiri 02/08/ ENTERIC 81 mg ORAL complet [facility] MG Delayed n 2015 COATED ed [facility] Release 01:28: TABLET Hospital Oral Tablet 00 PM EST Aspirin 81 Aspiri 02/08/ ENTERIC 81 mg ORAL complet [facility] MG Delayed n 2015 COATED ed [facility] Release 01:28: TABLET Hospital Oral Tablet 00 PM EST Insurance Providers Payer name Policy type / Policy ID Covered Covered democrat's Policy Plan Coverage type democrat ID relationship to [employer] Information crowder BC EPO [id number] SP [id number] BC EPO [id number] SP [id number] BC EPO [id number] SP [id number] BLUE CROSS [id number] PT [id number] OUT OF 38 STATE BLUE CROSS [id number] PT [id number] OUT OF 38 STATE BC OUT OF [id number] SP [id number] STATE 38 BC OUT OF [id number] SP [id number] STATE 38 Problems, Conditions, and Diagnoses [...] residual deficits I10 Essential I10 Diagnosis 08/25/2019 [place] [facility] (primary) 12:38:00 PM Hospital hypertension EDT Z23 Encounter for Z23 Diagnosis 08/25/2019 [facility] s immunization 12:38:00 PM Hospital EDT Z01.84 Encounter for ENCOUNTER FOR Diagnosis 07/17/2019 [facility] antibody response ANTIBODY RESPONSE 10:58:00 AM [facility] examination EXAMINATION EDT [facility] F31.9 Bipolar disorder, BIPOLAR DISORDER, Diagnosis 04/28/2019 [place] unspecified UNSPECIFIED 06:00:00 AM [facility] EDT [facility] I10 Essential ESSENTIAL Diagnosis 04/28/2019 [place] (primary) (PRIMARY) 06:00:00 AM [facility] HYPERTENSION EDT [facility] R13.19 Other dysphagia OTHER DYSPHAGIA Diagnosis 04/28/2019 [place] 06:00:00 AM [facility] EDT [facility] K44.9 Diaphragmatic DIAPHRAGMATIC Diagnosis 04/28/2019 [facility] hernia without HERNIA WITHOUT 06:00:00 AM [facility] obstruction or OBSTRUCTION OR EDT Care gangrene [facility] K22.2 Esophageal ESOPHAGEAL Diagnosis 04/28/2019 [place] obstruction OBSTRUCTION 06:00:00 AM [facility] EDT [facility] K21.9 Gastro-esophageal GASTRO-ESOPHAGEAL Diagnosis 04/28/2019 [place] reflux disease REFLUX DISEASE 06:00:00 AM [facility] without WITHOUT EDT Care esophagitis ESOPHAGITIS Corporation R13.10 Dysphagia, DYSPHAGIA, Diagnosis 04/21/2019 [place] unspecified UNSPECIFIED 02:39:00 PM [facility] EDT [facility] Surgeries/Procedures Procedure Description Date Indications Data Source(s) Immunization admin 08/29/2019 [facility] 12:00:00 AM EDT Rabies vaccine im 08/29/2019 [facility] 12:00:00 AM EDT Emergency dept visit 08/29/2019 [facility] 12:00:00 AM EDT Immunization admin 08/25/2019 [facility] 12:00:00 AM EDT Rabies vaccine im 08/25/2019 [facility] 12:00:00 AM EDT Emergency dept visit 08/25/2019 [facility] 12:00:00 AM EDT Rabies vaccine im 08/22/2019 [facility] 12:00:00 AM EDT Rabies ig im/sc 08/22/2019 [facility] 12:00:00 AM EDT Emergency dept visit 08/22/2019 [facility] 12:00:00 AM EDT Rabies vaccine im 08/22/2019 [facility] 12:00:00 AM EDT Rabies ig im/sc 08/22/2019 [facility] 12:00:00 AM EDT Emergency dept visit 08/22/2019 [facility] 12:00:00 AM EDT Results ID Date Data Source [id number] 11/26/2019 10:05:00 AM EDT [facility] Name Value Range Interpretation Description Data Sup porting Code Source(s) Document(s ) SARS [facility] coronavirus 2 RNA This lab was ordered by [facility] JUNIOR Calvillo [facility] and reported by [facility]. ID Date Data Source [id number] 11/11/2019 10:22:00 AM EDT [facility] Name Value Range Interpretation Description Data Sup porting Code Source(s) Document(s ) SARS [facility] coronavirus 2 RNA This lab was ordered by PSYCHIATRICAnjum Calvillo lawrence [facility] and reported by [facility]. ID Date Data Source [id number] 11/05/2019 09:10:00 AM EDT [facility] Name Value Range Interpretation Description Data Sup porting Code Source(s) Document(s ) SARS [facility] coronavirus 2 RNA This lab was ordered by PS[facility] and reported by [facility]. ID Date Data Source [id number] 10/29/2019 09:02:00 AM EDT [facility] Name Value Range Interpretation Description Data Sup porting Code Source(s) Document(s ) SARS [facility] coronavirus 2 RNA This lab was ordered by [facility] and reported by [facility]. ID Date Data Source [id number] 10/22/2019 10:04:00 AM EDT [facility] Name Value Range Interpretation Description Data Sup porting Code Source(s) Document(s ) SARS [facility] coronavirus 2 RNA This lab was ordered by PSYCHIATRICAnjum beckman [facility] and reported by [facility]. ID Date Data Source [id number] 10/15/2019 10:00:00 AM EDT [facility] Name Value Range Interpretation Description Data Sup porting Code Source(s) Document(s ) SARS [facility] coronavirus 2 RNA This lab was ordered by PSYCHIATRICAnjum beckman [facility] and reported by [facility]. ID Date Data Source [id number] 10/10/2019 12:04:00 PM EDT [facility] Name Value Range Interpretation Description Data Sup porting Code Source(s) Document(s ) SARS [facility] coronavirus 2 RNA This lab was ordered by PSYCHIATRICAnjum beckman [facility] and reported by [facility]. ID Date Data Source [id number] 09/19/2019 11:41:00 AM EDT [facility] Name Value Range Interpretation Description Data Sup porting Code Source(s) Document(s ) SARS [facility] coronavirus 2 RNA This lab was ordered by PSYCHIATRICAnjum beckman [facility] and reported by [facility]. ID Date Data Source [id number] 09/09/2019 12:51:00 PM EDT [facility] Name Value Range Interpretation Description Data Sup porting Code Source(s) Document(s ) SARS [facility] coronavirus 2 RNA This lab was ordered by PSYCHIATRICAnjum beckman [facility] and reported by [facility]. ID Date Data Source [id number] 08/27/2019 10:19:00 AM EDT [facility] Name Value Range Interpretation Description Data Sup porting Code Source(s) Document(s ) SARS [facility] coronavirus 2 RNA This lab was ordered by PSYCHIATRICAnjum Calvillo lawrence [facility] and reported by [facility]. ID Date Data Source [id number] 08/20/2019 09:45:00 AM EDT [facility] Name Value Range Interpretation Description Data Sup porting Code Source(s) Document(s ) SARS [facility] coronavirus 2 RNA This lab was ordered by PSYCHIATRICAnjum beckman [facility] and reported by [facility]. ID Date Data Source [id number] 08/07/2019 10:00:00 AM EDT [facility] Name Value Range Interpretation Description Data Sup porting Code Source(s) Document(s ) SARS [facility] CORONAVIRUS 2 RNA This lab was ordered by [facility] and reported by [facility]. Procedure Social History Code Duration Value Status Description Data Source(s ) Smoking 08/25/2019 Never smoked completed Never smoked [facility] ns 12:20:00 PM EDT tobacco tobacco (finding) Ho spital (finding) Vital Signs ID Date Data Source UNK Name Value Range Interpretation Code Description Data Source(s) Diastolic blood 77 mm[Hg] 77 mm[Hg] [facility] Hospital Systolic blood 160 mm[Hg] 160 mm[Hg] [facility] ns pressure Hospital Respiratory rate 18 /min 18 /min [facility] Heart rate 77 /min 77 /min [facility] Body temperature 36.51616 36.84494 [facility] Body temperature 98.3 [degF] 98.3 [degF] [facility] Body mass index 25.0 kg/m2 25.0 kg/m2 [facility] (BMI) [Ratio] Hospital Body weight 185.39 185.39 [lb_av] [facility] [lb_av] Hospital Diastolic blood 75 mm[Hg] 75 mm[Hg] [facility] pressure Hospital Systolic blood 164 mm[Hg] 164 mm[Hg] [facility] ns pressure Hospital Respiratory rate 19 /min 19 /min [facility] Heart rate 105 /min 105 /min [facility] Body temperature 36.42125 36.67438 [facility] Body temperature 97.9 [degF] 97.9 [degF] [facility] Body mass index 28.0 kg/m2 28.0 kg/m2 [facility] (BMI) [Ratio] Hospital Body weight 170.35 170.35 [lb_av] [facility] [lb_av] Hospital Diastolic blood 85 mm[Hg] 85 mm[Hg] [facility] pressure Hospital Systolic blood 153 mm[Hg] 153 mm[Hg] [facility] ns pressure Hospital Respiratory rate 16 /min 16 /min [facility] Heart rate 89 /min 89 /min [facility] Body temperature 36.40137 36.18985 [facility] Body temperature 97.9 [degF] 97.9 [degF] [facility] Body mass index 25.1 kg/m2 25.1 kg/m2 [facility] ins (BMI) [Ratio] Hospital Body weight 185 [lb_av] 185 [lb_av] [facility] Diastolic blood 84 mm[Hg] 84 mm[Hg] [facility] pressure Hospital Systolic blood 164 mm[Hg] 164 mm[Hg] [facility] pressure Hospital Respiratory rate 18 /min 18 /min [facility] Heart rate 75 /min 75 /min [facility] Body temperature 36.24302 36.60644 [facility] Body temperature 98.5 [degF] 98.5 [degF] [facility] Body mass index 26.0 kg/m2 26.0 kg/m2 [facility] ins (BMI) [Ratio] Hospital Body weight 192.90 192.90 [lb_av] [facility] [lb_av] [facility]
[2019-11-30] MEDS ORDERED: SUCCINYLCHOLINE CHLORIDE 200 MG/10 ML SYRINGE ONE (09:36)
[2019-11-30] MEDS ORDERED: PROPOFOL 20 ML ONE (09:36)
[2019-11-30] MEDS ORDERED: KETAMINE HCL 500 MG/10 ML VIAL ONE (09:37)
[2019-11-30 10:56] VITALS: PULSE 66; TEMP 98.4
[2019-11-30 11:03] VITALS: BP 126/64
--- NOTE | 2019-11-30 16:24 | HP ---
CHIEF COMPLAINT: Major Depressive Disorder PCP: Dolores Horne Primary Psychiatrist: Dr. Eladio Light [place] HISTORY OF PRESENT ILLNESS: 69 year-old male with a PMH significant for HTN, RLS, and major depressive disorder. Began ECT in 2013. He presents today for ECT. 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; Lives with and college age daughter Smoking: quit 1974 Alcohol: occasional Drugs: no Family History: Mother lung cancer Father 68 [place] No siblings 2 children a&w Allergies clarithromycin [From Biaxin] Allergy (Intermediate, Verified 11/23/19 10:50) Hives Penicillins Allergy (Unknown, Verified 11/23/19 10:50) UNKNOWN-REACTION CHILD HOME MEDICATIONS: Home Medications Medication Instructions Recorded BUPROPion HCL "SR" [Wellbutrin Sr 450 mg PO DAILY 10/25/13 -] Alprazolam [Xanax] 0.5 mg PO BID PRN 11/17/13 Ropinirole HCl [Requip Xl] 6 mg PO DAILY 12/21/14 Amlodipine Besylate 5 mg PO DAILY 12/12/15 Atorvastatin Ca [Lipitor] 10 mg PO DAILY 12/12/15 Losartan/Hydrochlorothiazide 1 each PO DAILY 12/12/15 [Losartan-Hctz 100-25 mg Tab] Gabapentin Enacarbil [Horizant] 600 mg PO HS 12/23/17 Lamotrigine [Lamictal] 200 mg PO DAILY 09/29/18 propRANOLol HCL [Inderal] 20 mg PO DAILY 09/21/19 REVIEW OF SYSTEMS CONSTITUTIONAL: Absent: fever, chills, diaphoresis, generalized weakness, malaise, loss of appetite, weight change HEENT: Absent: rhinorrhea, nasal congestion, throat pain, throat swelling, difficulty swallowing, mouth swelling, ear pain, eye pain, visual changes CARDIOVASCULAR: Absent: chest pain, syncope, palpitations, irregular heart rate, lightheadedness, peripheral edema RESPIRATORY: Absent: cough, shortness of breath, dyspnea with exertion, orthopnea, wheezing, stridor, hemoptysis GASTROINTESTINAL: Absent: abdominal pain, abdominal distension, nausea, vomiting, diarrhea, constipation, melena, hematochezia GENITOURINARY: Absent: dysuria, frequency, urgency, hesitancy, hematuria, flank pain, genital pain MUSCULOSKELETAL: Absent: myalgia, arthralgia, joint swelling, back pain, neck pain SKIN: Absent: rash, itching, pallor HEMATOLOGIC/IMMUNOLOGIC: Absent: easy bleeding, easy bruising, lymphadenopathy, frequent infections ENDOCRINE: Absent: unexplained weight gain, unexplained weight loss, heat intolerance, cold intolerance NEUROLOGIC: Absent: headache, focal weakness or paresthesias, dizziness, unsteady gait, seizure, mental status changes, bladder or bowel incontinence PHYSICAL EXAMINATION Vital Signs - 24 hr 11/30/19 11/30/19 11/30/19 08:01 09:55 10:00 Temperature 98.4 F 97.8 F Pulse Rate 77 78 67 Respiratory 18 16 11 Rate Blood Pressure 141/67 135/59 L 125/60 O2 Sat by Pulse 97 99 99 Oximetry (%) 11/30/19 11/30/19 11/30/19 10:05 10:10 10:15 Temperature 97.8 F Pulse Rate 66 67 67 Respiratory 12 10 11 Rate Blood Pressure 132/60 127/58 L 122/67 O2 Sat by Pulse 99 99 99 Oximetry (%) 11/30/19 11/30/19 11/30/19 10:25 10:55 11:05 Temperature 98.4 F Pulse Rate 66 66 66 Respiratory 16 16 16 Rate Blood Pressure 122/66 126/64 126/64 O2 Sat by Pulse 98 99 Oximetry (%) GENERAL: Awake, alert, and fully oriented, in no acute distress. HEAD: Normal with no signs of trauma. EYES: Pupils equal, round and reactive to light, sclera anicteric, conjunctiva clear. LUNGS: Breath sounds equal, clear to auscultation bilaterally. No wheezes, and no crackles. No accessory muscle use. HEART: Regular rate and rhythm, normal S1 and S2 ABDOMEN: Soft, nontender, not distended MUSCULOSKELETAL: Normal range of motion at all joints. No bony deformities or tenderness. No CVA tenderness. UPPER EXTREMITIES: 2+ pulses, warm, well-perfused. No cyanosis. No clubbing. No peripheral edema. LOWER EXTREMITIES: 2+ pulses, warm, well-perfused. No calf tenderness. No peripheral edema. NEUROLOGICAL: Cranial nerves II-XII intact. Normal speech. ASSESSMENT/PLAN: 69 year-old male with a PMH significant for HTN, RLS, and major depressive disorder. Presents today for ECT. Cardiac --no cardiac history --Revised Cardiac Risk Index for Pre-Operative Risk: 0 points, 0.4% risk of major cardiac event Pulmonary --no pulmonary history Neurological --no neurological or neurosurgical history; no history of trauma Anesthesia --no reported problems with anesthesia ECT is a low risk procedure. The relative benefits of the planned procedure outweigh the relative risks for this patient at this time. Visit type - Medication Review Med list reviewed for High Risk Meds patients 65 and older: Yes - Emergency Visit Emergency Visit: No - New Patient This patient is new to me today: Yes Date on this admission: 11/30/19 - Critical Care Critical Care patient: No
== END 2019-11-30 11:15 | disposition home or self-care (01) ==
LOC: FECT 07:27
PROVIDERS: ATTEND Psychiatry & Neurology Psychiatry
PROC: GZB4ZZZ Other Electroconvulsive Therapy (ICD-10-PCS; principal; 2019-11-30 08:00)
DX: F33.2 Major depressive disorder, recurrent severe without psychotic features (principal)
CPT/HCPCS: 90870; 94760

== ENCOUNTER 2019-12-28 07:38 | Day surgery (SDC) | payer BC ==
[2019-12-28 08:12] VITALS: TEMP 98.1; BMI 25.2
[2019-12-28] MEDS ORDERED: KETAMINE HCL 500 MG/10 ML VIAL ONE (09:00)
[2019-12-28 12:29] VITALS: BP 138/78; PULSE 59
== END 2019-12-28 12:00 | disposition home or self-care (01) ==
LOC: FECT 07:38
PROVIDERS: ATTEND Psychiatry & Neurology Psychiatry
PROC: GZB4ZZZ Other Electroconvulsive Therapy (ICD-10-PCS; principal; 2019-12-28 08:00)
DX: F32.9 Major depressive disorder, single episode, unspecified (principal)
CPT/HCPCS: 90870; 94760

== ENCOUNTER 2020-01-26 08:47 | Day surgery (SDC) | payer BC ==
[2020-01-25 12:23] VITALS: BMI 25.4
[2020-01-26] MEDS ORDERED: KETAMINE HCL 500 MG/10 ML VIAL ONE (09:39)
[2020-01-26 10:35] VITALS: PULSE 67; TEMP 98.5
[2020-01-26 12:36] VITALS: BP 118/24
== END 2020-01-26 11:40 | disposition home or self-care (01) ==
LOC: FECT 08:47
PROVIDERS: ATTEND Psychiatry & Neurology Psychiatry
PROC: GZB4ZZZ Other Electroconvulsive Therapy (ICD-10-PCS; principal; 2020-01-26 10:30)
DX: F32.9 Major depressive disorder, single episode, unspecified (principal)
CPT/HCPCS: 90870; 94760

== ENCOUNTER 2020-02-15 08:39 | Day surgery (SDC) | payer BC ==
[2020-02-12 11:16] VITALS: BMI 25.4
[2020-02-15 09:24] VITALS: TEMP 98.2
[2020-02-15] MEDS ORDERED: KETAMINE HCL 500 MG/10 ML VIAL ONE (09:50)
[2020-02-15 11:34] VITALS: BP 131/77; PULSE 66
== END 2020-02-15 11:35 | disposition home or self-care (01) ==
LOC: FECT 08:39
PROVIDERS: ATTEND Psychiatry & Neurology Psychiatry
PROC: GZB4ZZZ Other Electroconvulsive Therapy (ICD-10-PCS; principal; 2020-02-15 10:00)
DX: F32.9 Major depressive disorder, single episode, unspecified (principal)
CPT/HCPCS: 90870; 94760

== ENCOUNTER 2020-03-07 07:59 | Day surgery (SDC) | payer BC ==
[2020-03-07 08:18] VITALS: TEMP 97.9; BMI 25.6
[2020-03-07] MEDS ORDERED: KETAMINE HCL 500 MG/10 ML VIAL ONE (10:31)
[2020-03-07 12:19] VITALS: BP 151/71; PULSE 68
[2020-03-07] MEDS ORDERED: ACETAMINOPHEN 325 MG TABLET (FP) PO PRN (13:07)
[2020-03-07] MEDS ORDERED: LACTATED RINGERS SOLUTION 1,000 ML IV SCH (13:15)
== END 2020-03-07 12:10 | disposition home or self-care (01) ==
LOC: FECT 07:59
PROVIDERS: ATTEND Psychiatry & Neurology Psychiatry
PROC: GZB4ZZZ Other Electroconvulsive Therapy (ICD-10-PCS; principal; 2020-03-07 09:00)
DX: F32.9 Major depressive disorder, single episode, unspecified (principal)
CPT/HCPCS: 90870; 94760

== ENCOUNTER 2020-04-04 08:34 | Day surgery (SDC) | payer BC ==
[2020-03-21 12:37] VITALS: BMI 25.6
[2020-04-04 09:43] VITALS: TEMP 97.9
[2020-04-04] MEDS ORDERED: KETAMINE HCL 500 MG/10 ML VIAL ONE (09:54)
[2020-04-04] MEDS ORDERED: LACTATED RINGERS SOLUTION 1,000 ML IV SCH (10:30)
[2020-04-04 11:38] VITALS: BP 120/65; PULSE 60
== END 2020-04-04 12:00 | disposition home or self-care (01) ==
LOC: FECT 08:34
PROVIDERS: ATTEND Psychiatry & Neurology Psychiatry
PROC: 3E0234Z Introduction of Serum, Toxoid and Vaccine into Muscle, Percutaneous Approach (ICD-10-PCS; principal; 2020-04-04 08:00)
DX: F32.9 Major depressive disorder, single episode, unspecified (principal)
CPT/HCPCS: 90870; 94760

== ENCOUNTER 2020-04-18 08:02 | Day surgery (SDC) | payer BC ==
[2020-04-09 18:23] VITALS: BMI 25.6
[2020-04-18] MEDS ORDERED: PROPOFOL 20 ML ONE (10:42)
[2020-04-18] MEDS ORDERED: KETAMINE HCL 500 MG/10 ML VIAL ONE (10:42)
[2020-04-18 11:44] VITALS: TEMP 97.7
[2020-04-18 12:32] VITALS: BP 129/78; PULSE 64
== END 2020-04-18 12:30 | disposition home or self-care (01) ==
LOC: FECT 08:02
PROVIDERS: ATTEND Psychiatry & Neurology Psychiatry
PROC: GZB4ZZZ Other Electroconvulsive Therapy (ICD-10-PCS; principal; 2020-04-18 09:30)
DX: F32.9 Major depressive disorder, single episode, unspecified (principal)
CPT/HCPCS: 90870; 94760

== ENCOUNTER 2020-05-02 07:00 | Day surgery (SDC) | payer BC ==
[2020-04-29 17:09] VITALS: BMI 25.6
[2020-05-02] MEDS ORDERED: KETAMINE HCL 500 MG/10 ML VIAL ONE (08:56)
[2020-05-02 09:29] VITALS: TEMP 97.8
[2020-05-02 10:39] VITALS: BP 114/64; PULSE 69
== END 2020-05-02 10:40 | disposition home or self-care (01) ==
LOC: FECT 07:00
PROVIDERS: ATTEND Psychiatry & Neurology Psychiatry
PROC: GZB4ZZZ Other Electroconvulsive Therapy (ICD-10-PCS; principal; 2020-05-02 08:00)
DX: F32.9 Major depressive disorder, single episode, unspecified (principal)
CPT/HCPCS: 90870; 94760

== ENCOUNTER 2020-05-23 06:07 | Day surgery (SDC) | payer BC ==
[2020-05-23 06:39] VITALS: BMI 25.6
[2020-05-23] MEDS ORDERED: KETAMINE HCL 500 MG/10 ML VIAL ONE (07:02)
[2020-05-23 07:32] VITALS: TEMP 98.6
[2020-05-23 08:26] VITALS: BP 116/61; PULSE 61
== END 2020-05-23 08:50 | disposition home or self-care (01) ==
LOC: FECT 06:07
PROVIDERS: ATTEND Psychiatry & Neurology Psychiatry
PROC: GZB4ZZZ Other Electroconvulsive Therapy (ICD-10-PCS; principal; 2020-05-23 07:00)
DX: F32.9 Major depressive disorder, single episode, unspecified (principal)
CPT/HCPCS: 90870; 94760

== ENCOUNTER 2020-06-13 05:55 | Day surgery (SDC) | payer BC ==
[2020-06-13 09:49] VITALS: TEMP 97.9; BMI 25.6
[2020-06-13] MEDS ORDERED: KETAMINE HCL 500 MG/10 ML VIAL ONE (11:22)
[2020-06-13] MEDS ORDERED: ONDANSETRON 4 MG/2 ML VIAL IVPUSH PRN (11:50)
[2020-06-13] MEDS ORDERED: ACETAMINOPHEN 500 MG TABLET (FP) PO PRN (11:50)
[2020-06-13] MEDS ORDERED: LACTATED RINGERS SOLUTION 1,000 ML IV SCH (12:00)
[2020-06-13 12:51] VITALS: BP 131/74; PULSE 59
== END 2020-06-13 12:40 | disposition home or self-care (01) ==
LOC: FECT 05:55
PROVIDERS: ATTEND Psychiatry & Neurology Psychiatry
PROC: GZB4ZZZ Other Electroconvulsive Therapy (ICD-10-PCS; principal; 2020-06-13 10:00)
DX: F32.9 Major depressive disorder, single episode, unspecified (principal)
CPT/HCPCS: 90870; 94760

== ENCOUNTER 2020-07-12 06:31 | Day surgery (SDC) | payer BC ==
[2020-07-12] MEDS ORDERED: KETAMINE HCL 500 MG/10 ML VIAL ONE (07:33)
[2020-07-12 08:08] VITALS: TEMP 98.7
[2020-07-12 08:52] VITALS: BP 121/65; PULSE 66
[2020-07-12] MEDS ORDERED: PROMETHAZINE HCL 25 MG/1 ML VIAL IVPUSH PRN (10:25)
[2020-07-12] MEDS ORDERED: ACETAMINOPHEN 325 MG TABLET (FP) PO PRN (10:25)
[2020-07-12] MEDS ORDERED: LACTATED RINGERS SOLUTION 1,000 ML IV SCH (10:30)
== END 2020-07-12 09:10 | disposition home or self-care (01) ==
LOC: FECT 06:31
PROVIDERS: ATTEND Psychiatry & Neurology Psychiatry
PROC: GZB4ZZZ Other Electroconvulsive Therapy (ICD-10-PCS; principal; 2020-07-12 09:30)
DX: F33.2 Major depressive disorder, recurrent severe without psychotic features (principal)
CPT/HCPCS: 90870; 94760

== ENCOUNTER 2020-08-08 06:36 | Day surgery (SDC) | payer BC ==
[2020-08-06 10:22] VITALS: BMI 25.6
[2020-08-08 07:18] VITALS: TEMP 98.7
[2020-08-08] MEDS ORDERED: KETAMINE HCL 500 MG/10 ML VIAL ONE (07:58)
[2020-08-08 09:23] VITALS: BP 136/66; PULSE 64
[2020-08-08 09:40] LABS: BASO % 0.3 % (0-2.0); EOS % 3.2 % (0-4.5); HEMATOCRIT 34.2 % (35.4-49); HEMOGLOBIN 11.8 GM/dl (11.7-16.9); LYMPH % 12.9 % (8-40); MCH 32.4 pg (25.7-33.7); MCHC 34.5 g/dl (32.0-35.9); MEAN CELL VOLUME 94.1 fl (80-96); MEAN PLT VOLUME 7.1 fl (7.5-11.1); MONO % 3.3 % (3.8-10.2); NEUT % 80.3 % (42.8-82.8); PLATELET COUNT 213 10^3/uL (134-434); RBC 3.64 M/mm3 (4.00-5.60); RDW 12.3 % (11.9-15.9); WHITE BLOOD COUNT 3.4 K/mm3 (4.0-10.8)
[2020-08-08 09:49] LABS: ALBUMIN 4.1 g/dl (3.4-5.0); BILIRUBIN,TOTAL 0.8 mg/dl (0.2-1); CALCIUM 8.9 mg/dl (8.5-10); MAGNESIUM 1.7 mg/dL (1.8-2.4); TOT PROT 6.7 g/dl (6.4-8.2)
[2020-08-08] MEDS ORDERED: PROMETHAZINE HCL 25 MG/1 ML VIAL IVPUSH PRN (13:41)
[2020-08-08] MEDS ORDERED: ONDANSETRON 4 MG/2 ML VIAL IVPUSH PRN (13:41)
[2020-08-08] MEDS ORDERED: ACETAMINOPHEN 325 MG TABLET (FP) PO PRN (13:41)
[2020-08-08] MEDS ORDERED: LACTATED RINGERS SOLUTION 1,000 ML IV SCH (13:45)
== END 2020-08-08 09:25 | disposition home or self-care (01) ==
LOC: FECT 06:36
PROVIDERS: ATTEND Psychiatry & Neurology Psychiatry
PROC: GZB4ZZZ Other Electroconvulsive Therapy (ICD-10-PCS; principal; 2020-08-08 08:30)
DX: F33.2 Major depressive disorder, recurrent severe without psychotic features (principal)
CPT/HCPCS: 36415; 80053; 83735; 85025; 90870; 93005; 94760

== ENCOUNTER 2020-09-05 07:32 | Day surgery (SDC) | payer BC ==
[2020-09-05 08:19] VITALS: BMI 24.8
[2020-09-05] MEDS ORDERED: KETOROLAC TROMETHAMINE 30 MG/1 ML VIAL ONE (10:14)
[2020-09-05] MEDS ORDERED: KETAMINE HCL 500 MG/10 ML VIAL ONE (10:15)
[2020-09-05] MEDS ORDERED: ONDANSETRON 4 MG/2 ML VIAL ONE (10:15)
[2020-09-05] MEDS ORDERED: DEXAMETHASONE SOD PHOSPHATE 4 MG/1 ML VIAL ONE (10:15)
[2020-09-05] MEDS ORDERED: SUCCINYLCHOLINE CHLORIDE 200 MG/10 ML SYRINGE ONE (10:21)
[2020-09-05 10:53] VITALS: TEMP 98.2
[2020-09-05 11:41] VITALS: BP 116/60; PULSE 70
== END 2020-09-05 11:35 | disposition home or self-care (01) ==
LOC: FECT 07:32
PROVIDERS: ATTEND Psychiatry & Neurology Psychiatry
PROC: GZB4ZZZ Other Electroconvulsive Therapy (ICD-10-PCS; principal; 2020-09-05 10:00)
DX: F32.9 Major depressive disorder, single episode, unspecified (principal)
CPT/HCPCS: 90870; 94760

== ENCOUNTER 2020-10-03 09:08 | Day surgery (SDC) | payer BC ==
[2020-09-27 10:50] VITALS: BMI 24.8
[2020-10-03] MEDS ORDERED: KETAMINE HCL 500 MG/10 ML VIAL ONE (11:09)
[2020-10-03 13:00] VITALS: TEMP 97.6
[2020-10-03 13:01] VITALS: BP 146/73; PULSE 78
== END 2020-10-03 12:55 | disposition home or self-care (01) ==
LOC: FECT 09:08
PROVIDERS: ATTEND Psychiatry & Neurology Psychiatry
PROC: GZB4ZZZ Other Electroconvulsive Therapy (ICD-10-PCS; principal; 2020-10-03 10:30)
DX: F32.9 Major depressive disorder, single episode, unspecified (principal)
CPT/HCPCS: 90870; 94760

== ENCOUNTER 2020-10-31 07:42 | Day surgery (SDC) | payer BC ==
[2020-10-31 08:13] VITALS: BMI 24.8
[2020-10-31] MEDS ORDERED: PROPOFOL 20 ML ONE (09:05)
[2020-10-31] MEDS ORDERED: SUCCINYLCHOLINE CHLORIDE 200 MG/10 ML SYRINGE ONE (09:05)
[2020-10-31] MEDS ORDERED: KETAMINE HCL 500 MG/10 ML VIAL ONE (09:29)
[2020-10-31 10:30] VITALS: PULSE 84; TEMP 97.4
[2020-10-31 10:44] VITALS: BP 131/70
== END 2020-10-31 10:50 | disposition home or self-care (01) ==
LOC: FECT 07:42
PROVIDERS: ATTEND Psychiatry & Neurology Psychiatry
PROC: GZB4ZZZ Other Electroconvulsive Therapy (ICD-10-PCS; principal; 2020-10-31 09:30)
DX: F32.9 Major depressive disorder, single episode, unspecified (principal)
CPT/HCPCS: 90870; 94760

== ENCOUNTER 2020-11-28 06:49 | Day surgery (SDC) | payer BC ==
[2020-11-28 07:37] VITALS: BMI 24.8
[2020-11-28] MEDS ORDERED: KETAMINE HCL 500 MG/10 ML VIAL ONE (07:57)
[2020-11-28 08:48] VITALS: TEMP 98.4
[2020-11-28 10:04] VITALS: BP 113/69; PULSE 72
== END 2020-11-28 10:05 | disposition home or self-care (01) ==
LOC: FECT 06:49
PROVIDERS: ATTEND Psychiatry & Neurology Psychiatry
PROC: GZB4ZZZ Other Electroconvulsive Therapy (ICD-10-PCS; principal; 2020-11-28 08:30)
DX: F32.9 Major depressive disorder, single episode, unspecified (principal)
CPT/HCPCS: 90870; 94760

== ENCOUNTER 2020-12-26 08:02 | Day surgery (SDC) | payer BC ==
[2020-12-18 15:26] VITALS: BMI 24.8
[2020-12-26] MEDS ORDERED: KETAMINE HCL 500 MG/10 ML VIAL ONE (08:56)
[2020-12-26 10:03] VITALS: TEMP 98.1
[2020-12-26 10:16] VITALS: BP 132/78; PULSE 75
== END 2020-12-26 10:20 | disposition home or self-care (01) ==
LOC: FECT 08:02
PROVIDERS: ATTEND Psychiatry & Neurology Psychiatry
PROC: GZB4ZZZ Other Electroconvulsive Therapy (ICD-10-PCS; principal; 2020-12-26 09:00)
DX: F32.9 Major depressive disorder, single episode, unspecified (principal)
CPT/HCPCS: 90870; 94760

== ENCOUNTER 2021-01-23 07:01 | Day surgery (SDC) | payer BC ==
[2021-01-22 09:11] VITALS: BMI 24.8
[2021-01-23] MEDS ORDERED: KETAMINE HCL 200 MG/20 ML VIAL ONE (09:11)
[2021-01-23 10:24] VITALS: TEMP 97.8
[2021-01-23] MEDS ORDERED: KETOROLAC TROMETHAMINE 30 MG/1 ML VIAL ONE (10:37)
[2021-01-23] MEDS ORDERED: KETOROLAC TROMETHAMINE 30 MG/1 ML VIAL IVPUSH ONE (10:40)
[2021-01-23 11:21] VITALS: BP 128/72; PULSE 67
== END 2021-01-23 11:24 | disposition home or self-care (01) ==
LOC: FECT 07:01
PROVIDERS: ATTEND Psychiatry & Neurology Psychiatry
PROC: GZB4ZZZ Other Electroconvulsive Therapy (ICD-10-PCS; principal; 2021-01-23 09:00)
DX: F32.9 Major depressive disorder, single episode, unspecified (principal)
CPT/HCPCS: 90870; 94760

== ENCOUNTER 2021-02-20 09:04 | Day surgery (SDC) | payer BC ==
[2021-02-11 14:46] VITALS: BMI 24.8
[2021-02-20] MEDS ORDERED: KETAMINE HCL 500 MG/10 ML VIAL ONE (10:22)
[2021-02-20 12:13] VITALS: BP 124/76; PULSE 71; TEMP 97.7
== END 2021-02-20 12:14 | disposition home or self-care (01) ==
LOC: FECT 09:04
PROVIDERS: ATTEND Psychiatry & Neurology Psychiatry
PROC: GZB4ZZZ Other Electroconvulsive Therapy (ICD-10-PCS; principal; 2021-02-20 10:30)
DX: F32.9 Major depressive disorder, single episode, unspecified (principal)
CPT/HCPCS: 90870; 94760

== ENCOUNTER 2021-04-11 07:18 | Day surgery (SDC) | payer BC ==
[2021-04-10 09:32] VITALS: BMI 24.8
[2021-04-11] MEDS ORDERED: KETAMINE HCL 500 MG/10 ML VIAL ONE (08:13)
[2021-04-11 09:43] VITALS: TEMP 98.1
[2021-04-11 09:58] VITALS: BP 147/79; PULSE 72
== END 2021-04-11 10:05 | disposition home or self-care (01) ==
LOC: FECT 07:18
PROVIDERS: ATTEND Psychiatry & Neurology Psychiatry
PROC: GZB4ZZZ Other Electroconvulsive Therapy (ICD-10-PCS; principal; 2021-04-11 08:29)
DX: F32.9 Major depressive disorder, single episode, unspecified (principal)
CPT/HCPCS: 90870; 94760

== ENCOUNTER 2021-05-15 08:59 | Day surgery (SDC) | payer BC ==
[2021-04-11 09:51] VITALS: BMI 24.8
[2021-05-15] MEDS ORDERED: KETAMINE HCL 500 MG/10 ML VIAL ONE (09:48)
[2021-05-15 11:20] VITALS: TEMP 97.7
[2021-05-15 12:06] VITALS: BP 136/72; PULSE 73
== END 2021-05-15 12:08 | disposition home or self-care (01) ==
LOC: FECT 08:59
PROVIDERS: ATTEND Psychiatry & Neurology Psychiatry
PROC: GZB4ZZZ Other Electroconvulsive Therapy (ICD-10-PCS; principal; 2021-05-15 10:00)
DX: F32.9 Major depressive disorder, single episode, unspecified (principal)
CPT/HCPCS: 90870; 94760

== ENCOUNTER 2021-06-12 09:47 | Day surgery (SDC) | payer BC ==
[2021-06-02 12:25] VITALS: BMI 24.8
[2021-06-12] MEDS ORDERED: KETAMINE HCL 500 MG/10 ML VIAL ONE (11:36)
[2021-06-12 12:17] VITALS: TEMP 98.7
[2021-06-12 13:20] VITALS: BP 132/62; PULSE 68
== END 2021-06-12 13:15 | disposition home or self-care (01) ==
LOC: FECT 09:47
PROVIDERS: ATTEND Psychiatry & Neurology Psychiatry
PROC: GZB4ZZZ Other Electroconvulsive Therapy (ICD-10-PCS; principal; 2021-06-12 11:51)
DX: F32.9 Major depressive disorder, single episode, unspecified (principal)
CPT/HCPCS: 90870; 94760

== ENCOUNTER 2021-07-03 06:22 | Day surgery (SDC) | payer BC ==
[2021-06-18 12:43] VITALS: BMI 24.8
[2021-07-03] MEDS ORDERED: KETAMINE HCL 500 MG/10 ML VIAL ONE (07:28)
[2021-07-03 09:05] VITALS: TEMP 97.9
[2021-07-03 09:44] VITALS: BP 118/74; PULSE 60
== END 2021-07-03 09:46 | disposition home or self-care (01) ==
LOC: FECT 06:22
PROVIDERS: ATTEND Psychiatry & Neurology Psychiatry
PROC: GZB4ZZZ Other Electroconvulsive Therapy (ICD-10-PCS; principal; 2021-07-03 08:09)
DX: F32.9 Major depressive disorder, single episode, unspecified (principal)
CPT/HCPCS: 90870; 94760

== ENCOUNTER 2021-08-01 08:17 | Day surgery (SDC) | payer BC ==
[2021-07-23 14:27] VITALS: BMI 24.8
[2021-08-01] MEDS ORDERED: KETAMINE HCL 500 MG/10 ML VIAL ONE (10:18)
[2021-08-01 14:32] VITALS: TEMP 98.3
[2021-08-01 14:33] VITALS: BP 146/82; PULSE 76
== END 2021-08-01 12:15 | disposition home or self-care (01) ==
LOC: FECT 08:17
PROVIDERS: ATTEND Psychiatry & Neurology Psychiatry
PROC: GZB4ZZZ Other Electroconvulsive Therapy (ICD-10-PCS; principal; 2021-08-01 10:29)
DX: F32.9 Major depressive disorder, single episode, unspecified (principal)
CPT/HCPCS: 90870; 94760

== ENCOUNTER 2021-08-28 06:05 | Day surgery (SDC) | payer BC ==
[2021-08-26 13:08] VITALS: BMI 24.7
[2021-08-28] MEDS ORDERED: KETAMINE HCL 500 MG/10 ML VIAL ONE (08:01)
[2021-08-28 08:28] LABS: BILIRUBIN,TOTAL 0.6 mg/dl (0.2-1); CREATININE 0.9 mg/dl (0.55-1.3); TOT PROT 6.4 g/dl (6.4-8.2)
[2021-08-28 08:30] LABS: HEMATOCRIT 33.3 % (35.4-49); HEMOGLOBIN 11.8 G/dL (11.7-16.9); MCH 32.7 pg (25.7-33.7); MCHC 35.5 g/dl (32.0-35.9); MEAN CELL VOLUME 92.2 fl (80-96); MEAN PLT VOLUME 7.5 fl (7.5-11.1); PLATELET COUNT 214.9 10^3/uL (134-434); RBC 3.61 10^6/uL (4.00-5.60); RDW 13.9 % (11.9-15.9); WHITE BLOOD COUNT 3.8 10^3/uL (4.0-10.8)
[2021-08-28 08:58] VITALS: TEMP 97.6
[2021-08-28 09:12] VITALS: BP 128/64; PULSE 64
== END 2021-08-28 09:42 | disposition home or self-care (01) ==
LOC: FECT 06:05
PROVIDERS: ATTEND Psychiatry & Neurology Psychiatry
PROC: GZB4ZZZ Other Electroconvulsive Therapy (ICD-10-PCS; principal; 2021-08-28 08:12)
DX: F32.A Depression, unspecified (principal)
CPT/HCPCS: 36415; 80053; 85027; 90870; 93005; 94760

== ENCOUNTER 2021-09-25 07:32 | Day surgery (SDC) | payer BC ==
[2021-09-16 13:36] VITALS: BMI 24.7
[2021-09-25] MEDS ORDERED: KETAMINE HCL 500 MG/10 ML VIAL ONE (09:06)
[2021-09-25 10:42] VITALS: PULSE 58; RESP 16; TEMP 97.7
[2021-09-25 11:52] VITALS: BP 116/72
== END 2021-09-25 11:20 | disposition home or self-care (01) ==
LOC: FECT 07:32
PROVIDERS: ATTEND Psychiatry & Neurology Psychiatry
PROC: GZB4ZZZ Other Electroconvulsive Therapy (ICD-10-PCS; principal; 2021-09-25 09:24)
DX: F32.A Depression, unspecified (principal)
CPT/HCPCS: 90870; 94760

== ENCOUNTER 2021-12-12 07:58 | Day surgery (SDC) | payer BC ==
[2021-12-09 15:00] VITALS: BMI 24.7
[2021-12-12] MEDS ORDERED: KETAMINE HCL 500 MG/10 ML VIAL ONE (09:42)
[2021-12-12] MEDS ORDERED: METOPROLOL TARTRATE 5 MG/5 ML VIAL ONE (09:55)
[2021-12-12] MEDS ORDERED: PROMETHAZINE HCL 25 MG/1 ML VIAL IVPUSH PRN (10:53)
[2021-12-12] MEDS ORDERED: ONDANSETRON 4 MG/2 ML VIAL IVPUSH PRN (10:53)
[2021-12-12] MEDS ORDERED: ACETAMINOPHEN 500 MG TABLET (FP) PO PRN (10:53)
[2021-12-12] MEDS ORDERED: LACTATED RINGERS SOLUTION 1,000 ML IV SCH (11:00)
[2021-12-12 11:19] VITALS: BP 120/73; PULSE 62; RESP 16; TEMP 97.6
== END 2021-12-12 11:45 | disposition home or self-care (01) ==
LOC: FECT 07:58
PROVIDERS: ATTEND Psychiatry & Neurology Psychiatry
PROC: GZB4ZZZ Other Electroconvulsive Therapy (ICD-10-PCS; principal; 2021-12-12 09:52)
DX: F32.A Depression, unspecified (principal)
CPT/HCPCS: 90870; 94760

== ENCOUNTER 2022-01-12 06:41 | Day surgery (SDC) | payer BC ==
[2022-01-06 13:05] VITALS: BMI 24.7
[2022-01-12] MEDS ORDERED: KETAMINE HCL 500 MG/10 ML VIAL ONE (08:05)
[2022-01-12 09:14] VITALS: RESP 18; TEMP 97.9
[2022-01-12 10:03] VITALS: BP 118/69; PULSE 61
== END 2022-01-12 09:45 | disposition home or self-care (01) ==
LOC: FECT 06:41
PROVIDERS: ATTEND Psychiatry & Neurology Psychiatry
PROC: GZB4ZZZ Other Electroconvulsive Therapy (ICD-10-PCS; principal; 2022-01-12 08:15)
DX: F33.2 Major depressive disorder, recurrent severe without psychotic features (principal)
CPT/HCPCS: 90870; 94760

== ENCOUNTER 2022-02-12 08:18 | Day surgery (SDC) | payer BC ==
[2022-01-27 17:37] VITALS: BMI 24.7
[2022-02-12] MEDS ORDERED: KETAMINE HCL 500 MG/10 ML VIAL ONE (10:04)
[2022-02-12] MEDS ORDERED: ONDANSETRON 4 MG/2 ML VIAL IVPUSH PRN (10:36)
[2022-02-12] MEDS ORDERED: LACTATED RINGERS SOLUTION 1,000 ML IV SCH (10:45)
[2022-02-12 12:07] VITALS: RESP 16; TEMP 97.8
[2022-02-12 12:10] VITALS: BP 145/68; PULSE 72
== END 2022-02-12 11:45 | disposition home or self-care (01) ==
LOC: FECT 08:18
PROVIDERS: ATTEND Psychiatry & Neurology Psychiatry
PROC: GZB4ZZZ Other Electroconvulsive Therapy (ICD-10-PCS; principal; 2022-02-12 10:15)
DX: F32.A Depression, unspecified (principal)
CPT/HCPCS: 90870; 94760

== ENCOUNTER 2022-03-12 08:01 | Day surgery (SDC) | payer BC ==
[2022-03-10 16:43] VITALS: BMI 24.7
[2022-03-12 09:03] LABS: HEMATOCRIT 31.3 % (35.4-49); MCH 32.6 pg (25.7-33.7); MCHC 35.1 g/dl (32.0-35.9); MEAN CELL VOLUME 92.9 fl (80-96); MEAN PLT VOLUME 7.2 fl (7.5-11.1); PLATELET COUNT 202.3 10^3/uL (134-434); RBC 3.37 10^6/uL (4.00-5.60); RDW 13.3 % (11.9-15.9); WHITE BLOOD COUNT 3.7 10^3/uL (4.0-10.8)
[2022-03-12 09:23] LABS: ALBUMIN 3.9 g/dl (3.4-5.0); BILIRUBIN,TOTAL 0.7 mg/dl (0.2-1); CALCIUM 8.6 mg/dl (8.5-10); CREATININE 1.1 mg/dl (0.55-1.3); TOT PROT 6.3 g/dl (6.4-8.2)
[2022-03-12] MEDS ORDERED: KETAMINE HCL 500 MG/10 ML VIAL ONE (09:53)
[2022-03-12 11:05] VITALS: RESP 18; TEMP 98.3
[2022-03-12 11:30] VITALS: BP 126/66; PULSE 69
[2022-03-12] MEDS ORDERED: ONDANSETRON 4 MG/2 ML VIAL IVPUSH PRN (11:52)
== END 2022-03-12 11:30 | disposition home or self-care (01) ==
LOC: FECT 08:01
PROVIDERS: ATTEND Psychiatry & Neurology Psychiatry
PROC: GZB4ZZZ Other Electroconvulsive Therapy (ICD-10-PCS; principal; 2022-03-12 10:09)
DX: F32.A Depression, unspecified (principal)
CPT/HCPCS: 36415; 80053; 85027; 90870; 93005; 94760

== ENCOUNTER 2022-05-08 08:58 | Day surgery (SDC) | payer BC ==
[~2022-05-08 08:58] MED LIST changes: -KETAMINE HCL 500 MG/10 ML VIAL ONE; +LACTATED RINGERS SOLUTION 1,000 ML IV SCH; -ONDANSETRON 4 MG/2 ML VIAL IVPUSH PRN
[2022-05-08 09:12] VITALS: BMI 25.2
[2022-05-08] MEDS ORDERED: KETAMINE HCL 500 MG/10 ML VIAL ONE (10:21)
[2022-05-08 11:21] VITALS: RESP 18; TEMP 97.8
[2022-05-08 11:35] VITALS: BP 130/68; PULSE 64
== END 2022-05-08 12:10 | disposition home or self-care (01) ==
LOC: FECT 08:58
PROVIDERS: ATTEND Psychiatry & Neurology Psychiatry
PROC: GZB4ZZZ Other Electroconvulsive Therapy (ICD-10-PCS; principal; 2022-05-08 10:38)
DX: F33.9 Major depressive disorder, recurrent, unspecified (principal)
CPT/HCPCS: 90870; 94760

== ENCOUNTER 2022-06-04 08:48 | Day surgery (SDC) | payer BC ==
[2022-06-04 09:16] VITALS: BMI 25.0
[2022-06-04 11:15] VITALS: TEMP 98.6
[2022-06-04 11:45] VITALS: RESP 18
[2022-06-04 11:57] VITALS: BP 118/60; PULSE 60
== END 2022-06-04 12:00 | disposition home or self-care (01) ==
LOC: FECT 08:48
PROVIDERS: ATTEND Psychiatry & Neurology Psychiatry
PROC: GZB4ZZZ Other Electroconvulsive Therapy (ICD-10-PCS; principal; 2022-06-04 10:44)
DX: F32.A Depression, unspecified (principal)
CPT/HCPCS: 90870; 94760

== ENCOUNTER 2022-07-02 07:54 | Day surgery (SDC) | payer BC ==
[2022-06-23 14:46] VITALS: BMI 25.0
[2022-07-02] MEDS ORDERED: KETAMINE HCL 500 MG/10 ML VIAL ONE (10:26)
[2022-07-02] MEDS ORDERED: SUCCINYLCHOLINE CHLORIDE 200 MG/10 ML SYRINGE ONE (10:39)
[2022-07-02] MEDS ORDERED: hydrALAZINE HCL 20 MG/ML VIAL ONE (10:43)
[2022-07-02 11:16] VITALS: TEMP 98.6
[2022-07-02 11:20] VITALS: RESP 18
[2022-07-02 11:45] VITALS: BP 129/79; PULSE 89
== END 2022-07-02 11:50 | disposition home or self-care (01) ==
LOC: FECT 07:54
PROVIDERS: ATTEND Psychiatry & Neurology Psychiatry
PROC: GZB4ZZZ Other Electroconvulsive Therapy (ICD-10-PCS; principal; 2022-07-02 10:39)
DX: F32.A Depression, unspecified (principal)
CPT/HCPCS: 90870; 94760

== ENCOUNTER 2022-07-14 07:54 | Day surgery (SDC) | payer BC ==
[2022-07-14 08:09] VITALS: BMI 24.9
[2022-07-14] MEDS ORDERED: ONDANSETRON 4 MG/2 ML VIAL IVPUSH PRN (08:39)
[2022-07-14] MEDS ORDERED: LACTATED RINGERS SOLUTION 1,000 ML IV SCH (08:45)
[2022-07-14 10:08] VITALS: PULSE 55; RESP 18; TEMP 97.4
[2022-07-14 10:24] VITALS: BP 126/60
== END 2022-07-14 10:55 | disposition home or self-care (01) ==
LOC: FECT 07:54
PROVIDERS: ATTEND Psychiatry & Neurology Psychiatry
PROC: GZB4ZZZ Other Electroconvulsive Therapy (ICD-10-PCS; principal; 2022-07-14 09:20)
DX: F33.2 Major depressive disorder, recurrent severe without psychotic features (principal)
CPT/HCPCS: 90870; 94760

== ENCOUNTER 2022-08-04 08:10 | Day surgery (SDC) | payer BC ==
[2022-07-29 14:25] VITALS: BMI 24.9
[2022-08-04] MEDS ORDERED: KETAMINE HCL 500 MG/10 ML VIAL ONE (09:37)
[2022-08-04] MEDS ORDERED: LACTATED RINGERS SOLUTION 1,000 ML IV SCH (10:15)
[2022-08-04 10:59] VITALS: BP 125/70; PULSE 66; RESP 18; TEMP 98
== END 2022-08-04 11:00 | disposition home or self-care (01) ==
LOC: FECT 08:10
PROVIDERS: ATTEND Psychiatry & Neurology Psychiatry
PROC: GZB4ZZZ Other Electroconvulsive Therapy (ICD-10-PCS; principal; 2022-08-04 09:47)
DX: F32.A Depression, unspecified (principal)
CPT/HCPCS: 90870; 94760

== ENCOUNTER 2022-09-10 08:19 | Day surgery (SDC) | payer BC ==
[2022-08-24 14:51] VITALS: BMI 24.9
[2022-09-10 09:34] LABS: HEMATOCRIT 34.2 % (35.4-49); HEMOGLOBIN 11.6 G/dL (11.7-16.9); MCH 32.1 pg (25.7-33.7); MCHC 33.9 g/dl (32.0-35.9); MEAN CELL VOLUME 94.8 fl (80-96); MEAN PLT VOLUME 6.8 fl (7.5-11.1); PLATELET COUNT 180.4 10^3/uL (134-434); RBC 3.61 10^6/uL (4.00-5.60); RDW 14.3 % (11.9-15.9); WHITE BLOOD COUNT 4.1 10^3/uL (4.0-10.8)
[2022-09-10 09:44] LABS: ALBUMIN 4.1 g/dl (3.4-5.0); BILIRUBIN,TOTAL 0.6 mg/dl (0.2-1); BLOOD UREA NITROGEN 19.8 mg/dl (7-18); CALCIUM 8.8 mg/dl (8.5-10.1); POTASSIUM 3.9 mmol/L (3.5-5.1); SGOT/AST 18.7 U/L (15-37); SGPT/ALT 11.7 U/L (7-52); TOT PROT 5.7 g/dl (6.4-8.2)
[2022-09-10] MEDS ORDERED: KETAMINE HCL 500 MG/10 ML VIAL ONE (10:32)
[2022-09-10] MEDS ORDERED: SUCCINYLCHOLINE CHLORIDE 200 MG/10 ML SYRINGE ONE (10:48)
[2022-09-10 11:52] VITALS: RESP 16; TEMP 97.5
[2022-09-10 11:58] VITALS: BP 139/68; PULSE 60
== END 2022-09-10 12:30 | disposition home or self-care (01) ==
LOC: FECT 08:19
PROVIDERS: ATTEND Psychiatry & Neurology Psychiatry
PROC: GZB4ZZZ Other Electroconvulsive Therapy (ICD-10-PCS; principal; 2022-09-10 10:51)
DX: F32.A Depression, unspecified (principal)
CPT/HCPCS: 36415; 80053; 85027; 90870; 93005; 93010; 94760

== ENCOUNTER 2022-10-08 07:27 | Day surgery (SDC) | payer BC ==
[2022-09-30 08:05] VITALS: BMI 24.9
[2022-10-08] MEDS ORDERED: KETAMINE HCL 500 MG/10 ML VIAL ONE (08:08)
[2022-10-08 09:38] VITALS: TEMP 96.8
[2022-10-08 09:59] VITALS: BP 126/70; PULSE 70; RESP 16
== END 2022-10-08 10:38 | disposition home or self-care (01) ==
LOC: FECT 07:27
PROVIDERS: ATTEND Psychiatry & Neurology Psychiatry
PROC: GZB4ZZZ Other Electroconvulsive Therapy (ICD-10-PCS; principal; 2022-10-08 08:44)
DX: F32.A Depression, unspecified (principal)
CPT/HCPCS: 90870; 94760

== ENCOUNTER 2022-12-04 09:21 | Day surgery (SDC) | payer BC ==
[2022-11-12 11:20] VITALS: BMI 24.9
[2022-12-04] MEDS ORDERED: KETAMINE HCL 500 MG/10 ML VIAL ONE (10:34)
[2022-12-04 11:30] VITALS: RESP 16
[2022-12-04 11:36] VITALS: TEMP 97.9
[2022-12-04 12:10] VITALS: BP 132/67; PULSE 73
== END 2022-12-04 12:15 | disposition home or self-care (01) ==
LOC: FECT 09:21
PROVIDERS: ATTEND Psychiatry & Neurology Psychiatry
PROC: GZB4ZZZ Other Electroconvulsive Therapy (ICD-10-PCS; principal; 2022-12-04 10:43)
DX: F32.A Depression, unspecified (principal)
CPT/HCPCS: 90870; 94760

== ENCOUNTER 2023-09-14 07:45 | Day surgery (SDC) | payer BC, OTHER ==
[2023-09-10 14:05] VITALS: BMI 25.3
[2023-09-14 08:20] LABS: HEMATOCRIT 36.3 % (35.4-49); HEMOGLOBIN 12.2 G/dL (11.7-16.9); MCH 31.7 pg (25.7-33.7); MCHC 33.6 g/dl (32.0-35.9); MEAN CELL VOLUME 94.3 fl (80-96); MEAN PLT VOLUME 7.5 fl (7.5-11.1); PLATELET COUNT 219.6 10^3/uL (134-434); RBC 3.85 10^6/uL (4.00-5.60); WHITE BLOOD COUNT 4.2 10^3/uL (4.0-10.8)
[2023-09-14 08:31] LABS: ALBUMIN 4.7 g/dl (3.4-5.0); BILIRUBIN,TOTAL 0.9 mg/dl (0.2-1); CALCIUM 9.5 mg/dl (8.5-10.1); TOT PROT 6.8 g/dl (6.4-8.2)
[2023-09-14 08:38] VITALS: RESP 18; TEMP 97.8
[2023-09-14] MEDS ORDERED: KETAMINE HCL 100 MG/ML - 5ML VIAL ONE (10:31)
[2023-09-14 15:17] VITALS: BP 133/70; PULSE 77
== END 2023-09-14 12:15 | disposition home or self-care (01) ==
LOC: FECT 07:45
PROVIDERS: ATTEND Student in an Organized Health Care Education/Training Program
PROC: GZB4ZZZ Other Electroconvulsive Therapy (ICD-10-PCS; principal; 2023-09-14 09:30)
DX: F32.A Depression, unspecified (principal)
CPT/HCPCS: 36415; 80053; 85027; 90870; 93005; 94760

== ENCOUNTER 2023-09-28 08:45 | Day surgery (SDC) | payer OTHER ==
[2023-09-21 13:05] VITALS: BMI 25.3
[2023-09-28] MEDS ORDERED: KETAMINE HCL 100 MG/ML - 5ML VIAL ONE (10:41)
[2023-09-28 11:41] VITALS: RESP 18; TEMP 97.4
[2023-09-28 12:15] VITALS: BP 120/60; PULSE 98
== END 2023-09-28 12:00 | disposition home or self-care (01) ==
LOC: FECT 08:45
PROVIDERS: ATTEND Student in an Organized Health Care Education/Training Program
PROC: GZB4ZZZ Other Electroconvulsive Therapy (ICD-10-PCS; principal; 2023-09-28 10:51)
DX: F33.2 Major depressive disorder, recurrent severe without psychotic features (principal)
CPT/HCPCS: 90870; 94760

== ENCOUNTER 2023-10-12 09:01 | Day surgery (SDC) | payer OTHER ==
[2023-09-29 13:41] VITALS: BMI 25.3
[2023-10-12] MEDS ORDERED: KETAMINE HCL 100 MG/ML - 5ML VIAL ONE (09:42)
[2023-10-12 12:19] VITALS: BP 124/70; PULSE 70; RESP 18; TEMP 97.3
== END 2023-10-12 12:19 | disposition home or self-care (01) ==
LOC: FECT 09:01
PROVIDERS: ATTEND Student in an Organized Health Care Education/Training Program
PROC: GZB4ZZZ Other Electroconvulsive Therapy (ICD-10-PCS; principal; 2023-10-12 10:42)
DX: F32.A Depression, unspecified (principal)
CPT/HCPCS: 90870; 94760

== ENCOUNTER 2023-10-15 07:39 | Day surgery (SDC) | payer OTHER ==
[2023-10-13 13:16] VITALS: BMI 25.3
[2023-10-15] MEDS ORDERED: KETAMINE HCL 100 MG/ML - 5ML VIAL ONE (08:54)
[2023-10-15] MEDS ORDERED: ONDANSETRON 4 MG/2 ML VIAL ONE (09:05)
[2023-10-15] MEDS ORDERED: DEXAMETHASONE SOD PHOSPHATE 4 MG/1 ML VIAL ONE (09:05)
[2023-10-15] MEDS ORDERED: KETOROLAC TROMETHAMINE 30 MG/1 ML VIAL ONE (09:05)
[2023-10-15 12:08] VITALS: TEMP 97.5
[2023-10-15 12:49] VITALS: BP 124/52; PULSE 65; RESP 16
== END 2023-10-15 10:52 | disposition home or self-care (01) ==
LOC: FECT 07:39
PROVIDERS: ATTEND Student in an Organized Health Care Education/Training Program
PROC: GZB4ZZZ Other Electroconvulsive Therapy (ICD-10-PCS; principal; 2023-10-15 09:03)
DX: F32.A Depression, unspecified (principal)
CPT/HCPCS: 90870; 94760

== ENCOUNTER → 2023-11-05 | Day surgery (SDC) | payer OTHER ==
[2023-10-21 06:56] VITALS: BMI 25.3
[~2023-11-05] MED LIST changes: +KETAMINE HCL 100 MG/ML - 5ML VIAL ONE; +ONDANSETRON 4 MG/2 ML VIAL IVPUSH PRN
[2023-11-05 09:30] VITALS: PULSE 74; RESP 16; TEMP 97.7
[2023-11-05 09:54] VITALS: BP 147/69
== END ==
LOC: FECT 07:27
PROVIDERS: ATTEND Student in an Organized Health Care Education/Training Program
PROC: GZB4ZZZ Other Electroconvulsive Therapy (ICD-10-PCS; principal; 2023-11-05 08:45)
DX: F32.A Depression, unspecified (principal)
CPT/HCPCS: 90870; 94760

== ENCOUNTER 2023-11-19 08:55 | Day surgery (SDC) | payer OTHER, MEDICARE ==
[2023-11-11 12:22] VITALS: BMI 25.3
[2023-11-19] MEDS ORDERED: KETAMINE HCL 100 MG/ML - 5ML VIAL ONE (11:40)
[2023-11-19] MEDS ORDERED: MIDAZOLAM HCL 2 MG/2 ML SINGLE DOSE VIAL ONE (11:55)
[2023-11-19 12:58] VITALS: BP 126/62; PULSE 67; RESP 16; TEMP 97.9
== END 2023-11-19 13:10 | disposition home or self-care (01) ==
LOC: FECT 08:55
PROVIDERS: ATTEND Student in an Organized Health Care Education/Training Program
PROC: GZB4ZZZ Other Electroconvulsive Therapy (ICD-10-PCS; principal; 2023-11-19 11:52)
DX: F32.A Depression, unspecified (principal)
CPT/HCPCS: 90870; 94760

== ENCOUNTER 2023-12-10 06:41 | Day surgery (SDC) | payer OTHER, MEDICARE ==
[2023-12-10 07:03] VITALS: BMI 25.3
[2023-12-10] MEDS ORDERED: KETAMINE HCL 100 MG/ML - 5ML VIAL ONE (07:31)
[2023-12-10 08:53] VITALS: RESP 16; TEMP 97.7
[2023-12-10 09:17] VITALS: BP 131/71; PULSE 68
== END 2023-12-10 10:00 | disposition home or self-care (01) ==
LOC: FECT 06:41
PROVIDERS: ATTEND Student in an Organized Health Care Education/Training Program
PROC: GZB4ZZZ Other Electroconvulsive Therapy (ICD-10-PCS; principal; 2023-12-10 07:57)
DX: F32.A Depression, unspecified (principal)
CPT/HCPCS: 90870; 94760

== ENCOUNTER 2023-12-31 08:29 | Day surgery (SDC) | payer OTHER, MEDICARE ==
[2023-12-27 15:29] VITALS: BMI 25.3
[2023-12-31] MEDS ORDERED: KETAMINE HCL 100 MG/ML - 5ML VIAL ONE (10:24)
[2023-12-31 11:23] VITALS: RESP 18; TEMP 97.5
[2023-12-31 14:04] VITALS: BP 126/60; PULSE 76
== END 2023-12-31 12:05 | disposition home or self-care (01) ==
LOC: FECT 08:29
PROVIDERS: ATTEND Student in an Organized Health Care Education/Training Program
PROC: GZB4ZZZ Other Electroconvulsive Therapy (ICD-10-PCS; principal; 2023-12-31 10:30)
DX: F32.A Depression, unspecified (principal)
CPT/HCPCS: 90870; 94760

== ENCOUNTER 2024-01-28 12:07 | Day surgery (SDC) | payer OTHER, MEDICARE ==
[2024-01-20 16:17] VITALS: BMI 25.3
[2024-01-28] MEDS ORDERED: KETAMINE HCL 100 MG/ML - 5ML VIAL ONE (13:33)
[2024-01-28] MEDS ORDERED: SUCCINYLCHOLINE CHLORIDE 200 MG/10 ML SYRINGE ONE (13:46)
[2024-01-28 16:37] VITALS: RESP 18; TEMP 97.2
[2024-01-28 16:39] VITALS: BP 132/63; PULSE 77
== END 2024-01-28 16:35 | disposition home or self-care (01) ==
LOC: FECT 12:07
PROVIDERS: ATTEND Student in an Organized Health Care Education/Training Program
PROC: GZB4ZZZ Other Electroconvulsive Therapy (ICD-10-PCS; principal; 2024-01-28 13:55)
DX: F33.2 Major depressive disorder, recurrent severe without psychotic features (principal)
CPT/HCPCS: 90870; 94760

== ENCOUNTER 2024-02-25 08:27 | Day surgery (SDC) | payer OTHER, MEDICARE ==
[2024-02-25 08:44] VITALS: BMI 25.3
[2024-02-25] MEDS ORDERED: KETAMINE HCL 100 MG/ML - 5ML VIAL ONE (09:43)
[2024-02-25 11:01] VITALS: RESP 18; TEMP 97.9
[2024-02-25 11:47] VITALS: BP 142/70; PULSE 68
== END 2024-02-25 11:47 | disposition home or self-care (01) ==
LOC: FECT 08:27
PROVIDERS: ATTEND Student in an Organized Health Care Education/Training Program
PROC: GZB4ZZZ Other Electroconvulsive Therapy (ICD-10-PCS; principal; 2024-02-25 10:01)
DX: F33.2 Major depressive disorder, recurrent severe without psychotic features (principal)
CPT/HCPCS: 90870; 94760

== ENCOUNTER 2024-03-23 08:21 | Day surgery (SDC) | payer OTHER, MEDICARE ==
[2024-03-17 14:28] VITALS: BMI 25.3
[2024-03-23] MEDS ORDERED: KETAMINE HCL 100 MG/ML - 5ML VIAL ONE (10:33)
[2024-03-23 10:43] LABS: BASO % 0.4 % (0-2.0); EOS % 5.2 % (0-4.5); HEMATOCRIT 32.9 % (35.4-49); HEMOGLOBIN 11.5 GM/dL (11.7-16.9); LYMPH % 21.2 % (8-40); MCH 32.5 pg (25.7-33.7); MEAN CELL VOLUME 92.6 fl (80-96); MEAN PLT VOLUME 7.5 fl (7.5-11.1); MONO % 8.6 % (3.8-10.2); NEUT % 64.6 % (42.8-82.8); PLATELET COUNT 218 10^3/uL (134-434); RBC 3.55 M/mm3 (4.00-5.60); RDW 13.2 % (11.9-15.9); WHITE BLOOD COUNT 4.1 K/mm3 (4.0-10.0)
[2024-03-23 11:21] LABS: ALBUMIN 4.1 g/dl (3.4-5.0); BILIRUBIN,TOTAL 0.4 mg/dl (0.2-1); CALCIUM 9.5 mg/dl (8.5-10.1); CREATININE 1.3 mg/dl (0.6-1.3); POTASSIUM 4.1 mmol/L (3.5-5.1); TOT PROT 6.5 g/dl (6.4-8.2)
[2024-03-23 11:44] VITALS: RESP 18; TEMP 97.8
[2024-03-23 13:16] VITALS: BP 121/64; PULSE 72
== END 2024-03-23 12:45 | disposition home or self-care (01) ==
LOC: FECT 08:21
PROVIDERS: ATTEND Student in an Organized Health Care Education/Training Program
PROC: GZB4ZZZ Other Electroconvulsive Therapy (ICD-10-PCS; principal; 2024-03-23 10:55)
DX: F32.A Depression, unspecified (principal)
CPT/HCPCS: 36415; 80053; 85025; 90870; 93005; 93010; 94760

== ENCOUNTER 2024-04-20 08:56 | Day surgery (SDC) | payer OTHER, MEDICARE ==
[2024-04-17 14:23] VITALS: BMI 25.3
[2024-04-20] MEDS ORDERED: KETAMINE HCL 100 MG/ML - 5ML VIAL ONE (10:50)
[2024-04-20] MEDS ORDERED: SUCCINYLCHOLINE CHLORIDE 200 MG/10 ML SYRINGE ONE (10:53)
[2024-04-20 11:52] VITALS: BP 120/69; PULSE 87; RESP 16; TEMP 97.6
== END 2024-04-20 13:30 | disposition home or self-care (01) ==
LOC: FECT 08:56
PROVIDERS: ATTEND Student in an Organized Health Care Education/Training Program
PROC: GZB4ZZZ Other Electroconvulsive Therapy (ICD-10-PCS; principal; 2024-04-20 11:00)
DX: F32.A Depression, unspecified (principal)
CPT/HCPCS: 90870; 94760

== ENCOUNTER 2024-05-18 10:40 | Day surgery (SDC) | payer OTHER, MEDICARE ==
[2024-05-18 11:12] VITALS: BMI 25.3
[2024-05-18] MEDS ORDERED: KETAMINE HCL 100 MG/ML - 5ML VIAL ONE (12:10)
[2024-05-18 13:05] VITALS: RESP 16
[2024-05-18 13:25] VITALS: PULSE 78; TEMP 97.4
[2024-05-18 13:38] VITALS: BP 124/78
== END 2024-05-18 14:25 | disposition home or self-care (01) ==
LOC: FECT 10:40
PROVIDERS: ATTEND Student in an Organized Health Care Education/Training Program
PROC: GZB4ZZZ Other Electroconvulsive Therapy (ICD-10-PCS; principal; 2024-05-18 12:30)
DX: F32.A Depression, unspecified (principal)
CPT/HCPCS: 90870; 94760

== ENCOUNTER 2024-06-08 08:09 | Day surgery (SDC) | payer OTHER, MEDICARE ==
[2024-06-08 08:30] VITALS: BMI 25.3
[2024-06-08] MEDS ORDERED: KETAMINE HCL 100 MG/ML - 5ML VIAL ONE (09:40)
[2024-06-08 12:40] VITALS: RESP 18; TEMP 98
[2024-06-08 12:41] VITALS: BP 122/62; PULSE 62
== END 2024-06-08 13:00 | disposition home or self-care (01) ==
LOC: FECT 08:09
PROVIDERS: ATTEND Student in an Organized Health Care Education/Training Program
PROC: GZB4ZZZ Other Electroconvulsive Therapy (ICD-10-PCS; principal; 2024-06-08 11:11)
DX: F32.A Depression, unspecified (principal)
CPT/HCPCS: 90870; 94760

== ENCOUNTER 2024-07-13 09:55 | Day surgery (SDC) | payer OTHER, MEDICARE ==
[2024-06-30 11:32] VITALS: BMI 25.3
[2024-07-13] MEDS ORDERED: SUCCINYLCHOLINE CHLORIDE 200 MG/10 ML SYRINGE ONE (11:34)
[2024-07-13 12:13] VITALS: RESP 18; TEMP 97.2
[2024-07-13 13:33] VITALS: BP 134/81; PULSE 69
== END 2024-07-13 13:15 | disposition home or self-care (01) ==
LOC: FECT 09:55
PROVIDERS: ATTEND Student in an Organized Health Care Education/Training Program
PROC: GZB4ZZZ Other Electroconvulsive Therapy (ICD-10-PCS; principal; 2024-07-13 11:39)
DX: F32.A Depression, unspecified (principal)
CPT/HCPCS: 90870; 94760

== ENCOUNTER 2024-08-10 09:16 | Day surgery (SDC) | payer OTHER, MEDICARE ==
[2024-08-03 17:11] VITALS: BMI 25.3
[2024-08-10] MEDS ORDERED: KETAMINE HCL 100 MG/ML - 5ML VIAL ONE (09:42)
[2024-08-10 10:50] VITALS: RESP 18
[2024-08-10 11:15] VITALS: BP 112/60; PULSE 66; TEMP 97.9
[2024-08-10] MEDS ORDERED: ACETAMINOPHEN INJECTION 100 ML ONE (11:27)
== END 2024-08-10 11:45 | disposition home or self-care (01) ==
LOC: FECT 09:16
PROVIDERS: ATTEND Student in an Organized Health Care Education/Training Program
PROC: GZB4ZZZ Other Electroconvulsive Therapy (ICD-10-PCS; principal; 2024-08-10 10:03)
DX: F32.A Depression, unspecified (principal)
CPT/HCPCS: 90870; 94760